=== PATIENT | male | born 1985 | race Caucasian/White ===

== ENCOUNTER 2017-08-05 23:38 | Emergency (ER) | payer OTHER ==
[2017-08-05 23:44] VITALS: RESP 20; TEMP 99.2
[2017-08-06] MEDS ORDERED: KETOROLAC 30 MG/ML 1 ML VIAL IVP STA (00:05)
--- NOTE | 2017-08-06 00:14 | ED ---
Abdominal Pain HPI - General Chief Complaint: Nausea/Vomiting/Diarrhea Stated Complaint: Vomiting,Back Pain Time Seen by Provider: 08/05/17 23:49 Source: patient Mode of arrival: ambulatory Limitations: no limitations - History of Present Illness Initial Comments: This patient is a 31-year-old man who presents to be evaluated for a number of symptoms. He states that he has been having intermittent right-sided abdominal pains, as well as noticing some bright red blood in the stool, and also having had gross hematuria. He states the symptoms have been intermittent since at least the summer, but he did not seek any attention as he did not have medical insurance until recently. The patient does have difficulty in characterizing the pain. He has not noted any factors that seem to improve the symptoms or exacerbate them. He denies weight loss. He has not had vomiting. MD Complaint: abdominal pain -: month(s) Location: RUQ Radiation: none Severity: severe Quality: aching Consistency: intermittent Improves With: nothing Worsens With: nothing - Related Data Home Medications Medication Instructions Recorded Confirmed Hydrocodone/Acetaminophen [Vicodin 1 each PO Q6HR PRN 12/28/14 12/28/14 Hp 10-300 mg Tablet] Previous Rx's Medication Instructions Recorded Acetaminophen-Codeine 300-30mg 1 each PO Q6H PRN #20 tablet 12/28/14 [Tylenol #3] Ibuprofen [Motrin] 600 mg PO Q6HR PRN #40 day 12/28/14 Dicyclomine [Bentyl] 20 mg PO QID #15 tablet 08/06/17 Famotidine [Pepcid] 20 mg PO BID #14 tablet 08/06/17 Allergies Allergy/AdvReac Type Severity Reaction Status Date / Time No Known Allergies Allergy Verified 08/05/17 23:44 Review of Systems ROS Statement: Those systems with pertinent positive or pertinent negative responses have been documented in the HPI. ROS Other: All systems not noted in ROS Statement are negative. Constitutional: Denies: fever, chills, weakness Respiratory: Denies: cough, dyspnea Cardiovascular: Denies: chest pain, palpitations, edema Gastrointestinal: Reports: as per HPI, abdominal pain, hematochezia. Denies: nausea, vomiting, diarrhea, constipation Genitourinary: Reports: as per HPI, hematuria Musculoskeletal: Denies: back pain Skin: Denies: rash Neurological: Denies: headache Hematological/Lymphatic: Denies: easy bleeding Past Medical History Past Medical History: GERD/Reflux Additional Past Medical History / Comment(s): back pain History of Any Multi-Drug Resistant Organisms: None Reported Past Surgical History: Orthopedic Surgery Additional Past Surgical History / Comment(s): left hand Past Psychological History: No Psychological Hx Reported Smoking Status: Current every day smoker Past Alcohol Use History: Occasional Past Drug Use History: Marijuana General Exam Limitations: no limitations General appearance: alert, in no apparent distress Head exam: Present: atraumatic, normocephalic Eye exam: Present: normal appearance. Absent: scleral icterus, conjunctival injection ENT exam: Present: normal oropharynx, mucous membranes moist, other (Partially edentulous) Neck exam: Present: normal inspection Respiratory exam: Present: normal lung sounds bilaterally. Absent: respiratory distress, wheezes, rales, rhonchi, stridor Cardiovascular Exam: Present: regular rate, normal rhythm, normal heart sounds. Absent: systolic murmur, diastolic murmur, rubs, gallop GI/Abdominal exam: Present: soft, normal bowel sounds. Absent: distended, tenderness, guarding, rebound, rigid, mass, pulsatile mass, hernia Extremities exam: Present: normal inspection, normal capillary refill, other ( Postsurgical changes left hand, digits 234 and amputated). Absent: pedal edema , calf tenderness Back exam: Present: normal inspection. Absent: CVA tenderness (R), CVA tenderness (L) Neurological exam: Present: alert, normal gait Skin exam: Present: warm, dry, intact, normal color. Absent: rash Course Vital Signs 08/05/17 08/06/17 23:41 01:29 Temperature 99.2 F Pulse Rate 105 H 76 Respiratory 20 20 Rate Blood Pressure 174/70 109/59 O2 Sat by Pulse 100 96 Oximetry Medical Decision Making - Lab Data Result diagrams: 08/06/17 00:07 08/06/17 00:07 Lab Results 08/06/17 08/06/17 08/06/17 Range/Units 00:07 00:07 00:57 WBC 10.9 H (3.8-10.6) k/uL RBC 4.38 (4.30-5.90) m/uL Hgb 13.7 (13.0-17.5) gm/dL Hct 39.1 (39.0-53.0) % MCV 89.3 (80.0-100.0) fL MCH 31.3 (25.0-35.0) pg MCHC 35.0 (31.0-37.0) g/dL RDW 12.2 (11.5-15.5) % Plt Count 260 (150-450) k/uL Neutrophils % 72 % Lymphocytes % 17 % Monocytes % 6 % Eosinophils % 2 % Basophils % 0 % Neutrophils # 7.9 H (1.3-7.7) k/uL Lymphocytes # 1.8 (1.0-4.8) k/uL Monocytes # 0.7 (0-1.0) k/uL Eosinophils # 0.2 (0-0.7) k/uL Basophils # 0.0 (0-0.2) k/uL Sodium 138 (137-145) mmol/L Potassium 3.9 (3.5-5.1) mmol/L Chloride 103 (98-107) mmol/L Carbon Dioxide 25 (22-30) mmol/L Anion Gap 10 mmol/L BUN 20 (9-20) mg/dL Creatinine 1.00 (0.66-1.25) mg/dL Est GFR (CKD-EPI)AfAm >90 (>60 ml/min/1.73 sqM) Est GFR (CKD-EPI)NonAf >90 (>60 ml/min/1.73 sqM) Glucose 75 (74-99) mg/dL Calcium 9.7 (8.4-10.2) mg/dL Total Bilirubin 0.3 (0.2-1.3) mg/dL AST 37 (17-59) U/L ALT 29 (21-72) U/L Alkaline Phosphatase 52 (38-126) U/L Total Protein 6.5 (6.3-8.2) g/dL Albumin 4.0 (3.5-5.0) g/dL Amylase 47 (30-110) U/L Lipase 156 (23-300) U/L Urine Color Light Yellow Urine Appearance Clear (Clear) Urine pH 6.5 (5.0-8.0) Ur Specific [place] 1.005 (1.001-1.035) Urine Protein Negative (Negative) Urine Glucose (UA) Negative (Negative) Urine Ketones Negative (Negative) Urine Blood Negative (Negative) Urine Nitrite Negative (Negative) Urine Bilirubin Negative (Negative) Urine Urobilinogen <2.0 (<2.0) mg/dL Ur Leukocyte Esterase Negative (Negative) Disposition Clinical Impression: Abdominal pain Disposition: HOME SELF-CARE Condition: Good Instructions: Abdominal Pain (ED) Prescriptions: Dicyclomine [Bentyl] 20 mg PO QID #15 tablet Famotidine [Pepcid] 20 mg PO BID #14 tablet Referrals: Karen Galvin MD [Primary Care Provider] - 1-2 days Neva Aguilar MD [STAFF PHYSICIAN] - 1-2 days
[2017-08-06 00:26] LABS: Basophils % (A) 0 %; Eosinophils # (A) 0.2 k/uL (0-0.7); Eosinophils % (A) 2 %; HCT 39.1 % (39.0-53.0); HGB 13.7 gm/dL (13.0-17.5); Lymphocytes # (A) 1.8 k/uL (1.0-4.8); Lymphocytes % (A) 17 %; MCH 31.3 pg (25.0-35.0); MCV 89.3 fL (80.0-100.0); Mean Platelet Volume 7.1; Monocytes # (A) 0.7 k/uL (0-1.0); Monocytes % (A) 6 %; Neutrophils # (A) 7.9 k/uL (1.3-7.7); Neutrophils % (A) 72 %; Platelet Count 260 k/uL (150-450); RBC 4.38 m/uL (4.30-5.90); RDW 12.2 % (11.5-15.5); WBC 10.9 k/uL (3.8-10.6)
[2017-08-06 00:30] LABS: ALT 29 U/L (21-72); AST 37 U/L (17-59); Alkaline Phosphatase 52 U/L (38-126); Amylase 47 U/L (30-110); Anion Gap 10 mmol/L; Blood Urea Nitrogen 20 mg/dL (9-20); Calcium 9.7 mg/dL (8.4-10.2); Carbon Dioxide 25 mmol/L (22-30); Chloride 103 mmol/L (98-107); Glucose 75 mg/dL (74-99); Lipase 156 U/L (23-300); Potassium 3.9 mmol/L (3.5-5.1); Sodium 138 mmol/L (137-145); Total Bilirubin 0.3 mg/dL (0.2-1.3); Total Protein 6.5 g/dL (6.3-8.2)
--- NOTE | 2017-08-06 00:51 | CT ---
EXAMINATION TYPE: CT abdomen pelvis wo con DATE OF EXAM: 08/06/2017 COMPARISON: NONE HISTORY: Rt. Flank Pain CT DLP: 297.40 mGycm Automated exposure control for dose reduction was used. TECHNIQUE: Helical acquisition of images was performed from the lung bases through the pelvis. FINDINGS: Lung bases are clear. There is no pleural effusion. There is no pericardial effusion. Heart size is n ormal. Liver spleen pancreas appear normal. Bile ducts are not dilated. Gallbladder appears normal. There is no hydronephrosis. There is no adrenal mass. There is no evidence of a renal type ileus. The re is no evidence of intestinal wall thickening or dilated loops. Bladder distends smoothly. There is no evidence of a pelvic mass. Exam is limited by lack of any oral contrast. Retroperitoneal adenopathy cannot be excluded. There is lack of intra-abdominal fat and retroperitone um is not well evaluated. I see no bony destructive process. Urinary bladder is large and measures 13 cm in length. Appendix is not well seen. There is no sign of appendicitis.: IMPRESSION: EXAM LIMITED DUE TO LACK OF ANY ORAL CONTRAST. RETROPERITONEAL ADENOPATHY CANNOT BE EXCLUDED. NO EVID ENCE OF RENAL STONE OR OBSTRUCTION. NO SIGN OF APPENDICITIS. LARGE URINARY BLADDER COULD RELATE TO BL ADDER OUTLET OBSTRUCTION.
[2017-08-06 01:09] LABS: Appearance,Urine Clear (Clear); Bilirubin,Urine Negative (Negative); Blood,Urine Negative (Negative); Color,Urine Light Yellow; Glucose,Urine (UA) Negative (Negative); Ketones,Urine Negative (Negative); Leukocyte Esterase,Urine Negative (Negative); PH, Urine 6.5 (5.0-8.0); Protein,Urine Negative (Negative); Specific Gravity,Urine 1.005 (1.001-1.035); Urobilinogen,Urine <2.0 mg/dL (<2.0)
[2017-08-06] MEDS ORDERED: DICYCLOMINE 20 MG TAB PO STA (01:21)
[2017-08-06 01:30] VITALS: BP 109/59; PULSE 76
== END 2017-08-06 02:24 | disposition home or self-care (01) ==
LOC: EC 23:38
DX: R10.11 Right upper quadrant pain (principal); M54.9 Dorsalgia, unspecified; K92.1 Melena; F17.200 Nicotine dependence, unspecified, uncomplicated
CPT/HCPCS: 51798; 36415; 80053; 82150; 83690; 85025; 81003; 74176; 99284; 96374; J1885

== ENCOUNTER 2017-11-30 17:17 | Emergency (ER) | payer OTHER ==
[2017-11-30 17:22] VITALS: RESP 18
--- NOTE | 2017-11-30 17:41 | ED ---
Upper Extremity HPI - General Chief Complaint: Extremity Injury, Upper Stated Complaint: Shot Wrist with framing gun Time Seen by Provider: 11/30/17 17:27 Source: patient, RN notes reviewed Mode of arrival: ambulatory Limitations: no limitations - History of Present Illness Initial Comments: This is a 32-year-old male who presents to the emergency department with chief complaint of left wrist injury. Patient states that yesterday while building a toy box his nail gun double shot and a nail became lodged in the base of his left palm. He states it was in a approximately 1 inch. He states that he pulled the nail out himself. Patient complains of increasing pain to his left wrist today. He does state that he has normal range of motion of the joint. States he is up-to-date with his tetanus vaccination. Denies any other injuries or trauma. Denies drug allergies. Denies fever, chills, chest pain, shortness of breath, abdominal pain, nausea or vomiting, numbness or tingling, headache or vision changes. - Related Data Previous Rx's Medication Instructions Recorded Cephalexin [Keflex] 500 mg PO Q12HR #20 cap 11/30/17 Ciprofloxacin HCl 500 mg PO BID 10 Days #20 tab 11/30/17 Allergies Allergy/AdvReac Type Severity Reaction Status Date / Time No Known Allergies Allergy Verified 08/05/17 23:44 Review of Systems ROS Statement: Those systems with pertinent positive or pertinent negative responses have been documented in the HPI. ROS Other: All systems not noted in ROS Statement are negative. Past Medical History Past Medical History: GERD/Reflux Additional Past Medical History / Comment(s): back pain History of Any Multi-Drug Resistant Organisms: None Reported Past Surgical History: Orthopedic Surgery Additional Past Surgical History / Comment(s): left hand Past Psychological History: No Psychological Hx Reported Smoking Status: Current every day smoker Past Alcohol Use History: Occasional Past Drug Use History: Marijuana General Exam - General Exam Comments Initial Comments: General: Awake and alert, well-developed; in no apparent distress. HEENT: Head atraumatic, normocephalic. Pupils are equal, round and reactive to light. Extraocular movements intact. Oropharynx moist without erythema or exudate. Neck: Supple. Normal ROM. Cardiovascular: Regular rate and rhythm. No murmurs, rubs or gallops. Chest symmetrical. Respiratory: Lungs clear to auscultation bilaterally. No wheezes, rales or rhonchi. Normal respiratory effort with no use of accessory muscles. Musculoskeletal: First and fifth digits are the only remaining fingers on the left hand. There is a small puncture wound noted to the palmar aspect base of the left hand. Patient's hands are covered in dirt. Normal range of motion of the left wrist and remaining digits, however tenderness is elicited. No swelling, erythema or warmth noted. Sensation is intact. Radial pulses are 2+ equal and palpable bilaterally. Skin: [place], warm and dry without rashes or lesions. Neurological: Alert and oriented x3. CN II-XII grossly intact. Speech is fluent and answers are appropriate. No focal neuro deficits. Psychiatric: Normal mood and affect. No overt signs of depression or anxiety noted. Limitations: no limitations Course Vital Signs 11/30/17 17:19 Temperature 98.2 F Pulse Rate 79 Respiratory 18 Rate Blood Pressure 122/73 O2 Sat by Pulse 98 Oximetry Medical Decision Making - Medical Decision Making This is a 32-year-old male who presents to the emergency department with chief complaint of left wrist injury. Patient accidentally shot a nail into the palm of his left hand yesterday. Patient complains of increase in pain today. He does have normal range of motion of the left wrist and remaining digits 1 and 5. No swelling, erythema or warmth noted. He is neurovascularly intact. X- ray of the left was obtained and revealed no evidence for acute fractures or dislocations. It did reveal generalized soft tissue swelling. Patient states he is up-to-date with his tetanus vaccination. Patient's hands were covered in dirt. The wound was soaked in iodine and was extensively cleansed. Recommended warm Epson salt soaks. Patient will be started on Keflex to cover staph and ciprofloxacin to cover pseudomonas. Vital signs are stable and he is in no acute distress. Recommend following up with his primary care provider. He'll be discharged home at this time. He is in agreement with plan and voices understanding. All questions answered. - Radiology Data Radiology results: report reviewed X-ray left wrist impression: There is no acute fracture or dislocation the left wrist. Generalized soft tissue swelling. No metallic foreign body. Disposition Clinical Impression: Puncture wound, hand Disposition: HOME SELF-CARE Condition: Good Instructions: Puncture Wound (ED) Additional Instructions: Please take medications as prescribed. Please perform daily Epson salt soaks. Please follow up with primary care provider within 1-2 days. Return to emergency department if symptoms should worsen or any concerns arise. Prescriptions: Cephalexin [Keflex] 500 mg PO Q12HR #20 cap Ciprofloxacin HCl 500 mg PO BID 10 Days #20 tab Is patient prescribed a controlled substance at d/c from ED?: No Referrals: Karen Galvin MD [Primary Care Provider] - 1-2 days Time of Disposition: 18:31
[2017-11-30] MEDS ORDERED: CIPROFLOXACIN HCL 250 MG TAB PO STA (17:45)
[2017-11-30] MEDS ORDERED: CEPHALEXIN 500 MG CAP PO STA (17:46)
--- NOTE | 2017-11-30 18:08 | XR ---
EXAMINATION TYPE: XR wrist complete LT DATE OF EXAM: 11/30/2017 CLINICAL HISTORY: Shot with nail gun yesterday TECHNIQUE: Frontal, lateral and oblique images of the left wrist are obtained. COMPARISON: None FINDINGS: There is no acute fracture/dislocation evident in the left wrist. The joint spaces in the wrist appe ar within normal limits. Generalized soft tissue is present. No metallic foreign body.. IMPRESSION: There is no acute fracture or dislocation in the left wrist. Generalized soft tissue swelling. No me tallic foreign body.
[2017-11-30] MEDS ORDERED: IBUPROFEN 600 MG TAB PO STA (18:27)
[2017-11-30 18:37] VITALS: BP 134/78; PULSE 70; TEMP 98.4
== END 2017-11-30 18:45 | disposition home or self-care (01) ==
LOC: EC 17:17
DX: S61.432A Puncture wound without foreign body of left hand, initial encounter (principal); F17.200 Nicotine dependence, unspecified, uncomplicated; Z98.890 Other specified postprocedural states; W29.4XXA Contact with nail gun, initial encounter; Y93.89 Activity, other specified
CPT/HCPCS: 99283

== ENCOUNTER 2018-01-11 00:57 | Emergency (ER) | payer OTHER ==
--- NOTE | 2018-01-11 01:31 | ED ---
Chest Pain HPI - General Chief Complaint: Chest Pain Stated Complaint: Chest Pain Time Seen by Provider: 01/11/18 01:31 Source: patient Mode of arrival: wheelchair Limitations: no limitations - History of Present Illness Initial Comments: Festus is a 32-year-old male who presents to the ED today for evaluation of right- sided shoulder and chest wall pain as well as concern that he has a metal foreign body in his left eye. 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 He states that for the past 2-3 weeks he started experiencing pain in his right shoulder and his right chest wall. Pain is sharp in nature worse with movement, radiating through the right chest and into the right shoulder and right neck. Pain improves with rest and worsens with any physical activity including heavy lifting or playing with his children. He reports he took some ibuprofen a couple of days ago doesn't feel that it affected the pain at all. He isn't every day smoker. He denies any cardiac history or history of early cardiac disease. He denies any history of pneumothorax or clotting disorders. She states that 5 days ago he was using a pigment grinder to grind metal. He states that he was wearing protective lenses however metal shavings were able to get into his eye. He reports that he had to metal shavings in his eye. He was able to remove one but one has remained in the eye. He states that he is having some photophobia and has noticed that you can see rest developing in his eye. Patient is nondiabetic. He does not wear contacts. - Related Data Previous Rx's Medication Instructions Recorded Cephalexin [Keflex] 500 mg PO Q12HR #20 cap 11/30/17 Ciprofloxacin HCl 500 mg PO BID 10 Days #20 tab 11/30/17 Allergies Allergy/AdvReac Type Severity Reaction Status Date / Time No Known Allergies Allergy Verified 01/11/18 01:01 Review of Systems ROS Statement: Those systems with pertinent positive or pertinent negative responses have been documented in the HPI. ROS Other: All systems not noted in ROS Statement are negative. Past Medical History Past Medical History: GERD/Reflux Additional Past Medical History / Comment(s): back pain History of Any Multi-Drug Resistant Organisms: None Reported Past Surgical History: Orthopedic Surgery Additional Past Surgical History / Comment(s): left hand Past Psychological History: No Psychological Hx Reported Smoking Status: Current every day smoker Past Alcohol Use History: Occasional Past Drug Use History: Marijuana General Exam Limitations: no limitations Course Vital Signs 01/11/18 01/11/18 01/11/18 00:59 02:09 03:07 Temperature 98 F 99.3 F Pulse Rate 97 95 81 Respiratory 18 16 18 Rate Blood Pressure 123/82 151/74 151/74 O2 Sat by Pulse 97 98 97 Oximetry Procedures - Procedures Initial comment: Foreign body removal from the left eye Patient's eye was anesthetized with proparacaine drops Metal foreign body was removed from the clock position on the iris of the left eye No rust ring remained after removal Erythromycin ointment was applied to the eye The patient tolerated procedure well with no immediate complications Chest Pain MDM - [facility] The patient was seen and evaluated, history was obtained from the patient. Patient with approximately 2-3 weeks of right-sided chest wall pain and right shoulder pain. Pain is worse with movement or palpation, pain resolves with rest. Patient has taken ibuprofen one time in the past week with no change in his pain. Pain is not associated with any exertional symptoms, there is no shortness of breath, diaphoresis, lightheadedness, near syncope. Patient is right-hand dominant and does have a very physically active job, and addition he does have 4 children under the age of 5 at home whom he plays with and has to carry frequently EKG is unremarkable normal sinus rhythm no evidence of acute ischemia or infarction Chest x-ray unremarkable no evidence of rib fractures, no pneumothorax, no pneumonia At this time I believe the patient's symptoms are secondary to musculoskeletal pain Physical exam also reveals a ocular foreign body, appears to be metal overlying the iris in the 5 o'clock position of the left eye. The eye was anesthetized with 4 body was removed and erythromycin ointment was applied. The importance of follow-up with ophthalmology was discussed with the patient. All questions pertaining to care were answered to the best of my ability patient was discharged home in stable condition. Patient was given erythromycin ointment in the ER, no further antibiotic prescription was necessary. Disposition Clinical Impression: Musculoskeletal pain, Corneal abrasion, Foreign body, eye Disposition: HOME SELF-CARE Condition: Good Instructions: Chest Pain (ED), Corneal Abrasion (ED) Is patient prescribed a controlled substance at d/c from ED?: No Referrals: None,Stated [Primary Care Provider] - 1-2 days Sandro Manzanares MD [STAFF PHYSICIAN] - 1-2 days Time of Disposition: 02:56
[2018-01-11] MEDS ORDERED: PROPARACAINE 0.5% OPHTH DROPS 15 ML BTL LEFT EYE STA (01:54)
[2018-01-11] MEDS ORDERED: ERYTHROMYCIN 5 MG/GM OPHTH OINT 3.5 GM TUBE LEFT EYE SCH (02:00)
[2018-01-11 02:13] VITALS: BP 151/74
--- NOTE | 2018-01-11 02:20 | XR ---
EXAMINATION TYPE: XR chest 2V DATE OF EXAM: 01/11/2018 COMPARISON: 12/28/2014 HISTORY: Chest pain TECHNIQUE: Frontal and lateral views of the chest are obtained. FINDINGS: Heart and mediastinum are normal. Lungs are clear. Diaphragm is normal. There are chest le ads. IMPRESSION: Normal chest. No change.
[2018-01-11 03:11] VITALS: PULSE 81; RESP 18; TEMP 99.3
--- NOTE | 2018-02-19 06:28 | CDI ---
Documentation Clarification OP Dear Dr. Akil Ceron Please complete eye(iris) foreign body removal procedure note. Thank you, Karina Alford Lead Installer If you have any questions, please contact [employer] at [phone] [facility]
== END 2018-01-11 03:10 | disposition home or self-care (01) ==
LOC: EC 00:57
DX: T15.02XA Foreign body in cornea, left eye, initial encounter (principal); M25.511 Pain in right shoulder; R07.89 Other chest pain; K21.9 Gastro-esophageal reflux disease without esophagitis; F17.200 Nicotine dependence, unspecified, uncomplicated; Y93.89 Activity, other specified
CPT/HCPCS: 65220; 71046; 93005; 99285

== ENCOUNTER 2018-10-07 16:11 | Emergency (ER) | payer OTHER ==
[2018-10-07 17:35] LABS: Appearance,Urine Clear (Clear); Bilirubin,Urine Negative (Negative); Blood,Urine Negative (Negative); Color,Urine Light Yellow; Glucose,Urine (UA) Negative (Negative); Ketones,Urine Negative (Negative); Leukocyte Esterase,Urine Large (Negative); Mucus,Urine Rare /hpf; Nitrite,Urine Negative (Negative); Protein,Urine Negative (Negative); RBC,Urine 1 /hpf (0-5); Specific Gravity,Urine 1.006 (1.001-1.035); Urobilinogen,Urine <2.0 mg/dL (<2.0)
[2018-10-07] MEDS ORDERED: cefTRIAXone 1,000 MG VIAL (IM USE) IM STA (17:45)
[2018-10-07] MEDS ORDERED: AZITHROMYCIN 250 MG TAB PO STA (17:45)
--- NOTE | 2018-10-07 17:52 | ED ---
Male Urogenital HPI - General Chief complaint: Urogenital Stated complaint: Urogenital Time Seen by Provider: 10/07/18 17:02 Source: patient, RN notes reviewed Mode of arrival: ambulatory Limitations: no limitations - History of Present Illness Initial comments: 33-year-old male presents emergency Department with chief complaint of dysuria. Patient states started last couple days. She has noticed some penile discharge. Patient states she had no concern up until now of possible STDs. Patient states she had no prior urinary tract infections denies any significant past medical history denies abdominal pain, fever, chills, flank pain. - Related Data Previous Rx's Medication Instructions Recorded Sulfamethox-Tmp 800-160Mg [Bactrim 1 each PO Q12HR #14 tab 10/07/18 Ds] Allergies Allergy/AdvReac Type Severity Reaction Status Date / Time No Known Allergies Allergy Verified 10/07/18 16:40 Review of Systems ROS Statement: Those systems with pertinent positive or pertinent negative responses have been documented in the HPI. ROS Other: All systems not noted in ROS Statement are negative. Past Medical History Past Medical History: GERD/Reflux Additional Past Medical History / Comment(s): back pain History of Any Multi-Drug Resistant Organisms: None Reported Past Surgical History: Orthopedic Surgery Additional Past Surgical History / Comment(s): left hand Past Psychological History: No Psychological Hx Reported Smoking Status: Current every day smoker Past Alcohol Use History: Occasional Past Drug Use History: Marijuana General Exam Limitations: no limitations General appearance: alert, in no apparent distress Head exam: Present: atraumatic, normocephalic, normal inspection Respiratory exam: Present: normal lung sounds bilaterally. Absent: respiratory distress, wheezes, rales, rhonchi, stridor Cardiovascular Exam: Present: regular rate, normal rhythm, normal heart sounds. Absent: systolic murmur, diastolic murmur, rubs, gallop, clicks GI/Abdominal exam: Present: soft, normal bowel sounds. Absent: distended, tenderness, guarding, rebound, rigid Back exam: Absent: CVA tenderness (R), CVA tenderness (L) Course Vital Signs 10/07/18 16:38 Temperature 99.3 F Pulse Rate 83 Respiratory 16 Rate Blood Pressure 122/78 O2 Sat by Pulse 98 Oximetry Medical Decision Making - Medical Decision Making 33-year-old female presented for dysuria. Patient does have 72 white cells on urinalysis. Patient we treated for gonorrhea chlamydia and discharged with Bactrim for possible urinary tract infection. Patient follow-up with PCP for recheck and return for any worsening symptoms. - Lab Data Lab Results 10/07/18 Range/Units 17:17 Urine Color Light Yellow Urine Appearance Clear (Clear) Urine pH 8.0 (5.0-8.0) Ur Specific [place] 1.006 (1.001-1.035) Urine Protein Negative (Negative) Urine Glucose (UA) Negative (Negative) Urine Ketones Negative (Negative) Urine Blood Negative (Negative) Urine Nitrite Negative (Negative) Urine Bilirubin Negative (Negative) Urine Urobilinogen <2.0 (<2.0) mg/dL Ur Leukocyte Esterase Large H (Negative) Urine RBC 1 (0-5) /hpf Urine WBC 72 H (0-5) /hpf Urine Mucus Rare H (None) /hpf Disposition Clinical Impression: UTI (urinary tract infection) Disposition: HOME SELF-CARE Condition: Stable Instructions (If sedation given, give patient instructions): Urinary Tract Infection in Men (ED) Additional Instructions: Please return to the Emergency Department if symptoms worsen or any other concerns. Prescriptions: Sulfamethox-Tmp 800-160Mg [Bactrim Ds] 1 each PO Q12HR #14 tab Is patient prescribed a controlled substance at d/c from ED?: No Referrals: None,Stated [Primary Care Provider] - 1-2 days Time of Disposition: 17:52
[2018-10-07 19:26] VITALS: BP 122/68; PULSE 78; RESP 18; TEMP 99
[2018-10-09 14:25] LABS: C. trachomatis,PCR Negative (Neg,Equiv); Chlamydia trachomatis Source Urine; N. gonorrhoeae,PCR Positive (Neg,Equiv); Neisseria Source Urine
== END 2018-10-07 19:20 | disposition home or self-care (01) ==
LOC: EC 16:11
DX: N39.0 Urinary tract infection, site not specified (principal); F17.200 Nicotine dependence, unspecified, uncomplicated
CPT/HCPCS: 81001; 87491; 87591; 87086; 99283; 96372; J0696

== ENCOUNTER 2020-04-03 10:34 | Emergency (ER) | payer OTHER ==
[2020-04-03] MEDS ORDERED: HYDROmorphone 0.5 MG/0.5 ML SYRINGE IVP STA (10:54)
[2020-04-03] MEDS ORDERED: KETOROLAC 15 MG/ML 1 ML VIAL IVP STA (10:54)
[2020-04-03] MEDS ORDERED: ONDANSETRON 4 MG/2 ML VIAL IVP STA (10:54)
[2020-04-03] MEDS ORDERED: SODIUM CHLORIDE 0.9% 2,000 ML IV STA (10:54)
--- NOTE | 2020-04-03 10:58 | ED ---
Abdominal Pain HPI - General Chief Complaint: Abdominal Pain Stated Complaint: Abd Pain Time Seen by Provider: 04/03/20 10:44 Source: patient, RN notes reviewed Mode of arrival: ambulatory Limitations: no limitations - History of Present Illness Initial Comments: 34-year-old male presents emergency Department with chief complaint of left lower quadrant abdominal pain. Patient states is a sudden onset of one hour ago. He has no history kidney stones. Patient states pain rates his left flank she's been nauseated no vomiting no diarrhea no constipation. Patient not take anything for his pain. Patient's behavior is erratic at this point and we'll not find much information. Some information provided by family member in the room no fevers or chills no chest pain. - Related Data Previous Rx's Medication Instructions Recorded Ciprofloxacin HCl [Cipro] 500 mg PO Q12HR #14 tablet 04/03/20 Ibuprofen [Motrin] 800 mg PO Q6HR #30 tab 04/03/20 Ondansetron Odt [Zofran Odt] 4 mg PO Q8HR PRN #10 tab 04/03/20 Tamsulosin [Flomax] 0.4 mg PO DAILY #7 cap 04/03/20 Allergies Allergy/AdvReac Type Severity Reaction Status Date / Time No Known Allergies Allergy Verified 04/03/20 11:54 Review of Systems ROS Statement: Those systems with pertinent positive or pertinent negative responses have been documented in the HPI. ROS Other: All systems not noted in ROS Statement are negative. Past Medical History Past Medical History: GERD/Reflux Additional Past Medical History / Comment(s): back pain History of Any Multi-Drug Resistant Organisms: None Reported Past Surgical History: Orthopedic Surgery Additional Past Surgical History / Comment(s): left hand Past Psychological History: No Psychological Hx Reported Smoking Status: Never smoker Past Alcohol Use History: Occasional Past Drug Use History: Marijuana General Exam Limitations: no limitations General appearance: alert, in distress (Patient appears in pain, erratic behavior.) Head exam: Present: atraumatic, normocephalic, normal inspection Neck exam: Present: normal inspection. Absent: tenderness, meningismus, lymphadenopathy Respiratory exam: Present: normal lung sounds bilaterally. Absent: respiratory distress, wheezes, rales, rhonchi, stridor Cardiovascular Exam: Present: regular rate, normal rhythm, normal heart sounds. Absent: systolic murmur, diastolic murmur, rubs, gallop, clicks GI/Abdominal exam: Present: soft, tenderness (Left lower quadrant), normal bowel sounds. Absent: distended, guarding, rebound, rigid Back exam: Absent: CVA tenderness (R), CVA tenderness (L) Neurological exam: Present: alert, oriented X3 Skin exam: Present: warm, dry, intact, normal color. Absent: rash Course Vital Signs 04/03/20 10:36 Temperature 97.8 F Pulse Rate 82 Respiratory 24 Rate Medical Decision Making - Medical Decision Making 34-year-old male presented for left flank pain patient has a 2-3 mm UVJ stone. Patient pain is improving states her still is some pain but feels comfortable with discharge with pain medication follow-up. Return parameters were discussed. - Lab Data Result diagrams: 04/03/20 11:12 04/03/20 11:12 Lab Results 04/03/20 04/03/20 04/03/20 Range/Units 11:12 11:12 11:12 WBC 6.1 (3.8-10.6) k/uL RBC 4.06 L (4.30-5.90) m/uL Hgb 12.9 L (13.0-17.5) gm/dL Hct 39.1 (39.0-53.0) % MCV 96.2 (80.0-100.0) fL MCH 31.8 (25.0-35.0) pg MCHC 33.1 (31.0-37.0) g/dL RDW 12.4 (11.5-15.5) % Plt Count 317 (150-450) k/uL Neutrophils % 52 % Lymphocytes % 30 % Monocytes % 7 % Eosinophils % 6 % Basophils % 0 % Neutrophils # 3.2 (1.3-7.7) k/uL Lymphocytes # 1.9 (1.0-4.8) k/uL Monocytes # 0.4 (0-1.0) k/uL Eosinophils # 0.4 (0-0.7) k/uL Basophils # 0.0 (0-0.2) k/uL Sodium 139 (137-145) mmol/L Potassium 3.8 (3.5-5.1) mmol/L Chloride 104 (98-107) mmol/L Carbon Dioxide 28 (22-30) mmol/L Anion Gap 7 mmol/L BUN 10 (9-20) mg/dL Creatinine 1.00 (0.66-1.25) mg/dL Est GFR (CKD-EPI)AfAm >90 (>60 ml/min/1.73 sqM) Est GFR (CKD-EPI)NonAf >90 (>60 ml/min/1.73 sqM) Glucose 171 H (74-99) mg/dL Calcium 9.6 (8.4-10.2) mg/dL Total Bilirubin 0.5 (0.2-1.3) mg/dL AST 30 (17-59) U/L ALT 15 (4-49) U/L Alkaline Phosphatase 44 (38-126) U/L Total Protein 6.9 (6.3-8.2) g/dL Albumin 4.3 (3.5-5.0) g/dL Lipase 209 (23-300) U/L Urine Color Jeanine Urine Appearance Clear (Clear) Urine pH 5.0 (5.0-8.0) Ur Specific [place] 1.035 (1.001-1.035) Urine Protein Negative (Negative) Urine Glucose (UA) 1+ H (Negative) Urine Ketones 1+ H (Negative) Urine Blood Negative (Negative) Urine Nitrite Negative (Negative) Urine Bilirubin 4+ H (Negative) Urine Urobilinogen 2.0 (<2.0) mg/dL Ur Leukocyte Esterase Small (Negative) Urine WBC 15 H (0-5) /hpf Ur Squamous Epith Cells 4 (0-4) /hpf Urine Mucus Many H (None) /hpf Disposition Clinical Impression: Renal calculus, left Disposition: HOME SELF-CARE Condition: Stable Instructions (If sedation given, give patient instructions): Kidney Stones (ED) Additional Instructions: Please return to the Emergency Department if symptoms worsen or any other concerns. Prescriptions: Ciprofloxacin HCl [Cipro] 500 mg PO Q12HR #14 tablet Tamsulosin [Flomax] 0.4 mg PO DAILY #7 cap Ibuprofen [Motrin] 800 mg PO Q6HR #30 tab Ondansetron Odt [Zofran Odt] 4 mg PO Q8HR PRN #10 tab PRN Reason: Nausea Is patient prescribed a controlled substance at d/c from ED?: No Referrals: None,Stated [Primary Care Provider] - 1-2 days Isak Dewey MD [STAFF PHYSICIAN] - 1-2 days Time of Disposition: 12:32
[2020-04-03 11:24] LABS: Basophils % (A) 0 %; Eosinophils # (A) 0.4 k/uL (0-0.7); Eosinophils % (A) 6 %; HCT 39.1 % (39.0-53.0); HGB 12.9 gm/dL (13.0-17.5); Lymphocytes # (A) 1.9 k/uL (1.0-4.8); Lymphocytes % (A) 30 %; MCH 31.8 pg (25.0-35.0); MCHC 33.1 g/dL (31.0-37.0); MCV 96.2 fL (80.0-100.0); Mean Platelet Volume 7.2; Monocytes # (A) 0.4 k/uL (0-1.0); Monocytes % (A) 7 %; Neutrophils # (A) 3.2 k/uL (1.3-7.7); Neutrophils % (A) 52 %; Platelet Count 317 k/uL (150-450); RBC 4.06 m/uL (4.30-5.90); RDW 12.4 % (11.5-15.5); WBC 6.1 k/uL (3.8-10.6)
[2020-04-03 11:26] LABS: Color,Urine Amber
[2020-04-03 11:27] LABS: Appearance,Urine Clear (Clear)
[2020-04-03 11:28] LABS: Protein,Urine Negative (Negative); Specific Gravity,Urine 1.035 (1.001-1.035)
[2020-04-03 11:29] LABS: Bilirubin,Urine 4+ (Negative); Blood,Urine Negative (Negative); Glucose,Urine (UA) 1+ (Negative); Ketones,Urine 1+ (Negative)
[2020-04-03 11:30] LABS: Leukocyte Esterase,Urine Small (Negative); Nitrite,Urine Negative (Negative)
[2020-04-03 11:32] LABS: Mucus,Urine Many /hpf; Squamous Epithelial Cell,Urine 4 /hpf (0-4); WBC,Urine 15 /hpf (0-5)
[2020-04-03 11:34] LABS: ALT 15 U/L (4-49); AST 30 U/L (17-59); African American GFR (CKD) >90 (>60 ml/min/1.73 sqM); Albumin 4.3 g/dL (3.5-5.0); Alkaline Phosphatase 44 U/L (38-126); Anion Gap 7 mmol/L; Blood Urea Nitrogen 10 mg/dL (9-20); Calcium 9.6 mg/dL (8.4-10.2); Carbon Dioxide 28 mmol/L (22-30); Chloride 104 mmol/L (98-107); Glucose 171 mg/dL (74-99); Lipase 209 U/L (23-300); Non-African American GFR(CKD) >90 (>60 ml/min/1.73 sqM); Potassium 3.8 mmol/L (3.5-5.1); Sodium 139 mmol/L (137-145); Total Bilirubin 0.5 mg/dL (0.2-1.3); Total Protein 6.9 g/dL (6.3-8.2)
--- NOTE | 2020-04-03 11:50 | CT ---
EXAMINATION TYPE: CT abdomen pelvis wo con DATE OF EXAM: 04/03/2020 HISTORY: Generalized pain, left flank pain per order. CT DLP: 505.6 mGycm. Automated Exposure Control for Dose Reduction was Utilized. TECHNIQUE: CT scan of the abdomen and pelvis is performed without oral or IV contrast. COMPARISON: CT abdomen and pelvis August 06, 2017 FINDINGS: Within the limitations of a non-contrast study, the following observations are made. LUNG BASES: No significant abnormality is appreciated. LIVER/GB: No significant abnormality is appreciated. PANCREAS: No significant abnormality is seen. SPLEEN: No significant abnormality is seen. ADRENALS: No significant abnormality is seen. KIDNEYS: There is obstructing 2 to 3 mm distal left ureter calculus axial image 70 and coronal image 58 causing mild left-sided hydronephrosis and proximal hydroureter. No right-sided renal calculi or h ydronephrosis. Some scattered bilateral pelvic phleboliths redemonstrated. BOWEL: No significant abnormality is seen. GENITAL ORGANS: No gross abnormality seen. LYMPH NODES: No greater than 1cm abdominal or pelvic lymph nodes are appreciated. OSSEOUS STRUCTURES: Mild facet arthropathy lower lumbar spine. OTHER: Tiny fat-containing umbilical hernia. IMPRESSION: There is 2 to 3 mm distal left ureter calculus causing mild left-sided hydronephrosis.
[2020-04-03] MEDS ORDERED: TAMSULOSIN 0.4 MG CAP.ER.24H PO STA (11:56)
[2020-04-03] MEDS ORDERED: HYDROmorphone 1 MG/ML 1 ML SYRINGE IVP STA (11:56)
[2020-04-03] MEDS ORDERED: ACET/COD 300 MG/30 MG STARTER PACK 6 TAB BTL PO STA (12:28)
[2020-04-03] MEDS ORDERED: cefTRIAXone IN SWFI 1,000 MG/10 ML SYRINGE IVP STA (12:30)
[2020-04-03 12:33] VITALS: BP 128/75; PULSE 97; RESP 18; TEMP 98.1
== END 2020-04-03 12:59 | disposition home or self-care (01) ==
LOC: EC 10:34
DX: N20.0 Calculus of kidney (principal)
CPT/HCPCS: 36415; 80053; 83690; 85025; 81001; 87086; 74176; 99284; 96374; 96375 ×3; 96376; 96361; J2405; J0696; J1170 ×2; J1885

== ENCOUNTER 2020-07-13 21:37 | Emergency (ER) | payer OTHER ==
[2020-07-13 21:45] VITALS: RESP 18
[2020-07-13] MEDS ORDERED: SODIUM CHLORIDE 0.9% 500 ML 500 ML IV STA (22:04)
[2020-07-13] MEDS ORDERED: ONDANSETRON 4 MG/2 ML VIAL IVP STA (22:05)
[2020-07-13] MEDS ORDERED: HYDROmorphone 1 MG/ML 1 ML SYRINGE IVP STA (22:05)
[2020-07-13 22:50] LABS: HCT 31.9 % (39.0-53.0); HGB 10.1 gm/dL (13.0-17.5); Hypochromasia Moderate; MCH 25.8 pg (25.0-35.0); MCHC 31.7 g/dL (31.0-37.0); MCV 81.4 fL (80.0-100.0); Platelet Count 404 k/uL (150-450); Poikilocytosis Slight; RBC 3.91 m/uL (4.30-5.90); RDW 14.9 % (11.5-15.5); WBC 8.6 k/uL (3.8-10.6)
[2020-07-13 23:02] LABS: INR 0.9 (<1.2); Partial Thromboplastin Time 22.8 sec (22.0-30.0); Prothrombin Time 10.2 sec (9.0-12.0)
--- NOTE | 2020-07-13 23:02 | ED ---
Abdominal Pain HPI - General Chief Complaint: Abdominal Pain Stated Complaint: abd pain Time Seen by Provider: 07/13/20 21:50 Source: patient Mode of arrival: wheelchair Limitations: no limitations - History of Present Illness Initial Comments: 34-year-old male patient presents to the emergency department today for evaluation of generalized abdominal pain and GI bleed. Patient states that he has had 6-7 bowel movements today contained bright red blood. Patient states that he has been having symptoms like this for months. He was seen and evaluated at [facility] recently states he underwent EGD and colonoscopy and was diagnosed with colitis and erosive esophagitis. States he did have to have 2 blood transfusions during that visit. He states that he was discharged, was unable to sweet pickle maker his prescriptions from the pharmacy so has not been on any medications. He believes one of the medications was a steroid Dosepak. He denies any fever or chills. Denies any previous surgeries on his abdomen. Denies use of NSAIDs. Denies alcohol or drug use. He is not taking pain medications at home. Patient denies any recent rash, cough, shortness of breath, chest pain, back pain, numbness, tingling, dizziness, weakness, hematuria, dysuria, urinary urgency, urinary frequency, headache, visual changes, or any other complaints. - Related Data Home Medications Medication Instructions Recorded Confirmed No Known Home Medications 07/13/20 07/13/20 Allergies Allergy/AdvReac Type Severity Reaction Status Date / Time No Known Allergies Allergy Verified 07/13/20 22:46 Review of Systems ROS Statement: Those systems with pertinent positive or pertinent negative responses have been documented in the HPI. ROS Other: All systems not noted in ROS Statement are negative. Past Medical History Past Medical History: GERD/Reflux Additional Past Medical History / Comment(s): back pain History of Any Multi-Drug Resistant Organisms: None Reported Past Surgical History: Orthopedic Surgery Additional Past Surgical History / Comment(s): left hand Past Psychological History: Anxiety Smoking Status: Current some day smoker Past Alcohol Use History: Occasional Past Drug Use History: None Reported, Marijuana General Exam Limitations: no limitations General appearance: alert, in no apparent distress, other (this is a well- developed, well-nourished adult male patient in no acute distress. ) ENT exam: Present: normal exam, normal oropharynx, mucous membranes moist Respiratory exam: Present: normal lung sounds bilaterally. Absent: respiratory distress, wheezes, rales, rhonchi, stridor Cardiovascular Exam: Present: regular rate, normal rhythm, normal heart sounds. Absent: systolic murmur, diastolic murmur, rubs, gallop, clicks GI/Abdominal exam: Present: soft, tenderness (generalized), normal bowel sounds. Absent: distended, guarding, rebound, rigid Rectal exam: Present: bloody stool, tenderness Neurological exam: Present: alert, oriented X3, CN II-XII intact Psychiatric exam: Present: normal affect, normal mood Skin exam: Present: warm, dry, intact, normal color. Absent: rash Course Vital Signs 07/13/20 07/13/20 07/14/20 21:41 23:00 00:06 Temperature 99.0 F 98.9 F Pulse Rate 116 H 91 87 Respiratory 18 18 18 Rate Blood Pressure 97/66 114/64 113/79 O2 Sat by Pulse 98 96 96 Oximetry Medical Decision Making - Medical Decision Making 34-year-old male patient presents to the emergency department today for evaluation of generalized abdominal pain and bloody stools. Physical examination did reveal generalized abdominal tenderness. He is afebrile, vital signs. Labs reviewed and did reveal normal white blood cell count 8.6, hemoglobin 10.1. Patient was recently admitted to [facility], did obtain records review the computed tomography scan which showed enteritis-type changes with thickening of the bowel. Patient did report that he had EGD and co lonoscopy which showed evidence for colitis. He was discharged with prescriptions however never filled the prescriptions. He is currently hemodynamically stable. Does feel comfortable being discharged home. He will sweet pickle maker his prescriptions tomorrow. Follow up with GI specialist. Return parameters are discussed in detail. He verbalizes understanding and agrees with this plan. Case discussed with my attending Dr. Ayon. - Lab Data Result diagrams: 07/13/20 22:15 07/13/20 22:26 Lab Results 07/13/20 07/13/20 07/13/20 Range/Units 22:15 22:15 22:26 WBC 8.6 (3.8-10.6) k/uL RBC 3.91 L (4.30-5.90) m/uL Hgb 10.1 L (13.0-17.5) gm/dL Hct 31.9 L (39.0-53.0) % MCV 81.4 (80.0-100.0) fL MCH 25.8 (25.0-35.0) pg MCHC 31.7 (31.0-37.0) g/dL RDW 14.9 (11.5-15.5) % Plt Count 404 (150-450) k/uL MPV 7.0 Neutrophils % (Manual) 43 % Band Neuts % (Manual) 4 % Lymphocytes % (Manual) 41 % Monocytes % (Manual) 11 % Basophils % (Manual) 1 % Neutrophils # (Manual) 4.00 (1.3-7.7) k/uL Lymphocytes # (Manual) 3.53 (1.0-4.8) k/uL Monocytes # (Manual) 0.95 (0-1.0) k/uL Basophils # (Manual) 0.09 (0-0.2) k/uL Nucleated RBCs 0 (0-0) /100 WBC Manual Slide Review Performed Hypochromasia Moderate Poikilocytosis Slight PT 10.2 (9.0-12.0) sec INR 0.9 (<1.2) APTT 22.8 (22.0-30.0) sec Sodium (137-145) mmol/L Potassium (3.5-5.1) mmol/L Chloride (98-107) mmol/L Carbon Dioxide (22-30) mmol/L Anion Gap mmol/L BUN (9-20) mg/dL Creatinine (0.66-1.25) mg/dL Est GFR (CKD-EPI)AfAm (>60 ml/min/1.73 sqM) Est GFR (CKD-EPI)NonAf (>60 ml/min/1.73 sqM) Glucose (74-99) mg/dL Plasma Lactic Acid Jeancarlos (0.7-2.0) mmol/L Calcium (8.4-10.2) mg/dL Magnesium (1.6-2.3) mg/dL Total Bilirubin (0.2-1.3) mg/dL AST (17-59) U/L ALT (4-49) U/L Alkaline Phosphatase (38-126) U/L Total Protein (6.3-8.2) g/dL Albumin (3.5-5.0) g/dL Lipase (23-300) U/L Blood Type B Positive Blood Type Confirm Blood Type Recheck No Previous Record Bld Type Recheck Status CABO Indicated Antibody Screen NEGATIVE Spec Expiration Date 07/16/2020 - 231407/13/20 07/13/20 07/13/20 Range/Units 22:26 22:26 23:24 WBC (3.8-10.6) k/uL RBC (4.30-5.90) m/uL Hgb (13.0-17.5) gm/dL Hct (39.0-53.0) % MCV (80.0-100.0) fL MCH (25.0-35.0) pg MCHC (31.0-37.0) g/dL RDW (11.5-15.5) % Plt Count (150-450) k/uL MPV Neutrophils % (Manual) % Band Neuts % (Manual) % Lymphocytes % (Manual) % Monocytes % (Manual) % Basophils % (Manual) % Neutrophils # (Manual) (1.3-7.7) k/uL Lymphocytes # (Manual) (1.0-4.8) k/uL Monocytes # (Manual) (0-1.0) k/uL Basophils # (Manual) (0-0.2) k/uL Nucleated RBCs (0-0) /100 WBC Manual Slide Review Hypochromasia Poikilocytosis PT (9.0-12.0) sec INR (<1.2) APTT (22.0-30.0) sec Sodium 135 L (137-145) mmol/L Potassium 4.1 (3.5-5.1) mmol/L Chloride 96 L (98-107) mmol/L Carbon Dioxide 31 H (22-30) mmol/L Anion Gap 8 mmol/L BUN 11 (9-20) mg/dL Creatinine 0.89 (0.66-1.25) mg/dL Est GFR (CKD-EPI)AfAm >90 (>60 ml/min/1.73 sqM) Est GFR (CKD-EPI)NonAf >90 (>60 ml/min/1.73 sqM) Glucose 130 H (74-99) mg/dL Plasma Lactic Acid Jeancarlos 1.9 (0.7-2.0) mmol/L Calcium 8.3 L (8.4-10.2) mg/dL Magnesium 1.8 (1.6-2.3) mg/dL Total Bilirubin 0.2 (0.2-1.3) mg/dL AST 17 (17-59) U/L ALT 12 (4-49) U/L Alkaline Phosphatase 49 (38-126) U/L Total Protein 6.3 (6.3-8.2) g/dL Albumin 3.1 L (3.5-5.0) g/dL Lipase 202 (23-300) U/L Blood Type Blood Type Confirm B Positive Blood Type Recheck Bld Type Recheck Status Antibody Screen Spec Expiration Date Disposition Clinical Impression: Abdominal pain, GI bleed Disposition: HOME SELF-CARE Condition: Good Instructions (If sedation given, give patient instructions): Gastrointestinal Bleeding (ED), Abdominal Pain (ED) Additional Instructions: Follow-up with GI specialist as soon as possible, call in the morning for an appointment. Return to the emergency department immediately if you have worsening bleeding or develop any dizziness or weakness. Obtain your prescript ion medications from [place] pharmacy and begin taking those as directed. Return to the emergency department for any new, worsening, or concerning symptoms. Is patient prescribed a controlled substance at d/c from ED?: No Referrals: Karen Galvin MD [Primary Care Provider] - 1-2 days Harris Kelly MD [STAFF PHYSICIAN] - 1-2 days Time of Disposition: 23:55
[2020-07-13 23:05] LABS: Potassium 4.1 mmol/L (3.5-5.1)
[2020-07-13 23:06] LABS: ALT 12 U/L (4-49); AST 17 U/L (17-59); African American GFR (CKD) >90 (>60 ml/min/1.73 sqM); Albumin 3.1 g/dL (3.5-5.0); Alkaline Phosphatase 49 U/L (38-126); Anion Gap 8 mmol/L; Blood Urea Nitrogen 11 mg/dL (9-20); Calcium 8.3 mg/dL (8.4-10.2); Carbon Dioxide 31 mmol/L (22-30); Chloride 96 mmol/L (98-107); Glucose 130 mg/dL (74-99); Lipase 202 U/L (23-300); Magnesium 1.8 mg/dL (1.6-2.3); Non-African American GFR(CKD) >90 (>60 ml/min/1.73 sqM); Sodium 135 mmol/L (137-145); Total Bilirubin 0.2 mg/dL (0.2-1.3); Total Protein 6.3 g/dL (6.3-8.2)
[2020-07-13 23:27] LABS: Band Neutrophils % 4 %; Basophils # (M) 0.09 k/uL (0-0.2); Lymphocytes # (M) 3.53 k/uL (1.0-4.8); Monocytes # (M) 0.95 k/uL (0-1.0); Neutrophils % (M) 43 %; Nucleated Red Blood Cells 0 /100 WBC (0-0); Total Cells Counted 100
[2020-07-13] MEDS ORDERED: methylPREDNISolone SOD SUCCI 125 MG/2 ML VIAL IV STA (23:55)
[2020-07-14 00:18] VITALS: BP 113/79; PULSE 87; TEMP 98.9
== END 2020-07-14 00:06 | disposition home or self-care (01) ==
LOC: EC 21:37
DX: K92.2 Gastrointestinal hemorrhage, unspecified (principal); F17.200 Nicotine dependence, unspecified, uncomplicated
CPT/HCPCS: 36415; 86900; 86901; 80053; 83605; 83690; 83735; 85025; 85610; 85730; 86850; 99284; 96374; 96375 ×2; 96361; J2930; J2405; J1170

== ENCOUNTER 2020-07-25 11:37 | Inpatient (IN) | payer OTHER ==
[2020-07-25] MEDS ORDERED: SODIUM CHLORIDE 0.9% 1,000 ML IV STA (12:29)
[2020-07-25] MEDS ORDERED: ONDANSETRON 4 MG/2 ML VIAL IVP STA (12:29)
[2020-07-25] MEDS ORDERED: MORPHINE SULFATE 4 MG/ML SYRINGE IV STA (12:29)
--- NOTE | 2020-07-25 12:34 | ED ---
General Adult HPI - General Chief complaint: Abdominal Pain Stated complaint: stomach pain Time Seen by Provider: 07/25/20 12:07 Source: patient, RN notes reviewed, old records reviewed Mode of arrival: ambulatory Limitations: no limitations - History of Present Illness Initial comments: 34-year-old male presenting for evaluation of generalized abdominal pain, and intermittent rectal bleeding. He was diagnosed with colitis at outside hospital and has had several ER visits as well as admission for abdominal pain and colitis over the past one month. He states he was prescribed medication but is unable to state exactly medications he is on. He denies fever. He's had some nausea but no vomiting. His pain is generalized. Additionally does have history of kidney stone. - Related Data Home Medications Medication Instructions Recorded Confirmed No Known Home Medications 07/13/20 07/13/20 Allergies Allergy/AdvReac Type Severity Reaction Status Date / Time No Known Allergies Allergy Verified 07/25/20 11:44 Review of Systems ROS Statement: Those systems with pertinent positive or pertinent negative responses have been documented in the HPI. ROS Other: All systems not noted in ROS Statement are negative. Past Medical History Past Medical History: GERD/Reflux Additional Past Medical History / Comment(s): back pain, colitis History of Any Multi-Drug Resistant Organisms: None Reported Past Surgical History: Orthopedic Surgery Additional Past Surgical History / Comment(s): left hand Past Psychological History: Anxiety Smoking Status: Current some day smoker Past Alcohol Use History: Occasional Past Drug Use History: None Reported, Marijuana General Exam Limitations: no limitations General appearance: alert, in no apparent distress Head exam: Present: atraumatic, normocephalic Eye exam: Present: normal appearance, PERRL ENT exam: Present: mucous membranes dry Neck exam: Present: normal inspection. Absent: tenderness, meningismus Respiratory exam: Present: normal lung sounds bilaterally. Absent: respiratory distress, wheezes Cardiovascular Exam: Present: regular rate, normal rhythm GI/Abdominal exam: Present: soft, tenderness. Absent: distended, guarding, rebound, rigid Extremities exam: Present: normal inspection, normal capillary refill. Absent: pedal edema Neurological exam: Present: alert, oriented X3, CN II-XII intact. Absent: motor sensory deficit Psychiatric exam: Present: normal affect, normal mood Skin exam: Present: warm, dry, intact. Absent: cyanosis, diaphoretic Course Vital Signs 07/25/20 07/25/20 11:44 14:08 Temperature 98.4 F 98.7 F Pulse Rate 96 80 Respiratory 18 18 Rate Blood Pressure 121/65 104/60 O2 Sat by Pulse 98 98 Oximetry Medical Decision Making - Medical Decision Making 34-year-old male with steroids abdominal pain, rectal bleeding, he states that he's been told he has colitis but has not been given a specific diagnosis of Crohn's or ulcerative colitis. He states he had a previous admission that did require transfusion secondary to anemia at an outside hospital. Today's hemoglobin is 7.7 which has dropped from 10. He has a normal white blood cell count. CT confirming colitis. He is given IV fluids, symptomatic control, IV steroids. He will be admitted for rehydration, pain control, and GI consultation. Case discussed with Dr. Parsons, who will admit. - Lab Data Result diagrams: 07/25/20 12:55 07/25/20 12:55 Lab Results 07/25/20 07/25/20 07/25/20 Range/Units 12:55 12:55 12:55 WBC 7.7 (3.8-10.6) k/uL RBC 3.10 L (4.30-5.90) m/uL Hgb 7.9 L D (13.0-17.5) gm/dL Hct 24.3 L (39.0-53.0) % MCV 78.2 L (80.0-100.0) fL MCH 25.5 (25.0-35.0) pg MCHC 32.5 (31.0-37.0) g/dL RDW 15.8 H (11.5-15.5) % Plt Count 556 H (150-450) k/uL MPV 7.6 Neutrophils % 71 % Lymphocytes % 18 % Monocytes % 8 % Eosinophils % 0 % Basophils % 0 % Neutrophils # 5.5 (1.3-7.7) k/uL Lymphocytes # 1.4 (1.0-4.8) k/uL Monocytes # 0.7 (0-1.0) k/uL Eosinophils # 0.0 (0-0.7) k/uL Basophils # 0.0 (0-0.2) k/uL Hypochromasia Marked Poikilocytosis Moderate Microcytosis Slight PT 10.3 (9.0-12.0) sec INR 1.0 (<1.2) APTT 21.5 L (22.0-30.0) sec Sodium (137-145) mmol/L Potassium (3.5-5.1) mmol/L Chloride (98-107) mmol/L Carbon Dioxide (22-30) mmol/L Anion Gap mmol/L BUN (9-20) mg/dL Creatinine (0.66-1.25) mg/dL Est GFR (CKD-EPI)AfAm (>60 ml/min/1.73 sqM) Est GFR (CKD-EPI)NonAf (>60 ml/min/1.73 sqM) Glucose (74-99) mg/dL Plasma Lactic Acid Jeancarlos (0.7-2.0) mmol/L Calcium (8.4-10.2) mg/dL Total Bilirubin (0.2-1.3) mg/dL AST (17-59) U/L ALT (4-49) U/L Alkaline Phosphatase (38-126) U/L Total Protein (6.3-8.2) g/dL Albumin (3.5-5.0) g/dL Amylase (30-110) U/L Lipase (23-300) U/L Urine Color Yellow Urine Appearance Clear (Clear) Urine pH 5.5 (5.0-8.0) Ur Specific [place] 1.027 (1.001-1.035) Urine Protein 1+ H (Negative) Urine Glucose (UA) Negative (Negative) Urine Ketones Trace H (Negative) Urine Blood Negative (Negative) Urine Nitrite Negative (Negative) Urine Bilirubin Negative (Negative) Urine Urobilinogen <2.0 (<2.0) mg/dL Ur Leukocyte Esterase Trace H (Negative) Urine RBC <1 (0-5) /hpf Urine WBC 2 (0-5) /hpf Ur Squamous Epith Cells <1 (0-4) /hpf Urine Mucus Many H (None) /hpf 07/25/20 07/25/20 Range/Units 12:55 12:55 WBC (3.8-10.6) k/uL RBC (4.30-5.90) m/uL Hgb (13.0-17.5) gm/dL Hct (39.0-53.0) % MCV (80.0-100.0) fL MCH (25.0-35.0) pg MCHC (31.0-37.0) g/dL RDW (11.5-15.5) % Plt Count (150-450) k/uL MPV Neutrophils % % Lymphocytes % % Monocytes % % Eosinophils % % Basophils % % Neutrophils # (1.3-7.7) k/uL Lymphocytes # (1.0-4.8) k/uL Monocytes # (0-1.0) k/uL Eosinophils # (0-0.7) k/uL Basophils # (0-0.2) k/uL Hypochromasia Poikilocytosis Microcytosis PT (9.0-12.0) sec INR (<1.2) APTT (22.0-30.0) sec Sodium 131 L (137-145) mmol/L Potassium 5.8 H (3.5-5.1) mmol/L Chloride 100 (98-107) mmol/L Carbon Dioxide 26 (22-30) mmol/L Anion Gap 5 mmol/L BUN 10 (9-20) mg/dL Creatinine 0.79 (0.66-1.25) mg/dL Est GFR (CKD-EPI)AfAm >90 (>60 ml/min/1.73 sqM) Est GFR (CKD-EPI)NonAf >90 (>60 ml/min/1.73 sqM) Glucose 124 H (74-99) mg/dL Plasma Lactic Acid Jeancarlos 1.5 (0.7-2.0) mmol/L Calcium 8.2 L (8.4-10.2) mg/dL Total Bilirubin 0.5 (0.2-1.3) mg/dL AST 39 (17-59) U/L ALT 10 (4-49) U/L Alkaline Phosphatase 30 L (38-126) U/L Total Protein 6.0 L (6.3-8.2) g/dL Albumin 2.8 L (3.5-5.0) g/dL Amylase 34 (30-110) U/L Lipase 207 (23-300) U/L Urine Color Urine Appearance (Clear) Urine pH (5.0-8.0) Ur Specific [place] (1.001-1.035) Urine Protein (Negative) Urine Glucose (UA) (Negative) Urine Ketones (Negative) Urine Blood (Negative) Urine Nitrite (Negative) Urine Bilirubin (Negative) Urine Urobilinogen (<2.0) mg/dL Ur Leukocyte Esterase (Negative) Urine RBC (0-5) /hpf Urine WBC (0-5) /hpf Ur Squamous Epith Cells (0-4) /hpf Urine Mucus (None) /hpf Disposition Clinical Impression: Abdominal pain, Colitis, Anemia Disposition: ADMITTED IP TO THIS HOSP Condition: Stable Is patient prescribed a controlled substance at d/c from ED?: No Referrals: None,Stated [Primary Care Provider] - 1-2 days Decision to Admit Reason: Admit from EC Decision Date: 07/25/20 Decision Time: 14:29
--- NOTE | 2020-07-25 13:15 | XR ---
EXAMINATION TYPE: XR KUB DATE OF EXAM: 07/25/2020 1:10 PM CLINICAL HISTORY: Abdominal pain. Blood in stool. TECHNIQUE: Two Upright KUB images of the abdomen are obtained. COMPARISON: CT abdomen and pelvis April 03, 2020. FINDINGS: Air-fluid level in mildly distended stomach. Some paucity of bowel gas. Gas seen in scatter ed nondistended small and large bowel loops. Slightly prominent gas-filled small bowel loop right mid abdomen centrally with air-fluid level. Some scattered air-fluid levels in the right pelvis. There i s no visceromegaly, pneumoperitoneum, or abnormal calcification appreciated. The lung bases are clear and the osseous structures are intact. IMPRESSION: Overall nonspecific but still favor nonobstructive bowel gas pattern.
[2020-07-25 13:30] LABS: Basophils % (A) 0 %; Eosinophils % (A) 0 %; HCT 24.3 % (39.0-53.0); Hypochromasia Marked; Lymphocytes # (A) 1.4 k/uL (1.0-4.8); Lymphocytes % (A) 18 %; MCH 25.5 pg (25.0-35.0); MCHC 32.5 g/dL (31.0-37.0); MCV 78.2 fL (80.0-100.0); Mean Platelet Volume 7.6; Microcytosis Slight; Monocytes # (A) 0.7 k/uL (0-1.0); Monocytes % (A) 8 %; Neutrophils # (A) 5.5 k/uL (1.3-7.7); Neutrophils % (A) 71 %; Platelet Count 556 k/uL (150-450); Poikilocytosis Moderate; RDW 15.8 % (11.5-15.5); WBC 7.7 k/uL (3.8-10.6)
[2020-07-25 13:43] LABS: ALT 10 U/L (4-49); AST 39 U/L (17-59); African American GFR (CKD) >90 (>60 ml/min/1.73 sqM); Albumin 2.8 g/dL (3.5-5.0); Alkaline Phosphatase 30 U/L (38-126); Amylase 34 U/L (30-110); Anion Gap 5 mmol/L; Blood Urea Nitrogen 10 mg/dL (9-20); Calcium 8.2 mg/dL (8.4-10.2); Carbon Dioxide 26 mmol/L (22-30); Chloride 100 mmol/L (98-107); Glucose 124 mg/dL (74-99); Lipase 207 U/L (23-300); Non-African American GFR(CKD) >90 (>60 ml/min/1.73 sqM); Sodium 131 mmol/L (137-145); Total Bilirubin 0.5 mg/dL (0.2-1.3)
[2020-07-25 13:48] LABS: Appearance,Urine Clear (Clear); Bilirubin,Urine Negative (Negative); Blood,Urine Negative (Negative); Color,Urine Yellow; Glucose,Urine (UA) Negative (Negative); Ketones,Urine Trace (Negative); Leukocyte Esterase,Urine Trace (Negative); Mucus,Urine Many /hpf; Nitrite,Urine Negative (Negative); PH, Urine 5.5 (5.0-8.0); Protein,Urine 1+ (Negative); RBC,Urine <1 /hpf (0-5); Specific Gravity,Urine 1.027 (1.001-1.035); Squamous Epithelial Cell,Urine <1 /hpf (0-4); Urobilinogen,Urine <2.0 mg/dL (<2.0); WBC,Urine 2 /hpf (0-5)
--- NOTE | 2020-07-25 13:48 | CT ---
EXAMINATION TYPE: CT abdomen pelvis w con DATE OF EXAM: 07/25/2020 COMPARISON: CT 04/03/2020 HISTORY: pain, hematuria CT DLP: 670.4 mGycm Automated exposure control for dose reduction was used. TECHNIQUE: Helical acquisition of images from the lung bases through the pelvis have been completed. CONTRAST: Performed without Oral Contrast and with IV Contrast, patient injected with 100 mL of Isovue 300. FINDINGS: LUNG BASES: No significant abnormality is appreciated. AORTA: No significant abnormality is appreciated. LIVER/GB: No significant abnormality is appreciated. PANCREAS: No significant abnormality is seen. SPLEEN: No significant abnormality is seen. ADRENALS: No significant abnormality is seen. KIDNEYS: Low dense focus within the right kidney midpole measures 1 cm and likely represents a cyst. No hydronephrosis or renal calculi, no evident ureteral calculus. REPRODUCTIVE ORGANS: Some calcification suspected along the region of the corpora cavernosa. BOWEL: Abnormal wall thickening noted within the colon diffusely. Multiple bowel loops in the pelvis show fluid-filled appearance with some foci of air in a poorly differentiated due to superimposition and redundancy. Proximal small bowel shows a somewhat prominent appearance with probable fluid-fille d appearance. FREE AIR: No Free Air visible. ASCITES: None visible. PELVIC ADENOPATHY: None visualized. RETROPERITONEAL ADENOPATHY: No Retroperitoneal Adenopathy visible. URINARY BLADDER: No significant abnormality is seen. OSSEOUS STRUCTURES: No significant abnormality is seen. IMPRESSION: CORRELATE FOR COLITIS. FINDINGS IN THE CORPORA CAVERNOSA ARE LIKELY INCIDENTAL. BOWEL LOOPS IN THE PE LVIS ARE POORLY DIFFERENTIATED, ORAL CONTRAST WITH SEDATION TIME FOR TRANSIT TO THE COLON COULD BE OF BENEFIT IF FISTULA FORMATION OR INFLAMMATORY CHANGE IS SUSPECTED WITHIN THE PELVIS.
[2020-07-25 13:50] LABS: Prothrombin Time 10.3 sec (9.0-12.0)
[2020-07-25 13:52] LABS: HGB 7.9 gm/dL (13.0-17.5)
[2020-07-25 13:54] LABS: Potassium 5.8 mmol/L (3.5-5.1)
[2020-07-25] MEDS ORDERED: methylPREDNISolone SOD SUCCI 125 MG/2 ML VIAL IV STA (14:18)
[2020-07-25 14:20] LABS: Partial Thromboplastin Time 21.5 sec (22.0-30.0)
[2020-07-25] MEDS ORDERED: MORPHINE SULFATE 4 MG/ML SYRINGE IV PRN (14:26)
[2020-07-25] MEDS ORDERED: ONDANSETRON 4 MG/2 ML VIAL IVP PRN ×2 (14:26→16:25)
[2020-07-25] MEDS ORDERED: NALOXONE 0.4 MG/ML 1 ML VIAL IV PRN (14:26)
[2020-07-25] MEDS: SODIUM CHLORIDE 0.9% 1,000 ML IV SCH ×2 (16:30→23:36)
--- NOTE | 2020-07-25 16:32 | P.HPIM ---
History of Present Illness H&P Date: 07/25/20 Chief Complaint: Abdominal pain and blood with stool This is a 34-year-old male with no significant past medical history who presented to the emergency room with abdominal pain, diarrhea, and blood in stool. Patient said that his symptoms started couple of month ago and is being getting progressively worse. He was hospitalized in [place] 4 weeks ago and at that time he underwent upper and lower endoscopy. He remembered being told that he has esophagitis and colitis. He did not have any follow-up afterward and did not get any biopsy result. He was never diagnosed with ulcerative colitis or Crohn's disease. For the last few days, patient reports severe abdominal pain that he rates 10 out of 10 all over his abdomen. He is also having frequent stools approximately 10 bowel movements per day are liquidy with some blood in his stool. He denies any fevers or chills. No nausea or vomiting. He was hungry at the time of my evaluation and was asking for food. Review of Systems Review of system: 14 points review of systems were obtained and were negative except to what were mentioned in the HPI. Past Medical History Past Medical History: GERD/Reflux Additional Past Medical History / Comment(s): back pain, colitis History of Any Multi-Drug Resistant Organisms: None Reported Past Surgical History: Orthopedic Surgery Additional Past Surgical History / Comment(s): left hand Past Psychological History: Anxiety Smoking Status: Current some day smoker Past Alcohol Use History: Occasional Past Drug Use History: None Reported, Marijuana Medications and Allergies Home Medications Medication Instructions Recorded Confirmed Type Famotidine [Pepcid] 20 mg PO BID PRN 07/25/20 07/25/20 History methylPREDNISolone Dose Pack See Taper PO DAILY 07/25/20 07/25/20 History [Medrol Dose Pack] Allergies Allergy/AdvReac Type Severity Reaction Status Date / Time No Known Allergies Allergy Verified 07/25/20 15:55 Physical Exam Vitals: Vital Signs Temp Pulse Resp BP Pulse Ox 07/25/20 14:08 98.7 F 80 18 104/60 98 07/25/20 11:44 98.4 F 96 18 121/65 98 Intake and Output 07/25/20 07/25/20 07/25/20 06:59 14:59 22:59 Other: Weight 70.307 kg General: The patient is awake and alert, in no distress Eye: there is normal conjunctiva bilaterally. Neck: The neck is supple, there is no JVD. Cardiovascular: Normal S1-S2, no S3-S4, no murmurs. Respiratory: Lungs clear to auscultation bilaterally Gastrointestinal: Abdomen is soft, there is moderate tenderness to palpation t hroughout the abdomen Musculoskeletal: There is no pedal edema. Neurological:. Speech is normal. Skin: Skin is warm and dry Results CBC & Chem 7: 07/25/20 12:55 07/25/20 12:55 Labs: Abnormal Lab Results - Last 24 Hours (Table) 07/25/20 07/25/20 07/25/20 Range/Units 12:55 12:55 12:55 RBC 3.10 L (4.30-5.90) m/uL Hgb 7.9 L D (13.0-17.5) gm/dL Hct 24.3 L (39.0-53.0) % MCV 78.2 L (80.0-100.0) fL RDW 15.8 H (11.5-15.5) % Plt Count 556 H (150-450) k/uL ESR (0-15) mm/hr APTT 21.5 L (22.0-30.0) sec Sodium (137-145) mmol/L Potassium (3.5-5.1) mmol/L Glucose (74-99) mg/dL Calcium (8.4-10.2) mg/dL Alkaline Phosphatase (38-126) U/L C-Reactive Protein (<10.0) mg/L Total Protein (6.3-8.2) g/dL Albumin (3.5-5.0) g/dL Urine Protein 1+ H (Negative) Urine Ketones Trace H (Negative) Ur Leukocyte Esterase Trace H (Negative) Urine Mucus Many H (None) /hpf 07/25/20 07/25/20 07/25/20 Range/Units 12:55 12:55 12:55 RBC (4.30-5.90) m/uL Hgb (13.0-17.5) gm/dL Hct (39.0-53.0) % MCV (80.0-100.0) fL RDW (11.5-15.5) % Plt Count (150-450) k/uL ESR 69 H (0-15) mm/hr APTT (22.0-30.0) sec Sodium 131 L (137-145) mmol/L Potassium 5.8 H (3.5-5.1) mmol/L Glucose 124 H (74-99) mg/dL Calcium 8.2 L (8.4-10.2) mg/dL Alkaline Phosphatase 30 L (38-126) U/L C-Reactive Protein 29.2 H (<10.0) mg/L Total Protein 6.0 L (6.3-8.2) g/dL Albumin 2.8 L (3.5-5.0) g/dL Urine Protein (Negative) Urine Ketones (Negative) Ur Leukocyte Esterase (Negative) Urine Mucus (None) /hpf Assessment and Plan Assessment: 1. Acute colitis, with concerns about IBD. Patient was given 125 mg IV Solu- Medrol in the ER. I would continue Solu-Medrol 40 mg every 8 hours. GI consulted for further evaluation. CRP mildly elevated. I requested medical records from [facility] including colonoscopy and EGD report and biopsy result. 2. Chronic blood loss anemia, most likely iron deficiency secondary to chronic GI bleed. We will continue to monitor closely and transfuse as needed for hemoglobin less than 7. 3. Hyperkalemia 4. Thrombocytosis, probably reactive 5. GI and DVT prophylaxis with IV Protonix and subcu heparin Today, I reviewed his medication list and lab work results. Continue IV fluid hydration with normal saline at 100 mL per hour. Repeat lab work in the morning. Awaiting GI evaluation.
[2020-07-25] MEDS: PANTOPRAZOLE 40 MG/10 ML VIAL IVP SCH (16:51)
[2020-07-25] MEDS: MORPHINE SULFATE 4 MG/ML SYRINGE IV PRN ×2 (19:46→23:31)
[2020-07-25] MEDS: HEPARIN SODIUM,PORCINE 5,000 UNIT/ML 1 ML VIAL SQ SCH (19:47)
[2020-07-25] MEDS: methylPREDNISolone SOD SUCCI 40 MG/ML 1 ML VIAL IV SCH (23:32)
[2020-07-26] MEDS: MORPHINE SULFATE 4 MG/ML SYRINGE IV PRN ×5 (03:24→21:12)
[2020-07-26 03:32] LABS: % Iron Saturation 0.33 (15.00-50.00); Iron <2 ug/dL (65-175); Total Iron Binding Capacity 299 ug/dL (228-460)
[2020-07-26] MEDS: methylPREDNISolone SOD SUCCI 40 MG/ML 1 ML VIAL IV SCH ×2 (07:53→15:44)
[2020-07-26] MEDS: HEPARIN SODIUM,PORCINE 5,000 UNIT/ML 1 ML VIAL SQ SCH ×2 (09:00→20:27)
[2020-07-26] MEDS: PANTOPRAZOLE 40 MG/10 ML VIAL IVP SCH ×2 (09:00→20:26)
[2020-07-26 09:43] LABS: African American GFR (CKD) 141.7 (60.0-200.0); Anion Gap 5.7 mmol/L (4.00-12.00); BUN/Creat Ratio 8.57 Ratio (12.00-20.00); Calcium 8.2 mg/dL (8.7-10.3); Carbon Dioxide 28.3 mmol/L (21.6-31.8); Magnesium 1.7 mg/dL (1.5-2.4); Non-African American GFR(CKD) 122.3 (60.0-200.0); Potassium 4.8 mmol/L (3.5-5.5)
[2020-07-26 09:59] LABS: Basophils # (A) 0.01 X 10*3/uL (0.00-0.10); Basophils % (A) 0.1 %; Eosinophils # (A) 0 X 10*3/uL (0.04-0.35); Eosinophils % (A) 0 %; HCT 21.4 % (39.6-50.0); HGB 6.2 g/dL (13.0-17.0); Hypochromasia (M) 2+; Lymphocytes # (A) 1.18 X 10*3/uL (0.90-5.00); Lymphocytes % (A) 12.1 %; MCH 23.9 pg (27.0-32.0); MCV 82.6 fL (80.0-97.0); Mean Platelet Volume 9.5 fL (9.5-12.2); Monocytes # (A) 0.57 X 10*3/uL (0.20-1.00); Monocytes % (A) 5.8 %; Neutrophils # (A) 7.97 X 10*3/uL (1.80-7.70); Neutrophils % (A) 81.4 %; Platelet Count 514 X 10*3/uL (140-440); RBC 2.59 X 10*6/uL (4.40-5.60); RDW 16.1 % (11.5-14.5); WBC 9.79 X 10*3/uL (4.50-10.00)
[2020-07-26] MEDS: SODIUM CHLORIDE 0.9% 1,000 ML IV SCH ×2 (10:32→20:27)
--- NOTE | 2020-07-26 12:35 | P.PN ---
Subjective Progress Note Date: 07/26/20 Patient reports no improvement in his abdominal pain today. He is having less bowel movement though. He is still noticing some blood with his stool. Hemoglobin this morning 6.3. Objective - Vital Signs Vital signs: Vital Signs Temp 98.1 F 07/26/20 07:55 Pulse 82 07/26/20 07:55 Resp 16 07/26/20 07:55 BP 141/74 07/26/20 08:19 Pulse Ox 98 07/26/20 07:55 Intake & Output 07/25/20 07/26/20 07/26/20 18:59 06:59 18:59 Intake Total 400 1700 320 Balance 400 1700 320 Weight 70.307 kg Intake: Intake, IV Titration 1200 Amount Sodium Chloride 0.9% 1, 1200 000 ml @ 100 mls/hr IV . Q10H [facility] Rx#:[id number] Oral 400 500 320 Other: Voiding Method Toilet # Voids 3 # Bowel Movements 2 - Exam General: The patient is awake and alert, in no distress Eye: there is normal conjunctiva bilaterally. Neck: The neck is supple, there is no JVD. Cardiovascular: Normal S1-S2, no S3-S4, no murmurs. Respiratory: Lungs clear to auscultation bilaterally Gastrointestinal: Abdomen is soft, there is moderate tenderness to palpation throughout the abdomen Musculoskeletal: There is no pedal edema. Neurological:. Speech is normal. Skin: Skin is warm and dry - Labs CBC & Chem 7: 07/26/20 05:10 07/26/20 05:10 Labs: Abnormal Lab Results - Last 24 Hours (Table) 07/25/20 07/25/20 07/25/20 Range/Units 12:55 12:55 12:55 RBC 3.10 L (4.30-5.90) m/uL Hgb 7.9 L D (13.0-17.5) gm/dL Hct 24.3 L (39.0-53.0) % MCV 78.2 L (80.0-100.0) fL MCH (27.0-32.0) pg MCHC (32.0-37.0) g/dL RDW 15.8 H (11.5-15.5) % Plt Count 556 H (150-450) k/uL Plt Count Comment Immature Gran # (0.00-0.04) X 10*3/uL Neutrophils # (1.80-7.70) X 10*3/uL Eosinophils # (0.04-0.35) X 10*3/uL ESR (0-15) mm/hr APTT 21.5 L (22.0-30.0) sec Sodium (137-145) mmol/L Potassium (3.5-5.1) mmol/L BUN (9.0-27.0) mg/dL BUN/Creatinine Ratio (12.00-20.00) Ratio Glucose (74-99) mg/dL Calcium (8.4-10.2) mg/dL Iron (65-175) ug/dL % Saturation (15.00-50.00) Alkaline Phosphatase (38-126) U/L C-Reactive Protein (<10.0) mg/L Total Protein (6.3-8.2) g/dL Albumin (3.5-5.0) g/dL Urine Protein 1+ H (Negative) Urine Ketones Trace H (Negative) Ur Leukocyte Esterase Trace H (Negative) Urine Mucus Many H (None) /hpf Crossmatch 07/25/20 07/25/20 07/25/20 Range/Units 12:55 12:55 12:55 RBC (4.30-5.90) m/uL Hgb (13.0-17.5) gm/dL Hct (39.0-53.0) % MCV (80.0-100.0) fL MCH (27.0-32.0) pg MCHC (32.0-37.0) g/dL RDW (11.5-15.5) % Plt Count (150-450) k/uL Plt Count Comment Immature Gran # (0.00-0.04) X 10*3/uL Neutrophils # (1.80-7.70) X 10*3/uL Eosinophils # (0.04-0.35) X 10*3/uL ESR 69 H (0-15) mm/hr APTT (22.0-30.0) sec Sodium 131 L (137-145) mmol/L Potassium 5.8 H (3.5-5.1) mmol/L BUN (9.0-27.0) mg/dL BUN/Creatinine Ratio (12.00-20.00) Ratio Glucose 124 H (74-99) mg/dL Calcium 8.2 L (8.4-10.2) mg/dL Iron (65-175) ug/dL % Saturation (15.00-50.00) Alkaline Phosphatase 30 L (38-126) U/L C-Reactive Protein 29.2 H (<10.0) mg/L Total Protein 6.0 L (6.3-8.2) g/dL Albumin 2.8 L (3.5-5.0) g/dL Urine Protein (Negative) Urine Ketones (Negative) Ur Leukocyte Esterase (Negative) Urine Mucus (None) /hpf Crossmatch 07/25/20 07/26/20 07/26/20 Range/Units 12:55 05:10 05:10 RBC 2.59 L (4.30-5.90) m/uL Hgb 6.2 L* (13.0-17.5) gm/dL Hct 21.4 L (39.0-53.0) % MCV (80.0-100.0) fL MCH 23.9 L (27.0-32.0) pg MCHC 29.0 L (32.0-37.0) g/dL RDW 16.1 H (11.5-15.5) % Plt Count 514 H (150-450) k/uL Plt Count Comment A Immature Gran # 0.06 H (0.00-0.04) X 10*3/uL Neutrophils # 7.97 H (1.80-7.70) X 10*3/uL Eosinophils # 0 L (0.04-0.35) X 10*3/uL ESR (0-15) mm/hr APTT (22.0-30.0) sec Sodium (137-145) mmol/L Potassium (3.5-5.1) mmol/L BUN 6.0 L (9.0-27.0) mg/dL BUN/Creatinine Ratio 8.57 L (12.00-20.00) Ratio Glucose 127 H (74-99) mg/dL Calcium 8.2 L (8.4-10.2) mg/dL Iron <2 L (65-175) ug/dL % Saturation 0.33 L (15.00-50.00) Alkaline Phosphatase (38-126) U/L C-Reactive Protein (<10.0) mg/L Total Protein (6.3-8.2) g/dL Albumin (3.5-5.0) g/dL Urine Protein (Negative) Urine Ketones (Negative) Ur Leukocyte Esterase (Negative) Urine Mucus (None) /hpf Crossmatch 07/26/20 07/26/20 07/26/20 Range/Units 08:42 08:42 10:28 RBC (4.30-5.90) m/uL Hgb (13.0-17.5) gm/dL Hct (39.0-53.0) % MCV (80.0-100.0) fL MCH (27.0-32.0) pg MCHC (32.0-37.0) g/dL RDW (11.5-15.5) % Plt Count (150-450) k/uL Plt Count Comment Immature Gran # (0.00-0.04) X 10*3/uL Neutrophils # (1.80-7.70) X 10*3/uL Eosinophils # (0.04-0.35) X 10*3/uL ESR 54 H (0-15) mm/hr APTT (22.0-30.0) sec Sodium (137-145) mmol/L Potassium (3.5-5.1) mmol/L BUN (9.0-27.0) mg/dL BUN/Creatinine Ratio (12.00-20.00) Ratio Glucose (74-99) mg/dL Calcium (8.4-10.2) mg/dL Iron (65-175) ug/dL % Saturation (15.00-50.00) Alkaline Phosphatase (38-126) U/L C-Reactive Protein 18.6 H (<10.0) mg/L Total Protein (6.3-8.2) g/dL Albumin (3.5-5.0) g/dL Urine Protein (Negative) Urine Ketones (Negative) Ur Leukocyte Esterase (Negative) Urine Mucus (None) /hpf Crossmatch See Detail Assessment and Plan Assessment: This is a 34-year-old male who presented to the emergency room with worsening abdominal pain, diarrhea, and blood with his stool. Patient was evaluated and admitted to the hospital for further management of his medical problems noted below. 1. Acute colitis, with concerns about IBD. Patient was given 125 mg IV Solu- Medrol in the ER. Continue Solu-Medrol 40 mg every 8 hours. GI consulted for further evaluation. CRP mildly elevated and trending down. I requested medical records from [facility] including colonoscopy and EGD report and biopsy result. 2. Acute on chronic Chronic blood loss anemia with iron deficiency, secondary to chronic GI bleed. 1 unit of PRBC transfusion schedule today. May consider IV iron infusion during this admission 3. Hyperkalemia, resolved 4. Thrombocytosis, probably reactive 5. GI and DVT prophylaxis with IV Protonix and subcu heparin Today, I reviewed his medication list and lab work results. Continue IV fluid hydration with normal saline at 100 mL per hour. Repeat lab work in the morning. Awaiting GI evaluation.
[2020-07-26] MEDS: BALSALAZIDE DISODIUM 750 MG CAPSULE PO SCH ×2 (15:44→20:27)
[2020-07-26 23:30] LABS: HCT 26.3 % (39.6-50.0); HGB 7.7 g/dL (13.0-17.0); MCH 24.3 pg (27.0-32.0); MCHC 29.3 g/dL (32.0-37.0); Mean Platelet Volume 9.8 fL (9.5-12.2); Platelet Count 633 X 10*3/uL (140-440); RBC 3.17 X 10*6/uL (4.40-5.60); RDW 16.3 % (11.5-14.5); WBC 9.82 X 10*3/uL (4.50-10.00)
[2020-07-27] MEDS: methylPREDNISolone SOD SUCCI 40 MG/ML 1 ML VIAL IV SCH ×4 (00:07→23:58)
[2020-07-27 00:55] LABS: Basophils # (M) 0 X 10*3/uL (0.00-0.10); Eosinophils # (M) 0 X 10*3/uL (0.04-0.35); Hypochromasia (M) 2+; Lymphocytes # (M) 1.67 X 10*3/uL (0.90-5.00); Monocytes # (M) 1.18 X 10*3/uL (0.20-1.00); Neutrophils # (M) 6.97 X 10*3/uL (2.00-8.90); Neutrophils % (M) 71 %
[2020-07-27] MEDS: MORPHINE SULFATE 4 MG/ML SYRINGE IV PRN ×6 (01:07→22:35)
[2020-07-27] MEDS: SODIUM CHLORIDE 0.9% 1,000 ML IV SCH ×2 (05:32→17:17)
[2020-07-27] MEDS: PANTOPRAZOLE 40 MG/10 ML VIAL IVP SCH ×2 (08:04→21:13)
[2020-07-27] MEDS: BALSALAZIDE DISODIUM 750 MG CAPSULE PO SCH ×3 (08:05→21:13)
[2020-07-27 09:16] LABS: HCT 26.6 % (39.6-50.0); HGB 7.8 g/dL (13.0-17.0); MCH 24.1 pg (27.0-32.0); MCHC 29.3 g/dL (32.0-37.0); MCV 82.4 fL (80.0-97.0); Mean Platelet Volume 9.6 fL (9.5-12.2); Platelet Count 638 X 10*3/uL (140-440); RBC 3.23 X 10*6/uL (4.40-5.60); RDW 16.3 % (11.5-14.5); WBC 8.33 X 10*3/uL (4.50-10.00)
[2020-07-27 09:49] LABS: African American GFR (CKD) 134.1 (60.0-200.0); Anion Gap 5.6 mmol/L (4.00-12.00); BUN/Creat Ratio 12.5 Ratio (12.00-20.00); Calcium 8.4 mg/dL (8.7-10.3); Carbon Dioxide 29.4 mmol/L (21.6-31.8); Non-African American GFR(CKD) 115.7 (60.0-200.0); Potassium 4.5 mmol/L (3.5-5.5)
[2020-07-27 10:01] LABS: Basophils # (A) 0.01 X 10*3/uL (0.00-0.10); Basophils % (A) 0.1 %; Eosinophils # (A) 0 X 10*3/uL (0.04-0.35); Eosinophils % (A) 0 %; Lymphocytes # (A) 1.35 X 10*3/uL (0.90-5.00); Lymphocytes % (A) 16.2 %; Monocytes # (A) 0.64 X 10*3/uL (0.20-1.00); Monocytes % (A) 7.7 %; Neutrophils # (A) 6.28 X 10*3/uL (1.80-7.70); Neutrophils % (A) 75.4 %
[2020-07-27 10:02] LABS: Hypochromasia (M) 2+
--- NOTE | 2020-07-27 11:18 | P.PN ---
Subjective Progress Note Date: 07/27/20 Principal diagnosis: Abdominal pain, rectal bleeding, colitis The patient is seen and examined sitting up in his bed. He states abdominal pain has improved. He states he is only having very small amounts of loose stool with small amount of bleeding. He denies any nausea or vomiting. States he is hungry. No fevers or chills through the night. Yesterday the patient had a drop in his hemoglobin to 6.2, he is status post 1 unit of PRBC. Hemoglobin today is 7.8. Objective - Vital Signs Vital signs: Vital Signs Temp 97.4 F L 07/27/20 07:50 Pulse 56 L 07/27/20 07:50 Resp 16 07/27/20 07:50 BP 103/56 07/27/20 07:50 Pulse Ox 99 07/27/20 07:50 Intake & Output 07/26/20 07/27/20 07/27/20 18:59 06:59 18:59 Intake Total 420 800 Balance 420 800 Intake: Intake, IV Titration 800 Amount Sodium Chloride 0.9% 1, 800 000 ml @ 100 mls/hr IV . Q10H [facility] Rx#:[id number] Oral 420 Blood Product 0 Rc As-1 Unit 0 [id number] Other: Voiding Method Toilet Toilet # Voids 1 # Bowel Movements 2 - Exam General appearance: The patient is alert, oriented, appears in no acute distress. HET: Head is normocephalic and atraumatic. Conjunctiva pink. Sclera anicteric. Neck: Supple without lymphadenopathy. Abdomen: Soft, mild abdominal tenderness, nondistended with bowel sounds. No guarding or rigidity. Extremities: Normal skin color and turgor. No pedal edema Skin: No rashes, no jaundice Neurological: No focal deficits. Alert and oriented 3. - Labs CBC & Chem 7: 07/27/20 05:18 07/27/20 05:18 Labs: Abnormal Lab Results - Last 24 Hours (Table) 07/26/20 07/26/20 07/26/20 Range/Units 08:42 10:28 16:56 RBC 3.17 L (4.40-5.60) X 10*6/uL Hgb 7.7 L (13.0-17.0) g/dL Hct 26.3 L (39.6-50.0) % MCH 24.3 L (27.0-32.0) pg MCHC 29.3 L (32.0-37.0) g/dL RDW 16.3 H (11.5-14.5) % Plt Count 633 H (140-440) X 10*3/uL Plt Count Comment INCREASED A Absolute Nucleated RBC 0.04 H (0.00-0.00) X 10*3/uL Immature Gran # (0.00-0.04) X 10*3/uL Monocytes # (Manual) 1.18 H (0.20-1.00) X 10*3/uL Eosinophils # (0.04-0.35) X 10*3/uL Eosinophils # (Manual) 0 L (0.04-0.35) X 10*3/uL NRBC/100 WBC Diff 0.4 H (0.0-0.0) /100 WBCS ESR 54 H (0-15) mm/hr Glucose (70-110) mg/dL Calcium (8.7-10.3) mg/dL Crossmatch See Detail 07/27/20 07/27/20 Range/Units 05:18 05:18 RBC 3.23 L (4.40-5.60) X 10*6/uL Hgb 7.8 L (13.0-17.0) g/dL Hct 26.6 L (39.6-50.0) % MCH 24.1 L (27.0-32.0) pg MCHC 29.3 L (32.0-37.0) g/dL RDW 16.3 H (11.5-14.5) % Plt Count 638 H (140-440) X 10*3/uL Plt Count Comment INCREASED A Absolute Nucleated RBC 0.02 H (0.00-0.00) X 10*3/uL Immature Gran # 0.05 H (0.00-0.04) X 10*3/uL Monocytes # (Manual) (0.20-1.00) X 10*3/uL Eosinophils # 0 L (0.04-0.35) X 10*3/uL Eosinophils # (Manual) (0.04-0.35) X 10*3/uL NRBC/100 WBC Diff 0.2 H (0.0-0.0) /100 WBCS ESR (0-15) mm/hr Glucose 116 H (70-110) mg/dL Calcium 8.4 L (8.7-10.3) mg/dL Crossmatch Assessment and Plan (1) Colitis Narrative/Plan: This is a 34-year-old male who presented to the emergency room with abdominal pain, diarrhea with blood in stool. Patient states his symptoms began over 4 weeks ago where he was seen at [facility] and underwent an upper and lower endoscopy. According to the patient EGD showed erosive esophagitis and colonoscopy colitis. The patient had no follow-up for biopsy results. He was discharged home on a Medrol Dosepak and antibiotics. His part of his admission CT of the abdomen showed normal wall thickening in the colon. Diffusely. Multiple bowel loops and pelvis show some foci of air. Proximal small bowel shows more prominent appearance with probable fluid-filled appearance. The patient was reporting he was having up to 10 loose and bloody bowel movements daily. Denies any nausea or vomiting. Records were requested from [facility] biopsy results showed evidence of esophagitis and colonoscopy showed olmedo colitis, biopsy consistent with irritable bowel disease. On admission patient had elevated CRP and sed rate 29.2 and 69 respectively. Current Visit: Yes Status: Acute Code(s): K52.9 - NONINFECTIVE GASTROENTERITIS AND COLITIS, UNSPECIFIED SNOMED Code(s): 94910109 (2) Abdominal pain Current Visit: Yes Status: Acute Code(s): R10.9 - UNSPECIFIED ABDOMINAL PAIN SNOMED Code(s): 47727280 (3) Anemia Current Visit: Yes Status: Acute Code(s): D64.9 - ANEMIA, UNSPECIFIED SNOMED Code(s): 425921565 (4) GI bleed Current Visit: Yes Status: Acute Code(s): K92.2 - GASTROINTESTINAL HEMORRHAGE, UNSPECIFIED SNOMED Code(s): 39602145 Plan: Supportive care Pain medication as needed, managed by primary medicine team May advance to clear liquid diet Protonix 40 mg twice a day Continue Solu-Medrol 40 mg every 8 hours Continue Balsalazide 2.25 mg 3 times a day Stool studies ordered Clostridium difficile negative Patient is status post 1 unit PRBC Daily CBC, transfuse for hemoglobin less than 7 Thank you for this consultation, we will continue to follow Dr. K Tumma I agree with the dictator's note, documented as a scribe by Crystal Condon.
[2020-07-27] MEDS: HEPARIN SODIUM,PORCINE 5,000 UNIT/ML 1 ML VIAL SQ SCH ×2 (12:36→21:12)
--- NOTE | 2020-07-27 13:43 | P.PN ---
Subjective Progress Note Date: 07/27/20 Patient is doing better today. Abdominal pain is improving. He had 3 bowel movements since last night. There is not much blood in his stool. Objective - Vital Signs Vital signs: Vital Signs Temp 97.4 F L 07/27/20 07:50 Pulse 56 L 07/27/20 07:50 Resp 16 07/27/20 07:50 BP 103/56 07/27/20 07:50 Pulse Ox 99 07/27/20 07:50 Intake & Output 07/26/20 07/27/20 07/27/20 18:59 06:59 18:59 Intake Total 730 800 Balance 730 800 Intake: Intake, IV Titration 800 Amount Sodium Chloride 0.9% 1, 800 000 ml @ 100 mls/hr IV . Q10H [facility] Rx#:[id number] Oral 420 Blood Product 310 Rc As-1 Unit 310 [id number] Other: Voiding Method Toilet Toilet # Voids 1 # Bowel Movements 2 - Exam General: The patient is awake and alert, in no distress Eye: there is normal conjunctiva bilaterally. Neck: The neck is supple, there is no JVD. Cardiovascular: Normal S1-S2, no S3-S4, no murmurs. Respiratory: Lungs clear to auscultation bilaterally Gastrointestinal: Abdomen is soft, nontender and nondistended Musculoskeletal: There is no pedal edema. Neurological:. Speech is normal. Skin: Skin is warm and dry - Labs CBC & Chem 7: 07/27/20 05:18 07/27/20 05:18 Labs: Abnormal Lab Results - Last 24 Hours (Table) 07/26/20 07/26/20 07/27/20 Range/Units 10:28 16:56 05:18 RBC 3.17 L 3.23 L (4.40-5.60) X 10*6/uL Hgb 7.7 L 7.8 L (13.0-17.0) g/dL Hct 26.3 L 26.6 L (39.6-50.0) % MCH 24.3 L 24.1 L (27.0-32.0) pg MCHC 29.3 L 29.3 L (32.0-37.0) g/dL RDW 16.3 H 16.3 H (11.5-14.5) % Plt Count 633 H 638 H (140-440) X 10*3/uL Plt Count Comment INCREASED A INCREASED A Absolute Nucleated RBC 0.04 H 0.02 H (0.00-0.00) X 10*3/uL Immature Gran # 0.05 H (0.00-0.04) X 10*3/uL Monocytes # (Manual) 1.18 H (0.20-1.00) X 10*3/uL Eosinophils # 0 L (0.04-0.35) X 10*3/uL Eosinophils # (Manual) 0 L (0.04-0.35) X 10*3/uL NRBC/100 WBC Diff 0.4 H 0.2 H (0.0-0.0) /100 WBCS Glucose (70-110) mg/dL Calcium (8.7-10.3) mg/dL Crossmatch See Detail 07/27/20 Range/Units 05:18 RBC (4.40-5.60) X 10*6/uL Hgb (13.0-17.0) g/dL Hct (39.6-50.0) % MCH (27.0-32.0) pg MCHC (32.0-37.0) g/dL RDW (11.5-14.5) % Plt Count (140-440) X 10*3/uL Plt Count Comment Absolute Nucleated RBC (0.00-0.00) X 10*3/uL Immature Gran # (0.00-0.04) X 10*3/uL Monocytes # (Manual) (0.20-1.00) X 10*3/uL Eosinophils # (0.04-0.35) X 10*3/uL Eosinophils # (Manual) (0.04-0.35) X 10*3/uL NRBC/100 WBC Diff (0.0-0.0) /100 WBCS Glucose 116 H (70-110) mg/dL Calcium 8.4 L (8.7-10.3) mg/dL Crossmatch Assessment and Plan Assessment: This is a 34-year-old male who presented to the emergency room with worsening abdominal pain, diarrhea, and blood with his stool. Patient was evaluated and admitted to the hospital for further management of his medical problems noted below. 1. Acute ulcerative colitis exacerbation, Patient was given 125 mg IV Solu- Medrol in the ER. Continue Solu-Medrol 40 mg every 8 hours. GI consulted for further evaluation. Patient was started on Colazal. CRP mildly elevated and trending down. Medical records from [facility] reviewed including EGD and colonoscopy. EGD showed evidence of esophagitis and colonoscopy showed olmedo colitis with biopsy consistent with IBD 2. Acute on chronic Chronic blood loss anemia with iron deficiency, secondary to chronic GI bleed. 1 unit of PRBC transfused. May consider IV iron infusion during this admission 3. Hyperkalemia, resolved 4. Thrombocytosis, probably reactive 5. GI and DVT prophylaxis with IV Protonix and subcu heparin Today, I reviewed his medication list and lab work results. Change normal saline to 50 mL per hour . Repeat lab work in the morning. Anticipate discharge home within the next day or 2
--- NOTE | 2020-07-27 14:50 | P.CONS ---
History of Present Illness - Reason for Consult Consult date: 07/26/20 Colitis Requesting physician: Marita Parsons - Chief Complaint Abdominal pain - History of Present Illness 34-year-old male with no significant past medical history who presented to the hospital due to complaints of abdominal pain. Patient reports symptoms of abdominal pain, diarrhea and blood per rectum. He reports up to 10 loose bowel movements daily with associated bright red blood per rectum. He also experiencing abdominal pain diffuse across his abdomen both on the right and left side of his colon. The patient went to [facility] for weeks ago for EGD and colonoscopy with findings at that time of erosive esophagitis, mild gastritis and pancolitis on 06/28/2020. Pathology from the procedure showed active colitis with features consistent with inflammatory bowel disease with crypt abscess on colonoscopy. The patient had been given a short steroid taper but continued to have symptoms of loose frequent bowel movements with associated blood and abdominal pain. He presented to the hospital where he was found to have abnormal wall thickening in the colon diffusely with multiple small bowel loops in the pelvis showing foci of air and with proximal small bowel loops which were fluid-filled. On presentation the patient had hemoglobin of 6.2 with amylase 34, lipase 207, alkaline phosphatase 30, total bilirubin 0.5, AST 39 and ALT 10 with CRP of 29.2 and a sedimentation rate of 54. Patient denies any family history of inflammatory bowel disease or chronicity of symptoms. Review of Systems REVIEW OF SYSTEMS: CONSTITUTIONAL: Denies any fevers, chills, weight change or fatigue. CARDIOVASCULAR: Denies any chest pain, palpitations high or low blood pressures RESPIRATORY: Denies any shortness of breath, hemoptysis or cough. GENITOURINARY: No dysuria or hematuria. MUSCULOSKELETAL: No weakness reported. SKIN: Denies any new rashes or lesions, jaundice or pallor. PSYCHIATRIC: Denies any depression or anxiety. NEUROLOGY: Denies headache, denies any new focal deficits. EARS/NOSE/THROAT: No recent hearing change, congestion, nasal discharge or sore throat. EYES: No pain in eyes, discharge or change in vision. GASTROINTESTINAL: As per HPI. Past Medical History Past Medical History: GERD/Reflux Additional Past Medical History / Comment(s): back pain, colitis History of Any Multi-Drug Resistant Organisms: None Reported Past Surgical History: Orthopedic Surgery Additional Past Surgical History / Comment(s): left hand Past Anesthesia/Blood Transfusion Reactions: No Reported Reaction Past Psychological History: Anxiety Smoking Status: Current some day smoker Past Alcohol Use History: Occasional Past Drug Use History: None Reported, Marijuana Additional Drug Use History / Comment(s): stated he stop smoking 2 months ago Additional History: Family history: Patient denies any family history of colon cancer or inflammatory bowel disease. Medications and Allergies Home Medications Medication Instructions Recorded Confirmed Type Famotidine [Pepcid] 20 mg PO BID PRN 07/25/20 07/25/20 History methylPREDNISolone Dose Pack See Taper PO DAILY 07/25/20 07/25/20 History [Medrol Dose Pack] Allergies Allergy/AdvReac Type Severity Reaction Status Date / Time No Known Allergies Allergy Verified 07/25/20 15:55 Physical Exam Vitals: Vital Signs Temp Pulse Pulse Resp BP BP Pulse Ox 07/26/20 08:19 141/74 07/26/20 07:55 98.1 F 82 16 95/47 98 07/26/20 02:00 99.2 F 84 18 110/65 97 07/25/20 19:53 97.6 F 69 17 121/70 99 07/25/20 16:40 98.3 F 88 17 119/71 99 07/25/20 14:08 98.7 F 80 18 104/60 98 07/25/20 11:44 98.4 F 96 18 121/65 98 Intake and Output 07/25/20 07/26/20 07/26/20 22:59 06:59 14:59 Intake Total 900 1200 320 Balance 900 1200 320 Intake: Intake, IV Titration 1200 Amount Sodium Chloride 0.9% 1, 1200 000 ml @ 100 mls/hr IV . Q10H [facility] Rx#:[id number] Oral 900 320 Other: Voiding Method Toilet # Voids 1 3 # Bowel Movements 2 2 Weight 70.307 kg On physical examination, patient appears comfortable in no apparent distress. HEAD: Normocephalic, atraumatic. EYES: No scleral icterus. No conjunctival injection. MOUTH: No lesions, tongue midline. NECK: Trachea midline, no gross abnormalities. CHEST: Clear to auscultation with no wheezing or rhonchi appreciated. HEART: Regular rate and rhythm. ABDOMEN: Soft, obese. Bowel sounds are positive. No organomegaly. No guarding or rigidity. EXTREMITIES: No pedal edema, patient is missing 3 digits from his left hand. SKIN: No rashes, no jaundice. NEUROLOGIC: Alert and oriented x3. No focal deficits. Results CBC & Chem 7: 07/27/20 05:18 07/27/20 05:18 Labs: Abnormal Lab Results - Last 24 Hours (Table) 07/25/20 07/25/20 07/25/20 Range/Units 12:55 12:55 12:55 RBC 3.10 L (4.30-5.90) m/uL Hgb 7.9 L D (13.0-17.5) gm/dL Hct 24.3 L (39.0-53.0) % MCV 78.2 L (80.0-100.0) fL MCH (27.0-32.0) pg MCHC (32.0-37.0) g/dL RDW 15.8 H (11.5-15.5) % Plt Count 556 H (150-450) k/uL Plt Count Comment Immature Gran # (0.00-0.04) X 10*3/uL Neutrophils # (1.80-7.70) X 10*3/uL Eosinophils # (0.04-0.35) X 10*3/uL ESR (0-15) mm/hr APTT 21.5 L (22.0-30.0) sec Sodium (137-145) mmol/L Potassium (3.5-5.1) mmol/L BUN (9.0-27.0) mg/dL BUN/Creatinine Ratio (12.00-20.00) Ratio Glucose (74-99) mg/dL Calcium (8.4-10.2) mg/dL Iron (65-175) ug/dL % Saturation (15.00-50.00) Alkaline Phosphatase (38-126) U/L C-Reactive Protein (<10.0) mg/L Total Protein (6.3-8.2) g/dL Albumin (3.5-5.0) g/dL Urine Protein 1+ H (Negative) Urine Ketones Trace H (Negative) Ur Leukocyte Esterase Trace H (Negative) Urine Mucus Many H (None) /hpf 07/25/20 07/25/20 07/25/20 Range/Units 12:55 12:55 12:55 RBC (4.30-5.90) m/uL Hgb (13.0-17.5) gm/dL Hct (39.0-53.0) % MCV (80.0-100.0) fL MCH (27.0-32.0) pg MCHC (32.0-37.0) g/dL RDW (11.5-15.5) % Plt Count (150-450) k/uL Plt Count Comment Immature Gran # (0.00-0.04) X 10*3/uL Neutrophils # (1.80-7.70) X 10*3/uL Eosinophils # (0.04-0.35) X 10*3/uL ESR 69 H (0-15) mm/hr APTT (22.0-30.0) sec Sodium 131 L (137-145) mmol/L Potassium 5.8 H (3.5-5.1) mmol/L BUN (9.0-27.0) mg/dL BUN/Creatinine Ratio (12.00-20.00) Ratio Glucose 124 H (74-99) mg/dL Calcium 8.2 L (8.4-10.2) mg/dL Iron (65-175) ug/dL % Saturation (15.00-50.00) Alkaline Phosphatase 30 L (38-126) U/L C-Reactive Protein 29.2 H (<10.0) mg/L Total Protein 6.0 L (6.3-8.2) g/dL Albumin 2.8 L (3.5-5.0) g/dL Urine Protein (Negative) Urine Ketones (Negative) Ur Leukocyte Esterase (Negative) Urine Mucus (None) /hpf 07/25/20 07/26/20 07/26/20 Range/Units 12:55 05:10 05:10 RBC 2.59 L (4.30-5.90) m/uL Hgb 6.2 L* (13.0-17.5) gm/dL Hct 21.4 L (39.0-53.0) % MCV (80.0-100.0) fL MCH 23.9 L (27.0-32.0) pg MCHC 29.0 L (32.0-37.0) g/dL RDW 16.1 H (11.5-15.5) % Plt Count 514 H (150-450) k/uL Plt Count Comment A Immature Gran # 0.06 H (0.00-0.04) X 10*3/uL Neutrophils # 7.97 H (1.80-7.70) X 10*3/uL Eosinophils # 0 L (0.04-0.35) X 10*3/uL ESR (0-15) mm/hr APTT (22.0-30.0) sec Sodium (137-145) mmol/L Potassium (3.5-5.1) mmol/L BUN 6.0 L (9.0-27.0) mg/dL BUN/Creatinine Ratio 8.57 L (12.00-20.00) Ratio Glucose 127 H (74-99) mg/dL Calcium 8.2 L (8.4-10.2) mg/dL Iron <2 L (65-175) ug/dL % Saturation 0.33 L (15.00-50.00) Alkaline Phosphatase (38-126) U/L C-Reactive Protein (<10.0) mg/L Total Protein (6.3-8.2) g/dL Albumin (3.5-5.0) g/dL Urine Protein (Negative) Urine Ketones (Negative) Ur Leukocyte Esterase (Negative) Urine Mucus (None) /hpf 07/26/20 Range/Units 08:42 RBC (4.30-5.90) m/uL Hgb (13.0-17.5) gm/dL Hct (39.0-53.0) % MCV (80.0-100.0) fL MCH (27.0-32.0) pg MCHC (32.0-37.0) g/dL RDW (11.5-15.5) % Plt Count (150-450) k/uL Plt Count Comment Immature Gran # (0.00-0.04) X 10*3/uL Neutrophils # (1.80-7.70) X 10*3/uL Eosinophils # (0.04-0.35) X 10*3/uL ESR (0-15) mm/hr APTT (22.0-30.0) sec Sodium (137-145) mmol/L Potassium (3.5-5.1) mmol/L BUN (9.0-27.0) mg/dL BUN/Creatinine Ratio (12.00-20.00) Ratio Glucose (74-99) mg/dL Calcium (8.4-10.2) mg/dL Iron (65-175) ug/dL % Saturation (15.00-50.00) Alkaline Phosphatase (38-126) U/L C-Reactive Protein 18.6 H (<10.0) mg/L Total Protein (6.3-8.2) g/dL Albumin (3.5-5.0) g/dL Urine Protein (Negative) Urine Ketones (Negative) Ur Leukocyte Esterase (Negative) Urine Mucus (None) /hpf CT scan - abdomen: report reviewed (Findings of colitis on computed tomography scan of the abdomen) Assessment and Plan (1) Colitis Narrative/Plan: 34-year-old male presenting for abdominal pain, diarrhea, blood per rectum after recent colonoscopy significant for pancolitis with evidence of inflammatory bowel disease on biopsies. No prior history of inflammatory bowel disease. No family history of Crohn's, ulcerative colitis or colon cancer. Patient had been given a Medrol Dosepak for treatment as well as antibiotic therapy. Currently not on any maintenance medications. Current Visit: Yes Status: Acute Code(s): K52.9 - NONINFECTIVE GASTROENTERITIS AND COLITIS, UNSPECIFIED SNOMED Code(s): 15192302 (2) Abdominal pain Current Visit: Yes Status: Acute Code(s): R10.9 - UNSPECIFIED ABDOMINAL PAIN SNOMED Code(s): 53244496 (3) Anemia Narrative/Plan: Anemia of acute blood loss secondary to GI bleeding. Current Visit: Yes Status: Acute Code(s): D64.9 - ANEMIA, UNSPECIFIED SNOMED Code(s): 408396774 (4) GI bleed Current Visit: Yes Status: Acute Code(s): K92.2 - GASTROINTESTINAL HEMORRHAGE, UNSPECIFIED SNOMED Code(s): 14042478 Plan: Supportive care Nothing by mouth Okay to advance clear liquid diet tomorrow stable Continue to monitor ESR and CRP Continue Solu-Medrol 20 mg every 8 hours We'll initiate balsalazide/5-ASA therapy, however patient only close follow-up require initiation of biologic therapy for treatment of colitis Continue to monitor CBC, BMP, LFTs Continue to monitor clinically Extensive discussion with the patient regarding findings on recent colonoscopy and pathology will need follow-up with gastroenterology after discharge Thank you for allowing us to participate in the care of the patient
[2020-07-28] MEDS: MORPHINE SULFATE 4 MG/ML SYRINGE IV PRN ×2 (02:43→07:00)
[2020-07-28] MEDS: methylPREDNISolone SOD SUCCI 40 MG/ML 1 ML VIAL IV SCH (08:41)
[2020-07-28] MEDS: BALSALAZIDE DISODIUM 750 MG CAPSULE PO SCH ×3 (08:42→20:36)
[2020-07-28] MEDS: PANTOPRAZOLE 40 MG/10 ML VIAL IVP SCH ×2 (08:43→20:36)
[2020-07-28] MEDS: HEPARIN SODIUM,PORCINE 5,000 UNIT/ML 1 ML VIAL SQ SCH ×2 (08:43→20:36)
[2020-07-28] MEDS: HYDROmorphone 0.5 MG/0.5 ML SYRINGE IVP PRN ×4 (09:19→22:40)
[2020-07-28] MEDS: SODIUM CHLORIDE 0.9% 1,000 ML IV SCH (09:20)
[2020-07-28 11:14] LABS: Basophils # (A) 0.01 X 10*3/uL (0.00-0.10); Basophils % (A) 0.1 %; Eosinophils # (A) 0 X 10*3/uL (0.04-0.35); Eosinophils % (A) 0 %; HCT 26.4 % (39.6-50.0); HGB 7.9 g/dL (13.0-17.0); Lymphocytes % (A) 21.8 %; MCH 24.3 pg (27.0-32.0); MCHC 29.9 g/dL (32.0-37.0); MCV 81.2 fL (80.0-97.0); Mean Platelet Volume 9.5 fL (9.5-12.2); Monocytes % (A) 13.1 %; Neutrophils # (A) 5.87 X 10*3/uL (1.80-7.70); Neutrophils % (A) 63.9 %; Platelet Count 581 X 10*3/uL (140-440); RBC 3.25 X 10*6/uL (4.40-5.60); RDW 16.5 % (11.5-14.5); WBC 9.18 X 10*3/uL (4.50-10.00)
[2020-07-28] MEDS: HYDROCORTISONE 2.5% RECTAL CREAM 30 GM TUBE RECTAL SCH ×2 (12:00→20:40)
[2020-07-28 12:12] LABS: Erythrocyte Sedimentation Rate 46 mm/Hr (0-15)
--- NOTE | 2020-07-28 13:05 | P.PN ---
Subjective Progress Note Date: 07/28/20 Principal diagnosis: Abdominal pain, rectal bleeding, colitis Was seen and examined sitting up in bed. He denies any nausea or vomiting. States his pain has improved significantly. He states he is hungry. He is tolerating his clear liquid diet. He is him in 3 bowel movements an hour, however states there is very scant amount of blood, mostly appears with wiping. States his rectum feels irritated. Objective - Vital Signs Vital signs: Vital Signs Temp 98.1 F 07/28/20 04:25 Pulse 69 07/28/20 04:25 Resp 14 07/28/20 04:25 BP 115/64 07/28/20 04:25 Pulse Ox 98 07/28/20 04:25 Intake & Output 07/27/20 07/28/20 07/28/20 18:59 06:59 18:59 Intake Total 1430 Balance 1430 Intake: Intake, IV Titration 600 Amount Sodium Chloride 0.9% 1, 600 000 ml @ 50 mls/hr IV . Q20H [facility] Rx#:[id number] Oral 830 Other: Voiding Method Toilet Toilet # Voids 2 3 # Bowel Movements 0 3 - Exam General appearance: The patient is alert, oriented, appears in no acute distres s. HET: Head is normocephalic and atraumatic. Conjunctiva pink. Sclera anicteric. Neck: Supple without lymphadenopathy. Abdomen: Soft, mild abdominal tenderness, nondistended with bowel sounds. No guarding or rigidity. Extremities: Normal skin color and turgor. No pedal edema Skin: No rashes, no jaundice Neurological: No focal deficits. Alert and oriented 3. - Labs CBC & Chem 7: 07/28/20 06:46 07/27/20 05:18 Assessment and Plan (1) Colitis Narrative/Plan: This is a 34-year-old male who presented to the emergency room with abdominal pain, diarrhea with blood in stool. Patient states his symptoms began over 4 weeks ago where he was seen at [facility] and underwent an upper and lower endoscopy. According to the patient EGD showed erosive esophagitis and colonoscopy colitis. The patient had no follow-up for biopsy results. He was discharged home on a Medrol Dosepak and antibiotics. His part of his admission CT of the abdomen showed normal wall thickening in the colon. Diffusely. Multiple bowel loops and pelvis show some foci of air. Proximal small bowel s hows more prominent appearance with probable fluid-filled appearance. The patient was reporting he was having up to 10 loose and bloody bowel movements daily. Denies any nausea or vomiting. Records were requested from [facility] biopsy results showed evidence of esophagitis and colonoscopy showed olmedo colitis, biopsy consistent with irritable bowel disease. On admission patient had elevated CRP and sed rate 29.2 and 69 respectively. Current Visit: Yes Status: Acute Code(s): K52.9 - NONINFECTIVE GASTROENTE RITIS AND COLITIS, UNSPECIFIED SNOMED Code(s): 00215121 (2) Abdominal pain Current Visit: Yes Status: Acute Code(s): R10.9 - UNSPECIFIED ABDOMINAL PAIN SNOMED Code(s): 15235254 (3) Anemia Current Visit: Yes Status: Acute Code(s): D64.9 - ANEMIA, UNSPECIFIED SNOMED Code(s): 124613982 (4) GI bleed Current Visit: Yes Status: Acute Code(s): K92.2 - GASTROINTESTINAL HEMORRHAGE, UNSPECIFIED SNOMED Code(s): 22494170 Plan: Supportive care Pain medication as needed, managed by primary medicine team May advance to liquid diet with advancement as tolerated Protonix 40 mg twice a day Will decrease Solu-Medrol to 20 mg every 8 hours Continue Balsalazide 2.25 mg 3 times a day Stool studies ordered Clostridium difficile negative Patient is status post 1 unit PRBC Daily CBC, transfuse for hemoglobin less than 7 Discussed with patient will need close follow-up with gastroenterology, recommend follow-up appointment in 1-2 weeks Patient to be discharged home on prednisone 40 mg taper by 5 mg per week, prescription given to patient Thank you for this consultation, we will and standby. There will be no gastroenterology coverage through the weekend, will return Friday. Dr. Mamta Aguilar I agree with the dictator's note, documented as a scribe by Crystal Condon.
[2020-07-28 13:34] VITALS: BMI 21.6
--- NOTE | 2020-07-28 15:10 | P.PN ---
Subjective Progress Note Date: 07/28/20 Patient is doing better today. Hemoglobin is stable. He is still on clear liquid diet. Objective - Vital Signs Vital signs: Vital Signs Temp 98.7 F 07/28/20 12:06 Pulse 66 07/28/20 12:06 Resp 16 07/28/20 12:06 BP 109/60 07/28/20 12:06 Pulse Ox 99 07/28/20 12:06 Intake & Output 07/27/20 07/28/20 07/28/20 18:59 06:59 18:59 Intake Total 1430 Balance 1430 Weight 70.307 kg Intake: Intake, IV Titration 600 Amount Sodium Chloride 0.9% 1, 600 000 ml @ 50 mls/hr IV . Q20H [facility] Rx#:[id number] Oral 830 Other: Voiding Method Toilet Toilet # Voids 2 3 # Bowel Movements 0 3 - Exam General: The patient is awake and alert, in no distress Eye: there is normal conjunctiva bilaterally. Neck: The neck is supple, there is no JVD. Cardiovascular: Normal S1-S2, no S3-S4, no murmurs. Respiratory: Lungs clear to auscultation bilaterally Gastrointestinal: Abdomen is soft, nontender and nondistended Musculoskeletal: There is no pedal edema. Neurological:. Speech is normal. Skin: Skin is warm and dry - Labs CBC & Chem 7: 07/28/20 06:46 07/27/20 05:18 Labs: Abnormal Lab Results - Last 24 Hours (Table) 07/28/20 Range/Units 06:46 RBC 3.25 L (4.40-5.60) X 10*6/uL Hgb 7.9 L (13.0-17.0) g/dL Hct 26.4 L (39.6-50.0) % MCH 24.3 L (27.0-32.0) pg MCHC 29.9 L (32.0-37.0) g/dL RDW 16.5 H (11.5-14.5) % Plt Count 581 H (140-440) X 10*3/uL Absolute Nucleated RBC 0.03 H (0.00-0.00) X 10*3/uL Immature Gran # 0.10 H (0.00-0.04) X 10*3/uL Monocytes # 1.20 H (0.20-1.00) X 10*3/uL Eosinophils # 0 L (0.04-0.35) X 10*3/uL NRBC/100 WBC Diff 0.3 H (0.0-0.0) /100 WBCS ESR 46 H (0-15) mm/Hr Assessment and Plan Assessment: This is a 34-year-old male who presented to the emergency room with worsening abdominal pain, diarrhea, and blood with his stool. Patient was evaluated and admitted to the hospital for further management of his medical problems noted below. 1. Acute ulcerative colitis exacerbation, Patient was given 125 mg IV Solu- Medrol in the ER and started on Solu-Medrol 40 mg every 8 hours. GI consulted for further evaluation. Patient was started on Colazal. CRP mildly elevated and trending down. Medical records from [facility] reviewed including EGD and colonoscopy. EGD showed evidence of esophagitis and colonoscopy showed olmedo colitis with biopsy consistent with IBD 2. Acute on chronic Chronic blood loss anemia with iron deficiency, secondary to chronic GI bleed. 1 unit of PRBC transfused. May consider IV iron infusion during this admission 3. Hyperkalemia, resolved 4. Thrombocytosis, probably reactive 5. GI and DVT prophylaxis with IV Protonix and subcu heparin Today, I reviewed his medication list and lab work results. Discontinue IV fluid Advance diet as tolerated Solu-Medrol dose decreased to 20 mg every 8 hours Plan for a slow prednisone taper. Despite discharge home tomorrow
[2020-07-28] MEDS ORDERED: methylPREDNISolone SOD SUCCI 40 MG/ML 1 ML VIAL IV SCH (16:00)
[2020-07-28 17:49] LABS: African American GFR (CKD) 134.1 (60.0-200.0); BUN/Creat Ratio 11.25 Ratio (12.00-20.00); C Reactive Protein 0.6 mg/dL (0.0-0.8); Calcium 8.7 mg/dL (8.7-10.3); Non-African American GFR(CKD) 115.7 (60.0-200.0); Potassium 4.1 mmol/L (3.5-5.5)
[2020-07-29] MEDS: HYDROmorphone 0.5 MG/0.5 ML SYRINGE IVP PRN ×4 (01:40→14:15)
[2020-07-29] MEDS: BALSALAZIDE DISODIUM 750 MG CAPSULE PO SCH (08:27)
[2020-07-29] MEDS: PANTOPRAZOLE 40 MG/10 ML VIAL IVP SCH (08:27)
[2020-07-29] MEDS: HEPARIN SODIUM,PORCINE 5,000 UNIT/ML 1 ML VIAL SQ SCH (08:27)
[2020-07-29] MEDS: HYDROCORTISONE 2.5% RECTAL CREAM 30 GM TUBE RECTAL SCH (08:28)
[2020-07-29 08:51] LABS: Basophils # (A) 0.02 X 10*3/uL (0.00-0.10); Basophils % (A) 0.2 %; Eosinophils # (A) 0 X 10*3/uL (0.04-0.35); Eosinophils % (A) 0 %; HGB 7.5 g/dL (13.0-17.0); Lymphocytes # (A) 3.01 X 10*3/uL (0.90-5.00); Lymphocytes % (A) 26.8 %; MCH 24.4 pg (27.0-32.0); MCV 81.2 fL (80.0-97.0); Mean Platelet Volume 9.6 fL (9.5-12.2); Monocytes # (A) 1.23 X 10*3/uL (0.20-1.00); Neutrophils # (A) 6.88 X 10*3/uL (1.80-7.70); Neutrophils % (A) 61.2 %; Platelet Count 497 X 10*3/uL (140-440); RBC 3.08 X 10*6/uL (4.40-5.60); RDW 16.5 % (11.5-14.5); WBC 11.23 X 10*3/uL (4.50-10.00)
[2020-07-29] MEDS ORDERED: predniSONE 20 MG TAB PO SCH (09:00)
[2020-07-29 09:20] LABS: African American GFR (CKD) 141.7 (60.0-200.0); Anion Gap 4.2 mmol/L (4.00-12.00); BUN/Creat Ratio 12.86 Ratio (12.00-20.00); Calcium 8.4 mg/dL (8.7-10.3); Carbon Dioxide 31.8 mmol/L (21.6-31.8); Non-African American GFR(CKD) 122.3 (60.0-200.0); Potassium 4.1 mmol/L (3.5-5.5)
[2020-07-29 13:19] VITALS: BP 104/57; PULSE 69; RESP 12; TEMP 98.1
--- NOTE | 2020-07-29 13:52 | P.DS ---
Providers Date of admission: 07/26/20 10:53 Expected date of discharge: 07/29/20 Attending physician: Marita Parsons Consults: 07/25/20 14:27 Consult Physician Routine Consulting Provider: Harris Kelly Consult Reason/Comments: Colitis Do you want consulting provider notified?: Yes Primary care physician: Stated None Hospital Course: This is a 34-year-old male who presented to the emergency room with worsening abdominal pain, diarrhea, and blood with his stool. Patient was evaluated and admitted to the hospital for further management of his medical problems noted below. 1. Acute ulcerative colitis exacerbation, Patient was given 125 mg IV Solu- Medrol in the ER and started on Solu-Medrol 40 mg every 8 hours. GI consulted for further evaluation. Patient was started on Colazal. CRP mildly elevated and trending down. Medical records from [facility] reviewed including EGD and colonoscopy. EGD showed evidence of esophagitis and colonoscopy showed olmedo colitis with biopsy consistent with IBD 2. Acute on chronic Chronic blood loss anemia with iron deficiency, secondary to chronic GI bleed. 1 unit of PRBC transfused. 3. Hyperkalemia, resolved 4. Thrombocytosis, probably reactive Patient overall condition improved significantly throughout his hospital stay. He would be discharged home in a stable condition. He will follow up with GI in the office as directed. He was given a prescription for a slow taper course prednisone Patient Condition at Discharge: Fair Plan - Discharge Summary Discharge Rx Participant: No New Discharge Prescriptions: New predniSONE 10 mg PO DAILY #126 tab Balsalazide Disodium [Colazal] 2,250 mg PO TID #180 cap Continue Famotidine [Pepcid] 20 mg PO BID PRN PRN Reason: Gi Upset Discontinued methylPREDNISolone Dose Pack [Medrol Dose Pack] See Taper PO DAILY Discharge Medication List Famotidine [Pepcid] 20 mg PO BID PRN 07/25/20 [History] predniSONE 10 mg PO DAILY #126 tab 07/28/20 [Rx] Balsalazide Disodium [Colazal] 2,250 mg PO TID #180 cap 07/29/20 [Rx] Follow up Appointment(s)/Referral(s): Yves Garay PAC [REFERRING] - 1-2 Days (new patient appointment and hospital follow up.) Harris Kelly MD [STAFF PHYSICIAN] - 1 Week Discharge Disposition: HOME SELF-CARE
== END 2020-07-29 17:04 | disposition home or self-care (01) | DRG 386 ==
LOC: EC 11:37 → 6NMEDSUR 14:44 → OBSVTOIN 07-26 10:53 → 5NMEDONC 07-27 13:56
PROVIDERS: ADMIT Internal Medicine; ATTEND Internal Medicine
PROC: 30233N1 Transfusion of Nonautologous Red Blood Cells into Peripheral Vein, Percutaneous Approach (ICD-10-PCS; principal; 2020-07-26)
DX: K51.90 Ulcerative colitis, unspecified, without complications (principal); D62 Acute posthemorrhagic anemia; K92.2 Gastrointestinal hemorrhage, unspecified; E87.5 Hyperkalemia; F17.200 Nicotine dependence, unspecified, uncomplicated; F41.9 Anxiety disorder, unspecified; Z87.19 Personal history of other diseases of the digestive system; Z87.442 Personal history of urinary calculi; D47.3 Essential (hemorrhagic) thrombocythemia; R79.82 Elevated C-reactive protein (CRP); E86.0 Dehydration; K21.9 Gastro-esophageal reflux disease without esophagitis
CPT/HCPCS: 36415; 74018; 74177; 80048; 80053; 81001; 82150; 83540; 83550; 83605; 83690; 83735; 85025; 85610; 85652; 85730; 86140; 86850; 86900; 86901; 86920; 87324; 87635; 96361; 96374; 96375; 96376; 99285

== ENCOUNTER 2020-08-04 10:59 | Inpatient (IN) | payer OTHER ==
[2020-08-04] MEDS ORDERED: MORPHINE SULFATE 4 MG/ML SYRINGE IV STA (11:19)
[2020-08-04] MEDS ORDERED: ONDANSETRON 4 MG/2 ML VIAL IVP STA (11:19)
[2020-08-04] MEDS ORDERED: SODIUM CHLORIDE 0.9% 1,000 ML IV STA ×2 (11:19)
--- NOTE | 2020-08-04 11:29 | ED ---
Abdominal Pain HPI - General Chief Complaint: Abdominal Pain Stated Complaint: revisit - abd pain Time Seen by Provider: 08/04/20 11:15 Source: patient, RN notes reviewed Mode of arrival: wheelchair Limitations: no limitations - History of Present Illness Initial Comments: This is a 34-year-old male with a recent admission and discharge for treatment of abdominal pain and ulcerative colitis who presents with complaints of 3 days of progressively increasing lower abdominal pain nausea with diarrhea that is bloody tinged. States the pain is very severe crampy in nature feels very similar to his previous episode. He does admit to decreased oral intake. MD Complaint: abdominal pain - Related Data Home Medications Medication Instructions Recorded Confirmed Famotidine [Pepcid] 20 mg PO BID PRN 07/25/20 08/04/20 predniSONE See Taper PO DAILY 08/04/20 08/04/20 Previous Rx's Medication Instructions Recorded HYDROcodone/APAP 5-325MG [[place] 1 tab PO Q6HR PRN 3 Days #12 tab 07/29/20 5-325] Allergies Allergy/AdvReac Type Severity Reaction Status Date / Time No Known Allergies Allergy Verified 08/04/20 12:47 Review of Systems ROS Statement: Those systems with pertinent positive or pertinent negative responses have been documented in the HPI. ROS Other: All systems not noted in ROS Statement are negative. Past Medical History Past Medical History: GERD/Reflux Additional Past Medical History / Comment(s): back pain, colitis History of Any Multi-Drug Resistant Organisms: None Reported Past Surgical History: Orthopedic Surgery Additional Past Surgical History / Comment(s): left hand Past Anesthesia/Blood Transfusion Reactions: No Reported Reaction Past Psychological History: Anxiety Smoking Status: Current some day smoker Past Alcohol Use History: Occasional Past Drug Use History: None Reported, Marijuana General Exam - General Exam Comments Initial Comments: Is a well-developed sec appearing male who is awake alert oriented 3 Limitations: no limitations General appearance: alert, anxious, in distress Head exam: Present: atraumatic, normocephalic, normal inspection Eye exam: Present: normal appearance, PERRL, EOMI. Absent: scleral icterus, conjunctival injection, periorbital swelling ENT exam: Present: mucous membranes dry Neck exam: Present: normal inspection. Absent: tenderness, meningismus, lymphadenopathy Respiratory exam: Present: normal lung sounds bilaterally. Absent: respiratory distress, wheezes, rales, rhonchi, stridor Cardiovascular Exam: Present: normal rhythm, tachycardia, normal heart sounds. Absent: systolic murmur, diastolic murmur, rubs, gallop, clicks GI/Abdominal exam: Present: soft, tenderness, normal bowel sounds. Absent: distended, guarding, rebound, rigid, bruit, pulsatile mass Rectal exam: Present: deferred Extremities exam: Present: normal inspection, full ROM, normal capillary refill. Absent: tenderness, pedal edema, joint swelling, calf tenderness Back exam: Present: normal inspection Neurological exam: Present: alert, oriented X3, CN II-XII intact Psychiatric exam: Present: normal affect, normal mood Skin exam: Present: warm, dry, intact, normal color. Absent: rash Course Vital Signs 08/04/20 08/04/20 11:00 12:44 Temperature 98.7 F Pulse Rate 125 H 114 H Respiratory 20 20 Rate Blood Pressure 130/71 138/78 O2 Sat by Pulse 100 96 Oximetry Medical Decision Making - Medical Decision Making Patient will be admitted for inpatient evaluation and treatment dehydration abdominal pain ulcerative colitis - Lab Data Result diagrams: 08/04/20 11:34 08/04/20 11:34 Lab Results 08/04/20 08/04/20 08/04/20 Range/Units 11:34 11:34 11:34 WBC 16.4 H (3.8-10.6) k/uL RBC 3.66 L (4.30-5.90) m/uL Hgb 8.7 L (13.0-17.5) gm/dL Hct 28.0 L (39.0-53.0) % MCV 76.4 L (80.0-100.0) fL MCH 23.9 L (25.0-35.0) pg MCHC 31.3 (31.0-37.0) g/dL RDW 17.2 H (11.5-15.5) % Plt Count 702 H (150-450) k/uL MPV 6.6 Neutrophils % 92 % Lymphocytes % 5 % Monocytes % 2 % Eosinophils % 0 % Basophils % 0 % Neutrophils # 15.1 H (1.3-7.7) k/uL Lymphocytes # 0.9 L (1.0-4.8) k/uL Monocytes # 0.3 (0-1.0) k/uL Eosinophils # 0.1 (0-0.7) k/uL Basophils # 0.0 (0-0.2) k/uL Hypochromasia Marked Poikilocytosis Slight Anisocytosis Slight Microcytosis Slight PT 10.6 (9.0-12.0) sec INR 1.0 (<1.2) APTT 22.1 (22.0-30.0) sec Sodium 130 L (137-145) mmol/L Potassium 5.4 H (3.5-5.1) mmol/L Chloride 96 L (98-107) mmol/L Carbon Dioxide 27 (22-30) mmol/L Anion Gap 7 mmol/L BUN 9 (9-20) mg/dL Creatinine 0.87 (0.66-1.25) mg/dL Est GFR (CKD-EPI)AfAm >90 (>60 ml/min/1.73 sqM) Est GFR (CKD-EPI)NonAf >90 (>60 ml/min/1.73 sqM) Glucose 106 H (74-99) mg/dL Plasma Lactic Acid Jeancarlos (0.7-2.0) mmol/L Calcium 8.8 (8.4-10.2) mg/dL Total Bilirubin 0.6 (0.2-1.3) mg/dL AST 45 (17-59) U/L ALT 14 (4-49) U/L Alkaline Phosphatase 40 (38-126) U/L Creatine Kinase 46 L (55-170) U/L Troponin I (0.000-0.034) ng/mL Total Protein 6.3 (6.3-8.2) g/dL Albumin 3.1 L (3.5-5.0) g/dL Amylase 48 (30-110) U/L Lipase 101 (23-300) U/L Blood Type Blood Type Recheck Bld Type Recheck Status Antibody Screen Spec Expiration Date 08/04/20 08/04/20 08/04/20 Range/Units 11:34 11:34 11:44 WBC (3.8-10.6) k/uL RBC (4.30-5.90) m/uL Hgb (13.0-17.5) gm/dL Hct (39.0-53.0) % MCV (80.0-100.0) fL MCH (25.0-35.0) pg MCHC (31.0-37.0) g/dL RDW (11.5-15.5) % Plt Count (150-450) k/uL MPV Neutrophils % % Lymphocytes % % Monocytes % % Eosinophils % % Basophils % % Neutrophils # (1.3-7.7) k/uL Lymphocytes # (1.0-4.8) k/uL Monocytes # (0-1.0) k/uL Eosinophils # (0-0.7) k/uL Basophils # (0-0.2) k/uL Hypochromasia Poikilocytosis Anisocytosis Microcytosis PT (9.0-12.0) sec INR (<1.2) APTT (22.0-30.0) sec Sodium (137-145) mmol/L Potassium (3.5-5.1) mmol/L Chloride (98-107) mmol/L Carbon Dioxide (22-30) mmol/L Anion Gap mmol/L BUN (9-20) mg/dL Creatinine (0.66-1.25) mg/dL Est GFR (CKD-EPI)AfAm (>60 ml/min/1.73 sqM) Est GFR (CKD-EPI)NonAf (>60 ml/min/1.73 sqM) Glucose (74-99) mg/dL Plasma Lactic Acid Jeancarlos 2.2 H* (0.7-2.0) mmol/L Calcium (8.4-10.2) mg/dL Total Bilirubin (0.2-1.3) mg/dL AST (17-59) U/L ALT (4-49) U/L Alkaline Phosphatase (38-126) U/L Creatine Kinase (55-170) U/L Troponin I <0.012 (0.000-0.034) ng/mL Total Protein (6.3-8.2) g/dL Albumin (3.5-5.0) g/dL Amylase (30-110) U/L Lipase (23-300) U/L Blood Type B Positive Blood Type Recheck B Pos Bld Type Recheck Status No Antibody Screen NEGATIVE Spec Expiration Date 08/07/2020 - 0469 - Radiology Data Radiology results: report reviewed (Imaging reviewed no definitive evidence of obstruction), image reviewed Disposition Clinical Impression: Acute abdomen, Dehydration, Ulcerative colitis Disposition: ADMITTED IP TO THIS HOSP Condition: Fair Referrals: None,Stated [Primary Care Provider] - 1-2 days
[2020-08-04] MEDS ORDERED: KETOROLAC 15 MG/ML 1 ML VIAL IVP STA (11:48)
[2020-08-04 11:51] LABS: Anisocytosis Slight; Basophils % (A) 0 %; Eosinophils # (A) 0.1 k/uL (0-0.7); Eosinophils % (A) 0 %; HGB 8.7 gm/dL (13.0-17.5); Hypochromasia Marked; Lymphocytes # (A) 0.9 k/uL (1.0-4.8); Lymphocytes % (A) 5 %; MCH 23.9 pg (25.0-35.0); MCHC 31.3 g/dL (31.0-37.0); MCV 76.4 fL (80.0-100.0); Mean Platelet Volume 6.6; Microcytosis Slight; Monocytes # (A) 0.3 k/uL (0-1.0); Monocytes % (A) 2 %; Neutrophils # (A) 15.1 k/uL (1.3-7.7); Neutrophils % (A) 92 %; Platelet Count 702 k/uL (150-450); Poikilocytosis Slight; RBC 3.66 m/uL (4.30-5.90); RDW 17.2 % (11.5-15.5); WBC 16.4 k/uL (3.8-10.6)
[2020-08-04 12:06] LABS: ALT 14 U/L (4-49); African American GFR (CKD) >90 (>60 ml/min/1.73 sqM); Amylase 48 U/L (30-110); Anion Gap 7 mmol/L; Blood Urea Nitrogen 9 mg/dL (9-20); Calcium 8.8 mg/dL (8.4-10.2); Carbon Dioxide 27 mmol/L (22-30); Chloride 96 mmol/L (98-107); Creatine Kinase 46 U/L (55-170); Glucose 106 mg/dL (74-99); Lipase 101 U/L (23-300); Non-African American GFR(CKD) >90 (>60 ml/min/1.73 sqM); Sodium 130 mmol/L (137-145); Total Bilirubin 0.6 mg/dL (0.2-1.3)
[2020-08-04 12:12] LABS: Albumin 3.1 g/dL (3.5-5.0); Potassium 5.4 mmol/L (3.5-5.1); Total Protein 6.3 g/dL (6.3-8.2)
[2020-08-04 12:13] LABS: AST 45 U/L (17-59); Alkaline Phosphatase 40 U/L (38-126)
[2020-08-04 12:19] LABS: Partial Thromboplastin Time 22.1 sec (22.0-30.0); Prothrombin Time 10.6 sec (9.0-12.0)
--- NOTE | 2020-08-04 12:37 | XR ---
EXAMINATION TYPE: XR KUB DATE OF EXAM: 08/04/2020 12:02 PM CLINICAL HISTORY: History of colitis with pain. TECHNIQUE: Two Upright KUB images of the abdomen are obtained. COMPARISON: Abdominal x-ray and CT July 25, 2020. FINDINGS: Some gas prominence small bowel loops throughout the abdomen and upper pelvis with air flui d levels identified on current study. No greater than 3.0 cm dilatation. Stomach not suspiciously dil ated. Gas and fecal material is seen in non-distended colon along the periphery. There is no viscerom egaly, pneumoperitoneum, or abnormal calcification appreciated. The lung bases are clear and the osse ous structures are intact. IMPRESSION: Overall nonspecific but still favor nonobstructive bowel gas pattern. Consider new or acute enteritis.
[2020-08-04] MEDS ORDERED: KETOROLAC 15 MG/ML 1 ML VIAL IVP PRN (13:37)
[2020-08-04] MEDS ORDERED: NALOXONE 0.4 MG/ML 1 ML VIAL IV PRN (13:37)
[2020-08-04] MEDS ORDERED: ONDANSETRON 4 MG/2 ML VIAL IVP PRN (13:37)
--- NOTE | 2020-08-04 13:42 | ED ---
Medical Decision Making - Lab Data Result diagrams: 08/04/20 11:34 08/04/20 11:34 Lab Results 08/04/20 08/04/20 08/04/20 Range/Units 11:34 11:34 11:34 WBC 16.4 H (3.8-10.6) k/uL RBC 3.66 L (4.30-5.90) m/uL Hgb 8.7 L (13.0-17.5) gm/dL Hct 28.0 L (39.0-53.0) % MCV 76.4 L (80.0-100.0) fL MCH 23.9 L (25.0-35.0) pg MCHC 31.3 (31.0-37.0) g/dL RDW 17.2 H (11.5-15.5) % Plt Count 702 H (150-450) k/uL MPV 6.6 Neutrophils % 92 % Lymphocytes % 5 % Monocytes % 2 % Eosinophils % 0 % Basophils % 0 % Neutrophils # 15.1 H (1.3-7.7) k/uL Lymphocytes # 0.9 L (1.0-4.8) k/uL Monocytes # 0.3 (0-1.0) k/uL Eosinophils # 0.1 (0-0.7) k/uL Basophils # 0.0 (0-0.2) k/uL Hypochromasia Marked Poikilocytosis Slight Anisocytosis Slight Microcytosis Slight PT 10.6 (9.0-12.0) sec INR 1.0 (<1.2) APTT 22.1 (22.0-30.0) sec Sodium 130 L (137-145) mmol/L Potassium 5.4 H (3.5-5.1) mmol/L Chloride 96 L (98-107) mmol/L Carbon Dioxide 27 (22-30) mmol/L Anion Gap 7 mmol/L BUN 9 (9-20) mg/dL Creatinine 0.87 (0.66-1.25) mg/dL Est GFR (CKD-EPI)AfAm >90 (>60 ml/min/1.73 sqM) Est GFR (CKD-EPI)NonAf >90 (>60 ml/min/1.73 sqM) Glucose 106 H (74-99) mg/dL Plasma Lactic Acid Jeancarlos (0.7-2.0) mmol/L Calcium 8.8 (8.4-10.2) mg/dL Total Bilirubin 0.6 (0.2-1.3) mg/dL AST 45 (17-59) U/L ALT 14 (4-49) U/L Alkaline Phosphatase 40 (38-126) U/L Creatine Kinase 46 L (55-170) U/L Troponin I (0.000-0.034) ng/mL Total Protein 6.3 (6.3-8.2) g/dL Albumin 3.1 L (3.5-5.0) g/dL Amylase 48 (30-110) U/L Lipase 101 (23-300) U/L Blood Type Blood Type Recheck Bld Type Recheck Status Antibody Screen Spec Expiration Date 08/04/20 08/04/20 08/04/20 Range/Units 11:34 11:34 11:44 WBC (3.8-10.6) k/uL RBC (4.30-5.90) m/uL Hgb (13.0-17.5) gm/dL Hct (39.0-53.0) % MCV (80.0-100.0) fL MCH (25.0-35.0) pg MCHC (31.0-37.0) g/dL RDW (11.5-15.5) % Plt Count (150-450) k/uL MPV Neutrophils % % Lymphocytes % % Monocytes % % Eosinophils % % Basophils % % Neutrophils # (1.3-7.7) k/uL Lymphocytes # (1.0-4.8) k/uL Monocytes # (0-1.0) k/uL Eosinophils # (0-0.7) k/uL Basophils # (0-0.2) k/uL Hypochromasia Poikilocytosis Anisocytosis Microcytosis PT (9.0-12.0) sec INR (<1.2) APTT (22.0-30.0) sec Sodium (137-145) mmol/L Potassium (3.5-5.1) mmol/L Chloride (98-107) mmol/L Carbon Dioxide (22-30) mmol/L Anion Gap mmol/L BUN (9-20) mg/dL Creatinine (0.66-1.25) mg/dL Est GFR (CKD-EPI)AfAm (>60 ml/min/1.73 sqM) Est GFR (CKD-EPI)NonAf (>60 ml/min/1.73 sqM) Glucose (74-99) mg/dL Plasma Lactic Acid Jeancarlos 2.2 H* (0.7-2.0) mmol/L Calcium (8.4-10.2) mg/dL Total Bilirubin (0.2-1.3) mg/dL AST (17-59) U/L ALT (4-49) U/L Alkaline Phosphatase (38-126) U/L Creatine Kinase (55-170) U/L Troponin I <0.012 (0.000-0.034) ng/mL Total Protein (6.3-8.2) g/dL Albumin (3.5-5.0) g/dL Amylase (30-110) U/L Lipase (23-300) U/L Blood Type B Positive Blood Type Recheck B Pos Bld Type Recheck Status No Antibody Screen NEGATIVE Spec Expiration Date 08/07/20202333 Disposition Clinical Impression: Acute abdomen, Dehydration, Ulcerative colitis, Anemia Disposition: ADMITTED IP TO THIS HOSP Condition: Fair Referrals: None,Stated [Primary Care Provider] - 1-2 days Procedures - [place] Protocol (Time Out) Nurse: Mary Rick
[2020-08-04 13:57] LABS: Appearance,Urine Cloudy (Clear); Bilirubin,Urine Negative (Negative); Blood,Urine Negative (Negative); Color,Urine Yellow; Glucose,Urine (UA) Negative (Negative); Ketones,Urine Negative (Negative); Leukocyte Esterase,Urine Negative (Negative); Mucus,Urine Many /hpf; Nitrite,Urine Negative (Negative); Protein,Urine Trace (Negative); RBC,Urine 1 /hpf (0-5); Urobilinogen,Urine <2.0 mg/dL (<2.0); WBC,Urine 4 /hpf (0-5)
[2020-08-04] MEDS: SODIUM CHLORIDE 0.9% 1,000 ML IV SCH ×2 (14:02→21:08)
[2020-08-04 14:12] LABS: Amphetamine Screen,Urine Detected (NotDetected); Barbiturate Screen,Urine Not Detected (NotDetected); Benzodiazepines Screen,Urine Not Detected (NotDetected); Cocaine Screen,Urine Not Detected (NotDetected); Methadone Screen, Urine Not Detected (NotDetected); Opiate Screen,Urine Detected (NotDetected); Oxycodone Screen, Urine Not Detected (NotDetected); Phencyclidine Screen,Urine Not Detected (NotDetected); Tricyclic Antidepressant,Urine Not Detected (NotDetected); Urn Cannabinoid Scrn Not Detected (NotDetected)
[2020-08-04] MEDS ORDERED: SODIUM CHLORIDE 0.9% 1,000 ML IV ONE (14:44)
[2020-08-04] MEDS ORDERED: ALPRAZolam 0.25 MG TAB PO PRN (17:12)
[2020-08-04] MEDS: HYDROmorphone 1 MG/ML 1 ML SYRINGE IVP PRN ×2 (17:19→21:52)
[2020-08-04] MEDS: NICOTINE 14MG/24HR PATCH TRANSDERM SCH (17:52)
[2020-08-04] MEDS: PANTOPRAZOLE 40 MG/10 ML VIAL IVP SCH (17:52)
[2020-08-04] MEDS: methylPREDNISolone SOD SUCCI 125 MG/2 ML VIAL IV SCH (17:52)
[2020-08-04] MEDS: PIPERACILLIN-TAZOBACTAM 3.375 GM in SODIUM CHLORIDE 0.9% 100 ML IVPB SCH (17:52)
--- NOTE | 2020-08-04 18:04 | HP ---
HISTORY AND PHYSICAL DATE OF SERVICE: 08/04/2020 CHIEF COMPLAINT: Abdominal pain and bleeding. HISTORY OF PRESENT ILLNESS: This 34-year-old gentleman with a past medical history of multiple medical problems, recently diagnosed ulcerative colitis,GERD, history of anxiety, being followed by no primary physician in the outpatient setting, was recently admitted to [facility] with acute ulcerative colitis exacerbation. Patient treated with steroids. Patient improved significantly. Patient went home. Currently the patient is complaining of diffuse severe abdominal pain and rectal bleeding also. The patient was recently evaluated in Hospital where EGD and colonoscopy was done. Colonoscopy showed inflammatory bowel disease and the CT scan at that time apparently showed diffuse pancolitis. There is no history of fever, rigors. No history of headache, loss of consciousness or seizures. PAST MEDICAL HISTORY: GERD, history of recently diagnosed ulcerative colitis, anxiety. MEDICATIONS: Prednisone, hydrocodone, Pepcid. ALLERGIES: None. FAMILY HISTORY: No history of heart disease or strokes in the family. SOCIAL HISTORY: History of occasional alcohol and smoking. REVIEW OF SYSTEMS: ENT: No diminished hearing. No diminished vision. CARDIOVASCULAR system: No angina, palpitations. RESPIRATION: No cough or hemoptysis. GI as mentioned earlier. : No dysuria or hematuria. NERVOUS SYSTEM: No numbness or weakness. ALLERGY/IMMUNOLOGY: No asthma or hayfever. MUSCULOSKELETAL: As mentioned earlier. HEMATOLOGY/ONCOLOGY: No history of anemia. ENDOCRINE: No history of diabetes or hypothyroidism. CONSTITUTIONAL: As mentioned earlier. DERMATOLOGY negative. RHEUMATOLOGY: Negative. PSYCHIATRY: As mentioned earlier. PHYSICAL EXAMINATION: Alert and oriented x3. Pulse 64. Blood pressure 98/56, respiration 18, temperature normal, pulse ox 97% on room air. HEENT is conjunctivae normal. Oral mucosa moist. NECK: No jugular venous distention. No carotid bruit. No lymph node enlargement. CARDIOVASCULAR system: S1, S2 muffled. No S3, no S4. RESPIRATORY: Breath sounds diminished in the bases. No rhonchi. No crackles. ABDOMEN: Soft, mild diffuse tenderness present. No guarding. No rigidity. No mass palpable. LEGS: No edema. No swelling. NERVOUS SYSTEM: Higher functions as mentioned earlier. Moves all 4 limbs. No focal motor or sensory deficits. LYMPHATICS: No lymph nodes palpable in the neck, axillae or groin. SKIN: No ulcer, no rash and no bleeding. JOINTS: No active deforming arthropathy. LAB STUDIES: WBC 16.2, hemoglobin is 8.7, sodium 130, potassium 5.4. Lactic acid 2.2. ASSESSMENT: 1. Acute ulcerative colitis acute exacerbation, severe intractable pain and failure of outpatient treatment. 2. Acute sepsis secondary to above. 3. Increased WBC. 4. Anemia, normocytic. 5. Increased platelets. 6. Hyponatremia. 7. Hyperkalemia. 8. Elevated lactic acid secondary to sepsis possibly. 9. Positive methamphetamines in the urine screen. 10.History of gastroesophageal reflux disease. 11.History of anxiety. 12.History of continued ongoing nicotine dependence. 13.History of THC. 14.FULL CODE. RECOMMENDATIONS AND DISCUSSION: In this 34-year-old gentleman who presented with multiple complex medical issues, we will monitor the patient closely, continue the current medications, management and symptomatic treatment. We will initiate broad-spectrum IV antibiotics. Obtain cultures. I would also recommend high-dose IV steroids. Monitor blood sugars closely, otherwise I would also recommend cautious IV fluids and consult Dr. Aguilar. Prognosis guarded because of multiple complex medical issues. Further recommendations to follow. Basic labs ordered. Also recommend the patient follow up with primary physician closely after discharge. Discussed with the patient. See orders for details. MMODL / IJN: [id number] / [id number]
[2020-08-04] MEDS: HEPARIN SODIUM,PORCINE 5,000 UNIT/ML 1 ML VIAL SQ SCH (21:06)
[2020-08-05] MEDS: PIPERACILLIN-TAZOBACTAM 3.375 GM in SODIUM CHLORIDE 0.9% 100 ML IVPB SCH ×3 (01:21→17:16)
[2020-08-05] MEDS: methylPREDNISolone SOD SUCCI 125 MG/2 ML VIAL IV SCH ×5 (01:21→23:13)
[2020-08-05] MEDS: HYDROmorphone 1 MG/ML 1 ML SYRINGE IVP PRN ×7 (04:40→23:09)
[2020-08-05] MEDS: SODIUM CHLORIDE 0.9% 1,000 ML IV SCH ×3 (04:57→20:10)
[2020-08-05] MEDS: PANTOPRAZOLE 40 MG/10 ML VIAL IVP SCH (07:53)
[2020-08-05] MEDS: HEPARIN SODIUM,PORCINE 5,000 UNIT/ML 1 ML VIAL SQ SCH ×2 (07:54→20:10)
[2020-08-05 09:40] VITALS: BMI 20.9
[2020-08-05] MEDS: NICOTINE 14MG/24HR PATCH TRANSDERM SCH (10:49)
[2020-08-05 11:26] LABS: African American GFR (CKD) >90 (>60 ml/min/1.73 sqM); Anion Gap 4 mmol/L; Blood Urea Nitrogen 13 mg/dL (9-20); Calcium 8.1 mg/dL (8.4-10.2); Carbon Dioxide 29 mmol/L (22-30); Chloride 100 mmol/L (98-107); Glucose 134 mg/dL (74-99); Non-African American GFR(CKD) >90 (>60 ml/min/1.73 sqM); Potassium 4.9 mmol/L (3.5-5.1); Sodium 133 mmol/L (137-145)
[2020-08-05] MEDS: IOPAMIDOL CONTRAST (ORAL USE) VIAL PO PRN ×2 (12:12→12:54)
[2020-08-05] MEDS: HYDROcodone/APAP 5-325MG 1 EACH TAB PO PRN (12:20)
--- NOTE | 2020-08-05 14:31 | CT ---
EXAMINATION TYPE: CT abdomen pelvis wo con DATE OF EXAM: 08/05/2020 COMPARISON: Chest x-ray 07/25/2020 HISTORY: Generalized pain CT DLP: 440.6 mGycm Automated exposure control for dose reduction was used. TECHNIQUE: Helical acquisition of images from the lung bases through the pelvis. Patient received or al contrast only. FINDINGS: Lack of intravenous contrast could compromise sensitivity of the exam. LUNG BASES: No significant abnormality is appreciated. AORTA: No significant abnormality is appreciataed. LIVER/GB: No significant abnormality is appreciated. PANCREAS: No significant abnormality is seen. SPLEEN: No significant abnormality is seen. ADRENALS: No significant abnormality is seen. KIDNEYS: No significant abnormality is seen. REPRODUCTIVE ORGANS: No significant abnormality is seen. URINARY BLADDER: No significant abnormality is seen. BOWEL: Contrast material has not coursed overweight through the colon, some pericolonic inflammatory changes are suspected within the mesenteric fat, for reference axial image 70 the left lower quadran t. There is some areas of bowel wall thickening, right lower quadrant, axial image 73 for reference. FREE AIR: No Free Air is visible. ASCITES: None visible. PELVIC ADENOPATHY: None visualized. RETROPERITONEAL ADENOPATHY: No Retroperitoneal Adenopathy visible. OSSEOUS STRUCTURES: No significant abnormality is seen. IMPRESSION: NONSPECIFIC FINDINGS, INFLAMMATORY CHANGES SUSPECTED WITHIN THE ABDOMEN. LACK OF CONTRAST MAY COMPROM ISE SENSITIVITY.
--- NOTE | 2020-08-05 15:54 | PN ---
PROGRESS NOTE DATE OF SERVICE: 08/05/2020 INTERVAL HISTORY: This 33-year-old gentleman was admitted with possible ulcerative colitis exacerbation. Also complaining of a whitish painful swelling in the anal area. The patient had a CT scan of the abdomen and pelvis ordered and reviewed personally by me and showed inflammatory changes suspected within the abdomen. Pericolic inflammatory changes suspected. PAST MEDICAL HISTORY: Reviewed. REVIEW OF SYSTEMS: CARDIOVASCULAR: No angina. RESPIRATORY: As mentioned earlier. GI: As mentioned earlier. : No dysuria. NERVOUS SYSTEM: No numbness or weakness. CURRENT MEDICATIONS: [place], Xanax, heparin, Dilaudid, Toradol, Solu-Medrol, Habitrol, Zosyn. Doses reviewed. PHYSICAL EXAM: GENERAL: Patient is alert and oriented times three. VITAL SIGNS: Pulse 63, blood pressure 100/61, respirations 16, temperature 97.4, pulse ox 99% on room air. HEENT: Conjunctivae normal. Oral mucosa moist. NECK: No jugular venous distention. No carotid bruits. No lymph node enlargement. RESPIRATORY: Breath sounds diminished at the bases. No rhonchi, no crackles. HEART: S1 and S2, muffled. ABDOMEN: Soft. Mild diffuse tenderness on palpation. EXTREMITIES: No edema, no swelling. NERVOUS: No focal deficits. LABS: C reactive protein 27.8 and ESR 60. WBC 16.4, sodium 133. Drug screen noted. COVID-19 and C-difficile negative. ASSESSMENT: 1. Acute ulcerative colitis acute exacerbation with severe intractable abdominal pain and failure of outpatient treatment. 2. Possible perianal abscess secondary to ulcerative colitis. 3. Acute sepsis secondary to above. 4. Increased WBC. 5. Anemia, normocytic. 6. Increased platelets. 7. Hyponatremia. 8. Hypokalemia. 9. Elevated lactic acid secondary to sepsis possibly. 10.Positive methamphetamines in the urine screen. 11.History of gastroesophageal reflux disease. 12.History of anxiety. 13.History of continued ongoing nicotine dependence. 14.History of THC. 15.FULL CODE. RECOMMENDATIONS AND DISCUSSION: Recommend to continue current management and continue symptomatic treatment. Otherwise, continue the broad-spectrum IV antibiotics. I would recommend surgical evaluation. CT scan is ordered and reviewed which is limited by lack of IV contrast but however we will continue to monitor with Surgery and Gastroenterology. Prognosis guarded because of multiple complex medical issues. Further recommendations to follow. MMODL / IJN: [id number] /
[2020-08-05 17:23] LABS: Basophils # (A) 0.01 X 10*3/uL (0.00-0.10); Basophils % (A) 0.1 %; Eosinophils # (A) 0 X 10*3/uL (0.04-0.35); Eosinophils % (A) 0 %; HCT 24.1 % (39.6-50.0); Lymphocytes # (A) 0.83 X 10*3/uL (0.90-5.00); Lymphocytes % (A) 6.8 %; MCH 23.5 pg (27.0-32.0); MCV 80.9 fL (80.0-97.0); Mean Platelet Volume 9.4 fL (9.5-12.2); Monocytes # (A) 0.19 X 10*3/uL (0.20-1.00); Monocytes % (A) 1.6 %; Neutrophils # (A) 11.12 X 10*3/uL (1.80-7.70); Neutrophils % (A) 90.8 %; Platelet Count 550 X 10*3/uL (140-440); RBC 2.98 X 10*6/uL (4.40-5.60); RDW 17.7 % (11.5-14.5); WBC 12.23 X 10*3/uL (4.50-10.00)
[2020-08-06] MEDS: PIPERACILLIN-TAZOBACTAM 3.375 GM in SODIUM CHLORIDE 0.9% 100 ML IVPB SCH ×3 (02:20→17:23)
[2020-08-06] MEDS: HYDROmorphone 1 MG/ML 1 ML SYRINGE IVP PRN ×7 (02:31→21:14)
[2020-08-06] MEDS: methylPREDNISolone SOD SUCCI 125 MG/2 ML VIAL IV SCH (05:15)
[2020-08-06] MEDS: SODIUM CHLORIDE 0.9% 1,000 ML IV SCH ×2 (05:44→16:10)
[2020-08-06] MEDS: NICOTINE 14MG/24HR PATCH TRANSDERM SCH (08:28)
[2020-08-06] MEDS: PANTOPRAZOLE 40 MG/10 ML VIAL IVP SCH (08:28)
[2020-08-06] MEDS: HEPARIN SODIUM,PORCINE 5,000 UNIT/ML 1 ML VIAL SQ SCH ×2 (08:28→21:13)
[2020-08-06 09:39] LABS: African American GFR (CKD) 141.7 (60.0-200.0); Anion Gap 5.6 mmol/L (4.00-12.00); BUN/Creat Ratio 12.86 Ratio (12.00-20.00); Calcium 8.1 mg/dL (8.7-10.3); Carbon Dioxide 28.4 mmol/L (21.6-31.8); Non-African American GFR(CKD) 122.3 (60.0-200.0); Potassium 4.8 mmol/L (3.5-5.5)
[2020-08-06 09:42] LABS: Basophils # (A) 0.01 X 10*3/uL (0.00-0.10); Basophils % (A) 0.1 %; Eosinophils # (A) 0 X 10*3/uL (0.04-0.35); Eosinophils % (A) 0 %; HCT 24.6 % (39.6-50.0); Lymphocytes # (A) 1.14 X 10*3/uL (0.90-5.00); Lymphocytes % (A) 7.8 %; MCH 23.1 pg (27.0-32.0); MCHC 28.5 g/dL (32.0-37.0); MCV 81.2 fL (80.0-97.0); Mean Platelet Volume 9.2 fL (9.5-12.2); Monocytes # (A) 0.74 X 10*3/uL (0.20-1.00); Monocytes % (A) 5.1 %; Neutrophils # (A) 12.64 X 10*3/uL (1.80-7.70); Neutrophils % (A) 86.4 %; Platelet Count 631 X 10*3/uL (140-440); RBC 3.03 X 10*6/uL (4.40-5.60); RDW 17.7 % (11.5-14.5); WBC 14.62 X 10*3/uL (4.50-10.00)
--- NOTE | 2020-08-06 10:34 | P.CONS ---
History of Present Illness - Reason for Consult Consult date: 08/05/20 Ulcerative colitis Requesting physician: Cristofer Saldaña - Chief Complaint Abdominal pain - History of Present Illness 34-year-old male with a medical history significant for recently diagnosed ulcerative colitis and recent hospitalization for abdominal pain who presented back to the hospital for similar complaints. The patient had originally been seen at [facility] a few weeks ago for EGD and colonoscopy due to symptoms of diarrhea, abdominal pain and blood per rectum. At that time the patient underwent EGD and colonoscopy on 06/28/2020 with findings of erosive esophagitis, mild gastritis and pancolitis with pathology from the procedure showing active colitis with features consistent with inflammatory bowel disease with crypt abscess. The patient had been given a short steroid taper and presented back to the hospital with continued symptoms. On his last hospitalization the patient was treated with high-dose steroids with some improvement in his symptoms and was sent with a long tapering dose of steroids, and initiated on treatment with balsalazide and given an appointment for follow- up with GI after discharge. He presents back to the hospital after a few days reported continued abdominal pain. On presentation computed tomography scan of the abdomen was nonspecific given lack of contrast with inflammatory changes noted within the abdomen. Hemoglobin found to be 8.7 on presentation up from his discharge involvement of 7.5 with WBC 16.4, platelet count 702,000 with an ESR 60 and a CRP of 27.8. Review of Systems REVIEW OF SYSTEMS: CONSTITUTIONAL: Denies any fevers, chills, weight change or fatigue. CARDIOVASCULAR: Denies any chest pain, palpitations high or low blood pressures RESPIRATORY: Denies any shortness of breath, hemoptysis or cough. GENITOURINARY: No dysuria or hematuria. MUSCULOSKELETAL: No weakness reported, missing digits 2-4 on his left hand from prior accident. SKIN: Denies any new rashes or lesions, jaundice or pallor. PSYCHIATRIC: Denies any depression or anxiety. NEUROLOGY: Denies headache, denies any new focal deficits. EARS/NOSE/THROAT: No recent hearing change, congestion, nasal discharge or sore throat. EYES: No pain in eyes, discharge or change in vision. GASTROINTESTINAL: As per HPI. Past Medical History Past Medical History: GERD/Reflux Additional Past Medical History / Comment(s): Pt recently admitted to [facility] on 07/26/20 with acute ulcerative colitis exacerbation, acute blood loss anemia 2ndary to lower GI bleed/transfusion, hyperkalemia. Other hx: chronic low back pain. History of Any Multi-Drug Resistant Organisms: None Reported Past Surgical History: Orthopedic Surgery Additional Past Surgical History / Comment(s): left hand industrial accident/finger amputations, EGD, colonoscopy. Past Anesthesia/Blood Transfusion Reactions: No Reported Reaction Additional Past Anesthesia/Blood Transfusion Reaction / Comm: Pt recently receiv ed blood without reaction. Smoking Status: Former smoker - Past Family History Father History Unknown: Yes Mother Family Medical History: No Reported History Additional Family Medical History / Comment(s): Healthy. Medications and Allergies Home Medications Medication Instructions Recorded Confirmed Type Famotidine [Pepcid] 20 mg PO BID PRN 07/25/20 08/04/20 History HYDROcodone/APAP 5-325MG [[place] 1 tab PO Q6HR PRN 3 Days #12 tab 07/29/20 08/04/20 Rx 5-325] predniSONE See Taper PO DAILY 08/04/20 08/04/20 History Allergies Allergy/AdvReac Type Severity Reaction Status Date / Time No Known Allergies Allergy Verified 08/04/20 12:47 Physical Exam Vitals: Vital Signs Temp Pulse Pulse Resp BP BP Pulse Ox 08/05/20 04:30 97.9 F 75 16 102/59 99 08/04/20 20:25 97.7 F 57 L 16 91/53 98 08/04/20 17:16 97.8 F 79 26 H 127/72 96 08/04/20 16:52 65 18 98/60 97 08/04/20 15:30 64 18 98/56 97 08/04/20 15:00 96/57 98 08/04/20 14:44 62 18 86/54 96 08/04/20 14:30 103/54 96 08/04/20 14:18 103/54 08/04/20 14:03 77 18 89/54 98 08/04/20 14:02 95/54 97 08/04/20 12:44 114 H 20 138/78 96 Intake and Output 08/04/20 08/05/20 08/05/20 22:59 06:59 14:59 Intake Total 130 Balance 130 Intake: Intake, IV Titration 130 Amount Sodium Chloride 0.9% 1, 130 000 ml @ 130 mls/hr IV . Q7H42M ON LICENSE OF [facility] Rx#:[id number] Other: Voiding Method Toilet # Voids 3 # Bowel Movements 1 Weight 68.039 kg 68.039 kg On physical examination, patient appears comfortable in no apparent distress. HEAD: Normocephalic, atraumatic. EYES: No scleral icterus. No conjunctival injection. MOUTH: No lesions, tongue midline. NECK: Trachea midline, no gross abnormalities. CHEST: Clear to auscultation with no wheezing or rhonchi appreciated. HEART: Regular rate and rhythm. ABDOMEN: Soft, thin and mildly tender to palpation diffusely across his abdomen. Bowel sounds are positive. No organomegaly. No guarding or rigidity. EXTREMITIES: No pedal edema, patient has been seen in the second to fourth digit on the left hand from prior accident. SKIN: No rashes, no jaundice. NEUROLOGIC: Alert and oriented x3. No focal deficits. Results CBC & Chem 7: 08/06/20 05:30 08/06/20 05:30 Labs: Abnormal Lab Results - Last 24 Hours (Table) 08/04/20 08/04/20 08/04/20 Range/Units 11:34 11:34 13:24 ESR (0-15) mm/hr Sodium 130 L (137-145) mmol/L Potassium 5.4 H (3.5-5.1) mmol/L Chloride 96 L (98-107) mmol/L Glucose 106 H (74-99) mg/dL Plasma Lactic Acid Jeancalros 2.2 H* (0.7-2.0) mmol/L Calcium (8.4-10.2) mg/dL Creatine Kinase 46 L (55-170) U/L C-Reactive Protein (<10.0) mg/L Albumin 3.1 L (3.5-5.0) g/dL Urine Protein Trace H (Negative) Urine Mucus Many H (None) /hpf Urine Opiates Screen (NotDetected) Ur Amphetamines Screen (NotDetected) U Methamphetamines Scrn (NotDetected) 08/04/20 08/04/20 08/04/20 Range/Units 13:24 18:03 18:03 ESR 60 H (0-15) mm/hr Sodium (137-145) mmol/L Potassium (3.5-5.1) mmol/L Chloride (98-107) mmol/L Glucose (74-99) mg/dL Plasma Lactic Acid Jeancarlos (0.7-2.0) mmol/L Calcium (8.4-10.2) mg/dL Creatine Kinase (55-170) U/L C-Reactive Protein 27.8 H (<10.0) mg/L Albumin (3.5-5.0) g/dL Urine Protein (Negative) Urine Mucus (None) /hpf Urine Opiates Screen Detected H (NotDetected) Ur Amphetamines Screen Detected H (NotDetected) U Methamphetamines Scrn Detected H (NotDetected) 08/05/20 Range/Units 09:51 ESR (0-15) mm/hr Sodium 133 L (137-145) mmol/L Potassium (3.5-5.1) mmol/L Chloride (98-107) mmol/L Glucose 134 H (74-99) mg/dL Plasma Lactic Acid Jeancarlos (0.7-2.0) mmol/L Calcium 8.1 L (8.4-10.2) mg/dL Creatine Kinase (55-170) U/L C-Reactive Protein (<10.0) mg/L Albumin (3.5-5.0) g/dL Urine Protein (Negative) Urine Mucus (None) /hpf Urine Opiates Screen (NotDetected) Ur Amphetamines Screen (NotDetected) U Methamphetamines Scrn (NotDetected) CT scan - abdomen: report reviewed (computed tomography scan of the abdomen was nonspecific given lack of contrast with inflammatory changes noted within the abdomen) Assessment and Plan (1) Ulcerative colitis Narrative/Plan: 34-year-old male with a recent diagnosis of ulcerative colitis on 06/28/2020 at which time he had been seen in [place] for abdominal pain, diarrhea and blood per rectum. The patient was given a short course of steroid therapy at that time with biopsies confirming findings consistent with ulcerative colitis. He presented back to the hospital recently with complaints of persistent symptoms and was started on a treatment plan with balsalazide and high-dose steroid therapy. He had improvement of his symptoms and was discharged home and presented back with similar symptoms. Computed tomography scan on presentation nonspecific due to lack of contrast that showed inflammatory changes in the abdomen. Testing for Clostridium difficile negative on prior admission. Inflammatory markers were elevated on presentation with ESR 16 CRP of 27.8. Current Visit: Yes Status: Acute Code(s): K51.90 - ULCERATIVE COLITIS, UNSPECIFIED, WITHOUT COMPLICATIONS SNOMED Code(s): 07079681 (2) Chronic anemia Current Visit: Yes Status: Acute Code(s): D64.9 - ANEMIA, UNSPECIFIED SNOMED Code(s): 129727693 (3) Abdominal pain Current Visit: No Status: Acute Code(s): R10.9 - UNSPECIFIED ABDOMINAL PAIN SNOMED Code(s): 39999948 Plan: Supportive care Clear liquid diet Continue to monitor hemoglobin and hematocrit and transfuse as needed Continue to monitor stool output and clinically Continue high-dose steroids with Solu-Medrol 20 mg every 8 hours ordered Balsalazide reinitiated, unclear if patient was given the medication after discharge Surgical service consulted to see the patient Continue monitor ESR and CRP Patient will need follow-up with GI after discharge, and may need initiation of biologic therapy given clinical course Thank you for allowing us to participate in the care of the patient
[2020-08-06] MEDS: BALSALAZIDE DISODIUM 750 MG CAPSULE PO SCH ×3 (11:41→21:13)
--- NOTE | 2020-08-06 14:04 | P.PN ---
Subjective Progress Note Date: 08/06/20 Principal diagnosis: Ulcerative colitis, abdominal pain Patient is seen lying in bed reporting improvement in abdominal pain. No nausea or vomiting reported. Tolerating liquids. Objective - Vital Signs Vital signs: Vital Signs Temp 97.9 F 08/06/20 04:55 Pulse 74 08/06/20 04:55 Resp 16 08/06/20 04:55 BP 106/55 08/06/20 04:55 Pulse Ox 98 08/06/20 04:55 Intake & Output 08/05/20 08/06/20 08/06/20 18:59 06:59 18:59 Intake Total 1560 Balance 1560 Weight 68.039 kg Intake: Intake, IV Titration 1560 Amount Sodium Chloride 0.9% 1, 1560 000 ml @ 130 mls/hr IV . Q7H42M [facility] Rx#:[id number] Other: Voiding Method Toilet Toilet Toilet # Voids 1 3 # Bowel Movements 0 - Exam On physical examination, patient appears comfortable in no apparent distress. HEAD: Normocephalic, atraumatic. EYES: No scleral icterus. No conjunctival injection. MOUTH: No lesions, tongue midline. NECK: Trachea midline, no gross abnormalities. ABDOMEN: Soft, thin and mildly tender to palpation diffusely. Bowel sounds are positive. No organomegaly. No guarding or rigidity. EXTREMITIES: No pedal edema. SKIN: No rashes, no jaundice. NEUROLOGIC: Alert and oriented x3. No focal deficits. - Labs CBC & Chem 7: 08/06/20 05:30 08/06/20 05:30 Labs: Abnormal Lab Results - Last 24 Hours (Table) 08/05/20 08/05/20 08/06/20 Range/Units 09:51 09:51 05:30 WBC 12.23 H 14.62 H (4.50-10.00) X 10*3/uL RBC 2.98 L 3.03 L (4.40-5.60) X 10*6/uL Hgb 7.0 L 7.0 L (13.0-17.0) g/dL Hct 24.1 L 24.6 L (39.6-50.0) % MCH 23.5 L 23.1 L (27.0-32.0) pg MCHC 29.0 L 28.5 L (32.0-37.0) g/dL RDW 17.7 H 17.7 H (11.5-14.5) % Plt Count 550 H 631 H (140-440) X 10*3/uL MPV 9.4 L 9.2 L (9.5-12.2) fL Immature Gran # 0.08 H 0.09 H (0.00-0.04) X 10*3/uL Neutrophils # 11.12 H 12.64 H (1.80-7.70) X 10*3/uL Lymphocytes # 0.83 L (0.90-5.00) X 10*3/uL Monocytes # 0.19 L (0.20-1.00) X 10*3/uL Eosinophils # 0 L 0 L (0.04-0.35) X 10*3/uL Sodium 133 L (137-145) mmol/L Glucose 134 H (74-99) mg/dL Calcium 8.1 L (8.4-10.2) mg/dL 08/06/20 Range/Units 05:30 WBC (4.50-10.00) X 10*3/uL RBC (4.40-5.60) X 10*6/uL Hgb (13.0-17.0) g/dL Hct (39.6-50.0) % MCH (27.0-32.0) pg MCHC (32.0-37.0) g/dL RDW (11.5-14.5) % Plt Count (140-440) X 10*3/uL MPV (9.5-12.2) fL Immature Gran # (0.00-0.04) X 10*3/uL Neutrophils # (1.80-7.70) X 10*3/uL Lymphocytes # (0.90-5.00) X 10*3/uL Monocytes # (0.20-1.00) X 10*3/uL Eosinophils # (0.04-0.35) X 10*3/uL Sodium (137-145) mmol/L Glucose 134 H (74-99) mg/dL Calcium 8.1 L (8.4-10.2) mg/dL Microbiology - Last 24 Hours (Table) 08/04/20 22:50 Urine Culture - Final Urine,Clean Catch 08/04/20 18:03 Blood Culture - Preliminary Blood No Growth after 24 hours 08/04/20 22:50 Stool Culture - Preliminary Stool Assessment and Plan (1) Ulcerative colitis Narrative/Plan: 34-year-old male with a recent diagnosis of ulcerative colitis on 06/28/2020 at which time he had been seen in [place] for abdominal pain, diarrhea and blood per rectum. The patient was given a short course of steroid therapy at that time with biopsies confirming findings consistent with ulcerative colitis. He presented back to the hospital recently with complaints of persistent symptoms and was started on a treatment plan with balsalazide and high-dose steroid therapy. He had improvement of his symptoms and was discharged home and pr esented back with similar symptoms. Computed tomography scan on presentation nonspecific due to lack of contrast that showed inflammatory changes in the abdomen. Testing for Clostridium difficile negative on prior admission. Inflammatory markers were elevated on presentation with ESR 16 CRP of 27.8. Current Visit: Yes Status: Acute Code(s): K51.90 - ULCERATIVE COLITIS, UNSPECIFIED, WITHOUT COMPLICATIONS SNOMED Code(s): 99304412 (2) Chronic anemia Current Visit: Yes Status: Acute Code(s): D64.9 - ANEMIA, UNSPECIFIED SNOMED Code(s): 222927884 (3) Abdominal pain Current Visit: No Status: Acute Code(s): R10.9 - UNSPECIFIED ABDOMINAL PAIN SNOMED Code(s): 29340937 Plan: Supportive care Clear liquid diet Continue to monitor hemoglobin and hematocrit and transfuse as needed Continue to monitor stool output and clinically Continue high-dose steroids with Solu-Medrol 20 mg every 8 hours ordered Balsalazide reinitiated, patient was unable to get the medication after discharge due to the need for prior authorization Surgical service consulted to see the patient Continue monitor ESR and CRP Abdominal x-ray ordered for tomorrow morning Patient will need follow-up with GI after discharge, and may need initiation of biologic therapy given clinical course Thank you for allowing us to participate in the care of the patient
--- NOTE | 2020-08-06 17:15 | P.GSCN ---
History of Present Illness Consult date: 08/06/20 Reason for Consult: Ulcerative colitis History of present illness: This is a 34-year-old male who was in his hospital with complaints of abdominal pain and diarrhea. Patient being worked up CAT scan suggestive of ulcerative colitis. Patient states he is continue to have significant frequent bowel movements. Past Medical History Past Medical History: GERD/Reflux Additional Past Medical History / Comment(s): Pt recently admitted to [facility] on 07/26/20 with acute ulcerative colitis exacerbation, acute blood loss anemia 2ndary to lower GI bleed/transfusion, hyperkalemia. Other hx: chronic low back pain. History of Any Multi-Drug Resistant Organisms: None Reported Past Surgical History: Orthopedic Surgery Additional Past Surgical History / Comment(s): left hand industrial accident/finger amputations, EGD, colonoscopy. Past Anesthesia/Blood Transfusion Reactions: No Reported Reaction Additional Past Anesthesia/Blood Transfusion Reaction / Comm: Pt recently received blood without reaction. Smoking Status: Former smoker - Past Family History Father History Unknown: Yes Mother Family Medical History: No Reported History Additional Family Medical History / Comment(s): Healthy. Medications and Allergies Home Medications Medication Instructions Recorded Confirmed Type Famotidine [Pepcid] 20 mg PO BID PRN 07/25/20 08/04/20 History HYDROcodone/APAP 5-325MG [[place] 1 tab PO Q6HR PRN 3 Days #12 tab 07/29/20 08/04/20 Rx 5-325] predniSONE See Taper PO DAILY 08/04/20 08/04/20 History Allergies Allergy/AdvReac Type Severity Reaction Status Date / Time No Known Allergies Allergy Verified 08/04/20 12:47 Surgical - Exam Vital Signs Temp Pulse Resp BP Pulse Ox 98.7 F 125 H 20 130/71 100 08/04/20 11:00 08/04/20 11:00 08/04/20 11:00 08/04/20 11:00 08/04/20 11:00 - General well developed, well nourished, no distress - Eyes PERRL - ENT normal pinna - Neck no masses - Respiratory normal expansion - Cardiovascular Rhythm: regular - Abdomen Abdomen: soft, non tender Results - Labs 08/06/20 05:30 08/06/20 05:30 Abnormal Lab Results - Last 24 Hours (Table) 08/04/20 08/05/20 08/06/20 Range/Units 11:44 09:51 05:30 WBC 12.23 H 14.62 H (4.50-10.00) X 10*3/uL RBC 2.98 L 3.03 L (4.40-5.60) X 10*6/uL Hgb 7.0 L 7.0 L (13.0-17.0) g/dL Hct 24.1 L 24.6 L (39.6-50.0) % MCH 23.5 L 23.1 L (27.0-32.0) pg MCHC 29.0 L 28.5 L (32.0-37.0) g/dL RDW 17.7 H 17.7 H (11.5-14.5) % Plt Count 550 H 631 H (140-440) X 10*3/uL MPV 9.4 L 9.2 L (9.5-12.2) fL Immature Gran # 0.08 H 0.09 H (0.00-0.04) X 10*3/uL Neutrophils # 11.12 H 12.64 H (1.80-7.70) X 10*3/uL Lymphocytes # 0.83 L (0.90-5.00) X 10*3/uL Monocytes # 0.19 L (0.20-1.00) X 10*3/uL Eosinophils # 0 L 0 L (0.04-0.35) X 10*3/uL Glucose (70-110) mg/dL Calcium (8.7-10.3) mg/dL Crossmatch See Detail 08/06/20 Range/Units 05:30 WBC (4.50-10.00) X 10*3/uL RBC (4.40-5.60) X 10*6/uL Hgb (13.0-17.0) g/dL Hct (39.6-50.0) % MCH (27.0-32.0) pg MCHC (32.0-37.0) g/dL RDW (11.5-14.5) % Plt Count (140-440) X 10*3/uL MPV (9.5-12.2) fL Immature Gran # (0.00-0.04) X 10*3/uL Neutrophils # (1.80-7.70) X 10*3/uL Lymphocytes # (0.90-5.00) X 10*3/uL Monocytes # (0.20-1.00) X 10*3/uL Eosinophils # (0.04-0.35) X 10*3/uL Glucose 134 H (70-110) mg/dL Calcium 8.1 L (8.7-10.3) mg/dL Crossmatch Microbiology - Last 24 Hours (Table) 08/04/20 22:50 Urine Culture - Final Urine,Clean Catch 08/04/20 18:03 Blood Culture - Preliminary Blood No Growth after 24 hours 08/04/20 22:50 Stool Culture - Preliminary Stool Diabetes panel 08/06/20 Range/Units 05:30 Sodium 139 (135-145) mmol/L Potassium 4.8 (3.5-5.5) mmol/L Chloride 105 (96-109) mmol/L Carbon Dioxide 28.4 (21.6-31.8) mmol/L BUN 9.0 (9.0-27.0) mg/dL Creatinine 0.7 (0.6-1.5) mg/dL Glucose 134 H (70-110) mg/dL Calcium 8.1 L (8.7-10.3) mg/dL Calcium panel 08/06/20 Range/Units 05:30 Calcium 8.1 L (8.7-10.3) mg/dL Pituitary panel 08/06/20 Range/Units 05:30 Sodium 139 (135-145) mmol/L Potassium 4.8 (3.5-5.5) mmol/L Chloride 105 (96-109) mmol/L Carbon Dioxide 28.4 (21.6-31.8) mmol/L BUN 9.0 (9.0-27.0) mg/dL Creatinine 0.7 (0.6-1.5) mg/dL Glucose 134 H (70-110) mg/dL Calcium 8.1 L (8.7-10.3) mg/dL Adrenal panel 08/06/20 Range/Units 05:30 Sodium 139 (135-145) mmol/L Potassium 4.8 (3.5-5.5) mmol/L Chloride 105 (96-109) mmol/L Carbon Dioxide 28.4 (21.6-31.8) mmol/L BUN 9.0 (9.0-27.0) mg/dL Creatinine 0.7 (0.6-1.5) mg/dL Glucose 134 H (70-110) mg/dL Calcium 8.1 L (8.7-10.3) mg/dL Assessment and Plan Assessment: Colitis. Patient will undergo endoscopy by Dr. Ford. We will remain on surgical standby
[2020-08-06] MEDS: methylPREDNISolone SOD SUCCI 40 MG/ML 1 ML VIAL IV SCH (17:22)
--- NOTE | 2020-08-06 17:29 | PN ---
PROGRESS NOTE DATE OF SERVICE: 08/06/2020 INTERVAL HISTORY: This is a 34-year-old gentleman who was admitted with abdominal pain possible ulcerative colitis acute exacerbation. On conservative line of management. The patient is being closely monitored. Patient also had an abscess in the anal area. The surgical evaluation is also being sought. No chest pain. No palpitations. No fever. PHYSICAL EXAMINATION: GENERAL: Patient is alert and oriented times three. VITAL SIGNS: Pulse 70, blood pressure 103/64, respirations 16, temperature 98.2, pulse ox 98% on room air. HEENT: Conjunctivae normal. Oral mucosa moist. NECK: No jugular venous distention. No carotid bruits. No lymph node enlargement. RESPIRATORY: Breath sounds diminished at the bases. No rhonchi, no crackles. HEART: S1 and S2, muffled. ABDOMEN: Soft, mild diffuse tenderness. EXTREMITIES: No edema, no swelling. NERVOUS: No focal deficits. LABS: Hemoglobin is 7 and WBC 14.2. ASSESSMENT: 1. Acute ulcerative colitis acute exacerbation, severe intractable abdominal pain and failure of outpatient treatment. 2. Possible perianal abscess secondary to ulcerative colitis. 3. Anemia possibly from chronic gastrointestinal bleed and blood-loss anemia. 4. Acute sepsis secondary to above. 5. Increased WBC. 6. Increased platelets. 7. Hyponatremia. 8. Hypokalemia. 9. Elevated lactic acid secondary to sepsis possibly. 10.Positive methamphetamine in the urine. 11.History of gastroesophageal reflux disease. 12.History of anxiety. 13.History of continued ongoing nicotine dependence. 14.History of THC. 15.FULL CODE. RECOMMENDATIONS AND DISCUSSION: Recommend to continue current management and continue symptomatic treatment. Continue broad-spectrum IV antibiotics. Repeat labs. Will monitor the hemoglobin closely. Otherwise, surgical evaluation. Patient is started on Solu-Medrol IV. Continue with IV antibiotics. Cut down the IV fluids. Diet per Gastroenterology and Surgery. Further recommendations to follow. MMODL / IJN: [id number] /
[2020-08-06 23:11] LABS: Hepatitis B Surface AB- Quant 3.5 mIU/mL; Hepatitis B Surface Antibody Non-Reactive (Non-Reactive); Hepatitis B Surface Antigen Non-Reactive (Non-Reactive); Hepatitis C IgG Antibody Non-Reactive (Non-Reactive)
[2020-08-07] MEDS: methylPREDNISolone SOD SUCCI 40 MG/ML 1 ML VIAL IV SCH ×3 (00:09→15:50)
[2020-08-07] MEDS: HYDROmorphone 1 MG/ML 1 ML SYRINGE IVP PRN ×6 (00:28→22:01)
[2020-08-07] MEDS: SODIUM CHLORIDE 0.9% 1,000 ML IV SCH ×2 (01:39→01:52)
[2020-08-07] MEDS: PIPERACILLIN-TAZOBACTAM 3.375 GM in SODIUM CHLORIDE 0.9% 100 ML IVPB SCH ×3 (01:51→17:21)
[2020-08-07] MEDS: BALSALAZIDE DISODIUM 750 MG CAPSULE PO SCH ×3 (08:25→21:27)
[2020-08-07] MEDS: NICOTINE 14MG/24HR PATCH TRANSDERM SCH (08:25)
[2020-08-07] MEDS: HEPARIN SODIUM,PORCINE 5,000 UNIT/ML 1 ML VIAL SQ SCH ×2 (08:25→21:27)
[2020-08-07] MEDS: PANTOPRAZOLE 40 MG/10 ML VIAL IVP SCH (08:25)
[2020-08-07] MEDS: HYDROcodone/APAP 5-325MG 1 EACH TAB PO PRN (08:26)
[2020-08-07] MEDS: HYDROmorphone 0.5 MG/0.5 ML SYRINGE IVP PRN ×2 (09:31→12:42)
[2020-08-07 09:50] LABS: Anion Gap 1.4 mmol/L (4.00-12.00); C Reactive Protein 0.6 mg/dL (0.0-0.8); Calcium 7.8 mg/dL (8.7-10.3); Carbon Dioxide 31.6 mmol/L (21.6-31.8); Non-African American GFR(CKD) 130.3 (60.0-200.0); Potassium 4.9 mmol/L (3.5-5.5)
[2020-08-07 09:57] LABS: Basophils # (A) 0 X 10*3/uL (0.00-0.10); Basophils % (A) 0 %; Eosinophils # (A) 0 X 10*3/uL (0.04-0.35); Eosinophils % (A) 0 %; HCT 23.3 % (39.6-50.0); HGB 6.8 g/dL (13.0-17.0); Lymphocytes % (A) 11.4 %; MCH 23.5 pg (27.0-32.0); MCHC 29.2 g/dL (32.0-37.0); MCV 80.6 fL (80.0-97.0); Mean Platelet Volume 9.2 fL (9.5-12.2); Monocytes # (A) 0.58 X 10*3/uL (0.20-1.00); Monocytes % (A) 7.3 %; Neutrophils # (A) 6.38 X 10*3/uL (1.80-7.70); Neutrophils % (A) 80.5 %; Platelet Count 484 X 10*3/uL (140-440); RBC 2.89 X 10*6/uL (4.40-5.60); WBC 7.92 X 10*3/uL (4.50-10.00)
--- NOTE | 2020-08-07 10:10 | XR ---
EXAMINATION TYPE: XR abdomen 1V DATE OF EXAM: 08/07/2020 COMPARISON: 08/04/2020 HISTORY: Pain TECHNIQUE: One view abdominal series FINDINGS: The osseous structures are intact. The bowel gas pattern is nonspecific. Tiny calcification in the r ight lower right pelvis noted. Lung bases are clear. IMPRESSION: 1. Tiny right hemipelvic calcification is not. 2. There is interval reduction in size of the prominent small bowel loops in the abdomen which may re present improving ileus, enteritis or partial obstruction.
--- NOTE | 2020-08-07 10:24 | P.PN ---
Subjective Progress Note Date: 08/07/20 Principal diagnosis: Ulcerative colitis, abdominal pain And seen sitting up in bed eating his breakfast. He is on clear liquid diet. He reports abdominal pain has improved some. Still having 5-6 episodes of loose bowel movements daily, however reports just small amounts of blood in stool. Denies any nausea or vomiting. And asking for advancement in his diet. He is status post 1 unit of PRBC transfusion. This morning's hemoglobin is 6.8. Another unit of PRBC transfusion has been ordered. Objective - Vital Signs Vital signs: Vital Signs Temp 98.0 F 08/07/20 04:17 Pulse 65 08/07/20 04:17 Resp 18 08/07/20 04:17 BP 111/67 08/07/20 08:17 Pulse Ox 97 08/07/20 08:17 Intake & Output 08/06/20 08/07/20 08/07/20 18:59 06:59 18:59 Intake Total 900 1782 Balance 900 1782 Intake: Intake, IV Titration 900 1000 Amount Piperacillin-Tazobactam 3 100 .375 gm In Sodium Chloride 0.9% 100 ml @ 25 mls/hr IVPB Q8H JANE Rx#: [id number] Sodium Chloride 0.9% 1, 900 900 000 ml @ 75 mls/hr IV . [id number] JANE Rx#:[id number] Oral 500 Blood Product 282 Rc Pheresis 2 As3 Unit 282 [id number] Other: Voiding Method Toilet Toilet # Voids 4 # Bowel Movements 4 - Exam General appearance: The patient is alert, oriented, appears in no acute distress. HET: Head is normocephalic and atraumatic. Conjunctiva pink. Sclera anicteric. Neck: Supple without lymphadenopathy. Abdomen: Soft, lower abdominal tenderness, nondistended with bowel sounds. No guarding or rigidity. Extremities: Normal skin color and turgor. No pedal edema Skin: No rashes, no jaundice Neurological: No focal deficits. Alert and oriented 3. - Labs CBC & Chem 7: 08/07/20 05:41 08/07/20 05:41 Labs: Abnormal Lab Results - Last 24 Hours (Table) 08/04/20 08/07/20 08/07/20 Range/Units 11:44 05:41 05:41 RBC 2.89 L (4.40-5.60) X 10*6/uL Hgb 6.8 L* (13.0-17.0) g/dL Hct 23.3 L (39.6-50.0) % MCH 23.5 L (27.0-32.0) pg MCHC 29.2 L (32.0-37.0) g/dL RDW 17.0 H (11.5-14.5) % Plt Count 484 H (140-440) X 10*3/uL MPV 9.2 L (9.5-12.2) fL Immature Gran # 0.06 H (0.00-0.04) X 10*3/uL Eosinophils # 0 L (0.04-0.35) X 10*3/uL Anion Gap 1.40 L (4.00-12.00) mmol/L BUN 6.0 L (9.0-27.0) mg/dL BUN/Creatinine Ratio 10.00 L (12.00-20.00) Ratio Glucose 115 H (70-110) mg/dL Calcium 7.8 L (8.7-10.3) mg/dL Crossmatch See Detail Microbiology - Last 24 Hours (Table) 08/04/20 18:03 Blood Culture - Preliminary Blood No Growth after 48 hours 08/04/20 22:50 Urine Culture - Final Urine,Clean Catch Assessment and Plan (1) Ulcerative colitis Narrative/Plan: 34-year-old male with a recent diagnosis of ulcerative colitis on 06/28/2020 at which time he had been seen in [place] for abdominal pain, diarrhea and blood per rectum. The patient was given a short course of steroid therapy at that time with biopsies confirming findings consistent with ulcerative colitis. He presented back to the hospital recently with complaints of persistent symptoms and was started on a treatment plan with balsalazide and high-dose steroid therapy. He had improvement of his symptoms and was discharged home and presented back with similar symptoms. Computed tomography scan on presentation nonspecific due to lack of contrast that showed inflammatory changes in the abdomen. Testing for Clostridium difficile negative on prior admission. Inflammatory markers were elevated on presentation with ESR 16 CRP of 27.8. Current Visit: Yes Status: Acute Code(s): K51.90 - ULCERATIVE COLITIS, UNSPECIFIED, WITHOUT COMPLICATIONS SNOMED Code(s): 61737468 (2) Chronic anemia Current Visit: Yes Status: Acute Code(s): D64.9 - ANEMIA, UNSPECIFIED SNOMED Code(s): 271093847 (3) Abdominal pain Current Visit: No Status: Acute Code(s): R10.9 - UNSPECIFIED ABDOMINAL PAIN SNOMED Code(s): 10740121 Plan: Supportive care Advance to full liquid diet Continue to monitor hemoglobin and hematocrit and transfuse as needed Continue to monitor stool output Continue high-dose steroids with Solu-Medrol 20 mg every 8 hours ordered Balsalazide reinitiated, patient was unable to get the medication after discharge due to the need for prior authorization Surgical service consulted to see the patient Continue monitor ESR and CRP Abdominal x-ray ordered and reviewed Agree with 1 unit PRBC transfusion, repeat CBC and transfuse for hemoglobin less than 7 Case management to look into authorization and coverage for mesalamine and possibly Humira for discharge Patient will need follow-up with GI after discharge, and may need initiation of biologic therapy given clinical course Thank you for allowing us to participate in the care of the patient Dr. Kelly I agree with the dictator's note, documented as a scribe by Crystal Condon.
[2020-08-07] MEDS: HYDROCORTISONE SUPPOSITORY 25 MG SUPP RECTAL SCH (11:22)
--- NOTE | 2020-08-07 13:38 | P.PN ---
Subjective Progress Note Date: 08/07/20 CHIEF COMPLAINT: Abdominal pain and diarrhea HISTORY OF PRESENT ILLNESS: Patient reports that he is still having abdominal pain. He is still having about 6 episodes of diarrhea during the day. There has been a decrease in the amount of blood that he has been having in the stools. He is on steroids and GI service is following. He does have a hemorrhoid that is tender and bothering him. He has been using [id number] hemorrhoid cream and Tucks pads. He is currently on a clear liquid diet. He is afebrile. Hemoglobin 6.8 and he is receiving a unit of blood Abdominal x-ray there is interval reduction in size of the prominent small bowel loops in the abdomen which may represent improving ileus, enteritis or partial obstruction. PHYSICAL EXAM: VITAL SIGNS: Reviewed. GENERAL: Well-developed in no acute distress. HEENT: No sclera icterus. Extraocular movements grossly intact. Moist buccal mucosa. Head is atraumatic, normocephalic. ABDOMEN: Soft. Nondistended. Nontender. Rectal area does show a small external hemorrhoid. No evidence of irritation or bleeding externally NEUROLOGIC: Alert and oriented. Cranial nerves II through XII grossly intact. ASSESSMENT: 1. Ulcerative colitis 2. External hemorrhoid PLAN: -Continue supportive care -Agree with blood transfusion -Add Anusol suppository for hemorrhoid -Surgical service on standby Physician Classifications Officer Cc/Cm note has been reviewed by physician. Signing provider agrees with the documented findings, assessment, and plan of care. Objective - Vital Signs Vital signs: Vital Signs Temp 98.2 F 08/07/20 13:06 Pulse 63 08/07/20 13:06 Resp 18 08/07/20 13:06 BP 115/65 08/07/20 13:06 Pulse Ox 97 08/07/20 13:06 Intake & Output 08/06/20 08/07/20 08/07/20 18:59 06:59 18:59 Intake Total 900 1782 0 Balance 900 1782 0 Intake: Intake, IV Titration 900 1000 Amount Piperacillin-Tazobactam 3 100 .375 gm In Sodium Chloride 0.9% 100 ml @ 25 mls/hr IVPB Q8H JANE Rx#: [id number] Sodium Chloride 0.9% 1, 900 900 000 ml @ 75 mls/hr IV . [id number] JANE Rx#:[id number] Oral 500 Blood Product 282 0 Rc As-1 Unit 0 [id number] Rc Pheresis 2 As3 Unit 282 [id number] Other: Voiding Method Toilet Toilet Toilet # Voids 4 # Bowel Movements 4 - Labs CBC & Chem 7: 08/07/20 05:41 08/07/20 05:41 Labs: Abnormal Lab Results - Last 24 Hours (Table) 08/04/20 08/07/20 08/07/20 Range/Units 11:44 05:41 05:41 RBC 2.89 L (4.40-5.60) X 10*6/uL Hgb 6.8 L* (13.0-17.0) g/dL Hct 23.3 L (39.6-50.0) % MCH 23.5 L (27.0-32.0) pg MCHC 29.2 L (32.0-37.0) g/dL RDW 17.0 H (11.5-14.5) % Plt Count 484 H (140-440) X 10*3/uL MPV 9.2 L (9.5-12.2) fL Immature Gran # 0.06 H (0.00-0.04) X 10*3/uL Eosinophils # 0 L (0.04-0.35) X 10*3/uL Anion Gap 1.40 L (4.00-12.00) mmol/L BUN 6.0 L (9.0-27.0) mg/dL BUN/Creatinine Ratio 10.00 L (12.00-20.00) Ratio Glucose 115 H (70-110) mg/dL Calcium 7.8 L (8.7-10.3) mg/dL Crossmatch See Detail Microbiology - Last 24 Hours (Table) 08/04/20 18:03 Blood Culture - Preliminary Blood No Growth after 48 hours 08/04/20 22:50 Urine Culture - Final Urine,Clean Catch
[2020-08-07 16:18] LABS: Anisocytosis Slight; Basophils % (A) 0 %; Eosinophils % (A) 0 %; HCT 26.5 % (39.0-53.0); Hypochromasia Marked; Lymphocytes # (A) 1.2 k/uL (1.0-4.8); Lymphocytes % (A) 15 %; MCH 24.1 pg (25.0-35.0); MCHC 30.1 g/dL (31.0-37.0); Mean Platelet Volume 6.5; Monocytes # (A) 0.5 k/uL (0-1.0); Monocytes % (A) 6 %; Neutrophils % (A) 77 %; Platelet Count 468 k/uL (150-450); Poikilocytosis Moderate; RBC 3.31 m/uL (4.30-5.90); RDW 16.3 % (11.5-15.5); WBC 7.8 k/uL (3.8-10.6)
--- NOTE | 2020-08-07 16:35 | PN ---
PROGRESS NOTE DATE OF SERVICE: 08/07/2020 This is a 34-year-old gentleman who was admitted with acute ulcerative colitis exacerbation, closely monitored. The patient also had anemia. The current hemoglobin is 6.8. No active bleeding was noted. No chest pain. No palpitations. No fever. PHYSICAL EXAMINATION: On exam, alert and oriented x3. Pulse is 65, blood pressure 125/79, respiration 18, temperature 98.6, pulse ox 97% on room air. HEENT: Conjunctivae normal. NECK: No jugular venous distention. CARDIOVASCULAR: S1, S2 muffled. RESPIRATORY: Breath sounds diminished at the bases. No rhonchi, no crackles. ABDOMEN: Soft, mild diffuse discomfort. No guarding. No rigidity. No mass palpable. LEGS: No edema, no swelling. NERVOUS SYSTEM: No focal deficits. LABS: WBC 7.92, hemoglobin 6.8. ASSESSMENT: 1. Acute ulcerative colitis acute exacerbation with severe intractable abdominal pain and failure of outpatient treatment. 2. Possible perianal abscess secondary to ulcerative colitis. 3. Anemia possibly from chronic gastrointestinal bleed and blood-loss anemia. 4. Acute sepsis secondary to above. 5. Increased WBC. 6. Increased platelets. 7. Hyponatremia. 8. Hyperkalemia. 9. Elevated lactic acid secondary to sepsis possibly. 10.Positive methamphetamine in the urine. 11.History of gastroesophageal reflux disease. 12.History of anxiety. 13.History of continued ongoing nicotine dependence. 14.History of THC. 15.FULL CODE. RECOMMENDATIONS AND DISCUSSION: Recommend to continue current medications, continue symptomatic treatment. Closely follow with transfusion. Closely follow with Gastroenterology and Surgery regarding the above mentioned multiple complex medical issues. Guarded prognosis. Further recommendations to follow. MMODL / IJN: [id number] /
[2020-08-07 16:38] LABS: Hypochromasia (M) Present
[2020-08-07 18:31] LABS: Erythrocyte Sedimentation Rate 43 mm/Hr (0-15)
[2020-08-08] MEDS: methylPREDNISolone SOD SUCCI 40 MG/ML 1 ML VIAL IV SCH ×2 (00:49→07:56)
[2020-08-08] MEDS: HYDROmorphone 1 MG/ML 1 ML SYRINGE IVP PRN ×5 (01:10→13:58)
[2020-08-08] MEDS: PIPERACILLIN-TAZOBACTAM 3.375 GM in SODIUM CHLORIDE 0.9% 100 ML IVPB SCH ×2 (01:37→09:41)
[2020-08-08] MEDS: SODIUM CHLORIDE 0.9% 1,000 ML IV SCH ×2 (03:39→14:02)
[2020-08-08] MEDS: NICOTINE 14MG/24HR PATCH TRANSDERM SCH (07:56)
[2020-08-08] MEDS: HEPARIN SODIUM,PORCINE 5,000 UNIT/ML 1 ML VIAL SQ SCH (07:57)
[2020-08-08] MEDS: HYDROCORTISONE SUPPOSITORY 25 MG SUPP RECTAL SCH (07:57)
[2020-08-08] MEDS: BALSALAZIDE DISODIUM 750 MG CAPSULE PO SCH (07:57)
[2020-08-08] MEDS: PANTOPRAZOLE 40 MG/10 ML VIAL IVP SCH (07:58)
--- NOTE | 2020-08-08 09:44 | P.PN ---
Subjective Progress Note Date: 08/08/20 Principal diagnosis: Ulcerative colitis, abdominal pain Patient is seen and examined sitting up in bed. He is tolerating a full liquid diet. He states actually yesterday for dinner they gave him a chicken biscuit and tolerated that as well. He denies any nausea or vomiting. He states he is still having some abdominal pain/cramping before and after bowel movements. He is having 5-6 loose bowel movements a day, smaller amounts. States there is very scant to minimal amount of bleeding. No acute changes through the night. Case management is working on mesalamine prior prior authorization for discharge. Objective - Vital Signs Vital signs: Vital Signs Temp 97.8 F 08/08/20 05:15 Pulse 51 L 08/08/20 05:15 Resp 16 08/08/20 05:15 BP 123/80 08/08/20 05:15 Pulse Ox 100 08/08/20 05:15 Intake & Output 08/07/20 08/08/20 08/08/20 18:59 06:59 18:59 Intake Total 810 720 Balance 810 720 Intake: Intake, IV Titration 500 Amount Piperacillin-Tazobactam 3 200 .375 gm In Sodium Chloride 0.9% 100 ml @ 25 mls/hr IVPB Q8H JANE Rx#: [id number] Sodium Chloride 0.9% 1, 300 000 ml @ 75 mls/hr IV . [id number] JANE Rx#:[id number] Oral 720 Blood Product 310 Rc As-1 Unit 310 [id number] Other: Voiding Method Toilet Toilet - Exam General appearance: The patient is alert, oriented, appears in no acute distress. HET: Head is normocephalic and atraumatic. Conjunctiva pink. Sclera anicteric. Neck: Supple without lymphadenopathy. Abdomen: Soft, lower abdominal tenderness, nondistended with bowel sounds. No guarding or rigidity. Extremities: Normal skin color and turgor. No pedal edema Skin: No rashes, no jaundice Neurological: No focal deficits. Alert and oriented 3. - Labs CBC & Chem 7: 08/08/20 06:37 08/07/20 05:41 Labs: Abnormal Lab Results - Last 24 Hours (Table) 08/04/20 08/07/20 08/07/20 Range/Units 11:44 05:41 05:41 RBC 2.89 L (4.40-5.60) X 10*6/uL Hgb 6.8 L* (13.0-17.0) g/dL Hct 23.3 L (39.6-50.0) % MCH 23.5 L (27.0-32.0) pg MCHC 29.2 L (32.0-37.0) g/dL RDW 17.0 H (11.5-14.5) % Plt Count 484 H (140-440) X 10*3/uL MPV 9.2 L (9.5-12.2) fL Immature Gran # 0.06 H (0.00-0.04) X 10*3/uL Eosinophils # 0 L (0.04-0.35) X 10*3/uL ESR 43 H (0-15) mm/Hr Anion Gap 1.40 L (4.00-12.00) mmol/L BUN 6.0 L (9.0-27.0) mg/dL BUN/Creatinine Ratio 10.00 L (12.00-20.00) Ratio Glucose 115 H (70-110) mg/dL Calcium 7.8 L (8.7-10.3) mg/dL Crossmatch See Detail 08/07/20 Range/Units 15:55 RBC 3.31 L (4.40-5.60) X 10*6/uL Hgb 8.0 L (13.0-17.0) g/dL Hct 26.5 L (39.6-50.0) % MCH 24.1 L (27.0-32.0) pg MCHC 30.1 L (32.0-37.0) g/dL RDW 16.3 H (11.5-14.5) % Plt Count 468 H (140-440) X 10*3/uL MPV (9.5-12.2) fL Immature Gran # (0.00-0.04) X 10*3/uL Eosinophils # (0.04-0.35) X 10*3/uL ESR (0-15) mm/Hr Anion Gap (4.00-12.00) mmol/L BUN (9.0-27.0) mg/dL BUN/Creatinine Ratio (12.00-20.00) Ratio Glucose (70-110) mg/dL Calcium (8.7-10.3) mg/dL Crossmatch Microbiology - Last 24 Hours (Table) 08/04/20 22:50 Stool Culture - Final Stool 08/04/20 18:03 Blood Culture - Preliminary Blood No Growth after 72 hours Assessment and Plan (1) Ulcerative colitis Narrative/Plan: 34-year-old male with a recent diagnosis of ulcerative colitis on 06/28/2020 at which time he had been seen in [place] for abdominal pain, diarrhea and blood per rectum. The patient was given a short course of steroid therapy at that time with biopsies confirming findings consistent with ulcerative colitis. He presented back to the hospital recently with complaints of persistent symptoms and was started on a treatment plan with balsalazide and high-dose steroid therapy. He had improvement of his symptoms and was discharged home and presented back with similar symptoms. Computed tomography scan on presentation nonspecific due to lack of contrast that showed inflammatory changes in the abdomen. Testing for Clostridium difficile negative on prior admission. Inflammatory markers were elevated on presentation with ESR 16 CRP of 27.8. CRP and sed rate improving. Patient's symptoms improving patient is status post 1 unit of PRBC with a repeat hemoglobin of 8.0. Current Visit: Yes Status: Acute Code(s): K51.90 - ULCERATIVE COLITIS, UNSPECIFIED, WITHOUT COMPLICATIONS SNOMED Code(s): 77664690 (2) Chronic anemia Narrative/Plan: Patient had a hemoglobin of 6.8 yesterday, he is status post 1 unit of PRBC transfusion. Repeat hemoglobin was 8.0 Current Visit: Yes Status: Acute Code(s): D64.9 - ANEMIA, UNSPECIFIED SNOMED Code(s): 761471147 (3) Abdominal pain Current Visit: No Status: Acute Code(s): R10.9 - UNSPECIFIED ABDOMINAL PAIN SNOMED Code(s): 52371347 Plan: Supportive care Advance to low fiber diet Continue to monitor hemoglobin and hematocrit and transfuse as needed Continue to monitor stool output Continue high-dose steroids with Solu-Medrol 20 mg every 8 hours ordered Balsalazide reinitiated, patient was unable to get the medication after discharge due to the need for prior authorization Surgical service consulted to see the patient Continue monitor ESR and CRP Case management to look into authorization and coverage for mesalamine and possibly Humira for discharge Patient to continue prednisone taper dose, discussed will prolong taper to decrease by 5mg every two weeks Patient will need follow-up with GI after discharge, and may need initiation of biologic therapy given clinical course Thank you for allowing us to participate in the care of the patient Dr. Kelly I agree with the dictator's note, documented as a scribe by Crystal Condon.
[2020-08-08 10:29] LABS: HCT 29.6 % (39.6-50.0); HGB 8.9 g/dL (13.0-17.0); MCH 24.4 pg (27.0-32.0); MCHC 30.1 g/dL (32.0-37.0); MCV 81.1 fL (80.0-97.0); Mean Platelet Volume 9.3 fL (9.5-12.2); Platelet Count 550 X 10*3/uL (140-440); RBC 3.65 X 10*6/uL (4.40-5.60); RDW 17.2 % (11.5-14.5); WBC 9.12 X 10*3/uL (4.50-10.00)
[2020-08-08 11:54] VITALS: BP 119/71; PULSE 68; RESP 17; TEMP 98.5
--- NOTE | 2020-08-08 12:48 | P.PN ---
Subjective Progress Note Date: 08/08/20 CHIEF COMPLAINT: Abdominal pain and diarrhea HISTORY OF PRESENT ILLNESS: Patient reports that he has had decrease in abdominal pain and blood in his stools. He is still having diarrhea. He is tolerating full liquid diet. Afebrile. WBC 9.12 Hgb 8.9 hemoglobin did improve from 6.8 up to 8.9 after blood transfusion PHYSICAL EXAM: VITAL SIGNS: Reviewed. GENERAL: Well-developed in no acute distress. HEENT: No sclera icterus. Extraocular movements grossly intact. Moist buccal mucosa. Head is atraumatic, normocephalic. ABDOMEN: Soft. Nondistended. Nontender. Rectal area does show a small exte rnal hemorrhoid. No evidence of irritation or bleeding externally NEUROLOGIC: Alert and oriented. Cranial nerves II through XII grossly intact. ASSESSMENT: 1. Ulcerative colitis 2. External hemorrhoid PLAN: -Continue supportive care -Patient stable from surgical standpoint for discharge. -Continue Anusol suppository for hemorrhoid [employer] note has been reviewed by physician. Signing provider agrees with the documented findings, assessment, and plan of care. Objective - Vital Signs Vital signs: Vital Signs Temp 98.5 F 08/08/20 11:54 Pulse 68 08/08/20 11:54 Resp 17 08/08/20 11:54 BP 119/71 08/08/20 11:54 Pulse Ox 98 08/08/20 11:54 Intake & Output 08/07/20 08/08/20 08/08/20 18:59 06:59 18:59 Intake Total 810 720 Balance 810 720 Intake: Intake, IV Titration 500 Amount Piperacillin-Tazobactam 3 200 .375 gm In Sodium Chloride 0.9% 100 ml @ 25 mls/hr IVPB Q8H JANE Rx#: [id number] Sodium Chloride 0.9% 1, 300 000 ml @ 75 mls/hr IV . [id number] JANE Rx#:[id number] Oral 720 Blood Product 310 Rc As-1 Unit 310 [id number] Other: Voiding Method Toilet Toilet - Labs CBC & Chem 7: 08/08/20 06:37 08/07/20 05:41 Labs: Abnormal Lab Results - Last 24 Hours (Table) 08/04/20 08/07/20 08/07/20 Range/Units 11:44 05:41 15:55 RBC 3.31 L (4.30-5.90) m/uL Hgb 8.0 L (13.0-17.5) gm/dL Hct 26.5 L (39.0-53.0) % MCH 24.1 L (25.0-35.0) pg MCHC 30.1 L (31.0-37.0) g/dL RDW 16.3 H (11.5-15.5) % Plt Count 468 H (150-450) k/uL MPV (9.5-12.2) fL ESR 43 H (0-15) mm/Hr Crossmatch See Detail 08/08/20 Range/Units 06:37 RBC 3.65 L (4.30-5.90) m/uL Hgb 8.9 L (13.0-17.5) gm/dL Hct 29.6 L (39.0-53.0) % MCH 24.4 L (25.0-35.0) pg MCHC 30.1 L (31.0-37.0) g/dL RDW 17.2 H (11.5-15.5) % Plt Count 550 H (150-450) k/uL MPV 9.3 L (9.5-12.2) fL ESR (0-15) mm/Hr Crossmatch Microbiology - Last 24 Hours (Table) 08/04/20 22:50 Stool Culture - Final Stool 08/04/20 18:03 Blood Culture - Preliminary Blood No Growth after 72 hours
--- NOTE | 2020-08-08 16:41 | P.DS ---
Providers Date of admission: 08/04/20 13:41 Expected date of discharge: 08/08/20 Attending physician: Cristofer Saldaña Consults: 08/04/20 17:10 Consult Physician Routine Consulting Provider: Neva Aguilar Consult Reason/Comments: ulc colitis Do you want consulting provider notified?: Yes 08/05/20 11:56 Consult Physician Routine Consulting Provider: Jaswinder Grant Consult Reason/Comments: Possibile Abscess Do you want consulting provider notified?: Yes Primary care physician: Stated None Hospital Course: Final diagnosis Acute ulcerative colitis acute exacerbation with severe intractable abdominal pain and failure of outpatient treatment Possible perianal abscess secondary to ulcerative colitis Anemia possibly from chronic gastrointestinal bleed and blood loss anemia Acute sepsis, secondary to above Increased white blood count Increased platelets next line hyponatremia hyperkalemia Elevated lactic acid secondary to sepsis possibly Positive methamphetamine in the urine History of gastroesophageal reflux disease history of anxiety History of continued ongoing nicotine dependence History of THC Full code Discharge disposition Patient is being discharged in a stable condition with guarded prognosis to home. Patient will follow-up with Dr. Galvin upon discharge. Patient also instructed to follow-up with surgery and GI in the outpatient setting. Patient will continue with a short course of oral antibiotics in the form of Augmentin twice daily for the next 5 days to complete the course. Patient will also continue with prednisone taper in the outpatient setting per GI. Total time taken is greater than 35 minutes. History of present illness This is a 34-year-old male who was recently admitted with acute ulcerative colitis exacerbation and was being closely monitored. GI and surgery following patient also found to be anemic requiring transfusions. Patient's hemoglobin today has improved status post transfusion and is 8.9 today. Patient's abdomin al discomfort has improved and patient is tolerating diet with no reports of nausea or vomiting noted. Will continue on a prednisone taper and follow-up with GI in the outpatient setting. Patient will also continue with oral Augmentin twice daily for the next 5 days to complete a course. Currently no reports of chest pain, shortness of breath, or palpitations. Patient is afebrile. No reports of nausea or vomiting and patient is tolerating diet. Guarded prognosis. On exam vital signs are stable. Cardio S1, S2 are muffled. Respiratory shows diminished breath sounds at the bases with no wheezing or rhonchi noted. Abdomen is soft and nontender. Nervous system shows no focal deficits. Please refer to medication reconciliation sheet for a list of medications. Patient Condition at Discharge: Fair Plan - Discharge Summary Discharge Rx Participant: No New Discharge Prescriptions: New Amoxic-Pot Clav 875-125Mg [Augmentin 875-125] 1 tab PO Q12HR 5 Days #10 tab Hydrocortisone Suppository [Anusol-Hc] 25 mg RECTAL DAILY PRN #1 supp PRN Reason: Hemorrhoids predniSONE 10 mg PO DIRECTED #126 tab Continue Famotidine [Pepcid] 20 mg PO BID PRN PRN Reason: Gi Upset predniSONE See Taper PO DAILY HYDROcodone/APAP 5-325MG [[place] 5-325] 1 tab PO Q6HR PRN 3 Days #12 tab PRN Reason: Pain Discharge Medication List Famotidine [Pepcid] 20 mg PO BID PRN 07/25/20 [History] predniSONE See Taper PO DAILY 08/04/20 [History] Amoxic-Pot Clav 875-125Mg [Augmentin 875-125] 1 tab PO Q12HR 5 Days #10 tab 08/08/20 [Rx] HYDROcodone/APAP 5-325MG [[place] 5-325] 1 tab PO Q6HR PRN 3 Days #12 tab 08/08/20 [Rx] Hydrocortisone Suppository [Anusol-Hc] 25 mg RECTAL DAILY PRN #1 supp 08/08/20 [Rx] predniSONE 10 mg PO DIRECTED #126 tab 08/08/20 [Rx] Follow up Appointment(s)/Referral(s): None,Stated [Primary Care Provider] - 1-2 days (patient instructed to find primary physician and follow-up in 1-2 days) Harris Kelly MD [STAFF PHYSICIAN] - 08/22/20 11:00 am Jaswinder Grant MD [STAFF PHYSICIAN] - As Needed Ambulatory/Diagnostic Orders: Complete Blood Count w/diff [LAB.AMB] Time Frame: 2 Days, Location: None Selected Patient Instructions/Handouts: Hydrocodone/Acetaminophen (By mouth), Prednisone (By mouth), Amoxicillin/Clavulanate Potassium (By mouth), Hydrocortisone (Into the rectum), Ulcerative Colitis (DC), Anemia (DC) Activity/Diet/Wound Care/Special Instructions: Activity Limited until follow-up Follow-up with GI outpatient Follow-up with primary care provider outpatient Continue Current diet Continue steroids as directed by GI Discharge Disposition: HOME SELF-CARE
[2020-08-09] MEDS ORDERED: PANTOPRAZOLE 40 MG TABLET PO SCH (07:30)
== END 2020-08-08 15:20 | disposition home or self-care (01) | DRG 872 ==
LOC: EC 10:59 → 5NMEDONC 13:41
PROVIDERS: ADMIT Hospitalist; ATTEND Hospitalist
PROC: 30233N1 Transfusion of Nonautologous Red Blood Cells into Peripheral Vein, Percutaneous Approach (ICD-10-PCS; principal; 2020-08-06)
DX: A41.9 Sepsis, unspecified organism (principal); E87.1 Hypo-osmolality and hyponatremia; K51.90 Ulcerative colitis, unspecified, without complications; E87.2 Acidosis; D50.0 Iron deficiency anemia secondary to blood loss (chronic); E86.0 Dehydration; E87.5 Hyperkalemia; F17.210 Nicotine dependence, cigarettes, uncomplicated; Z20.822 Contact with and (suspected) exposure to COVID-19; K21.9 Gastro-esophageal reflux disease without esophagitis; K64.4 Residual hemorrhoidal skin tags; Z87.19 Personal history of other diseases of the digestive system; D47.3 Essential (hemorrhagic) thrombocythemia; Z89.022 Acquired absence of left finger(s); G89.29 Other chronic pain; M54.5 Low back pain
CPT/HCPCS: 36415; 74018; 74176; 80048; 80053; 80306; 81001; 82150; 82550; 83605; 83690; 84484; 85025; 85027; 85610; 85652; 85730; 86140; 86480; 86704; 86706; 86803; 86850; 86900; 86901; 86920; 87040; 87045; 87046; 87086; 87324; 87340; 87635; 96361; 96374; 96375; 99285

== ENCOUNTER 2020-08-20 23:18 | Observation (INO) | payer OTHER ==
[2020-08-21] MEDS ORDERED: SODIUM CHLORIDE 0.9% 1,000 ML IV ONE (00:04)
--- NOTE | 2020-08-21 00:16 | CT ---
EXAMINATION TYPE: CT abdomen pelvis w con DATE OF EXAM: 08/21/2020 COMPARISON: 08/05/2020 HISTORY: Abdominal pain CT DLP: 759.8 mGycm Automated exposure control for dose reduction was used. CONTRAST: Performed with IV Contrast, patient injected with 100 mL of Isovue 300. Lung bases are clear. There is no pleural effusion. Heart size is normal. There is no pericardial eff usion. Liver spleen stomach pancreas appear intact. Gallbladder is contracted. The bile ducts are not dilate d. There is no adrenal mass. Kidneys show satisfactory contrast opacification. There is no hydronephrosi s. Ureters are not dilated. There is no retroperitoneal adenopathy. Bladder distends smoothly. There is no inguinal hernia. There are small linear densities in the posterior penis below the pubic bone. These could BE foreign bodies or unusual vascular calcification.. There is no free fluid in the pelvis. There is no mesenteric edema. There is no ascites or free air. There is no sign of a bowel obstruction. Appendix not clearly seen. There is no sign of thickened patsy endix. There is suggestion of some mild wall thickening of the descending colon. The lumbar vertebra have normal alignment. Disc spaces are normal. Posterior elements are intact. The hip joints are intact. There is no sign of hip dysplasia. IMPRESSION: There is possible mild wall thickening of the descending colon that could be some nonspecific mild co litis. This appears similar to old exam. Appendix not seen. No sign of thickened appendix. Abdomen pe lvis not significantly different than last exam.
[2020-08-21 00:19] LABS: Anisocytosis Slight; Basophils % (A) 0 %; Eosinophils # (A) 0.3 k/uL (0-0.7); Eosinophils % (A) 4 %; HCT 28.4 % (39.0-53.0); HGB 8.4 gm/dL (13.0-17.5); Hypochromasia Marked; Lymphocytes # (A) 1.7 k/uL (1.0-4.8); Lymphocytes % (A) 22 %; MCHC 29.6 g/dL (31.0-37.0); MCV 77.6 fL (80.0-100.0); Mean Platelet Volume 6.4; Microcytosis Slight; Monocytes # (A) 0.5 k/uL (0-1.0); Monocytes % (A) 7 %; Neutrophils # (A) 5.1 k/uL (1.3-7.7); Neutrophils % (A) 65 %; Platelet Count 446 k/uL (150-450); Poikilocytosis Slight; RBC 3.66 m/uL (4.30-5.90); RDW 16.9 % (11.5-15.5); WBC 7.8 k/uL (3.8-10.6)
[2020-08-21 00:27] LABS: Amorphous Sediment,Urine Rare /hpf; Appearance,Urine Cloudy (Clear); Bilirubin,Urine Negative (Negative); Blood,Urine Negative (Negative); Color,Urine Light Yellow; Glucose,Urine (UA) Negative (Negative); Ketones,Urine Negative (Negative); Leukocyte Esterase,Urine Negative (Negative); Mucus,Urine Rare /hpf; Nitrite,Urine Negative (Negative); Protein,Urine Negative (Negative); RBC,Urine 1 /hpf (0-5); Specific Gravity,Urine 1.016 (1.001-1.035); Urobilinogen,Urine <2.0 mg/dL (<2.0); WBC,Urine 1 /hpf (0-5)
[2020-08-21 00:32] LABS: INR 0.9 (<1.2); Prothrombin Time 10.2 sec (9.0-12.0)
[2020-08-21 00:33] LABS: ALT 11 U/L (4-49); AST 19 U/L (17-59); African American GFR (CKD) >90 (>60 ml/min/1.73 sqM); Alkaline Phosphatase 43 U/L (38-126); Amylase 52 U/L (30-110); Anion Gap 3 mmol/L; Blood Urea Nitrogen 8 mg/dL (9-20); Calcium 8.2 mg/dL (8.4-10.2); Carbon Dioxide 27 mmol/L (22-30); Chloride 103 mmol/L (98-107); Glucose 99 mg/dL (74-99); Lipase 400 U/L (23-300); Non-African American GFR(CKD) >90 (>60 ml/min/1.73 sqM); Potassium 4.1 mmol/L (3.5-5.1); Sodium 133 mmol/L (137-145); Total Bilirubin 0.2 mg/dL (0.2-1.3); Total Protein 5.6 g/dL (6.3-8.2)
[2020-08-21] MEDS: SODIUM CHLORIDE 0.9% 1,000 ML IV SCH ×2 (00:56→14:01)
[2020-08-21] MEDS: HYDROmorphone 0.5 MG/0.5 ML SYRINGE IVP PRN ×8 (01:16→23:25)
[2020-08-21] MEDS ORDERED: NALOXONE 0.4 MG/ML 1 ML VIAL IV PRN (01:18)
[2020-08-21] MEDS ORDERED: ONDANSETRON 4 MG/2 ML VIAL IVP PRN (01:22)
--- NOTE | 2020-08-21 01:23 | ED ---
Abdominal Pain HPI - General Chief Complaint: Abdominal Pain Stated Complaint: Abdominal Pain Time Seen by Provider: 08/20/20 23:26 Source: patient Mode of arrival: wheelchair Limitations: no limitations - History of Present Illness Initial Comments: 34-year-old male with recently diagnosed ulcerative colitis with frequent rectal bleeding and now new anemia presenting to the ER today for chief complaint of increasing rectal bleeding and abdominal pain. Patient states he has had constant abdominal pain since his diagnosis of ulcerative colitis he states has been worsening for the past 3-4 days he states he's also had increased frequency of rectal bleeding although he states this is almost daily. Patient states he has lost 20 pounds of the past 2 months. Patient states he feels slightly nauseated with diffuse abdominal pain he denies localized abdominal pain fevers he denies any chest pain shortness of breath. Patient denies back pain, dysuria, urgency or frequency. He denies bloody vomit/vomiting or melena. Patient upon arrival his HR is elevated. He does not appear in distress nor pale. - Related Data Home Medications Medication Instructions Recorded Confirmed Famotidine [Pepcid] 20 mg PO BID PRN 07/25/20 08/04/20 predniSONE See Taper PO DAILY 08/04/20 08/04/20 Previous Rx's Medication Instructions Recorded Amoxic-Pot Clav 875-125Mg 1 tab PO Q12HR 5 Days #10 tab 08/08/20 [Augmentin 875-125] HYDROcodone/APAP 5-325MG [[place] 1 tab PO Q6HR PRN 3 Days #12 tab 08/08/20 5-325] Hydrocortisone Suppository 25 mg RECTAL DAILY PRN #1 supp 08/08/20 [Anusol-Hc] predniSONE 10 mg PO DIRECTED #126 tab 08/08/20 Allergies Allergy/AdvReac Type Severity Reaction Status Date / Time No Known Allergies Allergy Verified 08/20/20 23:23 Review of Systems ROS Statement: Those systems with pertinent positive or pertinent negative responses have been documented in the HPI. ROS Other: All systems not noted in ROS Statement are negative. Past Medical History Past Medical History: GERD/Reflux Additional Past Medical History / Comment(s): Pt recently admitted to [facility] on 07/26/20 with acute ulcerative colitis exacerbation, acute blood loss anemia 2ndary to lower GI bleed/transfusion, hyperkalemia. Other hx: chronic low back pain. History of Any Multi-Drug Resistant Organisms: None Reported Past Surgical History: Orthopedic Surgery Additional Past Surgical History / Comment(s): left hand industrial accide nt/finger amputations, EGD, colonoscopy. Past Anesthesia/Blood Transfusion Reactions: No Reported Reaction Additional Past Anesthesia/Blood Transfusion Reaction / Comment(s): Pt recently received blood without reaction. Past Psychological History: Anxiety Smoking Status: Former smoker Past Alcohol Use History: None Reported Past Drug Use History: Marijuana - Past Family History Father History Unknown: Yes Mother Family Medical History: No Reported History Additional Family Medical History / Comment(s): Healthy. General Exam - General Exam Comments Initial Comments: General: The patient is awake and alert, in no distress Eye: Pupils are equal, round and reactive to light, extra-ocular movements are intact. No nystagmus. There is normal conjunctiva bilaterally. No signs of icterus. Ears, nose, mouth and throat: There are moist mucous membranes and no oral lesions. Neck: The neck is supple, there is no tenderness or JVD. Cardiovascular: There is a regular rate and rhythm. No murmur, rub or gallop is appreciated. Respiratory: Lungs are clear to auscultation, respirations are non-labored, breath sounds are equal. No wheezes, stridor, rales, or rhonchi. Gastrointestinal: Soft, non-distended, diffusely tender abdomen without masses or organomegaly noted. There is no rebound or guarding present. refused rectal examination-endorsed bright red blood in stool Musculoskeletal: Normal ROM, no tenderness. Strength 5/5. Sensation intact. radial pulses equal bilaterally 2+. Neurological: A&O x 3. CN II-XII intact, There are no obvious motor or sensory deficits. Coordination appears grossly intact. Speech is normal. Skin: Skin is warm and dry and no rashes or lesions are noted. Psychiatric: Cooperative, appropriate mood & affect, normal judgment. Limitations: no limitations Course Vital Signs 08/20/20 23:20 Temperature 98.7 F Pulse Rate 110 H Respiratory 20 Rate Blood Pressure 124/65 O2 Sat by Pulse 95 Oximetry Medical Decision Making - Medical Decision Making CT colitis. no acute new changes from previous. pt cc bright red blood in stools, refused rectal. patient hgb 8.4, stable in comparison with most recent previous values, after discussing the case with Dr. Ayon, patient will be admitted for serial CBC, monitoring on telemetry and GI consultation. - Lab Data Result diagrams: 08/20/20 23:50 08/20/20 23:50 Lab Results 08/20/20 08/20/20 08/20/20 Range/Units 23:47 23:50 23:50 WBC 7.8 (3.8-10.6) k/uL RBC 3.66 L (4.30-5.90) m/uL Hgb 8.4 L (13.0-17.5) gm/dL Hct 28.4 L (39.0-53.0) % MCV 77.6 L (80.0-100.0) fL MCH 23.0 L (25.0-35.0) pg MCHC 29.6 L (31.0-37.0) g/dL RDW 16.9 H (11.5-15.5) % Plt Count 446 (150-450) k/uL MPV 6.4 Neutrophils % 65 % Lymphocytes % 22 % Monocytes % 7 % Eosinophils % 4 % Basophils % 0 % Neutrophils # 5.1 (1.3-7.7) k/uL Lymphocytes # 1.7 (1.0-4.8) k/uL Monocytes # 0.5 (0-1.0) k/uL Eosinophils # 0.3 (0-0.7) k/uL Basophils # 0.0 (0-0.2) k/uL Hypochromasia Marked Poikilocytosis Slight Anisocytosis Slight Microcytosis Slight PT 10.2 (9.0-12.0) sec INR 0.9 (<1.2) APTT 23.0 (22.0-30.0) sec Sodium (137-145) mmol/L Potassium (3.5-5.1) mmol/L Chloride (98-107) mmol/L Carbon Dioxide (22-30) mmol/L Anion Gap mmol/L BUN (9-20) mg/dL Creatinine (0.66-1.25) mg/dL Est GFR (CKD-EPI)AfAm (>60 ml/min/1.73 sqM) Est GFR (CKD-EPI)NonAf (>60 ml/min/1.73 sqM) Glucose (74-99) mg/dL Plasma Lactic Acid Jeancarlos (0.7-2.0) mmol/L Calcium (8.4-10.2) mg/dL Magnesium (1.6-2.3) mg/dL Total Bilirubin (0.2-1.3) mg/dL AST (17-59) U/L ALT (4-49) U/L Alkaline Phosphatase (38-126) U/L Total Protein (6.3-8.2) g/dL Albumin (3.5-5.0) g/dL Amylase (30-110) U/L Lipase (23-300) U/L Urine Color Urine Appearance (Clear) Urine pH (5.0-8.0) Ur Specific [place] (1.001-1.035) Urine Protein (Negative) Urine Glucose (UA) (Negative) Urine Ketones (Negative) Urine Blood (Negative) Urine Nitrite (Negative) Urine Bilirubin (Negative) Urine Urobilinogen (<2.0) mg/dL Ur Leukocyte Esterase (Negative) Urine RBC (0-5) /hpf Urine WBC (0-5) /hpf Amorphous Sediment (None) /hpf Urine Mucus (None) /hpf Blood Type B Positive Blood Type Recheck B Pos Bld Type Recheck Status No Antibody Screen NEGATIVE Spec Expiration Date 08/23/2020 - 234908/20/20 08/20/20 08/20/20 Range/Units 23:50 23:50 23:50 WBC (3.8-10.6) k/uL RBC (4.30-5.90) m/uL Hgb (13.0-17.5) gm/dL Hct (39.0-53.0) % MCV (80.0-100.0) fL MCH (25.0-35.0) pg MCHC (31.0-37.0) g/dL RDW (11.5-15.5) % Plt Count (150-450) k/uL MPV Neutrophils % % Lymphocytes % % Monocytes % % Eosinophils % % Basophils % % Neutrophils # (1.3-7.7) k/uL Lymphocytes # (1.0-4.8) k/uL Monocytes # (0-1.0) k/uL Eosinophils # (0-0.7) k/uL Basophils # (0-0.2) k/uL Hypochromasia Poikilocytosis Anisocytosis Microcytosis PT (9.0-12.0) sec INR (<1.2) APTT (22.0-30.0) sec Sodium 133 L (137-145) mmol/L Potassium 4.1 (3.5-5.1) mmol/L Chloride 103 (98-107) mmol/L Carbon Dioxide 27 (22-30) mmol/L Anion Gap 3 mmol/L BUN 8 L (9-20) mg/dL Creatinine 0.90 (0.66-1.25) mg/dL Est GFR (CKD-EPI)AfAm >90 (>60 ml/min/1.73 sqM) Est GFR (CKD-EPI)NonAf >90 (>60 ml/min/1.73 sqM) Glucose 99 (74-99) mg/dL Plasma Lactic Acid Jeancarlos 1.3 (0.7-2.0) mmol/L Calcium 8.2 L (8.4-10.2) mg/dL Magnesium 2.0 (1.6-2.3) mg/dL Total Bilirubin 0.2 (0.2-1.3) mg/dL AST 19 (17-59) U/L ALT 11 (4-49) U/L Alkaline Phosphatase 43 (38-126) U/L Total Protein 5.6 L (6.3-8.2) g/dL Albumin 3.0 L (3.5-5.0) g/dL Amylase 52 (30-110) U/L Lipase 400 H (23-300) U/L Urine Color Light Yellow Urine Appearance Cloudy (Clear) Urine pH 8.0 (5.0-8.0) Ur Specific [place] 1.016 (1.001-1.035) Urine Protein Negative (Negative) Urine Glucose (UA) Negative (Negative) Urine Ketones Negative (Negative) Urine Blood Negative (Negative) Urine Nitrite Negative (Negative) Urine Bilirubin Negative (Negative) Urine Urobilinogen <2.0 (<2.0) mg/dL Ur Leukocyte Esterase Negative (Negative) Urine RBC 1 (0-5) /hpf Urine WBC 1 (0-5) /hpf Amorphous Sediment Rare H (None) /hpf Urine Mucus Rare H (None) /hpf Blood Type Blood Type Recheck Bld Type Recheck Status Antibody Screen Spec Expiration Date Disposition Clinical Impression: GI bleed, Colitis Disposition: ADMITTED IP TO THIS [facility] Condition: Stable Is patient prescribed a controlled substance at d/c from ED?: No Time of Disposition: 01:22 Decision to Admit Reason: Admit from EC Decision Date: 08/21/20 Decision Time: 01:23
[2020-08-21 09:48] LABS: Anisocytosis Slight; Basophils % (A) 0 %; Eosinophils # (A) 0.2 k/uL (0-0.7); Eosinophils % (A) 3 %; HCT 27.5 % (39.0-53.0); Hypochromasia Marked; Lymphocytes # (A) 1.8 k/uL (1.0-4.8); Lymphocytes % (A) 25 %; MCH 22.9 pg (25.0-35.0); MCHC 29.2 g/dL (31.0-37.0); MCV 78.6 fL (80.0-100.0); Microcytosis Slight; Monocytes # (A) 0.4 k/uL (0-1.0); Monocytes % (A) 6 %; Neutrophils # (A) 4.6 k/uL (1.3-7.7); Neutrophils % (A) 64 %; Platelet Count 431 k/uL (150-450); Poikilocytosis Slight; RDW 16.9 % (11.5-15.5); WBC 7.3 k/uL (3.8-10.6)
[2020-08-21 15:50] VITALS: RESP 16
--- NOTE | 2020-08-21 16:47 | P.HPIM ---
History of Present Illness H&P Date: 08/21/20 Chief Complaint: Abdominal pain Mr. Steven is a 33-year-old male who was recently diagnosed with ulcerative colitis coming into the ER with a chief complaint of rectal bleeding and abdominal pain. Patient states that he has lower abdominal pain that is constant since having the diagnosis of ulcerative colitis. Abdominal pain, mostly in the lower abdomen with no radiation, 5-6 /10 in intensity, associated with rectal bleeding and weight loss. Patient states that he noticed bleeding in his stool for the past 3-4 days. He also states that he has lost weight in the past couple of months. Patient denies having any fevers chills or rigors. He denies having use of recent antibiotics. He denies having any low back pain, urinary urgency or frequency or dysuria. Patient denies having any nausea vomiting. She denies having any chest pain or difficulty in breathing. No cough or sputum production. In the ER patient had blood work done showing a hemoglobin of 8.4, on reviewing his previous records his hemoglobin has been holding around 8. Patient had a CAT scan done showing possible mild wall thickening of the descending colon would be nonspecific mild colitis, appears to be similar to old exam. So the patient was admitted for further management. He was started on IV Protonix, IV fluids and GI consult. Currently the patient is lying comfortably in bed appears to be in no acute distress, he complains of mild lower abdominal discomfort which is 3/10 in intensity, he reports having a bloody movement bowel movement this morning. Hemoglobin from this morning is 8.0. Review of Systems REVIEW OF SYSTEMS: CONSTITUTIONAL: No fever, no malaise, no fatigue. HEENT: No recent visual problems or hearing problems. Denied any sore throat. CARDIOVASCULAR: No chest pain, no palpitations PULMONARY: No shortness of breath, no cough, no hemoptysis. GASTROINTESTINAL: As per HPI NEUROLOGICAL: No headaches, no weakness, no numbness. HEMATOLOGICAL: Denies any bleeding or petechiae. GENITOURINARY: Denies any burning micturition, frequency, or urgency. MUSCULOSKELETAL/RHEUMATOLOGICAL: No joint pain or swelling ENDOCRINE: Denies any polyuria or polydipsia. The rest of the 14-point review of systems is negative. Past Medical History Past Medical History: GERD/Reflux Additional Past Medical History / Comment(s): Pt recently admitted to [facility] on 07/26/20 with acute ulcerative colitis exacerbation, acute blood loss anemia 2ndary to lower GI bleed/transfusion, hyperkalemia. Other hx: chronic low back pain. History of Any Multi-Drug Resistant Organisms: None Reported Past Surgical History: Orthopedic Surgery Additional Past Surgical History / Comment(s): left hand industrial acc ident/finger amputations, EGD, colonoscopy. Past Anesthesia/Blood Transfusion Reactions: No Reported Reaction Additional Past Anesthesia/Blood Transfusion Reaction / Comment(s): Pt recently received blood without reaction. Past Psychological History: Anxiety Additional Psychological History / Comment(s): Pt resides with his mother. He is independent. Smoking Status: Former smoker Past Alcohol Use History: None Reported Additional Past Alcohol Use History / Comment(s): Pt started smoking in 1999 and quit smoking in May 2020 Past Drug Use History: Marijuana Additional Drug Use History / Comment(s): Occasional marijuana use. - Past Family History Father History Unknown: Yes Mother Family Medical History: No Reported History Additional Family Medical History / Comment(s): Healthy. Medications and Allergies Home Medications Medication Instructions Recorded Confirmed Type Hydrocortisone Suppository 25 mg RECTAL DAILY PRN #1 supp 08/08/20 08/21/20 Rx [Anusol-Hc] Allergies Allergy/AdvReac Type Severity Reaction Status Date / Time prednisone AdvReac acid reflux Verified 08/21/20 06:53 Physical Exam Vitals: Vital Signs Temp Pulse Pulse Resp BP BP Pulse Ox 08/21/20 08:00 80 18 08/21/20 07:21 98.2 F 80 18 105/69 99 08/21/20 02:32 82 16 97 08/20/20 23:20 98.7 F 110 H 20 124/65 95 Intake and Output 08/20/20 08/21/20 08/21/20 22:59 06:59 14:59 Intake Total 500 Balance 500 Intake: Oral 500 Other: Voiding Method Toilet Weight 63.503 kg 63.503 kg PHYSICAL EXAMINATION: GENERAL: The patient is alert and oriented x3, not in any acute distress. Chronically ill appearing HEENT: Pupils are round and equally reacting to light. EOMI. No scleral icterus. No conjunctival pallor. Normocephalic, atraumatic. No pharyngeal erythema. No thyromegaly. CARDIOVASCULAR: S1 and S2 present. No murmurs, rubs, or gallops. PULMONARY: Bilateral breath sounds are positive. No wheeze or crackles. ABDOMEN: Soft, mild tenderness in the lower abdomen, nondistended, normoactive bowel sounds. No palpable organomegaly. MUSCULOSKELETAL: No joint swelling or deformity. EXTREMITIES: No cyanosis, clubbing, or pedal edema. NEUROLOGICAL: Gross neurological examination did not reveal any focal deficits. SKIN: No rashes. Results CBC & Chem 7: 08/21/20 09:20 08/20/20 23:50 Labs: Abnormal Lab Results - Last 24 Hours (Table) 08/20/20 08/20/20 08/20/20 Range/Units 23:50 23:50 23:50 RBC 3.66 L (4.30-5.90) m/uL Hgb 8.4 L (13.0-17.5) gm/dL Hct 28.4 L (39.0-53.0) % MCV 77.6 L (80.0-100.0) fL MCH 23.0 L (25.0-35.0) pg MCHC 29.6 L (31.0-37.0) g/dL RDW 16.9 H (11.5-15.5) % Sodium 133 L (137-145) mmol/L BUN 8 L (9-20) mg/dL Calcium 8.2 L (8.4-10.2) mg/dL Total Protein 5.6 L (6.3-8.2) g/dL Albumin 3.0 L (3.5-5.0) g/dL Lipase 400 H (23-300) U/L Amorphous Sediment Rare H (None) /hpf Urine Mucus Rare H (None) /hpf 08/21/20 Range/Units 09:20 RBC 3.50 L (4.30-5.90) m/uL Hgb 8.0 L (13.0-17.5) gm/dL Hct 27.5 L (39.0-53.0) % MCV 78.6 L (80.0-100.0) fL MCH 22.9 L (25.0-35.0) pg MCHC 29.2 L (31.0-37.0) g/dL RDW 16.9 H (11.5-15.5) % Sodium (137-145) mmol/L BUN (9-20) mg/dL Calcium (8.4-10.2) mg/dL Total Protein (6.3-8.2) g/dL Albumin (3.5-5.0) g/dL Lipase (23-300) U/L Amorphous Sediment (None) /hpf Urine Mucus (None) /hpf Thrombosis Risk Factor Assmnt - Choose All That Apply Any of the Below Risk Factors Present?: Yes Each Factor Represents 1 point: Obesity (BMI >25) Other Risk Factors: Yes Other congenital or acquired thrombophilia - If yes, enter type in comment: No Thrombosis Risk Factor Assessment Total Risk Factor Score: 1 Thrombosis Risk Factor Assessment Level: Low Risk Assessment and Plan Assessment: ASSESSMENT GI bleed- Possible exacerbation of ulcerative colitis Chronic Microcytic anemia Noncompliance with medication Plan: Patient has been started on IV fluids and IV Protonix. It could be exacerbation of his ulcerative colitis so started on Solu-Medrol by GI this morning. Continue with pain medications. Continue the current medication regimen and further recommendations to follow depending on the progress of the patient.
[2020-08-21] MEDS: methylPREDNISolone SOD SUCCI 40 MG/ML 1 ML VIAL IV SCH ×2 (17:18→23:24)
[2020-08-21] MEDS: PANTOPRAZOLE 40 MG/10 ML VIAL IVP SCH (20:32)
[2020-08-22] MEDS: SODIUM CHLORIDE 0.9% 1,000 ML IV SCH (01:02)
[2020-08-22] MEDS: HYDROmorphone 0.5 MG/0.5 ML SYRINGE IVP PRN ×3 (02:13→08:27)
[2020-08-22 02:33] VITALS: BP 110/69; PULSE 75; TEMP 97.8
[2020-08-22] MEDS: methylPREDNISolone SOD SUCCI 40 MG/ML 1 ML VIAL IV SCH (08:26)
[2020-08-22] MEDS: PANTOPRAZOLE 40 MG/10 ML VIAL IVP SCH (08:26)
[2020-08-22 08:36] LABS: Basophils # (A) 0.01 X 10*3/uL (0.00-0.10); Basophils % (A) 0.1 %; Eosinophils # (A) 0 X 10*3/uL (0.04-0.35); Eosinophils % (A) 0 %; HCT 27.7 % (39.6-50.0); HGB 7.9 g/dL (13.0-17.0); Lymphocytes # (A) 0.65 X 10*3/uL (0.90-5.00); Lymphocytes % (A) 8.9 %; MCH 23.4 pg (27.0-32.0); MCHC 28.5 g/dL (32.0-37.0); Mean Platelet Volume 9.1 fL (9.5-12.2); Monocytes # (A) 0.15 X 10*3/uL (0.20-1.00); Monocytes % (A) 2.1 %; Neutrophils # (A) 6.47 X 10*3/uL (1.80-7.70); Neutrophils % (A) 88.6 %; Platelet Count 454 X 10*3/uL (140-440); RBC 3.38 X 10*6/uL (4.40-5.60); RDW 17.7 % (11.5-14.5)
[2020-08-22 09:29] LABS: African American GFR (CKD) 141.7 (60.0-200.0); Blood Urea Nitrogen <5.0 mg/dL (9.0-27.0); Calcium 8.4 mg/dL (8.7-10.3); Carbon Dioxide 24.4 mmol/L (21.6-31.8); Chloride 106 mmol/L (96-109); Glucose 154 mg/dL (70-110); Non-African American GFR(CKD) 122.3 (60.0-200.0); Potassium 4.8 mmol/L (3.5-5.5); Sodium 138 mmol/L (135-145)
[2020-08-22] MEDS ORDERED: BALSALAZIDE DISODIUM 750 MG CAPSULE PO SCH (10:00)
--- NOTE | 2020-08-22 12:38 | P.CONS ---
History of Present Illness - Reason for Consult Consult date: 08/21/20 Ulcerative colitis, blood per rectum Requesting physician: Cristofer Saldaña - Chief Complaint Abdominal pain, blood per rectum - History of Present Illness 34-year-old male with a medical history significant for recent diagnosis of ulcerative colitis who presented back to the hospital with continued complaints of abdominal pain and blood per rectum after noncompliance with medications. Originally the patient had been treated at [facility] where he underwent EGD and colonoscopy due to symptoms of diarrhea, abdominal pain and blood per rectum on 06/28/2020 with findings of erosive esophagitis, mild gastritis and pancolitis with pathology from the procedure showing active colitis with features consistent with inflammatory bowel disease with crypt abscess. The p atient had been given a short steroid taper and presented locally with complaints as documented above. He is been hospitalized now 3 times at which time he is been treated with high-dose steroids and been sent on a long tapering dose of steroids with treatment with balsalazide in the outpatient setting. However the patient continues to be noncompliant with medications and then presented back to the hospital with similar complaints of abdominal pain and blood per rectum. Currently he reports not taking the medication as it was worsening his reflux. Computed tomography scan of the abdomen on presentation showed mild wall thickening of descending colon suggestive of mild colitis. Review of Systems REVIEW OF SYSTEMS: CONSTITUTIONAL: Denies any fevers, chills, weight change or fatigue. CARDIOVASCULAR: Denies any chest pain, palpitations high or low blood pressures RESPIRATORY: Denies any shortness of breath, hemoptysis or cough. GENITOURINARY: No dysuria or hematuria. MUSCULOSKELETAL: No weakness reported, second third and fourth digit, left hand. SKIN: Denies any new rashes or lesions, jaundice or pallor. PSYCHIATRIC: Denies any depression or anxiety. NEUROLOGY: Denies headache, denies any new focal deficits. EARS/NOSE/THROAT: No recent hearing change, congestion, nasal discharge or sore throat. EYES: No pain in eyes, discharge or change in vision. GASTROINTESTINAL: As per HPI. Past Medical History Past Medical History: GERD/Reflux Additional Past Medical History / Comment(s): Pt recently admitted to [facility] on 07/26/20 with acute ulcerative colitis exacerbation, acute blood loss anemia 2ndary to lower GI bleed/transfusion, hyperkalemia. Other hx: chronic low back pain. History of Any Multi-Drug Resistant Organisms: None Reported Past Surgical History: Orthopedic Surgery Additional Past Surgical History / Comment(s): left hand industrial accident/finger amputations, EGD, colonoscopy. Past Anesthesia/Blood Transfusion Reactions: No Reported Reaction Additional Past Anesthesia/Blood Transfusion Reaction / Comm: Pt recently received blood without reaction. Past Psychological History: Anxiety Additional Psychological History / Comment(s): Pt resides with his mother. He is independent. Smoking Status: Former smoker Past Alcohol Use History: None Reported Additional Past Alcohol Use History / Comment(s): Pt started smoking in 1999 and quit smoking in May 2020 Past Drug Use History: Marijuana Additional Drug Use History / Comment(s): Occasional marijuana use. - Past Family History Father History Unknown: Yes Mother Family Medical History: No Reported History Additional Family Medical History / Comment(s): Healthy. Medications and Allergies Home Medications Medication Instructions Recorded Confirmed Type Hydrocortisone Suppository 25 mg RECTAL DAILY PRN #1 supp 08/08/20 08/21/20 Rx [Anusol-Hc] Allergies Allergy/AdvReac Type Severity Reaction Status Date / Time prednisone AdvReac acid reflux Verified 08/21/20 06:53 Physical Exam Vitals: Vital Signs Temp Pulse Pulse Resp BP BP Pulse Ox 08/21/20 08:00 80 18 08/21/20 07:21 98.2 F 80 18 105/69 99 08/21/20 02:32 82 16 97 08/20/20 23:20 98.7 F 110 H 20 124/65 95 Intake and Output 08/20/20 08/21/20 08/21/20 22:59 06:59 14:59 Intake Total 800 Balance 800 Intake: Oral 800 Other: Voiding Method Toilet Weight 63.503 kg 63.503 kg On physical examination, patient appears comfortable in no apparent distress. HEAD: Normocephalic, atraumatic. EYES: No scleral icterus. No conjunctival injection. MOUTH: No lesions, tongue midline. NECK: Trachea midline, no gross abnormalities. CHEST: Clear to auscultation with no wheezing or rhonchi appreciated. HEART: Regular rate and rhythm. ABDOMEN: Soft, thin and mildly tender to palpation. Bowel sounds are positive. No organomegaly. No guarding or rigidity. EXTREMITIES: No pedal edema, missing second third and fourth digit on the left hand. SKIN: No rashes, no jaundice. NEUROLOGIC: Alert and oriented x3. No focal deficits. Results CBC & Chem 7: 08/22/20 04:43 08/20/20 23:50 Labs: Abnormal Lab Results - Last 24 Hours (Table) 08/20/20 08/20/20 08/20/20 Range/Units 23:50 23:50 23:50 RBC 3.66 L (4.30-5.90) m/uL Hgb 8.4 L (13.0-17.5) gm/dL Hct 28.4 L (39.0-53.0) % MCV 77.6 L (80.0-100.0) fL MCH 23.0 L (25.0-35.0) pg MCHC 29.6 L (31.0-37.0) g/dL RDW 16.9 H (11.5-15.5) % Sodium 133 L (137-145) mmol/L BUN 8 L (9-20) mg/dL Calcium 8.2 L (8.4-10.2) mg/dL C-Reactive Protein (<10.0) mg/L Total Protein 5.6 L (6.3-8.2) g/dL Albumin 3.0 L (3.5-5.0) g/dL Lipase 400 H (23-300) U/L Amorphous Sediment Rare H (None) /hpf Urine Mucus Rare H (None) /hpf 08/21/20 08/21/20 Range/Units 09:20 12:57 RBC 3.50 L (4.30-5.90) m/uL Hgb 8.0 L (13.0-17.5) gm/dL Hct 27.5 L (39.0-53.0) % MCV 78.6 L (80.0-100.0) fL MCH 22.9 L (25.0-35.0) pg MCHC 29.2 L (31.0-37.0) g/dL RDW 16.9 H (11.5-15.5) % Sodium (137-145) mmol/L BUN (9-20) mg/dL Calcium (8.4-10.2) mg/dL C-Reactive Protein 25.8 H (<10.0) mg/L Total Protein (6.3-8.2) g/dL Albumin (3.5-5.0) g/dL Lipase (23-300) U/L Amorphous Sediment (None) /hpf Urine Mucus (None) /hpf CT scan - abdomen: report reviewed (Computed tomography scan of the abdomen significant for thickening at of the descending colon consistent with mild colitis.) Assessment and Plan (1) Ulcerative colitis Narrative/Plan: 34-year-old male with a recent diagnosis of ulcerative colitis presented back to the hospital for complaints of abdominal pain and blood per rectum. Initially the patient had been treated with a short steroid taper after diagnosis at outside facility in 06/2020 with pancolitis. He is currently being seen for a third time and has previously been treated with high-dose steroid therapy in combination with balsalazide. Unfortunately, the patient has been noncompliant with medications and continues to present back to the hospital with complaints of abdominal pain and blood per rectum. Current Visit: No Status: Acute Code(s): K51.90 - ULCERATIVE COLITIS, UNSP ECIFIED, WITHOUT COMPLICATIONS SNOMED Code(s): 06804146 (2) Colitis Current Visit: Yes Status: Acute Code(s): K52.9 - NONINFECTIVE GASTROENTERITIS AND COLITIS, UNSPECIFIED SNOMED Code(s): 59172453 (3) GI bleed Current Visit: Yes Status: Acute Code(s): K92.2 - GASTROINTESTINAL HEMORRHAGE, UNSPECIFIED SNOMED Code(s): 78247500 (4) Noncompliance with medication regimen Current Visit: Yes Status: Acute Code(s): Z91.14 - PATIENT'S OTHER NONCOMPLIANCE WITH MEDICATION REGIMEN SNOMED Code(s): 281059038 Plan: Supportive care Clear liquid diet Continue monitor CBC, BMP, LFTs, ESR and CRP Solu-Medrol 20 mg every 8 hours Reinitiate balsalazide which the patient was noncompliant with in the outpatient setting Extensive discussion with the patient regarding the need for medication compliance, continued refusal to take medications as prescribed can result and is not limited to worsening symptoms, and future need for surgical intervention including colectomy Follow up with GI after discharge Thank you for allowing us to participate in the care of the patient
--- NOTE | 2020-08-22 12:41 | P.DS ---
Providers Date of admission: 08/21/20 01:13 Expected date of discharge: 08/22/20 Attending physician: Cristofer Saldaña Consults: 08/21/20 01:20 Consult Physician Routine Consulting Provider: Neva Aguilar Consult Reason/Comments: gi bleed/colitis Do you want consulting provider notified?: Yes Primary care physician: Stated None Hospital Course: final diagnosis GI bleed- Possible exacerbation of ulcerative colitis Chronic Microcytic anemia Noncompliance with medication Discharge disposition Patient is being discharged in a stable condition with guarded prognosis to home. Patient will follow-up with Dr. Galvin in the outpatient setting upon discharge. Patient is to continue with appointment GI this morning at 11 as scheduled. Total time taken is greater than 35 minutes. Hospital course Mr. Steven is a 33-year-old male who was recently diagnosed with ulcerative colitis coming into the ER with a chief complaint of rectal bleeding and abdominal pain. Patient states that he has lower abdominal pain that is constant since having the diagnosis of ulcerative colitis. Abdominal pain, mostly in the lower abdomen with no radiation, 5-6 /10 in intensity, associated with rectal bleeding and weight loss. Patient states that he noticed bleeding in his stool for the past 3-4 days. He also states that he has lost weight in the past couple of months. Patient denies having any fevers chills or rigors. He denies having use of recent antibiotics. He denies having any low back pain, urinary urgency or frequency or dysuria. Patient denies having any nausea vomiting. She denies having any chest pain or difficulty in breathing. No cough or sputum production. In the ER patient had blood work done showing a hemoglobin of 8.4, on reviewing his previous records his hemoglobin has been holding around 8. Patient had a CAT scan done showing possible mild wall thickening of the descending colon would be nonspecific mild colitis, appears to be similar to old exam. So the patient was admitted for further management. He was started on IV Protonix, IV fluids and GI consult. 08/22/2020 Patient is seen and evaluated this morning with no acute overnight issues. Hemoglobin today is 7.9 with no active bleeding noted. A was started on IV Solu-Medrol and resumed on medications and was evaluated by GI. Patient does have an appointment today at 11 AM at the clinic with GI and is being discharged to attend his appointment. Patient will need Humira at the appointment. patient instructed to continue with clear liquids and full liquid diet until instructed by GI. Patient tolerating diet with no reports of nausea or vomiting noted. She denies any abdominal discomfort this morning. Currently no reports of chest pain, shortness of breath, or palpitations. Patient is afebrile. No reports of nausea or vomiting and patient is tolerating diet. Patient will be discharged today. Guarded prognosis On exam vital signs are stable. Temp is 97.8F, pulse is 75, respirations are 16, blood pressure is 110/69, oxygen saturation is 100% on room air. Cardio S1, S2 are muffled. Respiratory system shows diminished breath sounds at the bases with no wheezing or rhonchi noted. Abdomen is soft and nontender. Nervous system shows no focal deficits. Please refer to medication reconciliation sheet for a list of medications. Patient Condition at Discharge: Stable Plan - Discharge Summary Discharge Rx Participant: Yes New Discharge Prescriptions: Continue Hydrocortisone Suppository [Anusol-Hc] 25 mg RECTAL DAILY PRN #1 supp PRN Reason: Hemorrhoids Discharge Medication List Hydrocortisone Suppository [Anusol-Hc] 25 mg RECTAL DAILY PRN #1 supp 08/08/20 [Rx] Follow up Appointment(s)/Referral(s): Karen Galvin MD [REFERRING] - 1 Week Harris Kelly MD [STAFF PHYSICIAN] - 1-2 Days (has appt today at 11am) Patient Instructions/Handouts: Rectal Bleeding (GEN), Ulcerative Colitis (GEN) Activity/Diet/Wound Care/Special Instructions: Activity Limited until follow-up Follow-up with GI today at 11 AM Follow-up with primary care provider upon discharge Continue full liquid diet until instructed otherwise by GI Take medications as prescribed Discharge Disposition: HOME SELF-CARE
== END 2020-08-22 10:25 | disposition home or self-care (01) ==
LOC: EC 23:18 → 6NMEDSUR 08-21 01:13
PROVIDERS: ADMIT Hospitalist; ATTEND Hospitalist
DX: K62.5 Hemorrhage of anus and rectum (principal); K51.90 Ulcerative colitis, unspecified, without complications; D62 Acute posthemorrhagic anemia; K21.9 Gastro-esophageal reflux disease without esophagitis; E87.5 Hyperkalemia; G89.29 Other chronic pain; M54.5 Low back pain; F41.9 Anxiety disorder, unspecified; Z91.14 Patient's other noncompliance with medication regimen; Z89.029 Acquired absence of unspecified finger(s); Z88.8 Allergy status to other drugs, medicaments and biological substances; Z87.891 Personal history of nicotine dependence
CPT/HCPCS: 96376 ×3; 96375; 96374; 99285; 36415; 86900; 86901; 80053; 80048; 85652; 82150; 83605; 83690; 83735; 85025 ×3; 85610; 85730; 86850; 86140; 81001; 87635; 74177; G0378 ×2; J2920 ×2; C9113 ×2; J1170 ×2; Q9967

== ENCOUNTER → 2020-08-22 | Outpatient (CLI) | payer OTHER ==
[2020-08-22 21:05] LABS: Basophils # (A) 0.01 X 10*3/uL (0.00-0.10); Basophils % (A) 0.2 %; Eosinophils # (A) 0 X 10*3/uL (0.04-0.35); Eosinophils % (A) 0 %; HGB 7.7 g/dL (13.0-17.0); Lymphocytes # (A) 0.54 X 10*3/uL (0.90-5.00); Lymphocytes % (A) 8.1 %; MCH 22.9 pg (27.0-32.0); MCHC 27.5 g/dL (32.0-37.0); MCV 83.3 fL (80.0-97.0); Mean Platelet Volume 9.5 fL (9.5-12.2); Monocytes # (A) 0.21 X 10*3/uL (0.20-1.00); Monocytes % (A) 3.2 %; Neutrophils # (A) 5.86 X 10*3/uL (1.80-7.70); Neutrophils % (A) 88.2 %; Platelet Count 472 X 10*3/uL (140-440); RBC 3.36 X 10*6/uL (4.40-5.60); RDW 17.7 % (11.5-14.5); WBC 6.64 X 10*3/uL (4.50-10.00)
[2020-08-22 21:20] LABS: ALT 11 U/L (10-49); AST 10 U/L (14-35); African American GFR (CKD) 141.7 (60.0-200.0); Albumin/Globulin Ratio 1.94 (1.60-3.17); Alkaline Phosphatase 40 U/L (41-126); Blood Urea Nitrogen <5.0 mg/dL (9.0-27.0); C Reactive Protein 2.2 mg/dL (0.0-0.8); Calcium 8.2 mg/dL (8.7-10.3); Carbon Dioxide 22.3 mmol/L (21.6-31.8); Chloride 107 mmol/L (96-109); Globulin 1.8 g/dL (1.6-3.3); Glucose 139 mg/dL (70-110); Non-African American GFR(CKD) 122.3 (60.0-200.0); Potassium 4.6 mmol/L (3.5-5.5); Sodium 138 mmol/L (135-145); Total Bilirubin 0.2 mg/dL (0.3-1.2); Total Protein 5.3 g/dL (6.2-8.2)
[2020-08-22 22:01] LABS: Erythrocyte Sedimentation Rate 60 mm/Hr (0-15)
== END | disposition home or self-care (01) ==
LOC: LABWHC1 11:53
PROVIDERS: ATTEND Nurse Practitioner
DX: K51.00 Ulcerative (chronic) pancolitis without complications (principal)
CPT/HCPCS: 36415; 80053; 85025; 85652; 86140; 86480

== ENCOUNTER 2020-11-16 12:46 | Observation (INO) | payer OTHER ==
[2020-11-16 12:51] VITALS: RESP 18; TEMP 98.7
[2020-11-16] MEDS ORDERED: NITROGLYCERIN SL TABS 0.4 MG TAB SUBLINGUAL STA ×3 (14:04)
[2020-11-16] MEDS ORDERED: ASPIRIN 81 MG PO STA (14:04)
--- NOTE | 2020-11-16 14:07 | ED ---
General Adult HPI - General Chief complaint: Chest Pain Stated complaint: chest pain Time Seen by Provider: 11/16/20 13:23 Source: patient, RN notes reviewed Mode of arrival: wheelchair Limitations: no limitations - History of Present Illness Initial comments: Patient is a pleasant 35-year-old male presenting to the emergency Department with complaints of chest discomfort. Onset of symptoms was around 5 days ago. Symptoms have been somewhat waxing and waning. Currently discomfort is rated 6/10. Discomfort feels somewhat sharp and somewhat old. Patient does have some associated exertional dyspnea. Symptoms also do worsen with exertion. Patient has had some mild nausea. No diaphoresis. No leg pain or leg swelling. - Related Data Home Medications Medication Instructions Recorded Confirmed No Known Home Medications 11/16/20 11/16/20 Allergies Allergy/AdvReac Type Severity Reaction Status Date / Time No Known Allergies Allergy Verified 11/16/20 14:49 Review of Systems ROS Statement: Those systems with pertinent positive or pertinent negative responses have been documented in the HPI. ROS Other: All systems not noted in ROS Statement are negative. Constitutional: Denies: fever Eyes: Denies: eye pain ENT: Denies: ear pain Respiratory: Reports: as per HPI. Denies: cough Cardiovascular: Reports: as per HPI Endocrine: Denies: fatigue Gastrointestinal: Denies: abdominal pain Genitourinary: Denies: dysuria Musculoskeletal: Denies: back pain Skin: Denies: rash Neurological: Denies: weakness Past Medical History Past Medical History: GERD/Reflux Additional Past Medical History / Comment(s): Pt recently admitted to [facility] on 07/26/20 with acute ulcerative colitis exacerbation, acute blood loss anemia 2ndary to lower GI bleed/transfusion, hyperkalemia. Other hx: chronic low back pain. History of Any Multi-Drug Resistant Organisms: None Reported Past Surgical History: Orthopedic Surgery Additional Past Surgical History / Comment(s): left hand industrial accident/finger amputations, EGD, colonoscopy. Past Anesthesia/Blood Transfusion Reactions: No Reported Reaction Additional Past Anesthesia/Blood Transfusion Reaction / Comment(s): Pt recently received blood without reaction. Past Psychological History: Anxiety Smoking Status: Current every day smoker Past Alcohol Use History: None Reported Past Drug Use History: Marijuana - Past Family History Father History Unknown: Yes Mother Family Medical History: No Reported History Additional Family Medical History / Comment(s): Healthy. General Exam Limitations: no limitations General appearance: alert, in no apparent distress Head exam: Present: normocephalic Eye exam: Present: normal appearance Neck exam: Present: normal inspection Respiratory exam: Present: normal lung sounds bilaterally. Absent: stridor, chest wall tenderness Cardiovascular Exam: Present: regular rate, normal rhythm Expanded Peripheral pulses: 2+: Radial (R), Radial (L), Dorsalis Pedis (R), Dorsalis Pedis (L) GI/Abdominal exam: Present: soft. Absent: tenderness Extremities exam: Present: other (Some fingers are absent on the left hand). Absent: pedal edema, calf tenderness Neurological exam: Present: alert Psychiatric exam: Present: normal affect, normal mood Skin exam: Present: normal color Course Vital Signs 11/16/20 11/16/20 11/16/20 12:49 14:39 14:45 Temperature 98.7 F Pulse Rate 68 80 84 Respiratory 18 18 18 Rate Blood Pressure 109/66 125/70 107/68 O2 Sat by Pulse 99 100 Oximetry EKG Findings - EKG Comments: EKG Findings:: Normal sinus rhythm with a rate of 79. W[place] 142. QRS 108. QT 360. QTC 421. Normal axis. Incomplete right bundle-branch block. No acute ST change. Medical Decision Making - Medical Decision Making Patient reevaluated and resting comfortably in bed. Patient updated on results and plan. Case was discussed with Dr. Bolanos, will admit covering hospital call. - Lab Data Result diagrams: 11/16/20 12:54 11/16/20 12:54 Lab Results 11/16/20 11/16/20 11/16/20 Range/Units 12:54 12:54 12:54 WBC 6.4 (3.8-10.6) k/uL RBC 3.68 L (4.30-5.90) m/uL Hgb 7.2 L (13.0-17.5) gm/dL Hct 24.2 L (39.0-53.0) % MCV 65.7 L (80.0-100.0) fL MCH 19.5 L (25.0-35.0) pg MCHC 29.7 L (31.0-37.0) g/dL RDW 15.0 (11.5-15.5) % Plt Count 473 H (150-450) k/uL MPV 6.6 Neutrophils % 60 % Lymphocytes % 24 % Monocytes % 6 % Eosinophils % 7 % Basophils % 1 % Neutrophils # 3.9 (1.3-7.7) k/uL Lymphocytes # 1.6 (1.0-4.8) k/uL Monocytes # 0.4 (0-1.0) k/uL Eosinophils # 0.5 (0-0.7) k/uL Basophils # 0.0 (0-0.2) k/uL Hypochromasia Marked Microcytosis Marked PT 10.6 (9.0-12.0) sec INR 1.0 (<1.2) APTT 22.7 (22.0-30.0) sec D-Dimer 0.70 H (<0.60) mg/L FEU Sodium 137 (137-145) mmol/L Potassium 4.2 (3.5-5.1) mmol/L Chloride 104 (98-107) mmol/L Carbon Dioxide 27 (22-30) mmol/L Anion Gap 6 mmol/L BUN 11 (9-20) mg/dL Creatinine 0.97 (0.66-1.25) mg/dL Est GFR (CKD-EPI)AfAm >90 (>60 ml/min/1.73 sqM) Est GFR (CKD-EPI)NonAf >90 (>60 ml/min/1.73 sqM) Glucose 77 (74-99) mg/dL Calcium 9.3 (8.4-10.2) mg/dL Magnesium 1.9 (1.6-2.3) mg/dL Total Bilirubin <0.1 L (0.2-1.3) mg/dL AST 39 (17-59) U/L ALT 22 (4-49) U/L Alkaline Phosphatase 48 (38-126) U/L Troponin I (0.000-0.034) ng/mL NT-Pro-B Natriuret Pep pg/mL Total Protein 6.5 (6.3-8.2) g/dL Albumin 3.7 (3.5-5.0) g/dL 11/16/20 11/16/20 Range/Units 12:54 12:54 WBC (3.8-10.6) k/uL RBC (4.30-5.90) m/uL Hgb (13.0-17.5) gm/dL Hct (39.0-53.0) % MCV (80.0-100.0) fL MCH (25.0-35.0) pg MCHC (31.0-37.0) g/dL RDW (11.5-15.5) % Plt Count (150-450) k/uL MPV Neutrophils % % Lymphocytes % % Monocytes % % Eosinophils % % Basophils % % Neutrophils # (1.3-7.7) k/uL Lymphocytes # (1.0-4.8) k/uL Monocytes # (0-1.0) k/uL Eosinophils # (0-0.7) k/uL Basophils # (0-0.2) k/uL Hypochromasia Microcytosis PT (9.0-12.0) sec INR (<1.2) APTT (22.0-30.0) sec D-Dimer (<0.60) mg/L FEU Sodium (137-145) mmol/L Potassium (3.5-5.1) mmol/L Chloride (98-107) mmol/L Carbon Dioxide (22-30) mmol/L Anion Gap mmol/L BUN (9-20) mg/dL Creatinine (0.66-1.25) mg/dL Est GFR (CKD-EPI)AfAm (>60 ml/min/1.73 sqM) Est GFR (CKD-EPI)NonAf (>60 ml/min/1.73 sqM) Glucose (74-99) mg/dL Calcium (8.4-10.2) mg/dL Magnesium (1.6-2.3) mg/dL Total Bilirubin (0.2-1.3) mg/dL AST (17-59) U/L ALT (4-49) U/L Alkaline Phosphatase (38-126) U/L Troponin I <0.012 (0.000-0.034) ng/mL NT-Pro-B Natriuret Pep 134 pg/mL Total Protein (6.3-8.2) g/dL Albumin (3.5-5.0) g/dL - Radiology Data Radiology results: report reviewed (Computed tomography scan of the chest shows no evidence of pulmonary embolism.) Disposition Clinical Impression: Chest pain Disposition: ADMITTED IP TO THIS HOSP Is patient prescribed a controlled substance at d/c from ED?: No Referrals: None,Stated [Primary Care Provider] - 1-2 days Decision Time: 16:19
[2020-11-16 14:45] VITALS: BP 107/68
[2020-11-16 14:54] LABS: ALT 22 U/L (4-49); AST 39 U/L (17-59); African American GFR (CKD) >90 (>60 ml/min/1.73 sqM); Albumin 3.7 g/dL (3.5-5.0); Alkaline Phosphatase 48 U/L (38-126); Anion Gap 6 mmol/L; Blood Urea Nitrogen 11 mg/dL (9-20); Calcium 9.3 mg/dL (8.4-10.2); Carbon Dioxide 27 mmol/L (22-30); Chloride 104 mmol/L (98-107); Glucose 77 mg/dL (74-99); Magnesium 1.9 mg/dL (1.6-2.3); Non-African American GFR(CKD) >90 (>60 ml/min/1.73 sqM); Potassium 4.2 mmol/L (3.5-5.1); Sodium 137 mmol/L (137-145); Total Bilirubin <0.1 mg/dL (0.2-1.3); Total Protein 6.5 g/dL (6.3-8.2)
[2020-11-16 15:00] LABS: Partial Thromboplastin Time 22.7 sec (22.0-30.0); Prothrombin Time 10.6 sec (9.0-12.0)
[2020-11-16 15:02] LABS: Basophils % (A) 1 %; Eosinophils # (A) 0.5 k/uL (0-0.7); Eosinophils % (A) 7 %; HCT 24.2 % (39.0-53.0); HGB 7.2 gm/dL (13.0-17.5); Hypochromasia Marked; Lymphocytes # (A) 1.6 k/uL (1.0-4.8); Lymphocytes % (A) 24 %; MCH 19.5 pg (25.0-35.0); MCHC 29.7 g/dL (31.0-37.0); MCV 65.7 fL (80.0-100.0); Mean Platelet Volume 6.6; Microcytosis Marked; Monocytes # (A) 0.4 k/uL (0-1.0); Monocytes % (A) 6 %; Neutrophils # (A) 3.9 k/uL (1.3-7.7); Neutrophils % (A) 60 %; Platelet Count 473 k/uL (150-450); RBC 3.68 m/uL (4.30-5.90); WBC 6.4 k/uL (3.8-10.6)
[2020-11-16 15:03] LABS: D-Dimer 0.7 mg/L FEU (<0.60)
--- NOTE | 2020-11-16 15:55 | CT ---
EXAMINATION TYPE: CT angio chest DATE OF EXAM: 11/16/2020 COMPARISON: HISTORY: chest pain, difficulty breathing CT DLP: 306.4 mGycm Automated exposure control for dose reduction was used. CONTRAST: CTA scan of the thorax is performed with IV Contrast, patient injected with 100 mL of Isovue 370, pul monary embolism protocol. MIP images are created and reviewed. 3D reconstructed images are created on an independent workstation and reviewed. FINDINGS: LUNGS: The lungs are grossly clear, there is no concerning parenchymal mass or nodule identified. T here is no pleural effusion or pneumothorax seen. The tracheobronchial tree is patent. AORTA: No additional significant abnormality is seen. MEDIASTINUM: There is satisfactory enhancement of the pulmonary artery and its branches, there is no CT evidence for pulmonary embolism. There are no greater than 1 cm hilar or mediastinal lymph nodes. No pericardial effusion is seen. OTHER: There is thoracic spondylosis.. IMPRESSION: NO EVIDENT PULMONARY EMBOLISM.
[2020-11-16] MEDS ORDERED: NITROGLYCERIN SL TABS 0.4 MG TAB SUBLINGUAL PRN (16:19)
[2020-11-16 16:27] VITALS: PULSE 68
[2020-11-16] MEDS ORDERED: SODIUM CHLORIDE 0.9% 1,000 ML IV SCH (17:00)
[2020-11-16] MEDS ORDERED: NITROGLYCERIN OINT 1 INCH/GM PACKET TOPICAL SCH (18:00)
[2020-11-17] MEDS ORDERED: ASPIRIN 325 MG TAB PO SCH (09:00)
== END 2020-11-16 16:50 | disposition left against medical advice (07) ==
LOC: EC 12:46 → 6NMEDSUR 16:19
PROVIDERS: ADMIT Internal Medicine; ATTEND Internal Medicine
DX: R07.89 Other chest pain (principal); R11.0 Nausea; R06.09 Other forms of dyspnea; K21.9 Gastro-esophageal reflux disease without esophagitis; G89.29 Other chronic pain; M54.5 Low back pain; F17.200 Nicotine dependence, unspecified, uncomplicated; F41.9 Anxiety disorder, unspecified; Z53.29 Procedure and treatment not carried out because of patient's decision for other reasons; Z87.19 Personal history of other diseases of the digestive system; Z89.022 Acquired absence of left finger(s)
CPT/HCPCS: 99285; 36415; 93005; 85379; 83880; 80053; 83735; 84484; 85025; 85610; 85730; 71275; G0378; Q9967

== ENCOUNTER 2020-11-22 16:31 | Emergency (ER) | payer OTHER ==
[2020-11-22 17:48] VITALS: TEMP 97.8
[2020-11-22] MEDS ORDERED: MORPHINE SULFATE IR 15 MG TABLET PO STA (18:25)
[2020-11-22] MEDS ORDERED: methocarbamoL 750 MG TAB PO STA (18:25)
[2020-11-22] MEDS ORDERED: KETOROLAC 15 MG/ML 1 ML VIAL IM STA (18:25)
--- NOTE | 2020-11-22 18:33 | ED ---
Fall HPI - General Chief Complaint: Fall Stated Complaint: fall 10' from attic Time Seen by Provider: 11/22/20 18:11 Source: patient Mode of arrival: wheelchair - History of Present Illness Initial Comments: Patient is a 35-year-old male with past medical history remarkable for GERD, ulcerative colitis presents to the ED complaining of back pain. Patient states that he was on top of a machine part that was in the air approximately 10 feet when the wench broke and he fell with the machine part to the ground. He states that he landed on top of machine part on his back. This occurred 2 days ago. He states that since that time he has been having mid back pain as well as bilateral rib pain. He denies any difficulty in breathing, nausea, vomiting, headache, weakness, numbness. Denies any bowel or bladder incontinence or retention. Denies any lower extremity weakness. He denies any other injuries. He said today the pain was worse which swiped since the emergency department at this time. He is still able to ambulate without difficulty. He denies LOC or being on blood thinners. Patient otherwise has no acute complaints at this time. - Related Data Previous Rx's Medication Instructions Recorded Ibuprofen [Motrin] 400 mg PO Q6HR PRN #28 tab 11/22/20 Lidocaine 5% Patch [Lidoderm 5% 1 patch TOPICAL DAILY #7 patch 11/22/20 Patch] Methocarbamol [Robaxin-750] 750 mg PO Q8HR PRN #42 tablet 11/22/20 Allergies Allergy/AdvReac Type Severity Reaction Status Date / Time No Known Allergies Allergy Verified 11/22/20 17:48 Review of Systems ROS Statement: Those systems with pertinent positive or pertinent negative responses have been documented in the HPI. Review of Systems: CONST: Denies fever EYES: Denies blurry vision ENT: Denies nasal congestion C/V: Denies Chest pain RESP: Denies shortness of breath GI: Denies abdominal pain : Denies dysuria SKIN: Denies rash. MSK: Endorses joint pain, rib pain, back pain NEURO: Denies headache ROS Other: All systems not noted in ROS Statement are negative. Past Medical History Past Medical History: GERD/Reflux Additional Past Medical History / Comment(s): Pt recently admitted to [facility] on 07/26/20 with acute ulcerative colitis exacerbation, acute blood loss anemia 2ndary to lower GI bleed/transfusion, hyperkalemia. Other hx: chronic low back pain. History of Any Multi-Drug Resistant Organisms: None Reported Past Surgical History: Orthopedic Surgery Additional Past Surgical History / Comment(s): left hand industrial accident/finger amputations, EGD, colonoscopy. Past Anesthesia/Blood Transfusion Reactions: No Reported Reaction Additional Past Anesthesia/Blood Transfusion Reaction / Comment(s): Pt recently received blood without reaction. Past Psychological History: Anxiety Smoking Status: Current every day smoker Past Alcohol Use History: None Reported Past Drug Use History: Marijuana - Past Family History Father History Unknown: Yes Mother Family Medical History: No Reported History Additional Family Medical History / Comment(s): Healthy. General Exam - General Exam Comments Initial Comments: Constitutional: Blood pressure was 98/60, pulse was 92, respirations were 20, pulse oximetry was 100% on room air, temperature was 97.8. General: Presents in mild to moderate distress secondary to back and rib pain. HEAD: Normal with no signs of head trauma. EYES: PERRLA, EOMI, conjunctiva normal, no discharge. ENT: Hearing grossly intact, normal oropharynx. RESPIRATORY: Clear breath sounds bilaterally. No wheezes, rales, or rhonchi. C/V: Regular rate and rhythm. S1 and S2 auscultated, no edema, peripheral pulses 2+ and intact throughout. Patient does have bilateral ribs tenderness that is generalized. ABD: Abd is soft, nontender, nondistended EXT: Normal range of motion, no obvious deformity. Patient's pelvis is stable. Patient has no lumbar spine or cervical spine midline tenderness to palpation. Patient does have mid thoracic spine tenderness to palpation in the midline radiation into the paraspinal muscles bilaterally. SKIN: No rashes or lesions observed on exposed skin. NEURO: Alert and oriented 4. Patient is able to ambulate. No focal sensory or strength deficits. Cranial nerves II through XII are intact. Limitations: no limitations Course Vital Signs 11/22/20 17:45 Temperature 97.8 F Pulse Rate 92 Respiratory 20 Rate Blood Pressure 98/60 O2 Sat by Pulse 100 Oximetry Medical Decision Making - Medical Decision Making Based on the patient's presentation and physical exam, I'm concerned for possible bony traumatic injury the patient's ribs and thoracic spine. The fall occurred 2 days ago and this could just be sequelae of the fall including muscle strains or sprains. Patient will therefore be symptomatically treated with IM Toradol, by mouth Robaxin, by mouth morphine. We will obtain a CT of the thoracic spine as well as a chest x-ray with bilateral rib x-rays. Patient was in agreement this plan. Patient's imaging is negative for acute fracture or subluxation. Reevaluation from patient is feeling improved. He is ambulating without difficulty. I did explain to him the results of his imaging that I believe he is likely experienced a muscle strains or sprains post bruising. I did inform him that he can be discharged home. He did request for a work note for tomorrow which shows agreement. He'll be given prescriptions for lidocaine patches, ibuprofen, Robaxin. He'll be given follow-up information for orthopedic surgery clinic. The patient was in agreement with this plan. Disposition Clinical Impression: Back pain, Fall, Sprain and strain Disposition: HOME SELF-CARE Condition: Stable Instructions (If sedation given, give patient instructions): Fall Prevention (ED), Back Pain (ED) Prescriptions: Lidocaine 5% Patch [Lidoderm 5% Patch] 1 patch TOPICAL DAILY #7 patch Ibuprofen [Motrin] 400 mg PO Q6HR PRN #28 tab PRN Reason: Pain Methocarbamol [Robaxin-750] 750 mg PO Q8HR PRN #42 tablet PRN Reason: Pain Is patient prescribed a controlled substance at d/c from ED?: No Referrals: None,Stated [Primary Care Provider] - 1-2 days Zechariah Navarrete, [Doctor of Osteopathic Medicine] - 1-2 days
--- NOTE | 2020-11-22 19:31 | CT ---
EXAMINATION TYPE: CT thoracic spine wo con DATE OF EXAM: 11/22/2020 COMPARISON: Chest CT scan 11/16/2020 HISTORY: Pain between shoulder blades after 10' fall. CT DLP: 797.5 mGycm Automated exposure control for dose reduction was used. Images obtained from T1 to T12 without contrast. Thoracic vertebra have fairly normal spacing and alignment. Posterior elements are intact. There is n o compression fracture. There is no paraspinal mass. The facet joints are intact. The posterior ribs appear intact. IMPRESSION: Negative CT scan of the thoracic spine. No fracture. No change.
--- NOTE | 2020-11-22 20:17 | XR ---
EXAMINATION TYPE: XR ribs bilat w pa chest xray DATE OF EXAM: 11/22/2020 COMPARISON: 01/11/2018 HISTORY: Pain TECHNIQUE: 9 views FINDINGS: Heart and mediastinum are normal. Lungs are clear. There is no pleural effusion or pneumoth orax. There is no evidence of a rib fracture. Costophrenic angles are clear. IMPRESSION: Normal chest. Normal left and right rib exam.
[2020-11-22 21:04] VITALS: BP 100/63; PULSE 84; RESP 18
== END 2020-11-22 21:04 | disposition home or self-care (01) ==
LOC: EC 16:31
DX: S23.3XXA Sprain of ligaments of thoracic spine, initial encounter (principal); F17.200 Nicotine dependence, unspecified, uncomplicated; W17.89XA Other fall from one level to another, initial encounter; Y92.89 Other specified places as the place of occurrence of the external cause
CPT/HCPCS: 71111; 72128; 99284; 96372; J1885

== ENCOUNTER 2020-11-27 10:50 | Inpatient (IN) | payer OTHER ==
[2020-11-27] MEDS ORDERED: MORPHINE SULFATE 4 MG/ML SYRINGE IV STA (11:49)
[2020-11-27] MEDS ORDERED: SODIUM CHLORIDE 0.9% 1,000 ML IV STA (11:49)
--- NOTE | 2020-11-27 11:52 | ED ---
Abdominal Pain HPI - General Chief Complaint: Abdominal Pain Stated Complaint: revisit - abd pain Source: patient, RN notes reviewed, old records reviewed Mode of arrival: ambulatory Limitations: no limitations - History of Present Illness Initial Comments: 35-year-old white male, alert and oriented 4, presents to the emergency room with complaints of increasing abdominal pain with his ulcerative colitis flare for the past week. Patient states that he has been having diarrhea for the past 2-3 days every 2-3 hours with increasing pain. Patient states 1 month ago he received an infusion but he is not sure what it was for for his ulcerative colitis and he feels like that made it worse. He was scheduled to have a second dose on which was changed to today and he did not feel well enough to go straight To the emergency room. Patient denies fevers or any nausea or vomiting. The patient does have a history of ulcerative colitis and GERD and anemia. Patient states that he had a fall from the upstairs of a burn on the and had CTs and x-rays done all negative. Patient sees Macey Hsieh [employer]ACHINE for GI. Complaint: abdominal pain -: month(s) (1) Location: diffuse Radiation: none Severity: severe Quality: sharp Consistency: constant Improves With: nothing Worsens With: bowel movement Context: recent injury (Fell in a barn on November 22 seen here no fractures) Associated Symptoms: hematochezia - Related Data Previous Rx's Medication Instructions Recorded Ibuprofen [Motrin] 400 mg PO Q6HR PRN #28 tab 11/22/20 Lidocaine 5% Patch [Lidoderm 5% 1 patch TOPICAL DAILY #7 patch 11/22/20 Patch] Methocarbamol [Robaxin-750] 750 mg PO Q8HR PRN #42 tablet 11/22/20 Allergies Allergy/AdvReac Type Severity Reaction Status Date / Time No Known Allergies Allergy Verified 11/27/20 10:58 Review of Systems ROS Statement: Those systems with pertinent positive or pertinent negative responses have been documented in the HPI. ROS Other: All systems not noted in ROS Statement are negative. Past Medical History Past Medical History: GERD/Reflux Additional Past Medical History / Comment(s): Pt recently admitted to [facility] on 07/26/20 with acute ulcerative colitis exacerbation, acute blood loss anemia 2ndary to lower GI bleed/transfusion, hyperkalemia. Other hx: chronic low back pain. History of Any Multi-Drug Resistant Organisms: None Reported Past Surgical History: Orthopedic Surgery Additional Past Surgical History / Comment(s): left hand industrial accident/finger amputations, EGD, colonoscopy. Past Anesthesia/Blood Transfusion Reactions: No Reported Reaction Additional Past Anesthesia/Blood Transfusion Reaction / Comment(s): Pt recently received blood without reaction. Past Psychological History: Anxiety Smoking Status: Current every day smoker Past Alcohol Use History: None Reported Past Drug Use History: Marijuana - Past Family History Father History Unknown: Yes Mother Family Medical History: No Reported History Additional Family Medical History / Comment(s): Healthy. General Exam Limitations: no limitations General appearance: alert, in no apparent distress Head exam: Present: atraumatic, normocephalic, normal inspection Eye exam: Present: normal appearance, PERRL, EOMI. Absent: scleral icterus, conjunctival injection, periorbital swelling Pupils: Present: normal accommodation ENT exam: Present: normal exam, normal oropharynx, mucous membranes moist Neck exam: Present: normal inspection, full ROM. Absent: tenderness, meningismus, lymphadenopathy, thyromegaly Respiratory exam: Present: normal lung sounds bilaterally, other (Poor inspiratory effort related pain). Absent: respiratory distress, wheezes, rales, rhonchi, stridor, chest wall tenderness, accessory muscle use Cardiovascular Exam: Present: regular rate, normal rhythm, normal heart sounds. Absent: systolic murmur, diastolic murmur, rubs, gallop, clicks GI/Abdominal exam: Present: soft, tenderness, normal bowel sounds. Absent: distended, guarding, rebound, rigid, mass Extremities exam: Present: normal inspection, full ROM, normal capillary refill. Absent: tenderness, pedal edema, joint swelling, calf tenderness Back exam: Present: normal inspection, full ROM. Absent: tenderness, CVA tenderness (R), CVA tenderness (L), muscle spasm, paraspinal tenderness, vertebral tenderness, rash noted Neurological exam: Present: alert, oriented X3, CN II-XII intact Psychiatric exam: Present: normal affect, normal mood Skin exam: Present: warm, dry, intact, normal color. Absent: rash, cyanosis, diaphoretic, erythema, petechiae, pallor, mottled Course Vital Signs 11/27/20 11/27/20 11/27/20 10:58 13:29 14:42 Temperature 98.3 F Pulse Rate 96 83 90 Respiratory 18 18 20 Rate Blood Pressure 124/83 118/74 119/75 O2 Sat by Pulse 100 96 96 Oximetry Medical Decision Making - Medical Decision Making Patient continues to have abdominal pain, CT shows wall thickening in the left hemicolon with infectious or inflammatory colitis versus polyp possible irritable bowel disease. Hemoglobin and hematocrit is 7 and 24 respectively which is consistent for patient was hemoglobin was 7.2 on November 16 and 7.7 on August 22. GI will be consulted. Case discussed with Dr. Dr. Petersen was agreeable to this plan of care. - Lab Data Result diagrams: 11/27/20 12:03 11/27/20 12:03 Lab Results 11/27/20 11/27/20 11/27/20 Range/Units 12:03 12:03 12:03 WBC 8.3 (3.8-10.6) k/uL RBC 3.75 L (4.30-5.90) m/uL Hgb 7.0 L (13.0-17.5) gm/dL Hct 24.1 L (39.0-53.0) % MCV 64.4 L (80.0-100.0) fL MCH 18.7 L (25.0-35.0) pg MCHC 29.1 L (31.0-37.0) g/dL RDW 14.8 (11.5-15.5) % Plt Count 475 H (150-450) k/uL MPV 6.1 Neutrophils % 68 % Lymphocytes % 17 % Monocytes % 6 % Eosinophils % 8 % Basophils % 0 % Neutrophils # 5.7 (1.3-7.7) k/uL Lymphocytes # 1.4 (1.0-4.8) k/uL Monocytes # 0.5 (0-1.0) k/uL Eosinophils # 0.6 (0-0.7) k/uL Basophils # 0.0 (0-0.2) k/uL Hypochromasia Marked Microcytosis Marked PT 10.8 (9.0-12.0) sec INR 1.0 (<1.2) APTT 25.9 (22.0-30.0) sec Sodium 139 (137-145) mmol/L Potassium 4.3 (3.5-5.1) mmol/L Chloride 104 (98-107) mmol/L Carbon Dioxide 29 (22-30) mmol/L Anion Gap 6 mmol/L BUN 15 (9-20) mg/dL Creatinine 0.77 (0.66-1.25) mg/dL Est GFR (CKD-EPI)AfAm >90 (>60 ml/min/1.73 sqM) Est GFR (CKD-EPI)NonAf >90 (>60 ml/min/1.73 sqM) Glucose 97 (74-99) mg/dL Plasma Lactic Acid Jeancarlos (0.7-2.0) mmol/L Calcium 9.2 (8.4-10.2) mg/dL Total Bilirubin <0.1 L (0.2-1.3) mg/dL AST 29 (17-59) U/L ALT 15 (4-49) U/L Alkaline Phosphatase 52 (38-126) U/L Total Protein 6.2 L (6.3-8.2) g/dL Albumin 3.4 L (3.5-5.0) g/dL Amylase 47 (30-110) U/L Lipase 148 (23-300) U/L Urine Color Urine Appearance (Clear) Urine pH (5.0-8.0) Ur Specific [place] (1.001-1.035) Urine Protein (Negative) Urine Glucose (UA) (Negative) Urine Ketones (Negative) Urine Blood (Negative) Urine Nitrite (Negative) Urine Bilirubin (Negative) Urine Urobilinogen (<2.0) mg/dL Ur Leukocyte Esterase (Negative) 11/27/20 11/27/20 Range/Units 12:03 13:06 WBC (3.8-10.6) k/uL RBC (4.30-5.90) m/uL Hgb (13.0-17.5) gm/dL Hct (39.0-53.0) % MCV (80.0-100.0) fL MCH (25.0-35.0) pg MCHC (31.0-37.0) g/dL RDW (11.5-15.5) % Plt Count (150-450) k/uL MPV Neutrophils % % Lymphocytes % % Monocytes % % Eosinophils % % Basophils % % Neutrophils # (1.3-7.7) k/uL Lymphocytes # (1.0-4.8) k/uL Monocytes # (0-1.0) k/uL Eosinophils # (0-0.7) k/uL Basophils # (0-0.2) k/uL Hypochromasia Microcytosis PT (9.0-12.0) sec INR (<1.2) APTT (22.0-30.0) sec Sodium (137-145) mmol/L Potassium (3.5-5.1) mmol/L Chloride (98-107) mmol/L Carbon Dioxide (22-30) mmol/L Anion Gap mmol/L BUN (9-20) mg/dL Creatinine (0.66-1.25) mg/dL Est GFR (CKD-EPI)AfAm (>60 ml/min/1.73 sqM) Est GFR (CKD-EPI)NonAf (>60 ml/min/1.73 sqM) Glucose (74-99) mg/dL Plasma Lactic Acid Jeancarlos 0.9 (0.7-2.0) mmol/L Calcium (8.4-10.2) mg/dL Total Bilirubin (0.2-1.3) mg/dL AST (17-59) U/L ALT (4-49) U/L Alkaline Phosphatase (38-126) U/L Total Protein (6.3-8.2) g/dL Albumin (3.5-5.0) g/dL Amylase (30-110) U/L Lipase (23-300) U/L Urine Color Light Yellow Urine Appearance Clear (Clear) Urine pH 7.0 (5.0-8.0) Ur Specific [place] 1.013 (1.001-1.035) Urine Protein Negative (Negative) Urine Glucose (UA) Negative (Negative) Urine Ketones Negative (Negative) Urine Blood Negative (Negative) Urine Nitrite Negative (Negative) Urine Bilirubin Negative (Negative) Urine Urobilinogen <2.0 (<2.0) mg/dL Ur Leukocyte Esterase Negative (Negative) Disposition Clinical Impression: Colitis, Anemia, Inflammatory bowel disease Disposition: ADMITTED IP TO THIS [facility] Condition: Fair Referrals: None,Stated [Primary Care Provider] - 1-2 days Decision Date: 11/27/20 Decision Time: 16:54
[2020-11-27 12:39] LABS: ALT 15 U/L (4-49); AST 29 U/L (17-59); African American GFR (CKD) >90 (>60 ml/min/1.73 sqM); Albumin 3.4 g/dL (3.5-5.0); Alkaline Phosphatase 52 U/L (38-126); Amylase 47 U/L (30-110); Anion Gap 6 mmol/L; Blood Urea Nitrogen 15 mg/dL (9-20); Calcium 9.2 mg/dL (8.4-10.2); Carbon Dioxide 29 mmol/L (22-30); Chloride 104 mmol/L (98-107); Glucose 97 mg/dL (74-99); Lipase 148 U/L (23-300); Non-African American GFR(CKD) >90 (>60 ml/min/1.73 sqM); Potassium 4.3 mmol/L (3.5-5.1); Sodium 139 mmol/L (137-145); Total Bilirubin <0.1 mg/dL (0.2-1.3); Total Protein 6.2 g/dL (6.3-8.2)
[2020-11-27 12:41] LABS: Partial Thromboplastin Time 25.9 sec (22.0-30.0); Prothrombin Time 10.8 sec (9.0-12.0)
--- NOTE | 2020-11-27 13:02 | XR ---
EXAMINATION TYPE: XR KUB DATE OF EXAM: 11/27/2020 COMPARISON: NONE HISTORY: Pain TECHNIQUE: One view abdominal series FINDINGS: The osseous structures are intact. The bowel gas pattern is nonspecific. Lung bases are clear. Curv ature of the spine noted. IMPRESSION: 1. Nonspecific abdomen.
[2020-11-27 13:06] LABS: Basophils % (A) 0 %; Eosinophils # (A) 0.6 k/uL (0-0.7); Eosinophils % (A) 8 %; HCT 24.1 % (39.0-53.0); Hypochromasia Marked; Lymphocytes # (A) 1.4 k/uL (1.0-4.8); Lymphocytes % (A) 17 %; MCH 18.7 pg (25.0-35.0); MCHC 29.1 g/dL (31.0-37.0); MCV 64.4 fL (80.0-100.0); Mean Platelet Volume 6.1; Microcytosis Marked; Monocytes # (A) 0.5 k/uL (0-1.0); Monocytes % (A) 6 %; Neutrophils # (A) 5.7 k/uL (1.3-7.7); Neutrophils % (A) 68 %; Platelet Count 475 k/uL (150-450); RBC 3.75 m/uL (4.30-5.90); RDW 14.8 % (11.5-15.5); WBC 8.3 k/uL (3.8-10.6)
[2020-11-27 13:21] LABS: Appearance,Urine Clear (Clear); Bilirubin,Urine Negative (Negative); Blood,Urine Negative (Negative); Color,Urine Light Yellow; Glucose,Urine (UA) Negative (Negative); Ketones,Urine Negative (Negative); Leukocyte Esterase,Urine Negative (Negative); Nitrite,Urine Negative (Negative); Protein,Urine Negative (Negative); Specific Gravity,Urine 1.013 (1.001-1.035); Urobilinogen,Urine <2.0 mg/dL (<2.0)
[2020-11-27] MEDS ORDERED: HYDROmorphone 1 MG/ML 1 ML SYRINGE IVP STA ×2 (14:12→18:36)
--- NOTE | 2020-11-27 15:56 | CT ---
EXAMINATION TYPE: CT abdomen pelvis wo con DATE OF EXAM: 11/27/2020 COMPARISON: 08/20/2020 HISTORY: 35-year-old male Mid abdominal pain CT DLP: 423.7 mGycm. Automated exposure control for dose reduction was used. TECHNIQUE: Contiguous axial scanning of the abdomen and pelvis without IV contrast. Coronal and sagit courtney reconstructions performed. FINDINGS: Exam is very limited due to paucity intra-abdominal fat, crowding the intra-abdominal structures, lac k of oral and IV contrast. Heart normal size without pericardial effusion. Lung bases clear without pleural effusion. Noncontrast appearance of the liver, gallbladder, adrenal glands, kidneys, spleen, and pancreas show no gross abnormality. There is extensive soft tissue crowding and amalgamation along the retroperitoneum. Unable to determi ne if this relates to retroperitoneal lymphadenopathy or extensive clustering of normal anatomic stru ctures, for example, refer to axial image 69. No dilated small bowel, free fluid, or free air is seen. Unable to discretely identify an abnormal appendix. This seems to be circumferential wall thickening along the left hemicolon, for example, refer to axial image 111 for the sigmoid colon, axial image 98 for the junction of the sigmoid and descending colon, axial and 44 for the hepatic flexure of the co althea, and axial is 55 for the transverse colon. Scattered mild stool. Unable to adequately assess for abdominal or pelvic lymphadenopathy. Exam limitations. Multiple pelvi c phleboliths. Bladder is urine distended. No abnormal fluid collection identified. Bones: No osseous destructive process. IMPRESSION: 1. The exam is very limited due to paucity of intra-abdominal fat, extensive crowding of soft tissue structures, and lack of oral/IV contrast. Unable to exclude retroperitoneal lymphadenopathy versus e xtensive clustering of normal anatomic structures, for example, axial image 69. 2. There seems to be circumferential wall thickening throughout the left hemicolon. Correlate for an infectious or inflammatory colitis including the possibility of IBD.
[2020-11-27] MEDS ORDERED: metroNIDAZOLE-NS PMX 500 MG in SALINE 1 100ML.BAG IVPB STA (16:49)
[2020-11-27] MEDS ORDERED: LEVOFLOXACIN 500MG-D5W PMX 500 MG in DEXTROSE/WATER 1 100ML.BAG IVPB STA (16:51)
[2020-11-27] MEDS ORDERED: NALOXONE 0.4 MG/ML 1 ML VIAL IV PRN (16:55)
[2020-11-27] MEDS: SODIUM CHLORIDE 0.9% 1,000 ML IV SCH (17:48)
[2020-11-27] MEDS ORDERED: methocarbamoL 750 MG TAB PO PRN (20:30)
[2020-11-27] MEDS ORDERED: TEMAZEPAM 15 MG CAP PO PRN (20:32)
[2020-11-27] MEDS ORDERED: HYDROcodone/APAP 5-325MG 1 EACH TAB PO PRN (20:32)
[2020-11-27] MEDS ORDERED: LORazepam 0.5 MG TAB PO PRN (20:32)
--- NOTE | 2020-11-27 21:33 | HP ---
HISTORY AND PHYSICAL DATE OF SERVICE: 11/27/2020 CHIEF COMPLAINTS: Abdominal pain. HISTORY OF PRESENT ILLNESS: This is a 35-year-old gentleman with a past medical history of GERD, history of ulcerative colitis, history of blood-loss anemia, hyperkalemia, history of DJD, anxiety being followed by no primary. The patient has been treated for colitis and as well as acute blood loss anemia. The patient was evaluated by Gastroenterology at that time and was treated symptomatically. The patient was noted to have noncompliant with medications. The patient was also given balsalazide. Currently the patient is as mentioned earlier, not being followed by a primary. The patient is exacerbating the pain for the last few days and also some significant blood per rectum. The patient had a CT scan of the abdomen and pelvis which showed circumferential thickening of the throughout the left hemicolon and the patient admitted for evaluation and treatment. There is no history of fever, rigors. No headache, loss of consciousness, seizures. PAST MEDICAL HISTORY: History of GERD, history of ulcerative colitis, noncompliance anxiety. MEDICATIONS: Medications prior to admission include Robaxin, Lidoderm patch and Motrin. Doses reviewed. ALLERGIES: None. FAMILY HISTORY: No history of heart disease or strokes in the family. SOCIAL HISTORY: History of smoking, history of THC. REVIEW OF SYSTEMS: ENT: No diminished vision cardiovascular no angina respiration no cough. : Normal. NEURO: No numbness, weakness. ALLERGY: No asthma or hayfever. MUSCULOSKELETAL: As mentioned. HEMATOLOGY: Anemia. ENDOCRINE: No history of diabetes or hypothyroidism. CONSTITUTIONAL: As mentioned. DERMATOLOGY: Normal. PSYCHIATRY: As mentioned. PHYSICAL EXAMINATION: Alert and oriented. Pulse 67, blood pressure 101/61, respiration 18, temperature 98 degrees, pulse ox 98% on room air. HEENT: Conjunctivae normal. NECK: Normal. LUNGS: No rhonchi no crackles. ABDOMEN: Soft, scaphoid. Mild diffuse tenderness present. No guarding, no mass palpable. LEGS: No edema, no swelling. CENTAL NERVOUS SYSTEM: As mentioned earlier. Moves all 4 limbs. No focal motor- sensory lymphatics. SKIN: No rash joints, no active arthropathy. LABS: WBC 8.2, hemoglobin 7.8, and platelets are 475. ASSESSMENT: 1. Acute ulcerative colitis acute exacerbation with severe pain and failure of outpatient treatment. 2. Number anemia microcytic from acute on chronic GI bleed with blood-loss anemia. 3. History of noncompliance. 4. History of ulcerative colitis history of gastroesophageal reflux disease. 5. History of hyperkalemia. 6. History of anxiety. 7. History of nicotine dependence, history of THC. 8. FULL CODE. RECOMMENDATIONS: This 35-year-old gentleman who presented with multiple complex medical issues, we will monitor the patient closely. Continue the current management. I recommend transfuse 1 unit because of the continued GI bleed and Gastroenterology evaluation. We will initiate IV steroids and continue to monitor otherwise stool C difficile will be checked. Gastroenterology consultation. Prognosis guarded because of multiple complex medical issues as mentioned earlier. The importance of compliance also stressed with the patient. Patient recommended follow up with primary physician closely after discharge. MMMITCHELLL / IJN: [id number] /
[2020-11-27] MEDS: INSULIN ASPART (NovoLOG) 100 UNIT/ML VIAL SQ SCH (23:40)
[2020-11-28] MEDS: PANTOPRAZOLE 40 MG/10 ML VIAL IVP SCH ×2 (00:41→09:02)
[2020-11-28] MEDS: methylPREDNISolone SOD SUCCI 125 MG/2 ML VIAL IV SCH ×3 (00:41→09:04)
[2020-11-28 08:14] LABS: Glucose,Whole Blood 113 mg/dL (75-99)
[2020-11-28] MEDS: INSULIN ASPART (NovoLOG) 100 UNIT/ML VIAL SQ SCH ×4 (08:14→22:13)
[2020-11-28] MEDS: SODIUM CHLORIDE 0.9% 1,000 ML IV SCH ×2 (09:01→22:12)
[2020-11-28] MEDS: LIDOCAINE 5% PATCH TOPICAL SCH (09:02)
[2020-11-28 09:28] LABS: HCT 27.4 % (39.6-50.0); HGB 7.6 g/dL (13.0-17.0); MCH 19.2 pg (27.0-32.0); MCHC 27.7 g/dL (32.0-37.0); MCV 69.2 fL (80.0-97.0); Mean Platelet Volume 9.3 fL (9.5-12.2); Platelet Count 504 X 10*3/uL (140-440); RBC 3.96 X 10*6/uL (4.40-5.60); RDW 17.3 % (11.5-14.5); WBC 9.02 X 10*3/uL (4.50-10.00)
--- NOTE | 2020-11-28 11:32 | P.CONS ---
History of Present Illness - Reason for Consult Consult date: 11/28/20 Ulcerative colitis Requesting physician: Cristofer Saldaña - Chief Complaint Abdominal pain and bloody diarrhea - History of Present Illness This is a 35-year-old white male who presented to the emergency department yesterday with complaints of frequent diarrhea mixed with blood and abdominal pain. The patient has no significant past medical history other than recently being diagnosed with ulcerative colitis in June of this year. The patient was initially seen at [facility] in June where he underwent an EGD and colonoscopy on 06/28/2020 with findings of erosive esophagitis, mild gastritis and pancolitis. Pathology from procedure showed active colitis with features consistent with inflammatory bowel disease with crypt abscess on colonoscopy. He was initially started on tapered steroids, he was noncompliant and stopped his steroids due to symptoms of GERD, he ended up back in the hospital in July where he again was discharged with a tapered dose of steroids. He had followed up with gastroenterology and sees Macey Hsieh [employer], and was recently started on Entyvio infusion, stating his first dose was approximately one month ago and he was due to receive his second dose yesterday. He states his symptoms return following his first dose of Entyvio. He states over the last 2 weeks he had abdominal pain which he says is subsided, multiple episodes of bloody diarrhea up to every 30 minutes. His admission labs WBC 8.3, hemoglobin 7.0, hematocrit 24, platelet 375,000, INR 1.0, total bilirubin 0.1, alkaline phosphatase 52, AST 29, ALT 12. CT of the abdomen and pelvis showed a limited exam, with circumferential wall thickening throughout the left hemicolon. Correlate for an infectious or inflammatory colitis including the possibility of IBD. KUB shows nonspecific abdomen. He was given 1 unit of PRBC transfusion. Today His hemoglobin is 7.6. He states 2-3 episodes of diarrhea yesterday, none today. He denies any nausea, vomiting, fever, or chills. Review of Systems REVIEW OF SYSTEMS: CARDIOPULMONARY: No chest pain or shortness of breath. Gastrointestinal: Abdominal pain last week, none currently. No nausea or vomiting. No hematemesis, coffee-ground emesis. Diarrhea with bright red blood and room colored stool GENITOURINARY: No dysuria or hematuria. MUSCULOSKELETAL: Reports normal range of motion., Joint pain. SKIN: No rashes. No jaundice. ENDOCRINE: No chills, fevers. No excessive weight gain or loss. No polydipsia or polyuria. PSYCHIATRIC: Unremarkable. NEUROLOGY: No change in mental status. Denies dizziness, headache. ENT: Vision unremarkable. CONSTITUTIONAL: No recent weight loss. No fever, chills, night sweats. Past Medical History Past Medical History: GERD/Reflux Additional Past Medical History / Comment(s): Pt recently admitted to [facility] on 07/26/20 with acute ulcerative colitis exacerbation, acute blood loss anemia 2ndary to lower GI bleed/transfusion, hyperkalemia. Other hx: chronic low back pain. History of Any Multi-Drug Resistant Organisms: None Reported Past Surgical History: Orthopedic Surgery Additional Past Surgical History / Comment(s): left hand industrial accident/finger amputations, EGD, colonoscopy. Past Anesthesia/Blood Transfusion Reactions: No Reported Reaction Additional Past Anesthesia/Blood Transfusion Reaction / Comm: Pt recently received blood without reaction. Past Psychological History: Anxiety Additional Psychological History / Comment(s): Pt resides with his mother. He is independent. Smoking Status: Current every day smoker Past Alcohol Use History: None Reported Additional Past Alcohol Use History / Comment(s): Pt started smoking in 1999 and quit smoking in May 2020 Past Drug Use History: Marijuana Additional Drug Use History / Comment(s): Occasional marijuana use. - Past Family History Father History Unknown: Yes Mother Family Medical History: No Reported History Additional Family Medical History / Comment(s): Healthy. Medications and Allergies Home Medications Medication Instructions Recorded Confirmed Type Ibuprofen [Motrin] 400 mg PO Q6HR PRN #28 tab 11/22/20 11/27/20 Rx Lidocaine 5% Patch [Lidoderm 5% 1 patch TOPICAL DAILY #7 patch 11/22/20 11/27/20 Rx Patch] Methocarbamol [Robaxin-750] 750 mg PO Q8HR PRN #42 tablet 11/22/20 11/27/20 Rx Allergies Allergy/AdvReac Type Severity Reaction Status Date / Time No Known Allergies Allergy Verified 11/27/20 10:58 Physical Exam Vitals: Vital Signs Temp Pulse Pulse Resp BP BP Pulse Ox 11/28/20 07:00 98.2 F 72 17 99/63 98 11/28/20 02:35 98.8 F 88 16 118/64 98 11/28/20 01:37 97.7 F 70 18 103/58 98 11/28/20 00:18 97.9 F 59 L 20 102/62 11/27/20 23:48 97.8 F 60 20 98/62 11/27/20 23:35 97.8 F 61 20 90/55 11/27/20 20:18 98.0 F 67 18 101/61 98 11/27/20 18:00 97.9 F 72 18 115/76 98 11/27/20 14:42 90 20 119/75 96 11/27/20 13:29 83 18 118/74 96 11/27/20 10:58 98.3 F 96 18 124/83 100 Intake and Output 11/27/20 11/28/20 11/28/20 22:59 06:59 14:59 Intake Total 570 Balance 570 Intake: Blood Product 570 Rc Pheresis 2 As3 Unit 285 [id number] Other: # Voids 1 Weight 72.575 kg General appearance: The patient is alert, oriented, appears in no acute distress. Thin. HET: Head is normocephalic and atraumatic. Conjunctiva pink. Sclera anicteric. Neck: Supple without lymphadenopathy. Trachea midline. Heart: S1 S2. Regular rate and rhythm. Lungs: Clear to auscultation. Abdomen: Soft, thin, nontender, nondistended with bowel sounds. No guarding or rigidity. Skin: Tattoos. No rash. No jaundice. Extremities: Normal skin color and turgor. No pedal edema. Neurological: No focal deficits. Alert and oriented 3. Results CBC & Chem 7: 11/28/20 05:21 11/28/20 05:21 Labs: Abnormal Lab Results - Last 24 Hours (Table) 11/27/20 11/27/20 11/27/20 Range/Units 12:03 12:03 21:15 RBC 3.75 L (4.30-5.90) m/uL Hgb 7.0 L (13.0-17.5) gm/dL Hct 24.1 L (39.0-53.0) % MCV 64.4 L (80.0-100.0) fL MCH 18.7 L (25.0-35.0) pg MCHC 29.1 L (31.0-37.0) g/dL Plt Count 475 H (150-450) k/uL POC Glucose (mg/dL) (75-99) mg/dL Total Bilirubin <0.1 L (0.2-1.3) mg/dL Total Protein 6.2 L (6.3-8.2) g/dL Albumin 3.4 L (3.5-5.0) g/dL Crossmatch See Detail 11/28/20 Range/Units 08:11 RBC (4.30-5.90) m/uL Hgb (13.0-17.5) gm/dL Hct (39.0-53.0) % MCV (80.0-100.0) fL MCH (25.0-35.0) pg MCHC (31.0-37.0) g/dL Plt Count (150-450) k/uL POC Glucose (mg/dL) 113 H (75-99) mg/dL Total Bilirubin (0.2-1.3) mg/dL Total Protein (6.3-8.2) g/dL Albumin (3.5-5.0) g/dL Crossmatch Abdominal x-ray: report reviewed (Nonspecific abdomen.) CT scan - abdomen: report reviewed (Limited exam due to paucity of intra- abdominal fat, extensive crowding of soft tissue structures, lack of oral and IV contrast. There seems to be circumferential wall thickening throughout the left hemicolon. Correlate for an infectious or inflammatory colitis including the possibility of IBD.) Assessment and Plan (1) Ulcerative colitis Narrative/Plan: 35-year-old male with recent diagnosis of ulcerative colitis in June of this year presented back to the hospital with complaints of abdominal pain, diarrhea, and blood per rectum. Patient states he had seen Macey Hsieh [employer] from gastroenterology and was started on Entyvio infusion last month, he was due for his second dose yesterday. He states though the diarrhea was too much and he came to the emergency department. He also states that he feels like his symptoms returned after getting his first dose of Entyvio. Abdominal pain has subsided, he still continues to have bloody diarrhea every 30 minutes. He denies any nausea or vomiting. He denied any fevers or chills. CT of the abdomen and pelvis on admission showed circumferential wall thickening throughout the left hemicolon consistent with infectious or inflammatory colitis, correlate for IBD. His last colonoscopy was 06/28/2020 done at [facility] showing evidence of pancolitis. 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 On admission he had a hemoglobin of 7.0 and was given 1 unit of PRBC transfusion with today's hemoglobin 7.6. Current Visit: No Status: Acute Code(s): K51.90 - ULCERATIVE COLITIS, UNSPECIFIED, WITHOUT COMPLICATIONS SNOMED Code(s): 92667675 (2) Anemia Current Visit: Yes Status: Acute Code(s): D64.9 - ANEMIA, UNSPECIFIED SNOMED Code(s): 026046654 (3) GI bleed Current Visit: No Status: Acute Code(s): K92.2 - GASTROINTESTINAL HEMORRHAGE, UNSPECIFIED SNOMED Code(s): 87121993 Plan: 1. Continue symptomatic and supportive care 2. Solu-Medrol 20 mg IV every [address] abdomen and pelvis reviewed 4. Clear liquid diet, may advance to full liquids 5. Repeat daily CBC, transfuse for hemoglobin less than 7 6. CRP, sed rate ordered 7. C. diff pending collection 8. No plans on endoscopy at this time. Patient to continue Entyvio as scheduled. Thank you for this consultation, we will continue to follow. Dr. Mamta Aguilar I agree with the dictator's note, documented as a scribe by Crystal Condon.
[2020-11-28 11:40] LABS: Basophils # (A) 0.05 X 10*3/uL (0.00-0.10); Basophils % (A) 0.6 %; Eosinophils # (A) 0.39 X 10*3/uL (0.04-0.35); Eosinophils % (A) 4.3 %; Lymphocytes # (A) 0.67 X 10*3/uL (0.90-5.00); Lymphocytes % (A) 7.4 %; Monocytes # (A) 0.14 X 10*3/uL (0.20-1.00); Monocytes % (A) 1.6 %; Neutrophils # (A) 7.72 X 10*3/uL (1.80-7.70); Neutrophils % (A) 85.5 %
[2020-11-28 11:40] LABS: Glucose,Whole Blood 141 mg/dL (75-99)
[2020-11-28 11:41] LABS: Hypochromasia (M) 2+; Microcytosis (M) 3+
[2020-11-28 14:11] LABS: African American GFR (CKD) 133.2 (60.0-200.0); Anion Gap 4.8 mmol/L (4.00-12.00); Calcium 8.3 mg/dL (8.7-10.3); Carbon Dioxide 25.2 mmol/L (21.6-31.8); Non-African American GFR(CKD) 114.9 (60.0-200.0); Potassium 4.6 mmol/L (3.5-5.5)
[2020-11-28] MEDS: methylPREDNISolone SOD SUCCI 40 MG/ML 1 ML VIAL IV SCH (15:18)
[2020-11-28 17:00] LABS: Glucose,Whole Blood 180 mg/dL (75-99)
[2020-11-28 20:44] LABS: Glucose,Whole Blood 220 mg/dL (75-99)
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
[2020-11-29] MEDS: methylPREDNISolone SOD SUCCI 40 MG/ML 1 ML VIAL IV SCH ×2 (00:02→10:09)
[2020-11-29 06:57] LABS: Glucose,Whole Blood 131 mg/dL (75-99)
[2020-11-29] MEDS: INSULIN ASPART (NovoLOG) 100 UNIT/ML VIAL SQ SCH ×2 (08:21→12:29)
[2020-11-29 08:49] LABS: Anisocytosis Slight; HCT 27.9 % (39.0-53.0); HGB 8.3 gm/dL (13.0-17.5); Hypochromasia Marked; MCH 19.9 pg (25.0-35.0); MCHC 29.7 g/dL (31.0-37.0); Mean Platelet Volume 7.1; Microcytosis Marked; Platelet Count 483 k/uL (150-450); Poikilocytosis Slight; RBC 4.16 m/uL (4.30-5.90); RDW 16.4 % (11.5-15.5); WBC 11.3 k/uL (3.8-10.6)
[2020-11-29] MEDS: PANTOPRAZOLE 40 MG/10 ML VIAL IVP SCH (10:08)
[2020-11-29] MEDS: LIDOCAINE 5% PATCH TOPICAL SCH (10:09)
[2020-11-29] MEDS: SODIUM CHLORIDE 0.9% 1,000 ML IV SCH (10:12)
[2020-11-29 11:38] LABS: Glucose,Whole Blood 141 mg/dL (75-99)
--- NOTE | 2020-11-29 12:05 | P.PN ---
Subjective Progress Note Date: 11/29/20 Principal diagnosis: Ulcerative colitis The patient was seen and examined lying in bed. He states he is tolerating his full liquid diet without any nausea or vomiting. He states he had 2 loose bowel movements yesterday, however there was no blood. He has not had a bowel movem ent yet today. His CRP is trending down, sedimentation rate today is still pending. Hemoglobin is stable at 8.3. He is denying any abdominal pain Objective - Vital Signs Vital signs: Vital Signs Temp 98.6 F 11/29/20 07:00 Pulse 71 11/29/20 07:00 Resp 18 11/29/20 07:00 BP 114/87 11/29/20 07:00 Pulse Ox 98 11/29/20 07:00 Intake & Output 11/28/20 11/29/20 11/29/20 18:59 06:59 18:59 Intake Total 900 Balance 900 Intake: Intake, IV Titration 900 Amount Sodium Chloride 0.9% 1, 900 000 ml @ 75 mls/hr IV . [id number] [facility] Rx#:[id number] Other: # Voids 2 2 - Exam General appearance: The patient is alert, oriented, appears in no acute distress. HET: Head is normocephalic and atraumatic. Conjunctiva pink. Sclera anicteric. Neck: Supple without lymphadenopathy. Abdomen: Soft, nontender, nondistended with bowel sounds. No guarding or rigidity. Extremities: Normal skin color and turgor. No pedal edema Skin: No rashes, no jaundice Neurological: No focal deficits. Alert and oriented 3. - Labs CBC & Chem 7: 11/29/20 08:36 11/28/20 05:21 Labs: Abnormal Lab Results - Last 24 Hours (Table) 11/28/20 11/28/20 11/28/20 Range/Units 05:21 05:21 05:21 WBC (3.8-10.6) k/uL RBC (4.30-5.90) m/uL Hgb (13.0-17.5) gm/dL Hct (39.0-53.0) % MCV (80.0-100.0) fL MCH (25.0-35.0) pg MCHC (31.0-37.0) g/dL RDW (11.5-15.5) % Plt Count (150-450) k/uL Plt Count Comment INCREASED A Immature Gran # 0.05 H (0.00-0.04) X 10*3/uL Neutrophils # 7.72 H (1.80-7.70) X 10*3/uL Lymphocytes # 0.67 L (0.90-5.00) X 10*3/uL Monocytes # 0.14 L (0.20-1.00) X 10*3/uL Eosinophils # 0.39 H (0.04-0.35) X 10*3/uL ESR 37 H (0-15) mm/Hr POC Glucose (mg/dL) (75-99) mg/dL Calcium 8.3 L (8.7-10.3) mg/dL Ferritin (22.0-322.0) ng/mL C-Reactive Protein (0.0-0.8) mg/dL 11/28/20 11/28/20 11/28/20 Range/Units 05:21 11:39 16:58 WBC (3.8-10.6) k/uL RBC (4.30-5.90) m/uL Hgb (13.0-17.5) gm/dL Hct (39.0-53.0) % MCV (80.0-100.0) fL MCH (25.0-35.0) pg MCHC (31.0-37.0) g/dL RDW (11.5-15.5) % Plt Count (150-450) k/uL Plt Count Comment Immature Gran # (0.00-0.04) X 10*3/uL Neutrophils # (1.80-7.70) X 10*3/uL Lymphocytes # (0.90-5.00) X 10*3/uL Monocytes # (0.20-1.00) X 10*3/uL Eosinophils # (0.04-0.35) X 10*3/uL ESR (0-15) mm/Hr POC Glucose (mg/dL) 141 H 180 H (75-99) mg/dL Calcium (8.7-10.3) mg/dL Ferritin (22.0-322.0) ng/mL C-Reactive Protein 3.8 H (0.0-0.8) mg/dL 11/28/20 11/28/20 11/29/20 Range/Units 20:41 21:13 06:52 WBC (3.8-10.6) k/uL RBC (4.30-5.90) m/uL Hgb (13.0-17.5) gm/dL Hct (39.0-53.0) % MCV (80.0-100.0) fL MCH (25.0-35.0) pg MCHC (31.0-37.0) g/dL RDW (11.5-15.5) % Plt Count (150-450) k/uL Plt Count Comment Immature Gran # (0.00-0.04) X 10*3/uL Neutrophils # (1.80-7.70) X 10*3/uL Lymphocytes # (0.90-5.00) X 10*3/uL Monocytes # (0.20-1.00) X 10*3/uL Eosinophils # (0.04-0.35) X 10*3/uL ESR (0-15) mm/Hr POC Glucose (mg/dL) 220 H 131 H (75-99) mg/dL Calcium (8.7-10.3) mg/dL Ferritin 4.1 L (22.0-322.0) ng/mL C-Reactive Protein (0.0-0.8) mg/dL 11/29/20 11/29/20 Range/Units 08:36 08:36 WBC 11.3 H (3.8-10.6) k/uL RBC 4.16 L (4.30-5.90) m/uL Hgb 8.3 L (13.0-17.5) gm/dL Hct 27.9 L (39.0-53.0) % MCV 67.0 L (80.0-100.0) fL MCH 19.9 L (25.0-35.0) pg MCHC 29.7 L (31.0-37.0) g/dL RDW 16.4 H (11.5-15.5) % Plt Count 483 H (150-450) k/uL Plt Count Comment Immature Gran # (0.00-0.04) X 10*3/uL Neutrophils # (1.80-7.70) X 10*3/uL Lymphocytes # (0.90-5.00) X 10*3/uL Monocytes # (0.20-1.00) X 10*3/uL Eosinophils # (0.04-0.35) X 10*3/uL ESR (0-15) mm/Hr POC Glucose (mg/dL) (75-99) mg/dL Calcium (8.7-10.3) mg/dL Ferritin (22.0-322.0) ng/mL C-Reactive Protein 2.8 H (0.0-0.8) mg/dL Assessment and Plan (1) Ulcerative colitis Narrative/Plan: 35-year-old male with recent diagnosis of ulcerative colitis in June of this year presented back to the hospital with complaints of abdominal pain, diarrhea, and blood per rectum. Patient states he had seen Macey Hsieh STRATEGY INTERN from gastroenterology and was started on Entyvio infusion last month, he was due for his second dose yesterday. He states though the diarrhea was too much and he came to the emergency department. He also states that he feels like his symptoms returned after getting his first dose of Entyvio. Abdominal pain has subsided, he still continues to have bloody diarrhea every 30 minutes. He denies any nausea or vomiting. He denied any fevers or chills. CT of the abdomen and pelvis on admission showed circumferential wall thickening throughout the left hemicolon consistent with infectious or inflammatory colitis, correlate for IBD. His last colonoscopy was 06/28/2020 done at [facility] showing evidence of pancolitis. 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 On admission he had a hemoglobin of 7.0 and was given 1 unit of PRBC transfusion with today's hemoglobin 7.6. Current Visit: No Status: Acute Code(s): K51.90 - ULCERATIVE COLITIS, UNSPECIFIED, WITHOUT COMPLICATIONS SNOMED Code(s): 54940233 (2) Anemia Current Visit: Yes Status: Acute Code(s): D64.9 - ANEMIA, UNSPECIFIED SNOMED Code(s): 514092620 (3) GI bleed Current Visit: No Status: Acute Code(s): K92.2 - GASTROINTESTINAL HEMORRHAGE, UNSPECIFIED SNOMED Code(s): 28087934 Plan: 1. Continue symptomatic and supportive care 2. Solu-Medrol 20 mg IV every 8 hours, transition to prednisone 40 mg by mouth tomorrow 3. CT abdomen and pelvis reviewed 4. Advanced to Low fiber diet 5. Repeat daily CBC, transfuse for hemoglobin less than 7 6. CRP, sed rate ordered 7. C. diff pending collection 8. No plans on endoscopy at this time. Patient to continue Entyvio as scheduled. 9. Patient is cleared for discharge from gastroenterology either today or tomorrow as fine. Patient will be sent home for prednisone 40 mg tapered 5 mg a week. This was discussed with the patient, as well as the need to follow-up with gastroenterology and continue Entyvio. Thank you for this consultation, we will continue to follow. Dr. Mamta Aguilar I agree with the dictator's note, documented as a scribe by Crystal Condon.
[2020-11-29 13:39] LABS: Erythrocyte Sedimentation Rate 17 mm/hr (0-15)
[2020-11-29 13:55] VITALS: BP 117/64; PULSE 78; RESP 17; TEMP 98.8
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
== END 2020-11-29 15:28 | disposition home or self-care (01) | DRG 386 ==
LOC: EC 10:50 → 6NMEDSUR 16:55 → 4SSUR 23:11 → OBSVTOIN 11-28 23:51
PROVIDERS: ADMIT Hospitalist; ATTEND Hospitalist
PROC: 30233N1 Transfusion of Nonautologous Red Blood Cells into Peripheral Vein, Percutaneous Approach (ICD-10-PCS; principal; 2020-11-28)
DX: K51.90 Ulcerative colitis, unspecified, without complications (principal); D62 Acute posthemorrhagic anemia; E87.5 Hyperkalemia; F41.9 Anxiety disorder, unspecified; K21.9 Gastro-esophageal reflux disease without esophagitis; G89.29 Other chronic pain; M54.5 Low back pain; M19.90 Unspecified osteoarthritis, unspecified site; F17.210 Nicotine dependence, cigarettes, uncomplicated; Z91.19 Patient's noncompliance with other medical treatment and regimen; Z20.822 Contact with and (suspected) exposure to COVID-19; Z91.14 Patient's other noncompliance with medication regimen; Z87.19 Personal history of other diseases of the digestive system; Z86.59 Personal history of other mental and behavioral disorders; Z91.81 History of falling
CPT/HCPCS: 36415; 74018; 74176; 80048; 80053; 81003; 82150; 82728; 83605; 83690; 85025; 85027; 85610; 85652; 85730; 86140; 86850; 86900; 86901; 86920; 87635; 96361; 96374; 96375; 99285

== ENCOUNTER 2020-12-05 01:21 | Inpatient (IN) | payer OTHER ==
[2020-12-05] MEDS ORDERED: ONDANSETRON 4 MG/2 ML VIAL IVP STA (01:32)
[2020-12-05] MEDS ORDERED: SODIUM CHLORIDE 0.9% 1,000 ML IV STA ×2 (01:32)
[2020-12-05] MEDS ORDERED: SODIUM CHLORIDE 0.9% 500 ML 500 ML IV STA (01:32)
[2020-12-05] MEDS ORDERED: MORPHINE SULFATE 4 MG/ML SYRINGE IV STA (01:32)
--- NOTE | 2020-12-05 01:46 | ED ---
Abdominal Pain HPI - General Chief Complaint: Abdominal Pain Stated Complaint: Abdominal Pain Time Seen by Provider: 12/05/20 01:32 Source: patient, EMS, RN notes reviewed, old records reviewed Mode of arrival: EMS Limitations: no limitations - History of Present Illness Initial Comments: This is a 35 show male DF for evaluation. Patient has history of ulcerative clearance coming in for GI bleed weakness lightheadedness dizziness and near syncope. Patient has diffuse persistent abdominal pain. Persistent nausea and vomiting. Again with blood in the stool. MD Complaint: abdominal pain -: hour(s) Location: diffuse, epigastric Radiation: epigastric, bilateral flank Migration to: no migration Severity: moderate Severity scale (1-10): 5 Quality: cramping, aching Consistency: intermittent Improves With: nothing Worsens With: nothing Context: recent antibiotic use Associated Symptoms: nausea, vomiting, diarrhea Treatments Prior to Arrival: other (none) - Related Data Home Medications Medication Instructions Recorded Confirmed predniSONE See Taper PO DAILY 12/05/20 12/05/20 Previous Rx's Medication Instructions Recorded Lidocaine 5% Patch [Lidoderm 5% 1 patch TOPICAL DAILY #7 patch 11/22/20 Patch] Methocarbamol [Robaxin-750] 750 mg PO Q8HR PRN #42 tablet 11/22/20 Allergies Allergy/AdvReac Type Severity Reaction Status Date / Time No Known Allergies Allergy Verified 12/05/20 08:20 Review of Systems ROS Statement: Those systems with pertinent positive or pertinent negative responses have been documented in the HPI. ROS Other: All systems not noted in ROS Statement are negative. Past Medical History Past Medical History: GERD/Reflux Additional Past Medical History / Comment(s): Pt recently admitted to [facility] on 07/26/20 with acute ulcerative colitis exacerbation, acute blood loss anemia 2ndary to lower GI bleed/transfusion, hyperkalemia. Other hx: chronic low back pain. History of Any Multi-Drug Resistant Organisms: None Reported Past Surgical History: Orthopedic Surgery Additional Past Surgical History / Comment(s): left hand industrial accident/finger amputations, EGD, colonoscopy. Past Anesthesia/Blood Transfusion Reactions: No Reported Reaction Additional Past Anesthesia/Blood Transfusion Reaction / Comment(s): Pt recently received blood without reaction. Past Psychological History: Anxiety Smoking Status: Current every day smoker Past Alcohol Use History: None Reported Past Drug Use History: Marijuana - Past Family History Father History Unknown: Yes Mother Family Medical History: No Reported History Additional Family Medical History / Comment(s): Healthy. General Exam Limitations: no limitations General appearance: alert, in no apparent distress Head exam: Present: atraumatic, normocephalic, normal inspection Eye exam: Present: normal appearance, PERRL, EOMI. Absent: scleral icterus, conjunctival injection, periorbital swelling ENT exam: Present: normal exam, mucous membranes dry Neck exam: Present: normal inspection. Absent: tenderness, meningismus, lymphadenopathy Respiratory exam: Present: normal lung sounds bilaterally. Absent: respiratory distress, wheezes, rales, rhonchi, stridor Cardiovascular Exam: Present: normal rhythm, tachycardia, normal heart sounds. Absent: systolic murmur, diastolic murmur, rubs, gallop, clicks GI/Abdominal exam: Present: soft, normal bowel sounds. Absent: distended, tenderness, guarding, rebound, rigid Extremities exam: Present: normal inspection, full ROM, normal capillary refill. Absent: tenderness, pedal edema, joint swelling, calf tenderness Back exam: Present: normal inspection Neurological exam: Present: alert, oriented X3, CN II-XII intact Psychiatric exam: Present: normal affect, normal mood Skin exam: Present: warm, dry, intact, normal color. Absent: rash Course Vital Signs 12/05/20 12/05/20 12/05/20 01:24 02:50 03:22 Temperature 98.3 F 100.9 F H Pulse Rate 120 H 86 82 Respiratory 16 18 18 Rate Blood Pressure 119/74 112/82 127/75 O2 Sat by Pulse 99 98 97 Oximetry - Reevaluation(s) Reevaluation #1: Medical records reviewed Patient symptoms are improved significantly here in the ER Patient in no acute distress Patient informed of results and questions answered Medical Decision Making - Medical Decision Making 35 male with colitis ulcerative colitis. Rodolfo for symptomatic treatment, trending of hemoglobin - Lab Data Result diagrams: 12/07/20 07:12 12/06/20 07:09 Lab Results 12/05/20 12/05/20 12/05/20 Range/Units 01:50 01:50 01:50 WBC 22.2 H (3.8-10.6) k/uL RBC 5.23 (4.30-5.90) m/uL Hgb 10.3 L (13.0-17.5) gm/dL Hct 34.1 L (39.0-53.0) % MCV 65.3 L (80.0-100.0) fL MCH 19.7 L (25.0-35.0) pg MCHC 30.2 L (31.0-37.0) g/dL RDW 16.6 H (11.5-15.5) % Plt Count 611 H (150-450) k/uL MPV 6.5 Neutrophils % (Manual) 69 % Band Neuts % (Manual) 6 % Lymphocytes % (Manual) 16 % Monocytes % (Manual) 3 % Eosinophils % (Manual) 5 % Basophils % (Manual) 1 % Neutrophils # (Manual) 16.60 H (1.3-7.7) k/uL Lymphocytes # (Manual) 3.55 (1.0-4.8) k/uL Monocytes # (Manual) 0.67 (0-1.0) k/uL Eosinophils # (Manual) 1.11 H (0-0.7) k/uL Basophils # (Manual) 0.22 H (0-0.2) k/uL Nucleated RBCs 0 (0-0) /100 WBC Manual Slide Review Performed Hypochromasia Marked Poikilocytosis Slight Anisocytosis Slight Microcytosis Marked ESR (0-15) mm/hr Sodium 132 L (137-145) mmol/L Potassium 4.7 (3.5-5.1) mmol/L Chloride 94 L (98-107) mmol/L Carbon Dioxide 28 (22-30) mmol/L Anion Gap 10 mmol/L BUN 15 (9-20) mg/dL Creatinine 0.92 (0.66-1.25) mg/dL Est GFR (CKD-EPI)AfAm >90 (>60 ml/min/1.73 sqM) Est GFR (CKD-EPI)NonAf >90 (>60 ml/min/1.73 sqM) Glucose 125 H (74-99) mg/dL Lactic Ac Sepsis Rflx Plasma Lactic Acid Jeancarlos 2.3 H* (0.7-2.0) mmol/L Calcium 9.7 (8.4-10.2) mg/dL Total Bilirubin 0.2 (0.2-1.3) mg/dL AST 21 (17-59) U/L ALT 12 (4-49) U/L Alkaline Phosphatase 79 (38-126) U/L C-Reactive Protein (<1.0) mg/dL Total Protein 7.2 (6.3-8.2) g/dL Albumin 4.0 (3.5-5.0) g/dL Amylase 54 (30-110) U/L Lipase 120 (23-300) U/L 12/05/20 12/05/20 12/05/20 Range/Units 01:50 01:50 02:29 WBC (3.8-10.6) k/uL RBC (4.30-5.90) m/uL Hgb (13.0-17.5) gm/dL Hct (39.0-53.0) % MCV (80.0-100.0) fL MCH (25.0-35.0) pg MCHC (31.0-37.0) g/dL RDW (11.5-15.5) % Plt Count (150-450) k/uL MPV Neutrophils % (Manual) % Band Neuts % (Manual) % Lymphocytes % (Manual) % Monocytes % (Manual) % Eosinophils % (Manual) % Basophils % (Manual) % Neutrophils # (Manual) (1.3-7.7) k/uL Lymphocytes # (Manual) (1.0-4.8) k/uL Monocytes # (Manual) (0-1.0) k/uL Eosinophils # (Manual) (0-0.7) k/uL Basophils # (Manual) (0-0.2) k/uL Nucleated RBCs (0-0) /100 WBC Manual Slide Review Hypochromasia Poikilocytosis Anisocytosis Microcytosis ESR 33 H (0-15) mm/hr Sodium (137-145) mmol/L Potassium (3.5-5.1) mmol/L Chloride (98-107) mmol/L Carbon Dioxide (22-30) mmol/L Anion Gap mmol/L BUN (9-20) mg/dL Creatinine (0.66-1.25) mg/dL Est GFR (CKD-EPI)AfAm (>60 ml/min/1.73 sqM) Est GFR (CKD-EPI)NonAf (>60 ml/min/1.73 sqM) Glucose (74-99) mg/dL Lactic Ac Sepsis Rflx Y Plasma Lactic Acid Jeancarlos (0.7-2.0) mmol/L Calcium (8.4-10.2) mg/dL Total Bilirubin (0.2-1.3) mg/dL AST (17-59) U/L ALT (4-49) U/L Alkaline Phosphatase (38-126) U/L C-Reactive Protein 7.8 H (<1.0) mg/dL Total Protein (6.3-8.2) g/dL Albumin (3.5-5.0) g/dL Amylase (30-110) U/L Lipase (23-300) U/L - Radiology Data Radiology results: report reviewed (X-ray KUB symptoms of colitis), image reviewed Disposition Clinical Impression: Colitis, GI bleed, Ulcerative colitis Disposition: ADMITTED IP TO THIS HOSP Condition: Fair Is patient prescribed a controlled substance at d/c from ED?: No
--- NOTE | 2020-12-05 02:05 | XR ---
EXAMINATION TYPE: XR KUB DATE OF EXAM: 12/05/2020 COMPARISON: 11/27/2020 HISTORY: Abdominal pain TECHNIQUE: 2 views FINDINGS: 2 views upright show no sign of intestinal obstruction or pneumoperitoneum. Fecal pattern i s normal. There is no evidence of a mass. There are no pathologic calcifications over the kidneys. Nini ng bases are clear. IMPRESSION: Nonacute abdomen. No adverse change.
[2020-12-05 02:06] LABS: Anisocytosis Slight; HCT 34.1 % (39.0-53.0); HGB 10.3 gm/dL (13.0-17.5); Hypochromasia Marked; MCH 19.7 pg (25.0-35.0); MCHC 30.2 g/dL (31.0-37.0); MCV 65.3 fL (80.0-100.0); Mean Platelet Volume 6.5; Microcytosis Marked; Platelet Count 611 k/uL (150-450); Poikilocytosis Slight; RBC 5.23 m/uL (4.30-5.90); RDW 16.6 % (11.5-15.5); WBC 22.2 k/uL (3.8-10.6)
[2020-12-05 02:23] LABS: ALT 12 U/L (4-49); AST 21 U/L (17-59); African American GFR (CKD) >90 (>60 ml/min/1.73 sqM); Alkaline Phosphatase 79 U/L (38-126); Amylase 54 U/L (30-110); Anion Gap 10 mmol/L; Blood Urea Nitrogen 15 mg/dL (9-20); Calcium 9.7 mg/dL (8.4-10.2); Carbon Dioxide 28 mmol/L (22-30); Chloride 94 mmol/L (98-107); Glucose 125 mg/dL (74-99); Lipase 120 U/L (23-300); Non-African American GFR(CKD) >90 (>60 ml/min/1.73 sqM); Potassium 4.7 mmol/L (3.5-5.1); Sodium 132 mmol/L (137-145); Total Bilirubin 0.2 mg/dL (0.2-1.3); Total Protein 7.2 g/dL (6.3-8.2)
[2020-12-05 02:39] LABS: Band Neutrophils % 6 %; Basophils # (M) 0.22 k/uL (0-0.2); Eosinophils # (M) 1.11 k/uL (0-0.7); Lymphocytes # (M) 3.55 k/uL (1.0-4.8); Monocytes # (M) 0.67 k/uL (0-1.0); Neutrophils % (M) 69 %; Nucleated Red Blood Cells 0 /100 WBC (0-0); Total Cells Counted 100
[2020-12-05] MEDS ORDERED: NALOXONE 0.4 MG/ML 1 ML VIAL IV PRN (03:30)
[2020-12-05] MEDS ORDERED: KETOROLAC 15 MG/ML 1 ML VIAL IVP STA (03:32)
[2020-12-05] MEDS ORDERED: ACETAMINOPHEN IV (For NPO) 1,000 MG in EMPTY BAG 1 BAG IVPB ONE (03:45)
[2020-12-05] MEDS: DEXTROSE 5%-0.45% NACL 1,000 ML IV SCH ×3 (03:58→23:26)
[2020-12-05] MEDS: MORPHINE SULFATE 4 MG/ML SYRINGE IV PRN ×5 (04:54→23:40)
[2020-12-05] MEDS: PANTOPRAZOLE 40 MG/10 ML VIAL IV SCH (07:37)
[2020-12-05] MEDS: HYDROCORTISONE 2.5% RECTAL CREAM 30 GM TUBE RECTAL SCH ×2 (11:54→20:59)
[2020-12-05] MEDS ORDERED: methocarbamoL 750 MG TAB PO PRN (13:29)
[2020-12-05 13:46] VITALS: BMI 22.3
[2020-12-05] MEDS: methylPREDNISolone SOD SUCCI 40 MG/ML 1 ML VIAL IV SCH ×2 (15:11→23:39)
--- NOTE | 2020-12-05 17:17 | P.CONS ---
History of Present Illness - Reason for Consult Consult date: 12/05/20 Colitis Requesting physician: Jorge Ayon - Chief Complaint Abdominal pain - History of Present Illness This is a 35-year-old white male who presented to the emergency department early this morning with complaints of frequent diarrhea mixed with blood and abdominal pain. The patient was recently admitted for exacerbation of ulcerative colitis last week treated with IV steroids, and sent home with a steroid taper dose. Patient admits he did not take his steroids as directed. The patient has no significant past medical history other than recently being diagnosed with ulcerative colitis in June of this year. The patient was initially seen at [facility] in June where he underwent an EGD and colonoscopy on 06/28/2020 with findings of erosive esophagitis, mild gastritis and pancolitis. Pathology from procedure showed active colitis with features consistent with inflammatory bowel disease with crypt abscess on colonoscopy. He was initially started on tapered steroids, he was noncompliant and stopped his steroids due to symptoms of GERD, he ended up back in the hospital in July where he again was discharged with a tapered dose of steroids. He had followed up with gastroenterology and sees Macey Hsieh [facility], and was recently started on Entyvio infusion, stating his first dose was approximately one month ago and he was due to receive his second dose yesterday. He states his symptoms return following his first dose of Entyvio. He was transfused with 1 unit of PRBC on last admission. States he filled his prescription but did not start his prednisone, abdominal pain returned with episodes of diarrhea His admission labs WBC 22.2, hemoglobin 10.3, hematocrit 34, platelet 611,00, total bilirubin 0.2, alkaline phosphatase 79, AST 21, ALT 12. Sed rate 33, CRP 7.8. Review of Systems REVIEW OF SYSTEMS: CARDIOPULMONARY: No chest pain or shortness of breath. Gastrointestinal: Abdominal pain. No nausea or vomiting. No hematemesis, coffee-ground emesis. Bloody diarrhea. GENITOURINARY: No dysuria or hematuria. MUSCULOSKELETAL: Reports normal range of motion., Joint pain. SKIN: No rashes. No jaundice. ENDOCRINE: No chills, fevers. No excessive weight gain or loss. No polydipsia or polyuria. PSYCHIATRIC: Unremarkable. NEUROLOGY: No change in mental status. Denies dizziness, headache. ENT: Vision unremarkable. CONSTITUTIONAL: No recent weight loss. No fever, chills, night sweats. Past Medical History Past Medical History: GERD/Reflux Additional Past Medical History / Comment(s): Pt recently admitted to [facility] on 07/26/20 with acute ulcerative colitis exacerbation, acute blood loss anemia 2ndary to lower GI bleed/transfusion, hyperkalemia. Other hx: chronic low back pain. History of Any Multi-Drug Resistant Organisms: None Reported Past Surgical History: Orthopedic Surgery Additional Past Surgical History / Comment(s): left hand industrial accident/finger amputations, EGD, colonoscopy. Past Anesthesia/Blood Transfusion Reactions: No Reported Reaction Additional Past Anesthesia/Blood Transfusion Reaction / Comm: Pt recently received blood without reaction. Past Psychological History: Anxiety Additional Psychological History / Comment(s): Pt resides with his mother. He is independent. Smoking Status: Current every day smoker Past Alcohol Use History: None Reported Additional Past Alcohol Use History / Comment(s): Pt started smoking in 1999 Past Drug Use History: Marijuana Additional Drug Use History / Comment(s): Occasional marijuana use. - Past Family History Father History Unknown: Yes Mother Family Medical History: No Reported History Additional Family Medical History / Comment(s): Healthy. Medications and Allergies Home Medications Medication Instructions Recorded Confirmed Type Lidocaine 5% Patch [Lidoderm 5% 1 patch TOPICAL DAILY #7 patch 11/22/20 12/05/20 Rx Patch] Methocarbamol [Robaxin-750] 750 mg PO Q8HR PRN #42 tablet 11/22/20 12/05/20 Rx predniSONE See Taper PO DAILY 12/05/20 12/05/20 History Allergies Allergy/AdvReac Type Severity Reaction Status Date / Time No Known Allergies Allergy Verified 12/05/20 08:20 Physical Exam Vitals: Vital Signs Temp Pulse Pulse Resp BP BP Pulse Ox 12/05/20 08:00 97.7 F 68 16 92/57 96 12/05/20 04:31 99.1 F 77 112/67 96 12/05/20 03:22 82 18 127/75 97 12/05/20 02:50 100.9 F H 86 18 112/82 98 12/05/20 01:24 98.3 F 120 H 16 119/74 99 Intake and Output 12/04/20 12/05/20 12/05/20 22:59 06:59 14:59 Other: Weight 72.575 kg General appearance: The patient is alert, oriented, appears in no acute distress. HET: Head is normocephalic and atraumatic. Conjunctiva pink. Sclera anicteric. Neck: Supple without lymphadenopathy. Trachea midline. Heart: S1 S2. Regular rate and rhythm. Lungs: Clear to auscultation. Abdomen: Soft, lower abdominal tenderness, nondistended with bowel sounds. No guarding or rigidity. Skin: No rashes. No jaundice. Extremities: Normal skin color and turgor. No pedal edema. Neurological: No focal deficits. Alert and oriented 3.. Results CBC & Chem 7: 12/05/20 01:50 12/05/20 01:50 Labs: Abnormal Lab Results - Last 24 Hours (Table) 12/05/20 12/05/20 12/05/20 Range/Units 01:50 01:50 01:50 WBC 22.2 H (3.8-10.6) k/uL Hgb 10.3 L (13.0-17.5) gm/dL Hct 34.1 L (39.0-53.0) % MCV 65.3 L (80.0-100.0) fL MCH 19.7 L (25.0-35.0) pg MCHC 30.2 L (31.0-37.0) g/dL RDW 16.6 H (11.5-15.5) % Plt Count 611 H (150-450) k/uL Neutrophils # (Manual) 16.60 H (1.3-7.7) k/uL Eosinophils # (Manual) 1.11 H (0-0.7) k/uL Basophils # (Manual) 0.22 H (0-0.2) k/uL ESR (0-15) mm/hr Sodium 132 L (137-145) mmol/L Chloride 94 L (98-107) mmol/L Glucose 125 H (74-99) mg/dL Plasma Lactic Acid Jeancarlos 2.3 H* (0.7-2.0) mmol/L C-Reactive Protein (<1.0) mg/dL 12/05/20 12/05/20 Range/Units 01:50 01:50 WBC (3.8-10.6) k/uL Hgb (13.0-17.5) gm/dL Hct (39.0-53.0) % MCV (80.0-100.0) fL MCH (25.0-35.0) pg MCHC (31.0-37.0) g/dL RDW (11.5-15.5) % Plt Count (150-450) k/uL Neutrophils # (Manual) (1.3-7.7) k/uL Eosinophils # (Manual) (0-0.7) k/uL Basophils # (Manual) (0-0.2) k/uL ESR 33 H (0-15) mm/hr Sodium (137-145) mmol/L Chloride (98-107) mmol/L Glucose (74-99) mg/dL Plasma Lactic Acid Jeancarlos (0.7-2.0) mmol/L C-Reactive Protein 7.8 H (<1.0) mg/dL Assessment and Plan (1) Ulcerative colitis Narrative/Plan: 35-year-old male who presented to the hospital with Phi pain and multiple episodes of bloody diarrhea with a known history of ulcerative colitis that was diagnosed in June of this year. The patient follows with gastroenterology and was started on Entyvio infusions last month, he was due for his second dose last week but presented to the hospital with abdominal pain and multiple episodes of diarrhea and blood per rectum. He was admitted and started on IV Solu-Medrol and subsequently discharged home with a tapered dose of steroids for which he did not take. His last colonoscopy was 06/28/2020 done at [facility] showing evidence of olmedo colitis. 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 Patient is readmitted to the hospital with abdominal pain, diarrhea and blood per rectum likely related to medication noncompliance. Current Visit: Yes Status: Acute Code(s): K51.90 - ULCERATIVE COLITIS, UNSPECIFIED, WITHOUT COMPLICATIONS SNOMED Code(s): 81440581 (2) Abdominal pain Current Visit: Yes Status: Acute Code(s): R10.9 - UNSPECIFIED ABDOMINAL PAIN SNOMED Code(s): 57156485 (3) Noncompliance with medication regimen Current Visit: No Status: Acute Code(s): Z91.14 - PATIENT'S OTHER NONCOMPLIANCE WITH MEDICATION REGIMEN SNOMED Code(s): 252090063 Plan: 1. Nothing by mouth except ice chips and popsicles 2. Solu-Medrol 20 mg IV every 8 hours 3. Sed rate and CRP ordered and reviewed 4. Pain medication as needed 5. Discussed with patient importance of medication compliance with patient 6. Patient will need outpatient follow-up with gastroenterology, patient is due for his Entyvio 7. Patient will need to be discharged home with prednisone taper, patient has prescription from previous hospitalization Thank you for this consultation, we will continue to follow Dr. Kelly I agree with the dictator's note, documented as a scribe by Crystal Condon.
[2020-12-05] MEDS: KETOROLAC 15 MG/ML 1 ML VIAL IVP SCH (20:57)
[2020-12-05] MEDS: ACETAMINOPHEN IV (For NPO) 1,000 MG in EMPTY BAG 1 BAG IVPB PRN (20:58)
--- NOTE | 2020-12-06 00:28 | P.HPIM ---
History of Present Illness H&P Date: 12/05/20 Chief Complaint: Abdominal pain, bloody diarrhea Mr. Steven is a 35-year-old male with a past medical history of ulcerative colitis, chronic low back pain, GERD coming in with a chief complaint of abdominal pain nausea and bloody diarrhea. Patient was recently admitted for exacerbation of ulcerative colitis and discharged home on a tapering dose of steroids. Patient states that he picked up his prescription from the pharmacy but did not take it. He states that after being discharged from the hospital he went home was doing better for couple of days and eventually started to have abdominal pain and bloody diarrhea. He also reports feeling hot but did not check his temperature. Patient denies having any chills or rigors. He denied having any chest pain or palpitations. No cough or difficulty in breathing. He denied having any headaches, neck stiffness, blurring of vision or weakness of his extremities. In the ER at the time of admission patient's vital signs temperature of 100.9, heart rate between 100s to 120s, respiratory rate 18, blood pressure 112/82, saturating at 98% on room air. He had an x-ray of his abdomen showing no acute abdomen. He had labs done showing white count of 22.2, hemoglobin 10.3, platelets 611 with MCV of 65. ESR 33. Sodium 132, potassium 4.7, chloride 94, bicarb 28, BUN 15, creatinine 0.92, lactic acid 2.3 CRP 7.8 amylase 54 lipase 120. Review of Systems REVIEW OF SYSTEMS: CONSTITUTIONAL: No fever, no malaise, no fatigue. HEENT: No headache, no neck stiffness, no blurring of vision CARDIOVASCULAR: No chest pain, palpitations or lower extremity swelling PULMONARY: No cough or difficulty in breathing GASTROINTESTINAL: As per HPI NEUROLOGICAL: No weakness of extremities HEMATOLOGICAL: Denies any bleeding or petechiae. GENITOURINARY: Denies any burning micturition, frequency, or urgency. MUSCULOSKELETAL/RHEUMATOLOGICAL: Denies any joint pain, swelling, or any muscle pain. ENDOCRINE: Denies polyuria polydipsia or heat or cold intolerance The rest of the 14-point review of systems is negative. Past Medical History Past Medical History: GERD/Reflux Additional Past Medical History / Comment(s): Pt recently admitted to [facility] on 07/26/20 with acute ulcerative colitis exacerbation, acute blood loss anemia 2ndary to lower GI bleed/transfusion, hyperkalemia. Other hx: chronic low back pain. History of Any Multi-Drug Resistant Organisms: None Reported Past Surgical History: Orthopedic Surgery Additional Past Surgical History / Comment(s): left hand industrial accident/finger amputations, EGD, colonoscopy. Past Anesthesia/Blood Transfusion Reactions: No Reported Reaction Additional Past Anesthesia/Blood Transfusion Reaction / Comment(s): Pt recently received blood without reaction. Past Psychological History: Anxiety Additional Psychological History / Comment(s): Pt resides with his mother. He is independent. Smoking Status: Current every day smoker Past Alcohol Use History: None Reported Additional Past Alcohol Use History / Comment(s): Pt started smoking in 1999 Past Drug Use History: Marijuana Additional Drug Use History / Comment(s): Occasional marijuana use. - Past Family History Father History Unknown: Yes Mother Family Medical History: No Reported History Additional Family Medical History / Comment(s): Healthy. Medications and Allergies Home Medications Medication Instructions Recorded Confirmed Type Lidocaine 5% Patch [Lidoderm 5% 1 patch TOPICAL DAILY #7 patch 11/22/20 12/05/20 Rx Patch] Methocarbamol [Robaxin-750] 750 mg PO Q8HR PRN #42 tablet 11/22/20 12/05/20 Rx predniSONE See Taper PO DAILY 12/05/20 12/05/20 History Allergies Allergy/AdvReac Type Severity Reaction Status Date / Time No Known Allergies Allergy Verified 12/05/20 08:20 Physical Exam Vitals: Vital Signs Temp Pulse Pulse Resp BP BP Pulse Ox 12/05/20 08:00 97.7 F 68 16 92/57 96 12/05/20 04:31 99.1 F 77 112/67 96 12/05/20 03:22 82 18 127/75 97 12/05/20 02:50 100.9 F H 86 18 112/82 98 12/05/20 01:24 98.3 F 120 H 16 119/74 99 Intake and Output 12/04/20 12/05/20 12/05/20 22:59 06:59 14:59 Other: Weight 72.575 kg PHYSICAL EXAMINATION: GENERAL:lying in bed and c/o abdominal pain HEENT: Pupils are round and equally reacting to light. EOMI. No scleral icterus.+ conjunctival pallor. CARDIOVASCULAR: S1 and S2 present.Tachycardia PULMONARY: Bilateral breath sounds positive. No wheeze or crackles. ABDOMEN: Soft,+ tenderness in all quadrants, No guarding or rigidity . Hyperactive bowel sounds MUSCULOSKELETAL: No joint swelling or deformity. EXTREMITIES: No edema NEUROLOGICAL: Gross neurological examination did not reveal any focal deficits. SKIN:No rash Results CBC & Chem 7: 12/05/20 01:50 12/05/20 01:50 Labs: Abnormal Lab Results - Last 24 Hours (Table) 12/05/20 12/05/20 12/05/20 Range/Units 01:50 01:50 01:50 WBC 22.2 H (3.8-10.6) k/uL Hgb 10.3 L (13.0-17.5) gm/dL Hct 34.1 L (39.0-53.0) % MCV 65.3 L (80.0-100.0) fL MCH 19.7 L (25.0-35.0) pg MCHC 30.2 L (31.0-37.0) g/dL RDW 16.6 H (11.5-15.5) % Plt Count 611 H (150-450) k/uL Neutrophils # (Manual) 16.60 H (1.3-7.7) k/uL Eosinophils # (Manual) 1.11 H (0-0.7) k/uL Basophils # (Manual) 0.22 H (0-0.2) k/uL ESR (0-15) mm/hr Sodium 132 L (137-145) mmol/L Chloride 94 L (98-107) mmol/L Glucose 125 H (74-99) mg/dL Plasma Lactic Acid Jeancarlos 2.3 H* (0.7-2.0) mmol/L C-Reactive Protein (<1.0) mg/dL 12/05/20 12/05/20 Range/Units 01:50 01:50 WBC (3.8-10.6) k/uL Hgb (13.0-17.5) gm/dL Hct (39.0-53.0) % MCV (80.0-100.0) fL MCH (25.0-35.0) pg MCHC (31.0-37.0) g/dL RDW (11.5-15.5) % Plt Count (150-450) k/uL Neutrophils # (Manual) (1.3-7.7) k/uL Eosinophils # (Manual) (0-0.7) k/uL Basophils # (Manual) (0-0.2) k/uL ESR 33 H (0-15) mm/hr Sodium (137-145) mmol/L Chloride (98-107) mmol/L Glucose (74-99) mg/dL Plasma Lactic Acid Jeancarlos (0.7-2.0) mmol/L C-Reactive Protein 7.8 H (<1.0) mg/dL Thrombosis Risk Factor Assmnt - Choose All That Apply Any of the Below Risk Factors Present?: No Other Risk Factors: No Other congenital or acquired thrombophilia - If yes, enter type in comment: No Thrombosis Risk Factor Assessment Level: Very Low Risk Assessment and Plan Assessment: ASSESSMENT Abdominal pain, bloody diarrhea-most likely exacerbation of his ulcerative colitis Noncompliance with medication Fever Leukocytosis Elevated ESR and CRP Lactic acidosis Microcytic anemia Thrombocytosis Hyponatremia GERD PLAN: We will keep the patient n.p.o. He has been started on IV Solu-Medrol 20 mg every 8 hours C. difficile ordered and pending Lactic acidosis trending down with IV fluids Will check iron panel We will repeat a.m. labs Urine analysis and blood culture obtained We will continue to monitor the patient closely Pain management Further recommendations depending on the progress of the patient
[2020-12-06] MEDS: KETOROLAC 15 MG/ML 1 ML VIAL IVP SCH ×4 (02:15→19:26)
[2020-12-06] MEDS: PANTOPRAZOLE 40 MG/10 ML VIAL IV SCH (08:23)
[2020-12-06] MEDS: methylPREDNISolone SOD SUCCI 40 MG/ML 1 ML VIAL IV SCH ×2 (08:24→16:52)
[2020-12-06 08:38] LABS: African American GFR (CKD) >90 (>60 ml/min/1.73 sqM); Anion Gap 5 mmol/L; Blood Urea Nitrogen 14 mg/dL (9-20); Calcium 8.7 mg/dL (8.4-10.2); Carbon Dioxide 29 mmol/L (22-30); Chloride 100 mmol/L (98-107); Glucose 139 mg/dL (74-99); Non-African American GFR(CKD) >90 (>60 ml/min/1.73 sqM); Sodium 134 mmol/L (137-145)
[2020-12-06] MEDS: LIDOCAINE 5% PATCH TOPICAL SCH (10:19)
[2020-12-06] MEDS: HYDROCORTISONE 2.5% RECTAL CREAM 30 GM TUBE RECTAL SCH ×2 (10:23→19:27)
[2020-12-06] MEDS: DEXTROSE 5%-0.45% NACL 1,000 ML IV SCH ×2 (11:25→19:27)
--- NOTE | 2020-12-06 11:30 | P.PN ---
Subjective Progress Note Date: 12/06/20 Principal diagnosis: Abdominal pain, colitis Patient is seen and examined sitting up in bed. States he is hungry. He states his abdominal pain has improved, still having loose bloody bowel movements, however decreasing in amount. Patient states he had 2-3 between yesterday and last night. He has been afebrile. Denies any nausea or vomiting. C. difficile toxin pending Objective - Vital Signs Vital signs: Vital Signs Temp 97.1 F L 12/06/20 07:08 Pulse 64 12/06/20 07:08 Resp 16 12/06/20 07:08 BP 103/59 12/06/20 07:08 Pulse Ox 98 12/06/20 07:08 Intake & Output 12/05/20 12/06/20 12/06/20 18:59 06:59 18:59 Intake Total 480 Balance 480 Weight 72.575 kg Intake: Oral 480 Other: Voiding Method Toilet Toilet # Bowel Movements 2 - Exam General appearance: The patient is alert, oriented, appears in no acute distress. HET: Head is normocephalic and atraumatic. Conjunctiva pink. Sclera anicteric. Neck: Supple without lymphadenopathy. Abdomen: Soft, nontender, nondistended with bowel sounds. No guarding or rigidity. Extremities: Normal skin color and turgor. No pedal edema Skin: No rashes, no jaundice Neurological: No focal deficits. Alert and oriented 3. - Labs CBC & Chem 7: 12/05/20 01:50 12/06/20 07:09 Labs: Abnormal Lab Results - Last 24 Hours (Table) 12/05/20 12/06/20 Range/Units 01:50 07:09 ESR 33 H (0-15) mm/hr Sodium 134 L (137-145) mmol/L Glucose 139 H (74-99) mg/dL Assessment and Plan (1) Ulcerative colitis Narrative/Plan: 35-year-old male who presented to the hospital with Phi pain and multiple episodes of bloody diarrhea with a known history of ulcerative colitis that was diagnosed in June of this year. The patient follows with gastroenterology and was started on Entyvio infusions last month, he was due for his second dose last week but presented to the hospital with abdominal pain and multiple episodes of diarrhea and blood per rectum. He was admitted and started on IV S cecile-Medrol and subsequently discharged home with a tapered dose of steroids for which he did not take. His last colonoscopy was 06/28/2020 done at [facility] showing evidence of olmedo colitis. 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 Patient is readmitted to the hospital with abdominal pain, diarrhea and blood per rectum likely related to medication noncompliance. Current Visit: Yes Status: Acute Code(s): K51.90 - ULCERATIVE COLITIS, UNSPECIFIED, WITHOUT COMPLICATIONS SNOMED Code(s): 15530965 (2) Abdominal pain Current Visit: Yes Status: Acute Code(s): R10.9 - UNSPECIFIED ABDOMINAL PAIN SNOMED Code(s): 96968745 (3) Noncompliance with medication regimen Current Visit: No Status: Acute Code(s): Z91.14 - PATIENT'S OTHER NONCOMPLIANCE WITH MEDICATION REGIMEN SNOMED Code(s): 110805511 Plan: 1. May advance to full liquid diet 2. Solu-Medrol 20 mg IV every 8 hours 3. Sed rate and CRP ordered and reviewed 4. Pain medication as needed 5. Discussed with patient importance of medication compliance with patient 6. Patient will need outpatient follow-up with gastroenterology, patient is due for his Entyvio 7. Patient will need to be discharged home with prednisone taper, patient has prescription from previous hospitalization Thank you for this consultation, we will continue to follow Dr. Kelly I agree with the dictator's note, documented as a scribe by Crystal Condon.
[2020-12-06 12:07] LABS: Basophils # (A) 0.02 X 10*3/uL (0.00-0.10); Basophils % (A) 0.2 %; Eosinophils # (A) 0 X 10*3/uL (0.04-0.35); Eosinophils % (A) 0 %; HCT 26.9 % (39.6-50.0); HGB 7.5 g/dL (13.0-17.0); Lymphocytes # (A) 0.76 X 10*3/uL (0.90-5.00); Lymphocytes % (A) 5.9 %; MCH 19.2 pg (27.0-32.0); MCHC 27.9 g/dL (32.0-37.0); Mean Platelet Volume 10.2 fL (9.5-12.2); Monocytes # (A) 0.58 X 10*3/uL (0.20-1.00); Monocytes % (A) 4.5 %; Neutrophils # (A) 11.37 X 10*3/uL (1.80-7.70); Neutrophils % (A) 88.9 %; Platelet Count 473 X 10*3/uL (140-440); RDW 17.9 % (11.5-14.5); WBC 12.79 X 10*3/uL (4.50-10.00)
[2020-12-06 12:40] LABS: Appearance,Urine Cloudy (Clear); Bacteria,Urine Rare /hpf; Bilirubin,Urine Negative (Negative); Blood,Urine Negative (Negative); Color,Urine Yellow; Glucose,Urine (UA) Negative (Negative); Hyaline Casts,Urine 17 /lpf (0-2); Ketones,Urine Negative (Negative); Leukocyte Esterase,Urine Negative (Negative); Mucus,Urine Many /hpf; Nitrite,Urine Negative (Negative); PH, Urine 5.5 (5.0-8.0); Protein,Urine 1+ (Negative); RBC,Urine 1 /hpf (0-5); Specific Gravity,Urine 1.027 (1.001-1.035); Urobilinogen,Urine <2.0 mg/dL (<2.0); WBC,Urine 6 /hpf (0-5)
[2020-12-06] MEDS: ONDANSETRON 4 MG/2 ML VIAL IVP PRN (14:32)
[2020-12-06] MEDS: MORPHINE SULFATE 4 MG/ML SYRINGE IV PRN (19:27)
[2020-12-06 19:42] LABS: % Iron Saturation 1.74 (15.00-50.00); Iron 5 ug/dL (65-175); Total Iron Binding Capacity 288 ug/dL (228-460)
--- NOTE | 2020-12-06 23:17 | P.PN ---
Subjective Progress Note Date: 12/06/20 Principal diagnosis: Acute exacerbation of ulcerative colitis Mr. Steven is a 35-year-old male with a past medical history of ulcerative colitis, chronic low back pain, GERD coming in with a chief complaint of abdominal pain nausea and bloody diarrhea. Patient was recently admitted for exacerbation of ulcerative colitis and discharged home on a tapering dose of steroids. Patient states that he picked up his prescription from the pharmacy but did not take it. He states that after being discharged from the hospital he went home was doing better for couple of days and eventually started to have abdominal pain and bloody diarrhea. He also reports feeling hot but did not check his temperature. Patient denies having any chills or rigors. He denied having any chest pain or palpitations. No cough or difficulty in breathing. He denied having any headaches, neck stiffness, blurring of vision or weakness of his extremities. In the ER at the time of admission patient's vital signs temperature of 100.9, heart rate between 100s to 120s, respiratory rate 18, blood pressure 112/82, saturating at 98% on room air. He had an x-ray of his abdomen showing no acute abdomen. He had labs done showing white count of 22.2, hemoglobin 10.3, platelets 611 with MCV of 65. ESR 33. Sodium 132, potassium 4.7, chloride 94, bicarb 28, BUN 15, creatinine 0.92, lactic acid 2.3 CRP 7.8 amylase 54 lipase 120. On 12/06/2020 -patient is comfortably sitting in bed appears to be no acute distress. He states he just threw up. Patient mentions his abdominal pain is better but still having bloody bowel movements, decreased in frequency. Patient denies having any fevers chills or rigors. He denies having any chest pain or palpitations. No cough or difficulty breathing. On reviewing his vitals T-max of 98.1,Heart rate 50s to 60s, respiratory rate 16, blood pressure 100 x 58, saturating at 98% on room air. Labs from this morning showing white count of 12, hemoglobin 7.5, platelets 473. Sodium 134, potassium 5, chloride 100, bic arb 29, BUN 14, creatinine 0.68. Iron is 5 C. difficile negative. Active Medications Hydrocortisone (Hydrocortisone 2.5% Rectal Cream 30 Gm Tube) 1 applic RECTAL BID [facility] Last Admin: 12/06/20 19:27 Dose: 1 applic Documented by: Dextrose/Sodium Chloride (Dextrose 5%-1/2ns Iv Soln) 1,000 mls @ 100 mls/hr IV .Q10H [facility] Last Admin: 12/06/20 19:27 Dose: 100 mls/hr Documented by: Acetaminophen 1,000 mg/ IV (Solution) 100 mls @ 400 mls/hr IVPB Q8H PRN PRN Reason: Fever Last Admin: 12/05/20 20:58 Dose: 400 mls/hr Documented by: Ketorolac Tromethamine (Ketorolac 15 Mg/Ml 1 Ml Vial) 15 mg IVP Q6H [facility] Stop: 12/08/20 19:50 Last Admin: 12/06/20 19:26 Dose: 15 mg Documented by: Lidocaine (Lidocaine 5% Patch) 1 patch TOPICAL DAILY [facility] Last Admin: 12/06/20 10:19 Dose: 1 patch Documented by: Methocarbamol (Methocarbamol 750 Mg Tab) 750 mg PO Q8HR PRN PRN Reason: Pain Methylprednisolone Sodium Succinate (Methylprednisolone Sod Succi 40 Mg/Ml 1 Ml Vial) 20 mg IV Q8HR [facility] Last Admin: 12/06/20 16:52 Dose: 20 mg Documented by: Morphine Sulfate (Morphine Sulfate 4 Mg/Ml Syringe) 4 mg IV Q4HR PRN PRN Reason: Severe Pain Last Admin: 12/06/20 19:27 Dose: 4 mg Documented by: Naloxone HCl (Naloxone 0.4 Mg/Ml 1 Ml Vial) 0.2 mg IV Q2M PRN PRN Reason: Opioid Reversal Ondansetron HCl (Ondansetron 4 Mg/2 Ml Vial) 4 mg IVP Q8HR PRN PRN Reason: Nausea And Vomiting Last Admin: 12/06/20 14:32 Dose: 4 mg Documented by: Pantoprazole Sodium (Pantoprazole 40 Mg/10 Ml Vial) 40 mg IV DAILY [facility] Last Admin: 12/06/20 08:23 Dose: 40 mg Documented by: Objective - Vital Signs Vital signs: Vital Signs Temp 98.2 F 12/06/20 13:27 Pulse 71 12/06/20 13:27 Resp 16 12/06/20 13:27 BP 127/71 12/06/20 13:27 Pulse Ox 98 12/06/20 13:27 Intake & Output 12/05/20 12/06/20 12/06/20 18:59 06:59 18:59 Intake Total 480 Balance 480 Weight 72.575 kg Intake: Oral 480 Other: Voiding Method Toilet Toilet # Bowel Movements 2 - Exam PHYSICAL EXAMINATION: GENERAL:lying in bed no acute distress HEENT: Pupils are round and equally reacting to light. EOMI. No scleral icterus .+ conjunctival pallor. CARDIOVASCULAR: S1 and S2 present.Tachycardia PULMONARY: Bilateral breath sounds positive. No wheeze or crackles. ABDOMEN: Soft,+ tenderness in all quadrants, No guarding or rigidity . Hyperactive bowel sounds MUSCULOSKELETAL: No joint swelling or deformity. EXTREMITIES: No edema NEUROLOGICAL: Gross neurological examination did not reveal any focal deficits. SKIN:No rash - Labs CBC & Chem 7: 12/06/20 07:09 12/06/20 07:09 Labs: Abnormal Lab Results - Last 24 Hours (Table) 12/06/20 12/06/20 12/06/20 Range/Units 07:09 07:09 12:08 WBC 12.79 H (4.50-10.00) X 10*3/uL RBC 3.90 L (4.40-5.60) X 10*6/uL Hgb 7.5 L (13.0-17.0) g/dL Hct 26.9 L (39.6-50.0) % MCV 69.0 L (80.0-97.0) fL MCH 19.2 L (27.0-32.0) pg MCHC 27.9 L (32.0-37.0) g/dL RDW 17.9 H (11.5-14.5) % Plt Count 473 H (140-440) X 10*3/uL Absolute Nucleated RBC 0.02 H (0.00-0.00) X 10*3/uL Immature Gran # 0.06 H (0.00-0.04) X 10*3/uL Neutrophils # 11.37 H (1.80-7.70) X 10*3/uL Lymphocytes # 0.76 L (0.90-5.00) X 10*3/uL Eosinophils # 0 L (0.04-0.35) X 10*3/uL NRBC/100 WBC Diff 0.2 H (0.0-0.0) /100 WBCS Sodium 134 L (137-145) mmol/L Glucose 139 H (74-99) mg/dL Urine Protein 1+ H (Negative) Urine WBC 6 H (0-5) /hpf Urine Bacteria Rare H (None) /hpf Hyaline Casts 17 H (0-2) /lpf Urine Mucus Many H (None) /hpf Assessment and Plan Assessment: ASSESSMENT Abdominal pain, bloody diarrhea-most likely exacerbation of his ulcerative colitis Noncompliance with medication Fever Leukocytosis Elevated ESR and CRP Lactic acidosis Iron def anemia Thrombocytosis Hyponatremia GERD PLAN: Improving in terms of abdominap pain and diarrhea Continue IV Solu-Medrol 20 mg every 8 hours C. difficile negative Lactic acidosis trending down with IV fluids Blood culture negative so far We will continue to monitor the patient closely Pain management Further recommendations depending on the progress of the patient
[2020-12-07] MEDS: ONDANSETRON 4 MG/2 ML VIAL IVP PRN (01:09)
[2020-12-07] MEDS: MORPHINE SULFATE 4 MG/ML SYRINGE IV PRN ×3 (01:10→22:26)
[2020-12-07] MEDS: methylPREDNISolone SOD SUCCI 40 MG/ML 1 ML VIAL IV SCH ×3 (01:10→17:01)
[2020-12-07] MEDS: KETOROLAC 15 MG/ML 1 ML VIAL IVP SCH ×4 (01:10→19:26)
[2020-12-07] MEDS: DEXTROSE 5%-0.45% NACL 1,000 ML IV SCH ×3 (05:51→19:26)
[2020-12-07] MEDS: SODIUM FERRIC GLUCONAT-SUCROSE 125 MG in SODIUM CHLORIDE 0.9% 100 ML IVPB SCH (08:30)
[2020-12-07] MEDS: LIDOCAINE 5% PATCH TOPICAL SCH (08:30)
[2020-12-07] MEDS: PANTOPRAZOLE 40 MG/10 ML VIAL IV SCH (08:31)
[2020-12-07] MEDS: HYDROCORTISONE 2.5% RECTAL CREAM 30 GM TUBE RECTAL SCH ×2 (08:31→19:33)
--- NOTE | 2020-12-07 09:26 | P.PN ---
Subjective Progress Note Date: 12/07/20 Principal diagnosis: Abdominal pain, colitis Patient is seen and examined sitting up in bed. States he's still having some cramping with bowel movements however bowel movements are less frequent and less in amount. States he is not having gurvinder red bleeding but some small clots passing. He denies any nausea or vomiting. He states he tolerated his full liquid diet but he has a difficult time digesting milk products and would like to advance his diet. Iron studies showed low iron level, IV iron ordered. Morning labs still pending. Objective - Vital Signs Vital signs: Vital Signs Temp 98.4 F 12/07/20 07:59 Pulse 59 L 12/07/20 07:59 Resp 16 12/07/20 07:59 BP 123/78 12/07/20 07:59 Pulse Ox 98 12/07/20 07:59 Intake & Output 12/06/20 12/07/20 12/07/20 18:59 06:59 18:59 Other: Voiding Method Toilet # Voids 3 2 - Exam General appearance: The patient is alert, oriented, appears in no acute distress. HET: Head is normocephalic and atraumatic. Conjunctiva pink. Sclera anicteric. Neck: Supple without lymphadenopathy. Abdomen: Soft, lower quadrant tenderness, nondistended with bowel sounds. No guarding or rigidity. Extremities: Normal skin color and turgor. No pedal edema Skin: No rashes, no jaundice Neurological: No focal deficits. Alert and oriented 3. - Labs CBC & Chem 7: 12/07/20 07:12 12/06/20 07:09 Labs: Abnormal Lab Results - Last 24 Hours (Table) 12/06/20 12/06/20 12/06/20 Range/Units 07:09 07:09 12:08 WBC 12.79 H (4.50-10.00) X 10*3/uL RBC 3.90 L (4.40-5.60) X 10*6/uL Hgb 7.5 L (13.0-17.0) g/dL Hct 26.9 L (39.6-50.0) % MCV 69.0 L (80.0-97.0) fL MCH 19.2 L (27.0-32.0) pg MCHC 27.9 L (32.0-37.0) g/dL RDW 17.9 H (11.5-14.5) % Plt Count 473 H (140-440) X 10*3/uL Absolute Nucleated RBC 0.02 H (0.00-0.00) X 10*3/uL Immature Gran # 0.06 H (0.00-0.04) X 10*3/uL Neutrophils # 11.37 H (1.80-7.70) X 10*3/uL Lymphocytes # 0.76 L (0.90-5.00) X 10*3/uL Eosinophils # 0 L (0.04-0.35) X 10*3/uL NRBC/100 WBC Diff 0.2 H (0.0-0.0) /100 WBCS Iron 5 L (65-175) ug/dL % Saturation 1.74 L (15.00-50.00) Urine Protein 1+ H (Negative) Urine WBC 6 H (0-5) /hpf Urine Bacteria Rare H (None) /hpf Hyaline Casts 17 H (0-2) /lpf Urine Mucus Many H (None) /hpf Microbiology - Last 24 Hours (Table) 12/05/20 21:11 Blood Culture - Preliminary Blood No Growth after 24 hours Assessment and Plan (1) Ulcerative colitis Narrative/Plan: 35-year-old male who presented to the hospital with Phi pain and multiple episodes of bloody diarrhea with a known history of ulcerative colitis that was diagnosed in June of this year. The patient follows with gastroenterology and was started on Entyvio infusions last month, he was due for his second dose last week but presented to the hospital with abdominal pain and multiple episodes of diarrhea and blood per rectum. He was admitted and started on IV Solu-Medrol and subsequently discharged home with a tapered dose of steroids for which he did not take. His last colonoscopy was 06/28/[address] [facility] showing evidence of olmedo colitis. 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 Patient is readmitted to the hospital with abdominal pain, diarrhea and blood per rectum likely related to medication noncompliance. Current Visit: Yes Status: Acute Code(s): K51.90 - ULCERATIVE COLITIS, UNSPECIFIED, WITHOUT COMPLICATIONS SNOMED Code(s): 26148896 (2) Abdominal pain Current Visit: Yes Status: Acute Code(s): R10.9 - UNSPECIFIED ABDOMINAL PAIN SNOMED Code(s): 96465557 (3) Noncompliance with medication regimen Current Visit: No Status: Acute Code(s): Z91.14 - PATIENT'S OTHER NONCOMPLIANCE WITH MEDICATION REGIMEN SNOMED Code(s): 539288270 Plan: 1. Advance to low-fat low fiber diet 2. Solu-Medrol 20 mg IV every 8 hours 3. Sed rate and CRP ordered and reviewed 4. Pain medication as needed 5. IV iron 2 doses 6. Discussed with patient importance of medication compliance with patient 7. Patient will need outpatient follow-up with gastroenterology, patient is due for his Entyvio 8. Patient will need to be discharged home with prednisone taper, patient has prescription from previous hospitalization and may take those Thank you for this consultation, patient may be discharged home today from a gastroenterology standpoint. Dr. Kelly I agree with the dictator's note, documented as a scribe by Crystal Condon.
[2020-12-07 11:35] LABS: Basophils # (A) 0.01 X 10*3/uL (0.00-0.10); Basophils % (A) 0.1 %; Eosinophils # (A) 0 X 10*3/uL (0.04-0.35); Eosinophils % (A) 0 %; HCT 26.3 % (39.6-50.0); HGB 7.2 g/dL (13.0-17.0); Lymphocytes # (A) 0.73 X 10*3/uL (0.90-5.00); Lymphocytes % (A) 6.5 %; MCH 18.7 pg (27.0-32.0); MCHC 27.4 g/dL (32.0-37.0); MCV 68.3 fL (80.0-97.0); Monocytes # (A) 0.83 X 10*3/uL (0.20-1.00); Monocytes % (A) 7.4 %; Neutrophils # (A) 9.61 X 10*3/uL (1.80-7.70); Neutrophils % (A) 85.6 %; Platelet Count 557 X 10*3/uL (140-440); RBC 3.85 X 10*6/uL (4.40-5.60); RDW 18.2 % (11.5-14.5); WBC 11.22 X 10*3/uL (4.50-10.00)
--- NOTE | 2020-12-07 15:56 | P.PN ---
Subjective Progress Note Date: 12/07/20 Acute exacerbation of ulcerative colitis Mr. Steven is a 35-year-old male with a past medical history of ulcerative colitis, chronic low back pain, GERD coming in with a chief complaint of abdominal pain nausea and bloody diarrhea. Patient was recently admitted for exacerbation of ulcerative colitis and discharged home on a tapering dose of steroids. Patient states that he picked up his prescription from the pharmacy but did not take it. He states that after being discharged from the hospital he went home was doing better for couple of days and eventually started to have abdominal pain and bloody diarrhea. He also reports feeling hot but did not check his temperature. Patient denies having any chills or rigors. He denied having any chest pain or palpitations. No cough or difficulty in breathing. He denied having any headaches, neck stiffness, blurring of vision or weakness of his extremities. In the ER at the time of admission patient's vital signs temperature of 100.9, heart rate between 100s to 120s, respiratory rate 18, blood pressure 112/82, saturating at 98% on room air. He had an x-ray of his abdomen showing no acute abdomen. He had labs done showing white count of 22.2, hemoglobin 10.3, platelets 611 with MCV of 65. ESR 33. Sodium 132, potassium 4.7, chloride 94, bicarb 28, BUN 15, creatinine 0.92, lactic acid 2.3 CRP 7.8 amylase 54 lipase 120. On 12/06/2020 -patient is comfortably sitting in bed appears to be no acute distress. He states he just threw up. Patient mentions his abdominal pain is better but still having bloody bowel movements, decreased in frequency. Patient denies having any fevers chills or rigors. He denies having any chest pain or palpitations. No cough or difficulty breathing. On reviewing his vitals T-max of 98.1,Heart rate 50s to 60s, respiratory rate 16, blood pressure 100 x 58, saturating at 98% on room air. Labs from this morning showing white count of 12, hemoglobin 7.5, platelets 473. Sodium 134, potassium 5, chloride 100, bicarb 29, BUN 14, creatinine 0.68. Iron is 5 C. difficile negative. 12/07/2020 Patient is seen and evaluated in follow-up continues to have diarrhea that is bloody and currently receiving 1 of 2 iron transfusions. His hemoglobin today is 7.2 and will continue to monitor closely. May need transfusion of 7 or less. Patient was seen and evaluated by GI and slowly advancing diet to low-fat and discussion was had about diet and medication compliance and outpatient follow-up compliance as well. Patient has had multiple hospitalizations for this. Patient currently denies any chest pain, shortness of breath, or palpitations. Patient is afebrile. No reports of nausea or vomiting and patient is tolerating diet. Patient also continues on IV steroids and will need prednisone taper in the outpatient setting. Review of systems: Constitutional: No reports of fatigue, fever, or chills Cardiovascular: No reports of chest pain or palpitations Respiratory: No reports of shortness of breath or cough GI: No reports of nausea, vomiting, reports continued loose bloody stools : No reports of dysuria or retention Neurovascular: No reports of weakness or numbness All medications have been reviewed Active Medications Hydrocortisone (Hydrocortisone 2.5% Rectal Cream 30 Gm Tube) 1 applic RECTAL BID [facility] Last Admin: 12/07/20 08:31 Dose: 1 applic Documented by: Dextrose/Sodium Chloride (Dextrose 5%-1/2ns Iv Soln) 1,000 mls @ 100 mls/hr IV .Q10H [facility] Last Admin: 12/07/20 05:51 Dose: 100 mls/hr Documented by: Acetaminophen 1,000 mg/ IV (Solution) 100 mls @ 400 mls/hr IVPB Q8H PRN PRN Reason: Fever Last Admin: 12/05/20 20:58 Dose: 400 mls/hr Documented by: Ferric Sodium Gluconate 125 mg (/ Sodium Chloride) 110 mls @ 100 mls/hr IVPB DAILY [facility] Stop: 12/08/20 10:05 Last Admin: 12/07/20 08:30 Dose: 100 mls/hr Documented by: Ketorolac Tromethamine (Ketorolac 15 Mg/Ml 1 Ml Vial) 15 mg IVP Q6H [facility] Stop: 12/08/20 19:50 Last Admin: 12/07/20 14:52 Dose: 15 mg Documented by: Lidocaine (Lidocaine 5% Patch) 1 patch TOPICAL DAILY [facility] Last Admin: 12/07/20 08:30 Dose: 1 patch Documented by: Methocarbamol (Methocarbamol 750 Mg Tab) 750 mg PO Q8HR PRN PRN Reason: Pain Methylprednisolone Sodium Succinate (Methylprednisolone Sod Succi 40 Mg/Ml 1 Ml Vial) 20 mg IV Q8HR [facility] Last Admin: 12/07/20 08:30 Dose: 20 mg Documented by: Morphine Sulfate (Morphine Sulfate 4 Mg/Ml Syringe) 4 mg IV Q4HR PRN PRN Reason: Severe Pain Last Admin: 12/07/20 05:50 Dose: 4 mg Documented by: Naloxone HCl (Naloxone 0.4 Mg/Ml 1 Ml Vial) 0.2 mg IV Q2M PRN PRN Reason: Opioid Reversal Ondansetron HCl (Ondansetron 4 Mg/2 Ml Vial) 4 mg IVP Q8HR PRN PRN Reason: Nausea And Vomiting Last Admin: 12/07/20 01:09 Dose: 4 mg Documented by: Pantoprazole Sodium (Pantoprazole 40 Mg/10 Ml Vial) 40 mg IV DAILY [facility] Last Admin: 12/07/20 08:31 Dose: 40 mg Documented by: Objective - Vital Signs Vital signs: Vital Signs Temp 98.4 F 12/07/20 07:59 Pulse 59 L 12/07/20 07:59 Resp 16 12/07/20 07:59 BP 123/78 12/07/20 07:59 Pulse Ox 98 12/07/20 07:59 Intake & Output 12/06/20 12/07/20 12/07/20 18:59 06:59 18:59 Other: Voiding Method Toilet # Voids 3 2 - Exam GENERAL: Sitting up in bed no acute distress HEENT: Pupils are round and equally reacting to light. EOMI. No scleral icterus.+ conjunctival pallor. CARDIOVASCULAR: S1 and S2 present.Tachycardia PULMONARY: Bilateral breath sounds positive. No wheeze or crackles. ABDOMEN: Soft,+ tenderness in all quadrants, No guarding or rigidity . Hyperactive bowel sounds MUSCULOSKELETAL: No joint swelling or deformity. EXTREMITIES: No edema NEUROLOGICAL: Gross neurological examination did not reveal any focal deficits. SKIN:No rash - Labs CBC & Chem 7: 12/07/20 07:12 12/06/20 07:09 Labs: Abnormal Lab Results - Last 24 Hours (Table) 12/06/20 12/06/20 12/06/20 Range/Units 07:09 07:09 12:08 WBC 12.79 H (4.50-10.00) X 10*3/uL RBC 3.90 L (4.40-5.60) X 10*6/uL Hgb 7.5 L (13.0-17.0) g/dL Hct 26.9 L (39.6-50.0) % MCV 69.0 L (80.0-97.0) fL MCH 19.2 L (27.0-32.0) pg MCHC 27.9 L (32.0-37.0) g/dL RDW 17.9 H (11.5-14.5) % Plt Count 473 H (140-440) X 10*3/uL Absolute Nucleated RBC 0.02 H (0.00-0.00) X 10*3/uL Immature Gran # 0.06 H (0.00-0.04) X 10*3/uL Neutrophils # 11.37 H (1.80-7.70) X 10*3/uL Lymphocytes # 0.76 L (0.90-5.00) X 10*3/uL Eosinophils # 0 L (0.04-0.35) X 10*3/uL NRBC/100 WBC Diff 0.2 H (0.0-0.0) /100 WBCS Iron 5 L (65-175) ug/dL % Saturation 1.74 L (15.00-50.00) Urine Protein 1+ H (Negative) Urine WBC 6 H (0-5) /hpf Urine Bacteria Rare H (None) /hpf Hyaline Casts 17 H (0-2) /lpf Urine Mucus Many H (None) /hpf Microbiology - Last 24 Hours (Table) 12/05/20 21:11 Blood Culture - Preliminary Blood No Growth after 24 hours Assessment and Plan Assessment: Abdominal pain, bloody diarrhea-most likely exacerbation of his ulcerative colitis Noncompliance with medication Fever Leukocytosis Elevated ESR and CRP Lactic acidosis Iron deficiency anemia Thrombocytosis Hyponatremia GERD Full code PLAN: Patient continues to have some minimal abdominal discomfort although states is improved and continues with loose bloody bowel movements. Hemoglobin is 7.2 and will continue to monitor closely. Transfuse if 7 or less. Patient continues on IV Solu-Medrol and will continue at this time and will require prednisone taper on discharge. GI evaluated the patient recommending continuing current medic ations, receiving iron transfusion, and needs outpatient medication and follow- up compliance. Will continue to monitor closely and repeat labs in the morning. Further recommendations to follow based on the clinical course of the patient. Anticipate discharge in 24 hours.
[2020-12-08] MEDS: methylPREDNISolone SOD SUCCI 40 MG/ML 1 ML VIAL IV SCH ×3 (00:49→16:13)
[2020-12-08] MEDS: KETOROLAC 15 MG/ML 1 ML VIAL IVP SCH ×3 (01:22→14:11)
[2020-12-08] MEDS: MORPHINE SULFATE 4 MG/ML SYRINGE IV PRN ×3 (04:15→11:43)
[2020-12-08 06:58] LABS: Anisocytosis Slight; Basophils % (A) 0 %; Eosinophils % (A) 0 %; HCT 27.6 % (39.0-53.0); Hypochromasia Marked; Lymphocytes # (A) 0.9 k/uL (1.0-4.8); Lymphocytes % (A) 11 %; MCH 18.5 pg (25.0-35.0); MCHC 27.5 g/dL (31.0-37.0); MCV 67.4 fL (80.0-100.0); Mean Platelet Volume 6.4; Microcytosis Marked; Monocytes # (A) 0.6 k/uL (0-1.0); Monocytes % (A) 7 %; Neutrophils # (A) 6.5 k/uL (1.3-7.7); Neutrophils % (A) 80 %; Platelet Count 513 k/uL (150-450); Poikilocytosis Slight; RBC 4.09 m/uL (4.30-5.90); RDW 16.5 % (11.5-15.5); WBC 8.2 k/uL (3.8-10.6)
[2020-12-08 07:06] LABS: HGB 7.6 gm/dL (13.0-17.5)
[2020-12-08] MEDS: PANTOPRAZOLE 40 MG/10 ML VIAL IV SCH (07:51)
[2020-12-08] MEDS: LIDOCAINE 5% PATCH TOPICAL SCH (07:52)
[2020-12-08] MEDS: ONDANSETRON 4 MG/2 ML VIAL IVP PRN ×2 (08:09→20:20)
[2020-12-08] MEDS: HYDROCORTISONE 2.5% RECTAL CREAM 30 GM TUBE RECTAL SCH ×2 (08:09→21:27)
[2020-12-08] MEDS: SODIUM FERRIC GLUCONAT-SUCROSE 125 MG in SODIUM CHLORIDE 0.9% 100 ML IVPB SCH (08:31)
[2020-12-08] MEDS: DEXTROSE 5%-0.45% NACL 1,000 ML IV SCH ×2 (14:08→16:14)
--- NOTE | 2020-12-08 15:09 | P.PN ---
Subjective Progress Note Date: 12/08/20 Acute exacerbation of ulcerative colitis Mr. Steven is a 35-year-old male with a past medical history of ulcerative colitis, chronic low back pain, GERD coming in with a chief complaint of abdominal pain nausea and bloody diarrhea. Patient was recently admitted for exacerbation of ulcerative colitis and discharged home on a tapering dose of steroids. Patient states that he picked up his prescription from the pharmacy but did not take it. He states that after being discharged from the hospital he went home was doing better for couple of days and eventually started to have abdominal pain and bloody diarrhea. He also reports feeling hot but did not check his temperature. Patient denies having any chills or rigors. He denied having any chest pain or palpitations. No cough or difficulty in breathing. He denied having any headaches, neck stiffness, blurring of vision or weakness of his extremities. In the ER at the time of admission patient's vital signs temperature of 100.9, heart rate between 100s to 120s, respiratory rate 18, blood pressure 112/82, saturating at 98% on room air. He had an x-ray of his abdomen showing no acute abdomen. He had labs done showing white count of 22.2, hemoglobin 10.3, platelets 611 with MCV of 65. ESR 33. Sodium 132, potassium 4.7, chloride 94, bicarb 28, BUN 15, creatinine 0.92, lactic acid 2.3 CRP 7.8 amylase 54 lipase 120. On 12/06/2020 -patient is comfortably sitting in bed appears to be no acute distress. He states he just threw up. Patient mentions his abdominal pain is better but still having bloody bowel movements, decreased in frequency. Patient denies having any fevers chills or rigors. He denies having any chest pain or palpitations. No cough or difficulty breathing. On reviewing his vitals T-max of 98.1,Heart rate 50s to 60s, respiratory rate 16, blood pressure 100 x 58, saturating at 98% on room air. Labs from this morning showing white count of 12, hemoglobin 7.5, platelets 473. Sodium 134, potassium 5, chloride 100, bicarb 29, BUN 14, creatinine 0.68. Iron is 5 C. difficile negative. 12/07/2020 Patient is seen and evaluated in follow-up continues to have diarrhea that is bloody and currently receiving 1 of 2 iron transfusions. His hemoglobin today is 7.2 and will continue to monitor closely. May need transfusion of 7 or less. Patient was seen and evaluated by GI and slowly advancing diet to low-fat and discussion was had about diet and medication compliance and outpatient follow-up compliance as well. Patient has had multiple hospitalizations for this. Patient currently denies any chest pain, shortness of breath, or palpitations. Patient is afebrile. No reports of nausea or vomiting and patient is tolerating diet. Patient also continues on IV steroids and will need prednisone taper in the outpatient setting. 12/08/2020 Patient is seen this morning stating again he had 2 bloody bowel movements that were large and just blood and hemoglobin is actually improved at 7.6 this morni ng and white blood count normalized at 8.2. Patient is having severe right and left lower quadrant abdominal discomfort and denies any nausea or vomiting. Patient is tolerating diet and being advanced per GI recommendations. Patient continues on IV steroids. Patient is receiving IV pain medications and discussed with nursing staff about weaning as tolerated and using other forms of pain medication as patient will not be going home on IV pain meds. This was also discussed with patient. GI continues to follow. Review of systems: Constitutional: No reports of fatigue, fever, or chills Cardiovascular: No reports of chest pain or palpitations Respiratory: No reports of shortness of breath or cough GI: No reports of nausea, vomiting, reports 2 large bloody bowel movements that consisted of all blood and no stool noted along with severe lower abdominal discomfort in the right and left lower quadrants : No reports of dysuria or retention Neurovascular: No reports of weakness or numbness All medications have been reviewed Active Medications Hydrocortisone (Hydrocortisone 2.5% Rectal Cream 30 Gm Tube) 1 applic RECTAL BID [facility] Last Admin: 12/08/20 08:09 Dose: 1 applic Documented by: Dextrose/Sodium Chloride (Dextrose 5%-1/2ns Iv Soln) 1,000 mls @ 100 mls/hr IV .Q10H [facility] Last Admin: 12/08/20 14:08 Dose: Not Given Documented by: Acetaminophen 1,000 mg/ IV (Solution) 100 mls @ 400 mls/hr IVPB Q8H PRN PRN Reason: Fever Last Admin: 12/05/20 20:58 Dose: 400 mls/hr Documented by: Ketorolac Tromethamine (Ketorolac 15 Mg/Ml 1 Ml Vial) 15 mg IVP Q6H [facility] Stop: 12/08/20 19:50 Last Admin: 12/08/20 14:11 Dose: 15 mg Documented by: Lidocaine (Lidocaine 5% Patch) 1 patch TOPICAL DAILY [facility] Last Admin: 12/08/20 07:52 Dose: 1 patch Documented by: Methocarbamol (Methocarbamol 750 Mg Tab) 750 mg PO Q8HR PRN PRN Reason: Pain Last Admin: 12/08/20 01:24 Dose: 750 mg Documented by: Methylprednisolone Sodium Succinate (Methylprednisolone Sod Succi 40 Mg/Ml 1 Ml Vial) 20 mg IV Q8HR [facility] Last Admin: 12/08/20 07:52 Dose: 20 mg Documented by: Morphine Sulfate (Morphine Sulfate 4 Mg/Ml Syringe) 2 mg IV Q6H PRN PRN Reason: Severe Pain Naloxone HCl (Naloxone 0.4 Mg/Ml 1 Ml Vial) 0.2 mg IV Q2M PRN PRN Reason: Opioid Reversal Ondansetron HCl (Ondansetron 4 Mg/2 Ml Vial) 4 mg IVP Q8HR PRN PRN Reason: Nausea And Vomiting Last Admin: 12/08/20 08:09 Dose: 4 mg Documented by: Pantoprazole Sodium (Pantoprazole 40 Mg/10 Ml Vial) 40 mg IV DAILY [facility] Last Admin: 12/08/20 07:51 Dose: 40 mg Documented by: Objective - Vital Signs Vital signs: Vital Signs Temp 98.8 F 12/08/20 07:29 Pulse 64 12/08/20 07:29 Resp 17 12/08/20 07:29 BP 136/88 12/08/20 07:29 Pulse Ox 96 12/08/20 07:29 Intake & Output 12/07/20 12/08/20 12/08/20 18:59 06:59 18:59 Weight 72.575 kg Other: Voiding Method Toilet Toilet # Voids 3 2 - Exam GENERAL: Lying in bed no acute distress HEENT: Pupils are round and equally reacting to light. EOMI. No scleral icterus.+ conjunctival pallor. CARDIOVASCULAR: S1 and S2 present.Tachycardia PULMONARY: Bilateral breath sounds positive. No wheeze or crackles. ABDOMEN: Soft, tenderness noted in the right and left lower quadrants on palpation, No guarding or rigidity . Hyperactive bowel sounds MUSCULOSKELETAL: No joint swelling or deformity. EXTREMITIES: No edema NEUROLOGICAL: Gross neurological examination did not reveal any focal deficits. SKIN:No rash - Labs CBC & Chem 7: 12/08/20 06:23 12/06/20 07:09 Labs: Abnormal Lab Results - Last 24 Hours (Table) 12/08/20 Range/Units 06:23 RBC 4.09 L (4.30-5.90) m/uL Hgb 7.6 L D (13.0-17.5) gm/dL Hct 27.6 L (39.0-53.0) % MCV 67.4 L (80.0-100.0) fL MCH 18.5 L (25.0-35.0) pg MCHC 27.5 L (31.0-37.0) g/dL RDW 16.5 H (11.5-15.5) % Plt Count 513 H (150-450) k/uL Lymphocytes # 0.9 L (1.0-4.8) k/uL Microbiology - Last 24 Hours (Table) 12/05/20 21:11 Blood Culture - Preliminary Blood No Growth after 48 hours Assessment and Plan Assessment: Abdominal pain, bloody diarrhea-most likely exacerbation of his ulcerative colitis Noncompliance with medication Fever Leukocytosis, improved Elevated ESR and CRP Lactic acidosis Iron deficiency anemia Thrombocytosis Hyponatremia GERD Full code PLAN: Patient continues to have some abdominal discomfort that worsened throughout last night and had 2 large bowel movements that were just blood. Hemoglobin is 7.6 and will continue to monitor closely. Transfuse if 7 or less. Patient continues on IV Solu-Medrol and will continue at this time and will require prednisone taper on discharge. GI evaluated the patient recommending continuing current medications, received second iron transfusion today, and needs outpatient medication and follow-up compliance. Will continue to monitor closely and repeat labs in the morning. Patient is tolerating diet with no reports of nausea or vomiting and has been advanced to low fiber Anticipate discharge in 24 hours.
--- NOTE | 2020-12-08 15:37 | P.PN ---
Subjective Progress Note Date: 12/08/20 Principal diagnosis: Abdominal pain, colitis the patient was seen and examined lying in bed. States he is having more abdominal pain today. Was unable be his dinner or breakfast today due to pain and nausea. States he had a large bloody bowel movement this morning. He has been afebrile. He received 2 doses of IV iron. Hemoglobin stable today at 7.6. Objective - Vital Signs Vital signs: Vital Signs Temp 98.8 F 12/08/20 07:29 Pulse 64 12/08/20 07:29 Resp 17 12/08/20 07:29 BP 136/88 12/08/20 07:29 Pulse Ox 96 12/08/20 07:29 Intake & Output 12/07/20 12/08/20 12/08/20 18:59 06:59 18:59 Weight 72.575 kg Other: Voiding Method Toilet Toilet # Voids 3 2 - Exam General appearance: The patient is alert, oriented, appears in no acute distress. HET: Head is normocephalic and atraumatic. Conjunctiva pink. Sclera anicteric. Neck: Supple without lymphadenopathy. Abdomen: Soft, lower quadrant tenderness, nondistended with bowel sounds. No guarding or rigidity. Extremities: Normal skin color and turgor. No pedal edema Skin: No rashes, no jaundice Neurological: No focal deficits. Alert and oriented 3. - Labs CBC & Chem 7: 12/08/20 06:23 12/06/20 07:09 Labs: Abnormal Lab Results - Last 24 Hours (Table) 12/07/20 12/08/20 Range/Units 07:12 06:23 WBC 11.22 H (4.50-10.00) X 10*3/uL RBC 3.85 L 4.09 L (4.40-5.60) X 10*6/uL Hgb 7.2 L 7.6 L D (13.0-17.0) g/dL Hct 26.3 L 27.6 L (39.6-50.0) % MCV 68.3 L 67.4 L (80.0-97.0) fL MCH 18.7 L 18.5 L (27.0-32.0) pg MCHC 27.4 L 27.5 L (32.0-37.0) g/dL RDW 18.2 H 16.5 H (11.5-14.5) % Plt Count 557 H 513 H (140-440) X 10*3/uL Neutrophils # 9.61 H (1.80-7.70) X 10*3/uL Lymphocytes # 0.73 L 0.9 L (0.90-5.00) X 10*3/uL Eosinophils # 0 L (0.04-0.35) X 10*3/uL Microbiology - Last 24 Hours (Table) 12/05/20 21:11 Blood Culture - Preliminary Blood No Growth after 48 hours Assessment and Plan (1) Ulcerative colitis Narrative/Plan: 35-year-old male who presented to the hospital with Phi pain and multiple episodes of bloody diarrhea with a known history of ulcerative colitis that was diagnosed in June of this year. The patient follows with gastroenterology and was started on Entyvio infusions last month, he was due for his second dose last week but presented to the hospital with abdominal pain and multiple episodes of diarrhea and blood per rectum. He was admitted and started on IV Solu-Medrol and subsequently discharged home with a tapered dose of steroids for which he did not take. His last colonoscopy was 06/28/2020 done at [facility] showing evidence of olmedo colitis. 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 Patient is readmitted to the hospital with abdominal pain, diarrhea and blood per rectum likely related to medication noncompliance. Current Visit: Yes Status: Acute Code(s): K51.90 - ULCERATIVE COLITIS, UNS PECIFIED, WITHOUT COMPLICATIONS SNOMED Code(s): 94704653 (2) Abdominal pain Current Visit: Yes Status: Acute Code(s): R10.9 - UNSPECIFIED ABDOMINAL PAIN SNOMED Code(s): 48426604 (3) Noncompliance with medication regimen Current Visit: No Status: Acute Code(s): Z91.14 - PATIENT'S OTHER NONCOMPLIANCE WITH MEDICATION REGIMEN SNOMED Code(s): 810899088 Plan: 1. Advance to low-fat low fiber diet 2. Continue Solu-Medrol 20 mg IV every 8 hours 3. Daily CBC 4. Pain medication as needed 5. IV iron 2 doses 6. Discussed with patient importance of medication compliance with patient 7. Patient will need outpatient follow-up with gastroenterology, patient is due for his Entyvio 8. Patient will need to be discharged home with prednisone taper, patient has prescription from previous hospitalization and may take those Thank you for this consultation, we will continue to follow Dr. Mamta Aguilar I agree with the dictator's note, documented as a scribe by Crystal RIOJAS.
[2020-12-08] MEDS: MORPHINE SULFATE 2 MG/ML SYRINGE IV PRN ×2 (16:14→21:22)
[2020-12-09] MEDS: methylPREDNISolone SOD SUCCI 40 MG/ML 1 ML VIAL IV SCH ×4 (00:47→22:34)
[2020-12-09] MEDS: ONDANSETRON 4 MG/2 ML VIAL IVP PRN ×3 (04:07→22:34)
[2020-12-09] MEDS: MORPHINE SULFATE 2 MG/ML SYRINGE IV PRN ×4 (04:07→22:34)
[2020-12-09] MEDS: PANTOPRAZOLE 40 MG/10 ML VIAL IV SCH ×2 (07:29→07:30)
[2020-12-09] MEDS: ACETAMINOPHEN IV (For NPO) 1,000 MG in EMPTY BAG 1 BAG IVPB PRN (07:38)
[2020-12-09] MEDS: DEXTROSE 5%-0.45% NACL 1,000 ML IV SCH ×2 (07:40→17:13)
[2020-12-09] MEDS: HYDROCORTISONE 2.5% RECTAL CREAM 30 GM TUBE RECTAL SCH ×2 (07:40→22:35)
[2020-12-09] MEDS: LIDOCAINE 5% PATCH TOPICAL SCH (08:10)
[2020-12-09 08:44] LABS: Anisocytosis Slight; Basophils % (A) 0 %; Eosinophils % (A) 0 %; HCT 27.7 % (39.0-53.0); HGB 8.1 gm/dL (13.0-17.5); Hypochromasia Marked; Lymphocytes # (A) 1.1 k/uL (1.0-4.8); Lymphocytes % (A) 13 %; MCH 19.4 pg (25.0-35.0); MCHC 29.2 g/dL (31.0-37.0); MCV 66.7 fL (80.0-100.0); Mean Platelet Volume 6.4; Microcytosis Marked; Monocytes # (A) 0.4 k/uL (0-1.0); Monocytes % (A) 6 %; Neutrophils # (A) 6.3 k/uL (1.3-7.7); Neutrophils % (A) 79 %; Platelet Count 507 k/uL (150-450); Poikilocytosis Slight; RBC 4.15 m/uL (4.30-5.90); RDW 17.4 % (11.5-15.5)
--- NOTE | 2020-12-09 11:43 | P.PN ---
Subjective Acute exacerbation of ulcerative colitis Mr. Steven is a 35-year-old male with a past medical history of ulcerative colitis, chronic low back pain, GERD coming in with a chief complaint of abdominal pain nausea and bloody diarrhea. Patient was recently admitted for exacerbation of ulcerative colitis and discharged home on a tapering dose of steroids. Patient states that he picked up his prescription from the pharmacy but did not take it. He states that after being discharged from the hospital he went home was doing better for couple of days and eventually started to have abdominal pain and bloody diarrhea. He also reports feeling hot but did not check his temperature. Patient denies having any chills or rigors. He denied having any chest pain or palpitations. No cough or difficulty in breathing. He denied having any headaches, neck stiffness, blurring of vision or weakness of his extremities. In the ER at the time of admission patient's vital signs temperature of 100.9, heart rate between 100s to 120s, respiratory rate 18, blood pressure 112/82, saturating at 98% on room air. He had an x-ray of his abdomen showing no acute abdomen. He had labs done showing white count of 22.2, hemoglobin 10.3, platelets 611 with MCV of 65. ESR 33. Sodium 132, potassium 4.7, chloride 94, bicarb 28, BUN 15, creatinine 0.92, lactic acid 2.3 CRP 7.8 amylase 54 lipase 120. On 12/06/2020 -patient is comfortably sitting in bed appears to be no acute distress. He states he just threw up. Patient mentions his abdominal pain is better but still having bloody bowel movements, decreased in frequency. Patient denies having any fevers chills or rigors. He denies having any chest pain or palpitations. No cough or difficulty breathing. On reviewing his vitals T-max of 98.1,Heart rate 50s to 60s, respiratory rate 16, blood pressure 100 x 58, saturating at 98% on room air. Labs from this morning showing white count of 12, hemoglobin 7.5, platelets 473. Sodium 134, potassium 5, chloride 100, bicarb 29, BUN 14, creatinine 0.68. Iron is 5 C. difficile negative. 12/07/2020 Patient is seen and evaluated in follow-up continues to have diarrhea that is bloody and currently receiving 1 of 2 iron transfusions. His hemoglobin today is 7.2 and will continue to monitor closely. May need transfusion of 7 or less. Patient was seen and evaluated by GI and slowly advancing diet to low-fat and discussion was had about diet and medication compliance and outpatient follow-up compliance as well. Patient has had multiple hospitalizations for this. Patient currently denies any chest pain, shortness of breath, or palpitations. Patient is afebrile. No reports of nausea or vomiting and patient is tolerating diet. Patient also continues on IV steroids and will need prednisone taper in the outpatient setting. 12/08/2020 Patient is seen this morning stating again he had 2 bloody bowel movements that were large and just blood and hemoglobin is actually improved at 7.6 this morning and white blood count normalized at 8.2. Patient is having severe right and left lower quadrant abdominal discomfort and denies any nausea or vomiting. Patient is tolerating diet and being advanced per GI recommendations. Patient continues on IV steroids. Patient is receiving IV pain medications and discussed with nursing staff about weaning as tolerated and using other forms of pain medication as patient will not be going home on IV pain meds. This was also discussed with patient. GI continues to follow. 12/09/2020 Patient is still having some abdominal pain denied any blood in the stools or dark stools at this time. Although patient is highly noncompliant not a reliable historian Constitutional: Denied any fatigue denied any fever. Cardio vascular: denied any chest pain, palpitations Gastrointestinal denied any nausea vomiting Pulmonary: Denied any shortness of breath cough Neurologic denied any new focal deficits All inpatient medications were reviewed and appropriate changes in these medications as dictated in the interval history and assessment and plan. - Exam GENERAL: Lying in bed no acute distress HEENT: Pupils are round and equally reacting to light. EOMI. No scleral icte mague.+ conjunctival pallor. CARDIOVASCULAR: S1 and S2 present.Tachycardia PULMONARY: Bilateral breath sounds positive. No wheeze or crackles. ABDOMEN: Soft, tenderness noted in the right and left lower quadrants on palpation, No guarding or rigidity . Hyperactive bowel sounds MUSCULOSKELETAL: No joint swelling or deformity. EXTREMITIES: No edema NEUROLOGICAL: Gross neurological examination did not reveal any focal deficits. SKIN:No rash Assessment and Plan Assessment: exacerbation of ulcerative colitis Noncompliance with medication Fever Leukocytosis, improved Elevated ESR and CRP Lactic acidosis Iron deficiency anemia Thrombocytosis Hyponatremia GERD Full code PLAN: Patient continues to have some abdominal discomfort that worsened throughout last night and had 2 large bowel movements that were just blood. Hemoglobin is 7.6 and will continue to monitor closely. Transfuse if 7 or less. Patient continues on IV Solu-Medrol and will continue at this time and will require prednisone taper on discharge. GI evaluated the patient recommending continuing current medications, received second iron transfusion today, and needs outpatient medication and follow-up compliance. Will continue to monitor closely and repeat labs in the morning. Patient is tolerating diet with no reports of nausea or vomiting and has been advanced to low fiber . Objective - Vital Signs Vital signs: Vital Signs Temp 98.8 F 12/09/20 06:57 Pulse 54 L 12/09/20 06:57 Resp 18 12/09/20 06:57 BP 111/69 12/09/20 06:57 Pulse Ox 97 12/09/20 06:57 Intake & Output 12/08/20 12/09/20 12/09/20 18:59 06:59 18:59 Other: Voiding Method Toilet # Voids 2 4 # Bowel Movements 1 - Labs CBC & Chem 7: 12/09/20 08:10 12/06/20 07:09 Labs: Abnormal Lab Results - Last 24 Hours (Table) 12/09/20 Range/Units 08:10 RBC 4.15 L (4.30-5.90) m/uL Hgb 8.1 L (13.0-17.5) gm/dL Hct 27.7 L (39.0-53.0) % MCV 66.7 L (80.0-100.0) fL MCH 19.4 L (25.0-35.0) pg MCHC 29.2 L (31.0-37.0) g/dL RDW 17.4 H (11.5-15.5) % Plt Count 507 H (150-450) k/uL Microbiology - Last 24 Hours (Table) 12/05/20 21:11 Blood Culture - Preliminary Blood No Growth after 72 hours
--- NOTE | 2020-12-09 13:44 | PN ---
PROGRESS NOTE PROGRESS NOTE: The patient is a 35-year-old white male, admitted to hospital with exacerbation of ulcerative colitis. Presently on IV Solu-Medrol 20 mg q.8 hours. He is doing better. He still had 2 bloody bowel movements this morning. Complains of diffuse abdominal pain. He denies any nausea, vomiting. On a clear liquid diet, tolerating well. PHYSICAL EXAMINATION: Appears comfortable. Vital signs: Stable. Blood pressure is 111/69, pulse rate 54, temperature 98. HEENT examination unremarkable, conjunctivae pink, sclerae anicteric. Oral cavity no lesions. Neck: No JVD or lymph node enlargement. Chest was clear to auscultation. Heart: Regular rate and rhythm. Abdomen: Soft, there was mild tenderness in the lower abdominal area but no rebound or rigidity. Extremities: No pedal edema. Neurologic: Alert and oriented x3. No focal deficits. LABS: WBC 8, hemoglobin 8.1, platelets 507. Rest of the labs are within normal limits. IMPRESSION: 1. Acute exacerbation of ulcerative colitis. Presently on IV Solu-Medrol 20 mg q.8 hours and symptoms are gradually improving. 2. Iron deficiency anemia, status post iron infusions 2 days ago. RECOMMENDATION: 1. Continue with IV Solu-Medrol 20 mg q.8 hours. 2. Advance diet as tolerated. 3. Will change the IV steroids to oral prednisone 40 mg tomorrow and he was advised to taper it by 5 mg every week. 4. He was advised to call and make an appointment for Entyvio infusion, which was supposed to be scheduled 2 weeks ago, but he did not do it. 5. Discussed with the patient regarding importance of being compliant to outpatient medications. 6. We will follow with you closely. Thank you for this consultation. MMODL / IJN: [id number] /
[2020-12-10] MEDS: DEXTROSE 5%-0.45% NACL 1,000 ML IV SCH ×3 (03:07→21:37)
[2020-12-10] MEDS: MORPHINE SULFATE 2 MG/ML SYRINGE IV PRN (03:39)
[2020-12-10] MEDS: ONDANSETRON 4 MG/2 ML VIAL IVP PRN ×3 (05:34→20:34)
[2020-12-10 06:43] LABS: Anisocytosis Slight; HCT 30.4 % (39.0-53.0); HGB 8.7 gm/dL (13.0-17.5); Hypochromasia Marked; MCH 19.3 pg (25.0-35.0); MCHC 28.8 g/dL (31.0-37.0); MCV 67.1 fL (80.0-100.0); Mean Platelet Volume 6.9; Microcytosis Marked; Platelet Count 719 k/uL (150-450); Poikilocytosis Slight; RBC 4.52 m/uL (4.30-5.90); RDW 18.5 % (11.5-15.5); WBC 10.1 k/uL (3.8-10.6)
[2020-12-10 06:50] LABS: African American GFR (CKD) >90 (>60 ml/min/1.73 sqM); Anion Gap 7 mmol/L; Blood Urea Nitrogen 16 mg/dL (9-20); Calcium 9.3 mg/dL (8.4-10.2); Carbon Dioxide 35 mmol/L (22-30); Chloride 95 mmol/L (98-107); Glucose 134 mg/dL (74-99); Non-African American GFR(CKD) >90 (>60 ml/min/1.73 sqM); Potassium 5.1 mmol/L (3.5-5.1); Sodium 137 mmol/L (137-145)
[2020-12-10 07:47] VITALS: RESP 17
--- NOTE | 2020-12-10 08:02 | P.PN ---
Subjective Acute exacerbation of ulcerative colitis Mr. Steven is a 35-year-old male with a past medical history of ulcerative colitis, chronic low back pain, GERD coming in with a chief complaint of abdominal pain nausea and bloody diarrhea. Patient was recently admitted for exacerbation of ulcerative colitis and discharged home on a tapering dose of steroids. Patient states that he picked up his prescription from the pharmacy but did not take it. He states that after being discharged from the hospital he went home was doing better for couple of days and eventually started to have abdominal pain and bloody diarrhea. He also reports feeling hot but did not check his temperature. Patient denies having any chills or rigors. He denied having any chest pain or palpitations. No cough or difficulty in breathing. He denied having any headaches, neck stiffness, blurring of vision or weakness of his extremities. In the ER at the time of admission patient's vital signs temperature of 100.9, heart rate between 100s to 120s, respiratory rate 18, blood pressure 112/82, saturating at 98% on room air. He had an x-ray of his abdomen showing no acute abdomen. He had labs done showing white count of 22.2, hemoglobin 10.3, platelets 611 with MCV of 65. ESR 33. Sodium 132, potassium 4.7, chloride 94, bicarb 28, BUN 15, creatinine 0.92, lactic acid 2.3 CRP 7.8 amylase 54 lipase 120. On 12/06/2020 -patient is comfortably sitting in bed appears to be no acute distress. He states he just threw up. Patient mentions his abdominal pain is better but still having bloody bowel movements, decreased in frequency. Patient denies having any fevers chills or rigors. He denies having any chest pain or palpitations. No cough or difficulty breathing. On reviewing his vitals T-max of 98.1,Heart rate 50s to 60s, respiratory rate 16, blood pressure 100 x 58, saturating at 98% on room air. Labs from this morning showing white count of 12, hemoglobin 7.5, platelets 473. Sodium 134, potassium 5, chloride 100, bicarb 29, BUN 14, creatinine 0.68. Iron is 5 C. difficile negative. 12/07/2020 Patient is seen and evaluated in follow-up continues to have diarrhea that is bloody and currently receiving 1 of 2 iron transfusions. His hemoglobin today is 7.2 and will continue to monitor closely. May need transfusion of 7 or less. Patient was seen and evaluated by GI and slowly advancing diet to low-fat and discussion was had about diet and medication compliance and outpatient follow-up compliance as well. Patient has had multiple hospitalizations for this. Patient currently denies any chest pain, shortness of breath, or palpitations. Patient is afebrile. No reports of nausea or vomiting and patient is tolerating diet. Patient also continues on IV steroids and will need prednisone taper in the outpatient setting. 12/08/2020 Patient is seen this morning stating again he had 2 bloody bowel movements that were large and just blood and hemoglobin is actually improved at 7.6 this morning and white blood count normalized at 8.2. Patient is having severe right and left lower quadrant abdominal discomfort and denies any nausea or vomiting. Patient is tolerating diet and being advanced per GI recommendations. Patient continues on IV steroids. Patient is receiving IV pain medications and discussed with nursing staff about weaning as tolerated and using other forms of pain medication as patient will not be going home on IV pain meds. This was also discussed with patient. GI continues to follow. 12/09/2020 Patient is still having some abdominal pain denied any blood in the stools or dark stools at this time. Although patient is highly noncompliant not a reliable historian 12/10/2020 Patient is still having nausea vomiting had his diet will be switched to full liquid diet from soft diet. Patient was also having significant pain although he is not complaining much of pain to me. His morphine will be increased to 4 mg every 4. Patient was also having recovered bloody stools. We'll obtain a basic metabolic profile and CBC for tomorrow. Patient will be continued on intravenous steroids. Constitutional: Denied any fatigue denied any fever. Cardio vascular: denied any chest pain, palpitations Gastrointestinal denied any nausea vomiting Pulmonary: Denied any shortness of breath cough Neurologic denied any new focal deficits All inpatient medications were reviewed and appropriate changes in these med ications as dictated in the interval history and assessment and plan. - Exam GENERAL: Lying in bed no acute distress HEENT: Pupils are round and equally reacting to light. EOMI. No scleral icterus.+ conjunctival pallor. CARDIOVASCULAR: S1 and S2 present.Tachycardia PULMONARY: Bilateral breath sounds positive. No wheeze or crackles. ABDOMEN: Soft, tenderness noted in the right and left lower quadrants on palpation, No guarding or rigidity . Hyperactive bowel sounds MUSCULOSKELETAL: No joint swelling or deformity. EXTREMITIES: No edema NEUROLOGICAL: Gross neurological examination did not reveal any focal deficits. SKIN:No rash Assessment and Plan Assessment: exacerbation of ulcerative colitis Noncompliance with medication Fever route Leukocytosis, improved Elevated ESR and CRP to ulcerative colitis Lactic acidosis Iron deficiency anemia Thrombocytosis Hyponatremia GERD Full code PLAN: Patient continues to have some abdominal discomfort continues to have mucoid bloody stools and the nausea along with vomiting. Monitor hemoglobin Transfuse if 7 or less. Patient continues on IV Solu-Medrol and will continue at this time and will require prednisone taper on discharge. GI evaluated the patient recommending continuing current medications, received iron transfusion. Liquid diet Objective - Vital Signs Vital signs: Vital Signs Temp 99.1 F 12/10/20 07:04 Pulse 63 12/10/20 07:04 Resp 17 12/10/20 07:04 BP 122/74 12/10/20 07:04 Pulse Ox 99 12/10/20 07:04 Intake & Output 12/09/20 12/10/20 12/10/20 18:59 06:59 18:59 Other: Voiding Method Toilet # Voids 2 2 - Labs CBC & Chem 7: 12/10/20 05:30 12/10/20 05:30 Labs: Abnormal Lab Results - Last 24 Hours (Table) 12/09/20 12/10/20 12/10/20 Range/Units 08:10 05:30 05:30 RBC 4.15 L (4.30-5.90) m/uL Hgb 8.1 L 8.7 L (13.0-17.5) gm/dL Hct 27.7 L 30.4 L (39.0-53.0) % MCV 66.7 L 67.1 L (80.0-100.0) fL MCH 19.4 L 19.3 L (25.0-35.0) pg MCHC 29.2 L 28.8 L (31.0-37.0) g/dL RDW 17.4 H 18.5 H (11.5-15.5) % Plt Count 507 H 719 H (150-450) k/uL Chloride 95 L (98-107) mmol/L Carbon Dioxide 35 H (22-30) mmol/L Glucose 134 H (74-99) mg/dL Microbiology - Last 24 Hours (Table) 12/05/20 21:11 Blood Culture - Preliminary Blood No Growth after 96 hours
[2020-12-10] MEDS: methylPREDNISolone SOD SUCCI 40 MG/ML 1 ML VIAL IV SCH ×2 (09:03→16:23)
[2020-12-10] MEDS: PANTOPRAZOLE 40 MG/10 ML VIAL IV SCH (09:03)
[2020-12-10] MEDS: LIDOCAINE 5% PATCH TOPICAL SCH (09:04)
[2020-12-10] MEDS: HYDROCORTISONE 2.5% RECTAL CREAM 30 GM TUBE RECTAL SCH ×2 (09:05→20:37)
[2020-12-10] MEDS: MORPHINE SULFATE 4 MG/ML SYRINGE IV PRN ×3 (09:06→18:28)
--- NOTE | 2020-12-10 10:32 | PN ---
PROGRESS NOTE DATE OF SERVICE: 12/10/2020 INTERVAL HISTORY: The patient is a 35-year-old white male with history of ulcerative colitis, admitted to the hospital with exacerbation. On IV steroids, Solu-Medrol 20 mg q.8 hours day #4. He still continues to remain the same. He had two bloody bowel movements last night and two this morning. Continues to complain of lower abdominal pain. No nausea, no vomiting. Some nausea and vomiting. No fever, chills, or night sweats. PHYSICAL EXAMINATION: GENERAL: He appears comfortable. VITAL SIGNS: Stable. Blood pressure is 122/74, pulse is 63, temperature 99.1. HEENT: Examination unremarkable. Conjunctivae are pink. Sclerae anicteric. Oral cavity no lesions. NECK: No JVD or lymph node enlargement. CHEST: Clear to auscultation. HEART: Regular rate and rhythm. ABDOMEN: Soft, there was mild tenderness in the lower abdominal area. EXTREMITIES: No pedal edema. SKIN: No rashes. NEURO: She is alert and oriented x3. No focal deficits. LABS: Done from today WBC 10.1, hemoglobin 8.7, platelets 719. Basic metabolic panel is within normal limits. IMPRESSION: 1. Exacerbation of ulcerative colitis, on IV steroids day #4. The patient continues to remain symptomatic with 2-4 bloody bowel movements daily. He continues to have some nausea and vomiting. He was started on Entyvio infusion and received only one about 2 months ago on an outpatient basis. 2. Severe microcytic hypochromic anemia secondary to gastrointestinal blood loss. RECOMMENDATIONS: 1. Continue with IV Solu-Medrol 20 mg q.8 hours. 2. We will start him on mesalamine enema once at bedtime. 3. Obtain CRP and sedimentation rate, as well as CBC for tomorrow. 4. If he continues to have persistent symptoms or persistent abdominal pain, we will consider obtaining a CT of the abdomen and pelvis. 5. Change to clear liquid diet for today. 6. We will follow with you closely. Thank you for this consultation. MMMITCHELLL / BARBI: [id number] /
[2020-12-10] MEDS ORDERED: ACETAMINOPHEN TAB 500 MG TAB PO PRN (13:10)
[2020-12-10] MEDS: MESALAMINE 4 GM/60 ML ENEMA RECTAL SCH ×2 (21:35→23:33)
[2020-12-11] MEDS: MORPHINE SULFATE 4 MG/ML SYRINGE IV PRN ×3 (00:36→09:58)
[2020-12-11] MEDS: methylPREDNISolone SOD SUCCI 40 MG/ML 1 ML VIAL IV SCH ×2 (00:36→07:09)
[2020-12-11] MEDS: ONDANSETRON 4 MG/2 ML VIAL IVP PRN ×2 (04:31→09:59)
[2020-12-11] MEDS: LIDOCAINE 5% PATCH TOPICAL SCH (07:09)
[2020-12-11] MEDS: DEXTROSE 5%-0.45% NACL 1,000 ML IV SCH (07:10)
[2020-12-11] MEDS: HYDROCORTISONE 2.5% RECTAL CREAM 30 GM TUBE RECTAL SCH (07:10)
[2020-12-11 07:51] LABS: Anisocytosis Slight; Hypochromasia Marked; MCH 19.5 pg (25.0-35.0); MCHC 29.1 g/dL (31.0-37.0); MCV 66.9 fL (80.0-100.0); Mean Platelet Volume 6.3; Microcytosis Marked; Platelet Count 688 k/uL (150-450); Poikilocytosis Slight; RBC 4.64 m/uL (4.30-5.90); RDW 18.9 % (11.5-15.5); WBC 9.7 k/uL (3.8-10.6)
[2020-12-11 08:04] VITALS: BP 119/75; PULSE 55; TEMP 98.9
[2020-12-11 08:25] LABS: African American GFR (CKD) >90 (>60 ml/min/1.73 sqM); Anion Gap 5 mmol/L; Blood Urea Nitrogen 14 mg/dL (9-20); C Reactive Protein 6.2 mg/dL (<1.0); Calcium 9.2 mg/dL (8.4-10.2); Carbon Dioxide 36 mmol/L (22-30); Chloride 95 mmol/L (98-107); Glucose 131 mg/dL (74-99); Non-African American GFR(CKD) >90 (>60 ml/min/1.73 sqM); Potassium 5.3 mmol/L (3.5-5.1); Sodium 136 mmol/L (137-145)
[2020-12-11] MEDS ORDERED: PANTOPRAZOLE 40 MG TABLET PO SCH (09:00)
[2020-12-11] MEDS ORDERED: SODIUM POLYSTYRENE SULFONATE 15 GM/60 ML BOTTLE PO STA (09:34)
[2020-12-11] MEDS ORDERED: LACTATED RINGERS 1,000 ML IV SCH (10:00)
--- NOTE | 2020-12-11 11:32 | P.PN ---
Subjective Progress Note Date: 12/11/20 Principal diagnosis: Abdominal pain, colitis Condition is seen and examined sitting up in bed. He denies any abdominal pain, denies any diarrhea or rectal bleeding. States he is feeling much better and would like to be discharged home. He is been on a clear liquid diet, tolerating well. Has a lactose intolerance and has difficulty with a full liquid diet. He's been afebrile. Objective - Vital Signs Vital signs: Vital Signs Temp 98.9 F 12/11/20 07:32 Pulse 55 L 12/11/20 07:32 Resp 17 12/11/20 07:32 BP 119/75 12/11/20 07:32 Pulse Ox 98 12/11/20 07:32 Intake & Output 12/10/20 12/11/20 12/11/20 18:59 06:59 18:59 Other: Voiding Method Toilet Toilet Toilet # Voids 1 2 - Exam General appearance: The patient is alert, oriented, appears in no acute distress. HET: Head is normocephalic and atraumatic. Conjunctiva pink. Sclera anicteric. Neck: Supple without lymphadenopathy. Abdomen: Soft, nontender, nondistended with bowel sounds. No guarding or rigidity. Extremities: Normal skin color and turgor. No pedal edema Skin: No rashes, no jaundice Neurological: No focal deficits. Alert and oriented 3. - Labs CBC & Chem 7: 12/11/20 07:20 12/11/20 07:20 Labs: Abnormal Lab Results - Last 24 Hours (Table) 12/11/20 12/11/20 Range/Units 07: 07:20 Hgb 9.0 L (13.0-17.5) gm/dL Hct 31.0 L (39.0-53.0) % MCV 66.9 L (80.0-100.0) fL MCH 19.5 L (25.0-35.0) pg MCHC 29.1 L (31.0-37.0) g/dL RDW 18.9 H (11.5-15.5) % Plt Count 688 H (150-450) k/uL Sodium 136 L (137-145) mmol/L Potassium 5.3 H (3.5-5.1) mmol/L Chloride 95 L (98-107) mmol/L Carbon Dioxide 36 H (22-30) mmol/L Glucose 131 H (74-99) mg/dL C-Reactive Protein 6.2 H (<1.0) mg/dL Microbiology - Last 24 Hours (Table) 12/05/20 21:11 Blood Culture - Preliminary Blood No Growth after 120 hours Assessment and Plan (1) Ulcerative colitis Narrative/Plan: 35-year-old male who presented to the hospital with Phi pain and multiple episodes of bloody diarrhea with a known history of ulcerative colitis that was diagnosed in June of this year. The patient follows with gastroenterology and was started on Entyvio infusions last month, he was due for his second dose last week but presented to the hospital with abdominal pain and multiple episodes of diarrhea and blood per rectum. He was admitted and started on IV Solu-Medrol and subsequently discharged home with a tapered dose of steroids for which he did not take. His last colonoscopy was 06/28/2020 done at [facility] showing evidence of olmedo colitis. 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 Patient is readmitted to the hospital with abdominal pain, diarrhea and blood per rectum likely related to medication noncompliance. Current Visit: Yes Status: Acute Code(s): K51.90 - ULCERATIVE COLITIS, UNSPECIFIED, WITHOUT COMPLICATIONS SNOMED Code(s): 76219947 (2) Abdominal pain Current Visit: Yes Status: Acute Code(s): R10.9 - UNSPECIFIED ABDOMINAL PAIN SNOMED Code(s): 61998506 (3) Noncompliance with medication regimen Current Visit: No Status: Acute Code(s): Z91.14 - PATIENT'S OTHER NONCOMPLIANCE WITH MEDICATION REGIMEN SNOMED Code(s): 388675085 Plan: 1. Advance to low-fat low fiber diet 2. Continue Solu-Medrol 20 mg IV every 8 hours 3. Daily CBC 4. Pain medication as needed 5. IV iron 2 doses 6. Discussed with patient importance of medication compliance with patient 7. Patient will need outpatient follow-up with gastroenterology, patient is due for his Entyvio 8. Patient will need to be discharged home with prednisone taper, patient has prescription from previous hospitalization and may take those Thank you for this consultation, patient may be discharged home if he tolerates his lunch. Dr. Mamta Aguilar I agree with the dictator's note, documented as a scribe by Crystal Condon.
[2020-12-11 11:42] LABS: Erythrocyte Sedimentation Rate 35 mm/hr (0-15)
--- NOTE | 2020-12-12 09:12 | P.DS ---
Providers Date of admission: 12/05/20 03:30 Expected date of discharge: 12/11/20 Attending physician: Cristofer Saldaña Consults: 12/05/20 03:31 Consult Physician Routine Consulting Provider: Neva Aguilar Consult Reason/Comments: colitis Do you want consulting provider notified?: Yes Primary care physician: Stated None Hospital Course: Final diagnosis exacerbation of ulcerative colitis Noncompliance with medication Fever route Leukocytosis, improved Elevated ESR and CRP to ulcerative colitis Lactic acidosis Iron deficiency anemia Thrombocytosis Hyponatremia GERD Full code Discharge disposition Patient is being discharged in a stable condition with guarded prognosis to home. Patient will follow-up with primary care provider in the outpatient setting upon discharge. Patient is to also follow-up with GI Dr. Aguilar as schedule in 2 days. Patient will continue on a prednisone taper upon discharge. Total time taken is greater than 35 minutes. Hospital course Mr. Steven is a 35-year-old male with a past medical history of ulcerative colitis, chronic low back pain, GERD coming in with a chief complaint of abdominal pain nausea and bloody diarrhea. Patient was recently admitted for exacerbation of ulcerative colitis and discharged home on a tapering dose of steroids. Patient states that he picked up his prescription from the pharmacy but did not take it. He states that after being discharged from the hospital he went home was doing better for couple of days and eventually started to have abdominal pain and bloody diarrhea. He also reports feeling hot but did not check his temperature. Patient denies having any chills or rigors. He denied having any chest pain or palpitations. No cough or difficulty in breathing. He denied having any headaches, neck stiffness, blurring of vision or weakness of his extremities. In the ER at the time of admission patient's vital signs temperature of 100.9, heart rate between 100s to 120s, respiratory rate 18, blood pressure 112/82, saturating at 98% on room air. He had an x-ray of his abdomen showing no acute abdomen. He had labs done showing white count of 22.2, hemoglobin 10.3, platelets 611 with MCV of 65. ESR 33. Sodium 132, potassium 4.7, chloride 94, bicarb 28, BUN 15, creatinine 0.92, lactic acid 2.3 CRP 7.8 amylase 54 lipase 120. On 12/06/2020 -patient is comfortably sitting in bed appears to be no acute distress. He states he just threw up. Patient mentions his abdominal pain is better but still having bloody bowel movements, decreased in frequency. Patient denies having any fevers chills or rigors. He denies having any chest pain or palpitations. No cough or difficulty breathing. On reviewing his vitals T-max of 98.1,Heart rate 50s to 60s, respiratory rate 16, blood pressure 100 x 58, saturating at 98% on room air. Labs from this morning showing white count of 12, hemoglobin 7.5, platelets 473. Sodium 134, potassium 5, chloride 100, bicarb 29, BUN 14, creatinine 0.68. Iron is 5 C. difficile negative. 12/07/2020 Patient is seen and evaluated in follow-up continues to have diarrhea that is bloody and currently receiving 1 of 2 iron transfusions. His hemoglobin today is 7.2 and will continue to monitor closely. May need transfusion of 7 or less. Patient was seen and evaluated by GI and slowly advancing diet to low-fat and discussion was had about diet and medication compliance and outpatient follow-up compliance as well. Patient has had multiple hospitalizations for this. Patient currently denies any chest pain, shortness of breath, or palpitations. Patient is afebrile. No reports of nausea or vomiting and patient is tolerating diet. Patient also continues on IV steroids and will need prednisone taper in the outpatient setting. 12/08/2020 Patient is seen this morning stating again he had 2 bloody bowel movements that were large and just blood and hemoglobin is actually improved at 7.6 this morning and white blood count normalized at 8.2. Patient is having severe right and left lower quadrant abdominal discomfort and denies any nausea or vomiting. Patient is tolerating diet and being advanced per GI recommendations. Patient continues on IV steroids. Patient is receiving IV pain medications and discussed with nursing staff about weaning as tolerated and using other forms of pain medication as patient will not be going home on IV pain meds. This was also discussed with patient. GI continues to follow. 12/09/2020 Patient is still having some abdominal pain denied any blood in the stools or dark stools at this time. Although patient is highly noncompliant not a reliable historian 12/10/2020 Patient is still having nausea vomiting had his diet will be switched to full liquid diet from soft diet. Patient was also having significant pain although he is not complaining much of pain to me. His morphine will be increased to 4 mg every 4. Patient was also having recovered bloody stools. We'll obtain a basic metabolic profile and CBC for tomorrow. Patient will be continued on intravenous steroids. 12/11/2020 Issue is seen in follow-up continues to have some mild abdominal discomfort although states feels much better. Hemoglobin improving and patient was given iron transfusions 2. Patient is scheduled outpatient in 2 days to follow-up with GI Dr. Aguilar. Patient was also maintained on IV steroids and will continue on a prednisone taper which was sent to the pharmacy. Patient is requesting to go home today. Currently no reports of chest pain, shortness of breath, or palpitations. Patient is afebrile. No reports of nausea or vomiting and patient is tolerating diet. patient will be discharged to home today . guarded prognosis due to multiple readmissions for colitis flareups and noncompliance with medications. On exam vital signs are stable. Cardio S1, S2 are muffled. Respiratory system shows diminished breath sounds at the bases with no wheezing or rhonchi noted. Abdomen is soft and nontender. Nervous system shows no focal deficit. Please refer to medication reconciliation sheet for a list of medications. Patient Condition at Discharge: Fair Plan - Discharge Summary Discharge Rx Participant: No New Discharge Prescriptions: New Acetaminophen Tab [Tylenol] 1,000 mg PO Q8H PRN tab PRN Reason: PAIN/FEVER Hydrocortisone Pr Cream [Proctosol-Hc 2.5%] 1 applic RECTAL BID #30 applic Pantoprazole [Protonix] 40 mg PO DAILY tablet. rOPINIRole HCL [Requip] 0.25 mg PO HS #30 tab Continue Lidocaine 5% Patch [Lidoderm 5% Patch] 1 patch TOPICAL DAILY #7 patch Methocarbamol [Robaxin-750] 750 mg PO Q8HR PRN #42 tablet PRN Reason: Pain predniSONE See Taper PO DAILY Discharge Medication List Lidocaine 5% Patch [Lidoderm 5% Patch] 1 patch TOPICAL DAILY #7 patch 11/22/20 [Rx] Methocarbamol [Robaxin-750] 750 mg PO Q8HR PRN #42 tablet 11/22/20 [Rx] predniSONE See Taper PO DAILY 12/05/20 [History] Acetaminophen Tab [Tylenol] 1,000 mg PO Q8H PRN tab 12/11/20 [Rx] Hydrocortisone Pr Cream [Proctosol-Hc 2.5%] 1 applic RECTAL BID #30 applic 12/11/20 [Rx] Pantoprazole [Protonix] 40 mg PO DAILY tablet. 12/11/20 [Rx] rOPINIRole HCL [Requip] 0.25 mg PO HS #30 tab 12/11/20 [Rx] Follow up Appointment(s)/Referral(s): Neva Aguilar MD [STAFF PHYSICIAN] - 12/13/20 10:45 am (With Macey) None,Stated [Primary Care Provider] - 1-2 days Patient Instructions/Handouts: Colitis (ED) Activity/Diet/Wound Care/Special Instructions: Activity Limited until follow-up Follow-up with primary care provider upon discharge follow up with GI this week Continue current diet low fiber Continue with prednisone taper Follow-up primary care provider upon discharge Discharge Disposition: HOME SELF-CARE
== END 2020-12-11 13:10 | disposition home or self-care (01) | DRG 386 ==
LOC: EC 01:21 → 4SSUR 03:30
PROVIDERS: ADMIT Hospitalist; ATTEND Hospitalist
DX: K51.90 Ulcerative colitis, unspecified, without complications (principal); E87.2 Acidosis; E87.1 Hypo-osmolality and hyponatremia; D62 Acute posthemorrhagic anemia; G89.29 Other chronic pain; K29.70 Gastritis, unspecified, without bleeding; K21.00 Gastro-esophageal reflux disease with esophagitis, without bleeding; M54.5 Low back pain; E87.5 Hyperkalemia; D69.6 Thrombocytopenia, unspecified; E73.9 Lactose intolerance, unspecified; F17.210 Nicotine dependence, cigarettes, uncomplicated; R00.0 Tachycardia, unspecified; F41.9 Anxiety disorder, unspecified; Z91.14 Patient's other noncompliance with medication regimen; Z79.52 Long term (current) use of systemic steroids; Z87.19 Personal history of other diseases of the digestive system; Z89.022 Acquired absence of left finger(s)
CPT/HCPCS: 36415; 74018; 80048; 80053; 81001; 82150; 83540; 83550; 83605; 83690; 85025; 85027; 85652; 86140; 87040; 87324; 96361; 96374; 99285

== ENCOUNTER 2020-12-17 16:00 | Inpatient (IN) | payer OTHER ==
[2020-12-17] MEDS ORDERED: SODIUM CHLORIDE 0.9% 1,000 ML IV STA (16:24)
[2020-12-17] MEDS ORDERED: HYDROmorphone 1 MG/ML 1 ML SYRINGE IVP STA (16:24)
[2020-12-17 16:58] LABS: Anisocytosis Slight; Basophils % (A) 0 %; Eosinophils % (A) 0 %; HCT 30.7 % (39.0-53.0); HGB 9.1 gm/dL (13.0-17.5); Hypochromasia Marked; Lymphocytes # (A) 0.5 k/uL (1.0-4.8); Lymphocytes % (A) 5 %; MCH 19.5 pg (25.0-35.0); MCHC 29.7 g/dL (31.0-37.0); MCV 65.4 fL (80.0-100.0); Mean Platelet Volume 6.7; Microcytosis Marked; Monocytes # (A) 0.2 k/uL (0-1.0); Monocytes % (A) 2 %; Neutrophils # (A) 8.6 k/uL (1.3-7.7); Neutrophils % (A) 93 %; Platelet Count 561 k/uL (150-450); Poikilocytosis Slight; RBC 4.69 m/uL (4.30-5.90); WBC 9.2 k/uL (3.8-10.6)
[2020-12-17 17:09] LABS: ALT 14 U/L (4-49); AST 26 U/L (17-59); African American GFR (CKD) >90 (>60 ml/min/1.73 sqM); Alkaline Phosphatase 65 U/L (38-126); Amylase 66 U/L (30-110); Anion Gap 7 mmol/L; Blood Urea Nitrogen 5 mg/dL (9-20); Calcium 8.8 mg/dL (8.4-10.2); Carbon Dioxide 30 mmol/L (22-30); Chloride 96 mmol/L (98-107); Glucose 107 mg/dL (74-99); Lipase 451 U/L (23-300); Non-African American GFR(CKD) >90 (>60 ml/min/1.73 sqM); Potassium 4.6 mmol/L (3.5-5.1); Sodium 133 mmol/L (137-145); Total Bilirubin 0.2 mg/dL (0.2-1.3)
[2020-12-17 17:30] LABS: Appearance,Urine Clear (Clear); Bilirubin,Urine Negative (Negative); Blood,Urine Negative (Negative); Color,Urine Yellow; Glucose,Urine (UA) Negative (Negative); Ketones,Urine Negative (Negative); Leukocyte Esterase,Urine Negative (Negative); Nitrite,Urine Negative (Negative); PH, Urine 8.5 (5.0-8.0); Protein,Urine Trace (Negative); Urobilinogen,Urine <2.0 mg/dL (<2.0)
--- NOTE | 2020-12-17 17:32 | CT ---
EXAMINATION TYPE: CT abdomen pelvis w con DATE OF EXAM: 12/17/2020 COMPARISON: 11/27/2020 HISTORY: abdominal pain, nausea, vomiting CT DLP: 570.8 mGycm Automated exposure control for dose reduction was used. CONTRAST: Performed with IV Contrast, patient injected with 100 mL of Isovue 300. Images obtained from the diaphragm to the floor the pelvis with IV contrast. Lung bases are clear. There is no pleural effusion. Heart size is normal. Liver spleen stomach pancreas gallbladder appear normal. The bile ducts are not dilated. There is no adrenal mass. Kidneys show satisfactory contrast opacification. There is no hydronephrosi s. There is 1 cm cortical cyst lateral right kidney. There is no retroperitoneal adenopathy. Bladder distends smoothly. There is small amount of free fluid in the pelvis. There is no inguinal hernia. There is no mesenteric edema. There is small amount of free fluid in the left paracolic gutter. There is some evidence for mild wall thickening of the sigmoid colon. Exam limited by lack of intestinal c ontrast. There is no sign of free air. Appendix is not seen. The lumbar vertebra have normal alignment. Posterior elements are intact. There is no compression fra cture. The bony pelvis is intact. The hip joints are intact. There is no hip dysplasia. IMPRESSION: There is small amount of free fluid in the pelvis and left paracolic gutter. There is evidence for so me wall thickening of the sigmoid colon that could relate to inflammatory bowel disease. Fluid in the abdomen is a change compared to old exam.
[2020-12-17] MEDS ORDERED: NALOXONE 0.4 MG/ML 1 ML VIAL IV PRN (18:12)
--- NOTE | 2020-12-17 18:12 | ED ---
General Adult HPI - General Chief complaint: Abdominal Pain Stated complaint: Ulcerative Colitis Time Seen by Provider: 12/17/20 16:11 Source: patient, RN notes reviewed Mode of arrival: wheelchair Limitations: no limitations - History of Present Illness Initial comments: 35-year-old male with a past medical history of ulcerative colitis, GI bleed presents to the emergency room for a chief complaint of abdominal pain. Patient reports he has been having a flare of his ulcerative colitis. States she was discharged home about a week ago. States his pain has worsened again. States he is unable to tolerate oral intake. He has not been eating or drinking. Patient denies fevers.Patient has no other complaints at this time including shortness of breath, chest pain, headache, or visual changes. - Related Data Home Medications Medication Instructions Recorded Confirmed predniSONE See Taper PO DAILY 12/05/20 12/05/20 Previous Rx's Medication Instructions Recorded Lidocaine 5% Patch [Lidoderm 5% 1 patch TOPICAL DAILY #7 patch 11/22/20 Patch] Methocarbamol [Robaxin-750] 750 mg PO Q8HR PRN #42 tablet 11/22/20 Acetaminophen Tab [Tylenol] 1,000 mg PO Q8H PRN tab 12/11/20 Hydrocortisone Pr Cream 1 applic RECTAL BID #30 applic 12/11/20 [Proctosol-Hc 2.5%] Pantoprazole [Protonix] 40 mg PO DAILY tablet. 12/11/20 rOPINIRole HCL [Requip] 0.25 mg PO HS #30 tab 12/11/20 Allergies Allergy/AdvReac Type Severity Reaction Status Date / Time No Known Allergies Allergy Verified 12/17/20 16:04 Review of Systems ROS Statement: Those systems with pertinent positive or pertinent negative responses have been documented in the HPI. ROS Other: All systems not noted in ROS Statement are negative. Past Medical History Past Medical History: GERD/Reflux Additional Past Medical History / Comment(s): Pt recently admitted to [facility] on 07/26/20 with acute ulcerative colitis exacerbation, acute blood loss anemia 2ndary to lower GI bleed/transfusion, hyperkalemia. Other hx: chronic low back pain. History of Any Multi-Drug Resistant Organisms: None Reported Past Surgical History: Orthopedic Surgery Additional Past Surgical History / Comment(s): left hand industrial accident/finger amputations, EGD, colonoscopy. Past Anesthesia/Blood Transfusion Reactions: No Reported Reaction Additional Past Anesthesia/Blood Transfusion Reaction / Comment(s): Pt recently received blood without reaction. Past Psychological History: Anxiety Smoking Status: Former smoker Past Alcohol Use History: None Reported Past Drug Use History: Marijuana - Past Family History Father History Unknown: Yes Mother Family Medical History: No Reported History Additional Family Medical History / Comment(s): Healthy. General Exam Limitations: no limitations General appearance: alert Head exam: Present: atraumatic, normocephalic, normal inspection Eye exam: Present: normal appearance, PERRL, EOMI. Absent: scleral icterus, conjunctival injection, periorbital swelling ENT exam: Present: normal exam, mucous membranes moist Neck exam: Present: normal inspection. Absent: tenderness, meningismus, lymphadenopathy Respiratory exam: Present: normal lung sounds bilaterally. Absent: respiratory distress, wheezes, rales, rhonchi, stridor Cardiovascular Exam: Present: regular rate, normal rhythm, normal heart sounds. Absent: systolic murmur, diastolic murmur, rubs, gallop, clicks GI/Abdominal exam: Present: soft, tenderness (Generalized tenderness noted), normal bowel sounds. Absent: distended, guarding, rebound, rigid Neurological exam: Present: alert Course Vital Signs 12/17/20 18:01 Temperature 99.6 F Pulse Rate 73 Respiratory 18 Rate Blood Pressure 102/65 O2 Sat by Pulse 99 Oximetry Medical Decision Making - Medical Decision Making Patient presents initially distress secondary to pain. Abdomen is tender. Laboratory evaluation was initiated. CBC is unremarkable. Patient does have thrombocytosis which is likely reactive in nature. White blood cell count is normal at 9.2. CMP is unremarkable. Urinalysis does not show any evidence of infection. CT abdomen and pelvis shows a small amount of free fluid in the pelvis and left paracolic gutter. There is evidence for wall thickening of the sigmoid colon that could relate to inflammatory bowel disease. Fluid in abdomen is new compared to the old exam from November 27. Patient was reevaluated, continues to have severe abdominal pain after pain medication. Given new CT findings as well as significant pain we will admit patient for GI consultation and pain control. Patient would also benefit from IV fluids. - Lab Data Result diagrams: 12/17/20 16:36 12/17/20 16:36 Lab Results 07/18/21 07/18/21 07/18/21 Range/Units 16:36 16:36 16:36 WBC 9.2 (3.8-10.6) k/uL RBC 4.69 (4.30-5.90) m/uL Hgb 9.1 L (13.0-17.5) gm/dL Hct 30.7 L (39.0-53.0) % MCV 65.4 L (80.0-100.0) fL MCH 19.5 L (25.0-35.0) pg MCHC 29.7 L (31.0-37.0) g/dL RDW 19.0 H (11.5-15.5) % Plt Count 561 H (150-450) k/uL MPV 6.7 Neutrophils % 93 % Lymphocytes % 5 % Monocytes % 2 % Eosinophils % 0 % Basophils % 0 % Neutrophils # 8.6 H (1.3-7.7) k/uL Lymphocytes # 0.5 L (1.0-4.8) k/uL Monocytes # 0.2 (0-1.0) k/uL Eosinophils # 0.0 (0-0.7) k/uL Basophils # 0.0 (0-0.2) k/uL Hypochromasia Marked Poikilocytosis Slight Anisocytosis Slight Microcytosis Marked Sodium 133 L (137-145) mmol/L Potassium 4.6 (3.5-5.1) mmol/L Chloride 96 L (98-107) mmol/L Carbon Dioxide 30 (22-30) mmol/L Anion Gap 7 mmol/L BUN 5 L (9-20) mg/dL Creatinine 0.75 (0.66-1.25) mg/dL Est GFR (CKD-EPI)AfAm >90 (>60 ml/min/1.73 sqM) Est GFR (CKD-EPI)NonAf >90 (>60 ml/min/1.73 sqM) Glucose 107 H (74-99) mg/dL Calcium 8.8 (8.4-10.2) mg/dL Total Bilirubin 0.2 (0.2-1.3) mg/dL AST 26 (17-59) U/L ALT 14 (4-49) U/L Alkaline Phosphatase 65 (38-126) U/L Total Protein 6.0 L (6.3-8.2) g/dL Albumin 3.0 L (3.5-5.0) g/dL Amylase 66 (30-110) U/L Lipase 451 H (23-300) U/L Urine Color Yellow Urine Appearance Clear (Clear) Urine pH 8.5 H (5.0-8.0) Ur Specific [place] 1.050 H (1.001-1.035) Urine Protein Trace H (Negative) Urine Glucose (UA) Negative (Negative) Urine Ketones Negative (Negative) Urine Blood Negative (Negative) Urine Nitrite Negative (Negative) Urine Bilirubin Negative (Negative) Urine Urobilinogen <2.0 (<2.0) mg/dL Ur Leukocyte Esterase Negative (Negative) Disposition Clinical Impression: Abdominal pain, Thrombocytosis, Ulcerative colitis, Intractable abdominal pain Disposition: ADMITTED IP TO THIS HOSP Is patient prescribed a controlled substance at d/c from ED?: No Referrals: None,Stated [Primary Care Provider] - 1-2 days Time of Disposition: 18:12
[2020-12-17] MEDS: HYDROmorphone 1 MG/ML 1 ML SYRINGE IVP PRN ×2 (19:09→22:56)
[2020-12-17] MEDS: ONDANSETRON 4 MG/2 ML VIAL IVP PRN (19:09)
[2020-12-17] MEDS: SODIUM CHLORIDE 0.9% 1,000 ML IV SCH ×2 (19:10→22:57)
[2020-12-17] MEDS ORDERED: IBUPROFEN 400 MG TAB PO PRN (21:40)
[2020-12-17] MEDS: methylPREDNISolone SOD SUCCI 125 MG/2 ML VIAL IV SCH (22:57)
--- NOTE | 2020-12-17 23:01 | HP ---
HISTORY AND PHYSICAL DATE OF SERVICE: 12/17/2020 CHIEF COMPLAINT: Abdominal pain and diarrhea. HISTORY OF PRESENT ILLNESS: This 35-year-old gentleman with past medical history of ulcerative colitis, noncompliance was recently admitted with ulcerative colitis exacerbation. The patient treated with IV steroids. Patient was discharged home on a prednisone taper, but however currently the patient is complaining of abdominal pain and patient is not tolerating p.o. intake. The patient came to [facility] and was admitted for evaluation and treatment. A CT scan of the abdomen and pelvis was done which showed a small amount of fluid in the pelvis and paracolic gutter and evidence of some wall thickening of the sigmoid colon also noted. There is no history of fever, rigors, chills at this time. PAST MEDICAL HISTORY: History of GERD, history of ulcerative colitis, history of DJD, anxiety. MEDICATIONS: Home medications: Omeprazole, Robaxin, Motrin, dicyclomine, prednisone. ALLERGIES: None. FAMILY HISTORY: No history of heart disease or strokes family. SOCIAL HISTORY: History of smoking. REVIEW OF SYSTEMS: ENT: No diminished vision. No diminished hearing. CARDIO system: No angina. RESPIRATORY: No cough, hemoptysis. GI as mentioned earlier. : No dysuria. NERVOUS SYSTEM: No numbness, weakness. ALLERGY/IMMUNOLOGY: No asthma or hayfever. MUSCULOSKELETAL as mentioned earlier. HEMATOLOGY/ONCOLOGY: No history of anemia. ENDOCRINE: No history of diabetes or hypothyroidism. CONSTITUTIONAL: As mentioned earlier. DERMATOLOGY: Negative. RHEUMATOLOGY: Negative. PSYCHIATRIC: As mentioned earlier. PHYSICAL EXAMINATION: Alert and oriented x3. Pulse is 76. Blood pressure 93/52. Respirations 18. Temperature 97.7, pulse ox 100 percent on room air. HEENT: Conjunctivae normal. NECK: No JVD. CARDIOVASCULAR: S1, S2 muffled. RESPIRATORY SYSTEM: Breath sounds diminished at the bases. No rhonchi. No crackles. ABDOMEN: Soft. Mild diffuse tenderness. No mass palpable. LEGS: No edema. No swelling. NERVOUS SYSTEM: Higher functions as mentioned earlier. Moves all four limbs. No focal motor or sensory deficits. LYMPHATICS: No lymph nodes palpable in the neck, axillae or groin. SKIN: No ulcer, no rash and no bleeding. JOINTS: No active deforming arthropathy. LABS: WBC 9.8, hemoglobin 9.1. Sodium 133, potassium 4.6. UA noted. ASSESSMENT: 1. Acute ulcerative colitis, acute exacerbation. 2. Failure of outpatient treatment. 3. Anemia, microcytic secondary from chronic gastrointestinal blood loss. 4. Hyponatremia. 5. History of gastroesophageal reflux disease. 6. History of degenerative joint disease. 7. History of anxiety. 8. History of nicotine dependence. 9. FULL CODE. 10.Severe protein calorie malnutrition, BMI of 18.7. RECOMMENDATIONS AND DISCUSSION: This 35-year-old gentleman who presented with multiple complex medical issues, we will monitor the patient closely. Continue the current medications, management and symptomatic treatment. I recommend IV steroids as well as I would also recommend a GI consultation. Basic labs. Symptomatic treatment. Prognosis guarded because of multiple complex medical issues. Further recommendations to follow. Also recommend close followup with primary physician. MMODL / IJN: [id number] /
[2020-12-17 23:44] LABS: Amphetamine Screen,Urine Not Detected (NotDetected); Barbiturate Screen,Urine Not Detected (NotDetected); Benzodiazepines Screen,Urine Not Detected (NotDetected); Cocaine Screen,Urine Not Detected (NotDetected); Methadone Screen, Urine Not Detected (NotDetected); Opiate Screen,Urine Detected (NotDetected); Oxycodone Screen, Urine Not Detected (NotDetected); Phencyclidine Screen,Urine Not Detected (NotDetected); Tricyclic Antidepressant,Urine Not Detected (NotDetected); Urn Cannabinoid Scrn Detected (NotDetected)
[2020-12-18] MEDS: HYDROmorphone 1 MG/ML 1 ML SYRINGE IVP PRN ×4 (01:45→13:23)
[2020-12-18] MEDS: methylPREDNISolone SOD SUCCI 125 MG/2 ML VIAL IV SCH ×2 (04:56→11:30)
[2020-12-18] MEDS: SODIUM CHLORIDE 0.9% 1,000 ML IV SCH ×2 (07:52→15:06)
[2020-12-18] MEDS: HEPARIN SODIUM,PORCINE/PF 5,000 UNIT/0.5 ML SYRINGE SQ SCH ×2 (07:53→19:43)
[2020-12-18] MEDS: DICYCLOMINE 20 MG TAB PO PRN ×2 (07:53→12:34)
[2020-12-18] MEDS: NICOTINE 14MG/24HR PATCH TRANSDERM SCH (07:53)
[2020-12-18] MEDS: PANTOPRAZOLE 40 MG TABLET PO SCH (07:53)
[2020-12-18] MEDS ORDERED: predniSONE 10 MG TAB PO SCH (09:00)
[2020-12-18 11:39] LABS: Basophils # (A) 0.01 X 10*3/uL (0.00-0.10); Basophils % (A) 0.1 %; Eosinophils # (A) 0 X 10*3/uL (0.04-0.35); Eosinophils % (A) 0 %; HCT 26.9 % (39.6-50.0); Lymphocytes # (A) 0.59 X 10*3/uL (0.90-5.00); Lymphocytes % (A) 5.9 %; MCH 18.4 pg (27.0-32.0); MCV 70.6 fL (80.0-97.0); Monocytes # (A) 0.23 X 10*3/uL (0.20-1.00); Monocytes % (A) 2.3 %; Neutrophils % (A) 91.3 %; Platelet Count 569 X 10*3/uL (140-440); RBC 3.81 X 10*6/uL (4.40-5.60); RDW 21.5 % (11.5-14.5); WBC 10.07 X 10*3/uL (4.50-10.00)
[2020-12-18 11:50] LABS: African American GFR (CKD) 149.9 (60.0-200.0); Anion Gap 7.1 mmol/L (4.00-12.00); BUN/Creat Ratio 11.67 Ratio (12.00-20.00); Calcium 7.7 mg/dL (8.7-10.3); Carbon Dioxide 26.9 mmol/L (21.6-31.8); Non-African American GFR(CKD) 129.3 (60.0-200.0); Potassium 4.9 mmol/L (3.5-5.5)
[2020-12-18 11:52] VITALS: BMI 18.6
--- NOTE | 2020-12-18 15:46 | P.CONS ---
History of Present Illness - Reason for Consult Consult date: 12/18/20 ulcerative colitis Requesting physician: Cristofer Saldaña - Chief Complaint abdominal pain,diarrhea,rectal bleeding - History of Present Illness This is a 35-year-old white male who presented to the emergency department yesterday with complaints of abdominal pain she states started the day he was discharged. The patient was recently admitted last week and discharged home wi th acute colitis after being noncompliant with his medications. The patient states he did start taking his prednisone when he was discharged. He was supposed to have a follow-up appointment the next day after discharge with gastroenterology, however he states he called and was told he didn't have an appointment and has not received his Entyvio either. The patient has no significant past medical history other than recently being diagnosed with ulcerative colitis in June of this year. The patient was initially seen at [facility] in June where he underwent an EGD and colonoscopy on 06/28/2020 with findings of erosive esophagitis, mild gastritis and pancolitis. Pathology from procedure showed active colitis with features consistent with inflammatory bowel disease with crypt abscess on colonoscopy. He was initially started on tapered steroids, he was noncompliant and stopped his steroids due to symptoms of GERD, he ended up back in the hospital in July where he again was discharged with a tapered dose of steroids. He had followed up with gastroenterology and sees Macey Hsieh NP, and was recently started on Entyvio infusion, stating his first dose was approximately one month ago and he was due to receive his second dose yesterday. He states his symptoms return following his first dose of Entyvio. Admitting labs WBC 9.2, hemoglobin 9.1, hematocrit 30.7, platelet count 561, ESR 26, CRP 6.4. Review of Systems REVIEW OF SYSTEMS: CARDIOPULMONARY: No chest pain or shortness of breath. Gastrointestinal: Abdominal pain. No nausea or vomiting. No hematemesis, coffee-ground emesis. No rectal bleeding, or melena. Diarrhea. GENITOURINARY: No dysuria or hematuria. MUSCULOSKELETAL: Reports normal range of motion., Joint pain. SKIN: No rashes. No jaundice. ENDOCRINE: No chills, fevers. No excessive weight gain or loss. No polydipsia or polyuria. PSYCHIATRIC: Unremarkable. NEUROLOGY: No change in mental status. Denies dizziness, headache. ENT: Vision unremarkable. CONSTITUTIONAL: No recent weight loss. No fever, chills, night sweats. Past Medical History Past Medical History: GERD/Reflux Additional Past Medical History / Comment(s): Pt recently admitted to [facility] on 07/26/20 with acute ulcerative colitis exacerbation, acute blood loss anemia 2ndary to lower GI bleed/transfusion, hyperkalemia. Other hx: chronic low lona k pain. History of Any Multi-Drug Resistant Organisms: None Reported Past Surgical History: Orthopedic Surgery Additional Past Surgical History / Comment(s): left hand industrial accident/finger amputations, EGD, colonoscopy. Past Anesthesia/Blood Transfusion Reactions: No Reported Reaction Additional Past Anesthesia/Blood Transfusion Reaction / Comm: Pt recently received blood without reaction. Past Psychological History: Anxiety Additional Psychological History / Comment(s): Pt resides with his mother. He is independent. Smoking Status: Former smoker Past Alcohol Use History: None Reported Additional Past Alcohol Use History / Comment(s): Pt started smoking in 1999 Past Drug Use History: Marijuana Additional Drug Use History / Comment(s): Occasional marijuana use. - Past Family History Father History Unknown: Yes Mother Family Medical History: No Reported History Additional Family Medical History / Comment(s): Healthy. Medications and Allergies Home Medications Medication Instructions Recorded Confirmed Type Methocarbamol [Robaxin-750] 750 mg PO Q8HR PRN #42 tablet 11/22/20 12/17/20 Rx predniSONE See Taper PO DAILY 12/05/20 12/17/20 History Dicyclomine HCl 20 mg PO QID PRN 12/17/20 12/17/20 History Ibuprofen [Motrin] 400 mg PO Q6H PRN 12/17/20 12/17/20 History Omeprazole 20 mg PO DAILY 12/17/20 12/17/20 History Allergies Allergy/AdvReac Type Severity Reaction Status Date / Time No Known Allergies Allergy Verified 12/17/20 19:07 Physical Exam Vitals: Vital Signs Temp Pulse Pulse Resp BP BP Pulse Ox 12/18/20 07:33 98.4 F 61 19 96/56 98 12/18/20 00:59 97.7 F 63 14 100/54 98 12/17/20 21:37 76 18 12/17/20 21:25 97.7 F 76 18 93/54 100 12/17/20 21:09 99.3 F 76 18 98/61 99 12/17/20 18:01 99.6 F 73 18 102/65 99 Intake and Output 12/17/20 12/18/20 12/18/20 22:59 06:59 14:59 Output Total 300 Balance -300 Output: Urine 300 Other: Weight 60.781 kg General appearance: The patient is alert, oriented, appears in no acute distress. HET: Head is normocephalic and atraumatic. Conjunctiva pink. Sclera anicteric. Neck: Supple without lymphadenopathy. Trachea midline. Heart: S1 S2. Regular rate and rhythm. Lungs: Clear to auscultation. Abdomen: Soft, nontender, nondistended with bowel sounds. No guarding or rigidity. Skin: No rashes. No jaundice. Extremities: Normal skin color and turgor. No pedal edema. Neurological: No focal deficits. Alert and oriented 3.. Results CBC & Chem 7: 12/18/20 05:48 12/18/20 05:48 Labs: Abnormal Lab Results - Last 24 Hours (Table) 12/17/20 12/17/20 12/17/20 Range/Units 16:36 16:36 16:36 Hgb 9.1 L (13.0-17.5) gm/dL Hct 30.7 L (39.0-53.0) % MCV 65.4 L (80.0-100.0) fL MCH 19.5 L (25.0-35.0) pg MCHC 29.7 L (31.0-37.0) g/dL RDW 19.0 H (11.5-15.5) % Plt Count 561 H (150-450) k/uL Neutrophils # 8.6 H (1.3-7.7) k/uL Lymphocytes # 0.5 L (1.0-4.8) k/uL ESR (0-15) mm/hr Sodium 133 L (137-145) mmol/L Chloride 96 L (98-107) mmol/L BUN 5 L (9-20) mg/dL Glucose 107 H (74-99) mg/dL C-Reactive Protein (<1.0) mg/dL Total Protein 6.0 L (6.3-8.2) g/dL Albumin 3.0 L (3.5-5.0) g/dL Lipase 451 H (23-300) U/L Urine pH 8.5 H (5.0-8.0) Ur Specific [place] 1.050 H (1.001-1.035) Urine Protein Trace H (Negative) Urine Opiates Screen (NotDetected) U Marijuana (THC) Screen (NotDetected) 12/17/20 12/17/20 12/17/20 Range/Units 22:50 22:54 22:54 Hgb (13.0-17.5) gm/dL Hct (39.0-53.0) % MCV (80.0-100.0) fL MCH (25.0-35.0) pg MCHC (31.0-37.0) g/dL RDW (11.5-15.5) % Plt Count (150-450) k/uL Neutrophils # (1.3-7.7) k/uL Lymphocytes # (1.0-4.8) k/uL ESR 26 H (0-15) mm/hr Sodium (137-145) mmol/L Chloride (98-107) mmol/L BUN (9-20) mg/dL Glucose (74-99) mg/dL C-Reactive Protein 6.4 H (<1.0) mg/dL Total Protein (6.3-8.2) g/dL Albumin (3.5-5.0) g/dL Lipase (23-300) U/L Urine pH (5.0-8.0) Ur Specific [place] (1.001-1.035) Urine Protein (Negative) Urine Opiates Screen Detected H (NotDetected) U Marijuana (THC) Screen Detected H (NotDetected) CT scan - abdomen: report reviewed (Small amount of free fluid in the pelvis and left paracolic gutter. There is evidence for some wall thickening of the sigmoid colon that could relate to inflammatory bowel disease. Fluid in the abdomen is change compared to old exam.) Assessment and Plan (1) Ulcerative colitis Narrative/Plan: 35-year-old male who presented to the hospital with abdominal pain. Patient was recently hospitalized and discharged on 12/11/2020 for exacerbation of ulcerative colitis, and was noncompliant with his medication. The patient follows with gastroenterology and was started on Entyvio infusions last month, he was due for his second dose 2-3 weeks ago but presented to the hospital with abdominal pain and multiple episodes of diarrhea and blood per rectum. He was admitted and started on IV Solu-Medrol and subsequently discharged home with a tapered dose of steroids which he states he is taking. His last colonoscopy was 06/28/[address] [facility] showing evidence of olmedo colitis. 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 Patient is readmitted to the hospital with abdominal pain, he is requesting IV Dilaudid every 3 hours. He denies any rectal bleeding, he states he is having loose bowels up to 2-3 times a day, which is improved for him. Current Visit: Yes Status: Acute Code(s): K51.90 - ULCERATIVE COLITIS, UNSPECIFIED, WITHOUT COMPLICATIONS SNOMED Code(s): 41385779 (2) Abdominal pain Current Visit: Yes Status: Acute Code(s): R10.9 - UNSPECIFIED ABDOMINAL PAIN SNOMED Code(s): 34298586 Plan: 1. Clear liquid diet 2. Bentyl 20 mg 3 times a day, [id number] 3. Discussed with patient importance of medication compliance 4. We do not recommend continued IV pain medications, consider transitioning to oral as needed. Bentyl prescribed for abdominal cramping 5. CT of the abdomen reviewed 6. Recommend repeat outpatient colonoscopy in the next 4-8 weeks 7. Recommend patient continue follow-up with gastroenterology and schedule an Entyvio infusion 8. The patient continues to have abdominal pain, consider surgical consultation Thank you for this consultation, we will continue to follow Dr. Kelly I agree with the dictator's note, documented as a scribe by Crystal Condon.
[2020-12-18] MEDS: DICYCLOMINE 20 MG TAB PO SCH ×2 (16:00→19:43)
[2020-12-18] MEDS: methylPREDNISolone SOD SUCCI 40 MG/ML 1 ML VIAL IV SCH ×2 (16:00→21:02)
[2020-12-18] MEDS: HYDROcodone/APAP 5-325MG 1 EACH TAB PO PRN (19:43)
--- NOTE | 2020-12-18 21:48 | PN ---
PROGRESS NOTE DATE OF SERVICE: 12/18/2020 This 35-year-old gentleman was admitted with abdominal pain and possibly ulcerative colitis acute exacerbation. No chest pain. No palpitations. No fever. EXAM: Alert and oriented x3. Pulse is 60, blood pressure 118/70, respiration 18, temperature 97.8, pulse ox 100% on room air. HEENT: Conjunctivae pale. Oral mucosa moist. NECK: No jugular venous distention. No lymph node enlargement. CARDIOVASCULAR: S1, S2, muffled. No S3, no S4, RESPIRATORY: Diminished breath sounds at the bases. Scattered rhonchi and crackles. ABDOMEN: Soft, nontender. LEGS: No edema, no swelling. NERVOUS SYSTEM: No focal deficits. LAB STUDIES: WBC 10.2, hemoglobin 7, sodium 130. ASSESSMENT: 1. Severe abdominal pain with ulcerative colitis acute exacerbation. 2. Anemia, possibly acute on chronic gastrointestinal blood loss anemia. 3. Increased WBC. 4. Hyponatremia. 5. Failure of outpatient treatment. 6. History of GERD. 7. History of DJD. 8. History of anxiety. 9. History of nicotine dependence. 10.Severe protein calorie malnutrition, BMI of 18.7. 11.FULL CODE. RECOMMENDATIONS: Continue current medications, continue with IV steroids, monitor blood sugars closely. Otherwise, we will monitor the hemoglobin and if hemoglobin falls less than 7 I will transfuse the patient. Closely follow with Gastroenterology. Prognosis guarded because of multiple complex medical issues. Further recommendations to follow. MMODL / IJN: [id number] /
[2020-12-18] MEDS: TEMAZEPAM 15 MG CAP PO PRN (22:35)
[2020-12-19 04:43] LABS: % Iron Saturation 4.17 (15.00-50.00)
[2020-12-19 04:48] LABS: Ferritin 151.4 ng/mL (22.0-322.0)
[2020-12-19] MEDS: HYDROcodone/APAP 5-325MG 1 EACH TAB PO PRN ×3 (06:19→18:23)
[2020-12-19] MEDS: methylPREDNISolone SOD SUCCI 40 MG/ML 1 ML VIAL IV SCH ×3 (07:55→23:57)
[2020-12-19] MEDS: HEPARIN SODIUM,PORCINE/PF 5,000 UNIT/0.5 ML SYRINGE SQ SCH ×2 (08:12→20:42)
[2020-12-19] MEDS: NICOTINE 14MG/24HR PATCH TRANSDERM SCH (08:12)
[2020-12-19] MEDS: DICYCLOMINE 20 MG TAB PO SCH ×3 (08:12→20:42)
[2020-12-19] MEDS: PANTOPRAZOLE 40 MG TABLET PO SCH (08:12)
[2020-12-19] MEDS: SODIUM FERRIC GLUCONAT-SUCROSE 125 MG in SODIUM CHLORIDE 0.9% 100 ML IVPB SCH (09:46)
--- NOTE | 2020-12-19 11:51 | P.PN ---
Subjective Progress Note Date: 12/19/20 Principal diagnosis: Ulcerative colitis, abdominal pain Patient is seen and examined. He just had a small loose bowel movement, states small amount of blood. Complains feeling of and crying out with abdominal pain states he has the pain and it is severe prior to having a bowel movement and afterwards lasting approximately 30 minutes. Denies any nausea or vomiting. States he has had 3 bowel movements today, they are smaller in amount, feels like some constipation. He received IV iron. Today's labs are currently pending. Objective - Vital Signs Vital signs: Vital Signs Temp 98.4 F 12/19/20 07:18 Pulse 60 12/19/20 07:18 Resp 16 12/19/20 07:18 BP 104/54 12/19/20 07:18 Pulse Ox 98 12/19/20 07:18 Intake & Output 12/18/20 12/19/20 12/19/20 18:59 06:59 18:59 Intake Total 600 240 Output Total 300 Balance 300 240 Weight 60.781 kg Intake: Oral 600 240 Output: Urine 300 Other: # Voids 3 2 # Bowel Movements 1 1 - Exam General appearance: The patient is alert, oriented, appears in no acute distress. Thin. HET: Head is normocephalic and atraumatic. Conjunctiva pink. Sclera anicteric. Neck: Supple without lymphadenopathy. Abdomen: Soft, thin, left lower quadrant tenderness, nondistended with bowel sounds. No guarding or rigidity. Extremities: Normal skin color and turgor. No pedal edema Skin: No rashes, no jaundice Neurological: No focal deficits. Alert and oriented 3. - Labs CBC & Chem 7: 12/18/20 05:48 12/18/20 05:48 Labs: Abnormal Lab Results - Last 24 Hours (Table) 12/18/20 12/18/20 12/18/20 Range/Units 05:26 05:30 05:48 ESR 42 H (0-15) mm/Hr Sodium 134 L (135-145) mmol/L BUN 7.0 L (9.0-27.0) mg/dL BUN/Creatinine Ratio 11.67 L (12.00-20.00) Ratio Calcium 7.7 L (8.7-10.3) mg/dL Iron 9 L (65-175) ug/dL TIBC 216 L (228-460) ug/dL % Saturation 4.17 L (15.00-50.00) Assessment and Plan (1) Ulcerative colitis Narrative/Plan: 35-year-old male who presented to the hospital with abdominal pain. Patient was recently hospitalized and discharged on 12/11/2020 for exacerbation of ulcerative colitis, and was noncompliant with his medication. The patient follows with gastroenterology and was started on Entyvio infusions last month, he was due for his second dose 2-3 weeks ago but presented to the hospital with abdominal pain and multiple episodes of diarrhea and blood per rectum. He was admitted and started on IV Solu-Medrol and subsequently discharged home with a tapered dose of steroids which he states he is taking. His last colonoscopy was 06/28/2020 done at [facility] showing evidence of olmedo colitis. 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 Patient is readmitted to the hospital with abdominal pain, he is requesting IV Dilaudid every 3 hours. He denies any rectal bleeding, he states he is having loose bowels up to 2-3 times a day, which is improved for him. Current Visit: Yes Status: Acute Code(s): K51.90 - ULCERATIVE COLITIS, UNSPECIFIED, WITHOUT COMPLICATIONS SNOMED Code(s): 22161835 (2) Abdominal pain Current Visit: Yes Status: Acute Code(s): R10.9 - UNSPECIFIED ABDOMINAL PAIN SNOMED Code(s): 23754151 Plan: 1. Continue Clear liquid diet 2. Bentyl 20 mg 3 times a day, [id number] 3. Discussed with patient importance of medication compliance 4. Continue Bentyl 5. CT of the abdomen reviewed 6. Abdominal x-ray ordered 7. Recommend repeat outpatient colonoscopy in the next 4-8 weeks 8. Recommend patient continue follow-up with gastroenterology and schedule an Entyvio infusion 9. General surgery consulted per Primary Medicine team Thank you for this consultation, we will continue to follow Dr. Kelly I agree with the dictator's note, documented as a scribe by Crystal Condon.
[2020-12-19] MEDS: SODIUM CHLORIDE 0.9% 1,000 ML IV SCH (12:15)
--- NOTE | 2020-12-19 13:01 | XR ---
2 view abdomen HISTORY: Abdominal pain 2 views of the abdomen on [address] scan dated 12/17/2020 No evident bowel obstruction or pneumoperitoneum. Bone mineralization is normal. Lung bases are clear . Possible phleboliths present within the pelvis. There is a slight spinal curvature. IMPRESSION: Nonspecific bowel gas pattern.
--- NOTE | 2020-12-19 13:06 | P.GSCN ---
History of Present Illness Consult date: 12/19/20 History of present illness: CHIEF COMPLAINT: Abdominal pain HISTORY OF PRESENT ILLNESS: This is a 35-year-old male with a known past medical history of ulcerative colitis. He presents to the emergency room with complaints of abdominal pain. He felt that he was having a flareup of his ulcerative colitis. He had a recent hospitalization about a week ago and feels that his pain has worsened again. He had a computed tomography scan of the abdomen and pelvis showing small amount of free fluid in the pelvis and left paracolic gutter. There is evidence for some wall thickening of the sigmoid colon that could relate to inflammatory bowel disease. Fluid in the abdomen is a change compared to old exam. Patient followed by GI service. He is currently on IV steroids for his ulcerative colitis. GI no reported that patient has been noncompliant with his ulcerative colitis medication and treatment. Surgical service consult in regards to abdominal pain. PAST MEDICAL HISTORY: See list. PAST SURGICAL HISTORY: See list. MEDICATIONS: See list. ALLERGIES: See list. SOCIAL HISTORY: No illicit drug use. REVIEW OF SYSTEMS: CONSTITUTIONAL: Denies fever or chills. HEENT: Denies blurred vision, vision changes, or eye pain. Denies hemoptysis CARDIOVASCULAR: Denies chest pain or pressure. RESPIRATORY: No shortness of breath. GASTROINTESTINAL: See HPI for pertinent findings HEMATOLOGIC: Denies bleeding disorders. GENITOURINARY: Denies any blood in urine or increased urinary frequency. SKIN: Denies pruitis. Denies rash. PHYSICAL EXAM: VITAL SIGNS: Reviewed GENERAL: Well-developed in no acute distress. HEENT: No sclera icterus. Extraocular movements grossly intact. Moist buccal mucosa. Head is atraumatic, normocephalic. No nasal drainage. ABDOMEN: Soft. Nondistended. Tenderness patient of the left side of the abdomen NEUROLOGIC: Alert and oriented. Cranial nerves II through XII grossly intact. LABORATORY DATA: WBC 10.07 hemoglobin 7.0 platelets 569 Sodium 134 potassium 4.9 creatinine 0.6 iron low at 9 AST 26 ALT 14 CRP 6.6 lip ase 450 IMAGING: computed tomography scan of the abdomen and pelvis showing small amount of free fluid in the pelvis and left paracolic gutter. There is evidence for some wall thickening of the sigmoid colon that could relate to inflammatory bowel disease. Fluid in the abdomen is a change compared to old exam. ASSESSMENT: 1. Ulcerative colitis exacerbation with continuous abdominal pain 2. Iron deficiency anemia receiving iron transfusion PLAN: -No surgical intervention planned -Continue conservative management -Continue steroids per GI service -We'll continue to follow Thank you for this consultation Physician Academic Affairs Coordinator note has been reviewed by physician. Signing provider agrees with the documented findings, assessment, and plan of care. Past Medical History Past Medical History: GERD/Reflux Additional Past Medical History / Comment(s): Pt recently admitted to [facility] on 07/26/20 with acute ulcerative colitis exacerbation, acute blood loss anemia 2ndary to lower GI bleed/transfusion, hyperkalemia. Other hx: chronic low back pain. History of Any Multi-Drug Resistant Organisms: None Reported Past Surgical History: Orthopedic Surgery Additional Past Surgical History / Comment(s): left hand industrial accident/finger amputations, EGD, colonoscopy. Past Anesthesia/Blood Transfusion Reactions: No Reported Reaction Additional Past Anesthesia/Blood Transfusion Reaction / Comm: Pt recently received blood without reaction. Past Psychological History: Anxiety Additional Psychological History / Comment(s): Pt resides with his mother. He is independent. Smoking Status: Former smoker Past Alcohol Use History: None Reported Additional Past Alcohol Use History / Comment(s): Pt started smoking in 1999 Past Drug Use History: Marijuana Additional Drug Use History / Comment(s): Occasional marijuana use. - Past Family History Father History Unknown: Yes Mother Family Medical History: No Reported History Additional Family Medical History / Comment(s): Healthy. Medications and Allergies Home Medications Medication Instructions Recorded Confirmed Type Methocarbamol [Robaxin-750] 750 mg PO Q8HR PRN #42 tablet 11/22/20 12/17/20 Rx predniSONE See Taper PO DAILY 12/05/20 12/17/20 History Dicyclomine HCl 20 mg PO QID PRN 12/17/20 12/17/20 History Ibuprofen [Motrin] 400 mg PO Q6H PRN 12/17/20 12/17/20 History Omeprazole 20 mg PO DAILY 12/17/20 12/17/20 History Allergies Allergy/AdvReac Type Severity Reaction Status Date / Time No Known Allergies Allergy Verified 12/17/20 19:07 Surgical - Exam Vital Signs Temp Pulse Resp BP Pulse Ox 99.6 F 73 18 102/65 99 12/17/20 18:01 12/17/20 18:01 12/17/20 18:01 12/17/20 18:01 12/17/20 18:01 Results - Labs 12/18/20 05:48 12/18/20 05:48 Abnormal Lab Results - Last 24 Hours (Table) 12/18/20 12/18/20 Range/Units 05:26 05:30 ESR 42 H (0-15) mm/Hr Iron 9 L (65-175) ug/dL TIBC 216 L (228-460) ug/dL % Saturation 4.17 L (15.00-50.00)
[2020-12-19 14:38] LABS: African American GFR (CKD) 149.9 (60.0-200.0); Anion Gap 5.8 mmol/L (4.00-12.00); BUN/Creat Ratio 13.33 Ratio (12.00-20.00); C Reactive Protein 3.8 mg/dL (0.0-0.8); Calcium 8.1 mg/dL (8.7-10.3); Carbon Dioxide 29.2 mmol/L (21.6-31.8); Non-African American GFR(CKD) 129.3 (60.0-200.0); Potassium 4.3 mmol/L (3.5-5.5)
[2020-12-19 16:07] LABS: Basophils # (A) 0.01 X 10*3/uL (0.00-0.10); Basophils % (A) 0.1 %; Eosinophils # (A) 0 X 10*3/uL (0.04-0.35); Eosinophils % (A) 0 %; Lymphocytes % (A) 13.1 %; Monocytes # (A) 0.73 X 10*3/uL (0.20-1.00); Neutrophils # (A) 7.19 X 10*3/uL (1.80-7.70); Neutrophils % (A) 78.6 %
[2020-12-19 16:09] LABS: HCT 25.5 % (39.6-50.0); HGB 6.9 g/dL (13.0-17.0); Hypochromasia (M) 2+; MCH 19.2 pg (27.0-32.0); MCHC 27.1 g/dL (32.0-37.0); MCV 70.8 fL (80.0-97.0); Mean Platelet Volume 9.9 fL (9.5-12.2); Microcytosis (M) 2+; Platelet Count 578 X 10*3/uL (140-440); RDW 21.2 % (11.5-14.5); WBC 9.15 X 10*3/uL (4.50-10.00)
[2020-12-19 18:28] LABS: Erythrocyte Sedimentation Rate 32 mm/Hr (0-15)
--- NOTE | 2020-12-19 22:37 | P.PN ---
Subjective this is a pleasant 35 yo M with past medical history of ulcerative colitis with frequent hospitalization for UC flare up , and there is concern about pt compliance as well, who presents this time with similar complaints of abdominal pain and tenderness especially in the lower abdomen, also with elevated EST & CRP , CT of abd and pelvis showing evidance of mildly inflamed sigmoid colon with fluid in the abd gutter of the colons. he is started on solumedrol of 20 mg and GI team are following , today we consulted surgical team who recommended co nservatice management abd xr: non specific gas pattern c diff is negative pt is with low HB 6.9 and started on iv iron x3 doses will need outpt follow with GI eg repeat colonoscopy in 4-8 weeks Objective - Vital Signs Vital signs: Vital Signs Temp 98.5 F 12/19/20 20:00 Pulse 68 12/19/20 20:00 Resp 16 12/19/20 20:00 BP 100/61 12/19/20 20:00 Pulse Ox 98 12/19/20 20:00 Intake & Output 12/19/20 12/19/20 12/20/20 06:59 18:59 06:59 Intake Total 600 240 Output Total 300 Balance 300 240 Intake: Oral 600 240 Output: Urine 300 Other: # Voids 2 3 # Bowel Movements 1 - Exam GENERAL: The patient is alert and oriented x3, not in any acute distress. Well developed, well nourished. HEENT: Pupils are round and equally reacting to light. EOMI. No scleral icterus. No conjunctival pallor. Normocephalic, atraumatic. No pharyngeal erythema. No thyromegaly. CARDIOVASCULAR: S1 and S2 present. No murmurs, rubs, or gallops. PULMONARY: Chest is clear to auscultation, no wheezing or crackles. -ABDOMEN: Soft, lower abd tendress dominique in LLQ, nondistended, normoactive bowel sounds. No palpable organomegaly. MUSCULOSKELETAL: No joint swelling or deformity. EXTREMITIES: No cyanosis, clubbing, or pedal edema. NEUROLOGICAL: Gross neurological examination did not reveal any focal deficits. SKIN: No rashes. no petechiae. - Labs CBC & Chem 7: 12/19/20 06:22 12/19/20 06:22 Labs: Abnormal Lab Results - Last 24 Hours (Table) 12/18/20 12/19/2021 Range/Units 05:30 06:22 06:22 RBC 3.60 L (4.40-5.60) X 10*6/uL Hgb 6.9 L* (13.0-17.0) g/dL Hct 25.5 L (39.6-50.0) % MCV 70.8 L (80.0-97.0) fL MCH 19.2 L (27.0-32.0) pg MCHC 27.1 L (32.0-37.0) g/dL RDW 21.2 H (11.5-14.5) % Plt Count 578 H (140-440) X 10*3/uL Plt Count Comment INCREASED A Eosinophils # 0 L (0.04-0.35) X 10*3/uL ESR 32 H (0-15) mm/Hr BUN 8.0 L (9.0-27.0) mg/dL Calcium 8.1 L (8.7-10.3) mg/dL Iron 9 L (65-175) ug/dL TIBC 216 L (228-460) ug/dL % Saturation 4.17 L (15.00-50.00) C-Reactive Protein 3.8 H (0.0-0.8) mg/dL Assessment and Plan Assessment: ulcerative colitis flaure up sever anemia moderate to sever calories protein malnutrition nicotine dependance Plan: this is a pleasant 73 yo M who presents with UC flare up c/w solumedrol and bentyl GI and surgery team on the case c/w iv iron x 3 doses needs outpatient colonoscopy in 4-8 weeks Labs and medication were reviewed.. Continue same treatment. Continue with symptomatic treatment. Resume home medication. Monitor lytes and vitals. DVT and GI prophylaxis. Further recommendations as per clinical course of the p atient DVT prophylaxis: heparin GI Prophylaxis: Ppi
[2020-12-20] MEDS: HYDROcodone/APAP 5-325MG 1 EACH TAB PO PRN ×5 (00:26→23:23)
[2020-12-20] MEDS: methocarbamoL 750 MG TAB PO PRN (03:37)
[2020-12-20 08:25] LABS: Anisocytosis Slight; Basophils % (A) 0 %; Eosinophils % (A) 1 %; HCT 26.1 % (39.0-53.0); Hypochromasia Marked; Lymphocytes # (A) 0.7 k/uL (1.0-4.8); Lymphocytes % (A) 9 %; MCH 19.4 pg (25.0-35.0); MCHC 28.3 g/dL (31.0-37.0); MCV 68.6 fL (80.0-100.0); Mean Platelet Volume 6.6; Microcytosis Marked; Monocytes # (A) 0.5 k/uL (0-1.0); Monocytes % (A) 6 %; Neutrophils # (A) 6.7 k/uL (1.3-7.7); Neutrophils % (A) 84 %; Platelet Count 551 k/uL (150-450); RDW 19.1 % (11.5-15.5)
[2020-12-20 08:37] LABS: HGB 7.4 gm/dL (13.0-17.5)
[2020-12-20] MEDS: DICYCLOMINE 20 MG TAB PO SCH ×3 (09:40→23:22)
[2020-12-20] MEDS: PANTOPRAZOLE 40 MG TABLET PO SCH (09:40)
[2020-12-20] MEDS: HEPARIN SODIUM,PORCINE/PF 5,000 UNIT/0.5 ML SYRINGE SQ SCH ×2 (09:52→23:23)
[2020-12-20] MEDS: NICOTINE 14MG/24HR PATCH TRANSDERM SCH (09:52)
--- NOTE | 2020-12-20 11:49 | P.PN ---
Subjective Progress Note Date: 12/20/20 CHIEF COMPLAINT: Abdominal pain HISTORY OF PRESENT ILLNESS: Surgical service is following regards to patient's abdominal pain. He is currently hospitalized for ulcerative colitis exacerbation. Patient does report a slight improvement in his abdominal pain today compared to admission. He is still having some nausea. Reports multiple bowel movements that are liquidy. And occasionally he has blood in his stools. Abdominal x-ray shows a nonspecific bowel gas pattern. Currently on a clear liquid diet. He did have a temp this morning of 100.2 heart rate was 103. WBC 8.0 hemoglobin 7.4 up from 6.9. Patient's been receiving IV iron. PHYSICAL EXAM: VITAL SIGNS: Reviewed. GENERAL: Well-developed in no acute distress. HEENT: No sclera icterus. Extraocular movements grossly intact. Moist buccal mucosa. Head is atraumatic, normocephalic. ABDOMEN: Soft. Nondistended. Tenderness mostly on the left side of the abdomen NEUROLOGIC: Alert and oriented. Cranial nerves II through XII grossly intact. ASSESSMENT: 1. Ulcerative colitis exacerbation with continuous abdominal pain 2. Iron deficiency anemia receiving iron transfusion PLAN: -No surgical intervention planned -Continue conservative management -Continue steroids per GI service -Continue clear liquid diet -Midline ordered due to no IV access Physician Aircraft Assembler note has been reviewed by physician. Signing provider agrees with the documented findings, assessment, and plan of care. Objective - Vital Signs Vital signs: Vital Signs Temp 99.2 F 12/20/20 07:28 Pulse 90 12/20/20 07:28 Resp 13 12/20/20 06:50 BP 102/57 12/20/20 07:28 Pulse Ox 97 12/20/20 07:28 Intake & Output 12/19/20 12/20/20 12/20/20 18:59 06:59 18:59 Intake Total 240 Output Total 200 Balance 240 -200 Intake: Oral 240 Output: Stool 200 Other: # Voids 3 3 # Bowel Movements 2 - Labs CBC & Chem 7: 12/20/20 08:05 12/19/20 06:22 Labs: Abnormal Lab Results - Last 24 Hours (Table) 12/19/20 12/19/20 12/20/20 Range/Units 06:22 06:22 08:05 RBC 3.60 L 3.80 L (4.40-5.60) X 10*6/uL Hgb 6.9 L* 7.4 L D (13.0-17.0) g/dL Hct 25.5 L 26.1 L (39.6-50.0) % MCV 70.8 L 68.6 L (80.0-97.0) fL MCH 19.2 L 19.4 L (27.0-32.0) pg MCHC 27.1 L 28.3 L (32.0-37.0) g/dL RDW 21.2 H 19.1 H (11.5-14.5) % Plt Count 578 H 551 H (140-440) X 10*3/uL Plt Count Comment INCREASED A Lymphocytes # 0.7 L (1.0-4.8) k/uL Eosinophils # 0 L (0.04-0.35) X 10*3/uL ESR 32 H (0-15) mm/Hr BUN 8.0 L (9.0-27.0) mg/dL Calcium 8.1 L (8.7-10.3) mg/dL C-Reactive Protein 3.8 H (0.0-0.8) mg/dL
[2020-12-20] MEDS: methylPREDNISolone SOD SUCCI 40 MG/ML 1 ML VIAL IV SCH ×3 (12:43→23:24)
[2020-12-20] MEDS: MESALAMINE 4 GM/60 ML ENEMA RECTAL SCH ×3 (12:50→23:34)
[2020-12-20] MEDS: SODIUM FERRIC GLUCONAT-SUCROSE 125 MG in SODIUM CHLORIDE 0.9% 100 ML IVPB SCH (14:01)
[2020-12-20] MEDS: SODIUM CHLORIDE 0.9% 1,000 ML IV SCH (14:03)
--- NOTE | 2020-12-20 15:00 | P.PN ---
Subjective this is a pleasant 35 yo M with past medical history of ulcerative colitis with frequent hospitalization for UC flare up , and there is concern about pt compliance as well, who presents this time with similar complaints of abdominal pain and tenderness especially in the lower abdomen, also with elevated EST & CRP , CT of abd and pelvis showing evidance of mildly inflamed sigmoid colon with fluid in the abd gutter of the colons. he is started on solumedrol of 20 mg and GI team are following , today we consulted surgical team who recommended co nservatice management abd xr: non specific gas pattern c diff is negative pt is with low HB 6.9, 7.4 and started on iv iron x3 doses will need outpt follow with GI eg repeat colonoscopy in 4-8 weeks 12/20/2020 Patient is still complaining of from the lower abdominal pain and tenderness, from small frequent bowel movements with some blood, patient reports about 13 of them overnight. No nausea vomiting. He is hemodynamically stable but is developing low-grade temperature today of 100.2. His hemoglobin improved to 6.9 up to 7.4 today. We continued on IV iron for today and tomorrow. He remains on Solu-Medrol 20 mg 3 times a day, Normal saline at 50 mL per hour surgery and GI team on the case. As the case with GI team today, slack patient is noncompliant with his medication which wasn't him to have this frequent exacerbation of UC. He missed his dose of Entyvio infusion We will discuss with field nurse case manager to see if she can help with setting a new appointment for him Objective - Vital Signs Vital signs: Vital Signs Temp 99.2 F 12/20/20 07:28 Pulse 90 12/20/20 07:28 Resp 13 12/20/20 06:50 BP 102/57 12/20/20 07:28 Pulse Ox 97 12/20/20 07:28 Intake & Output 12/19/20 12/20/20 12/20/20 18:59 06:59 18:59 Intake Total 240 Output Total 200 Balance 240 -200 Intake: Oral 240 Output: Stool 200 Other: # Voids 3 3 # Bowel Movements 2 - Exam GENERAL: The patient is alert and oriented x3, not in any acute distress. Well developed, well nourished. HEENT: Pupils are round and equally reacting to light. EOMI. No scleral icterus. No conjunctival pallor. Normocephalic, atraumatic. No pharyngeal erythema. No th yromegaly. CARDIOVASCULAR: S1 and S2 present. No murmurs, rubs, or gallops. PULMONARY: Chest is clear to auscultation, no wheezing or crackles. -ABDOMEN: Soft, lower abd tendress dominique in LLQ, nondistended, normoactive bowel sounds. No palpable organomegaly. MUSCULOSKELETAL: No joint swelling or deformity. EXTREMITIES: No cyanosis, clubbing, or pedal edema. NEUROLOGICAL: Gross neurological examination did not reveal any focal deficits. SKIN: No rashes. no petechiae. - Labs CBC & Chem 7: 12/20/20 08:05 12/19/20 06:22 Labs: Abnormal Lab Results - Last 24 Hours (Table) 12/19/20 12/20/20 Range/Units 06:22 08:05 RBC 3.60 L 3.80 L (4.40-5.60) X 10*6/uL Hgb 6.9 L* 7.4 L D (13.0-17.0) g/dL Hct 25.5 L 26.1 L (39.6-50.0) % MCV 70.8 L 68.6 L (80.0-97.0) fL MCH 19.2 L 19.4 L (27.0-32.0) pg MCHC 27.1 L 28.3 L (32.0-37.0) g/dL RDW 21.2 H 19.1 H (11.5-14.5) % Plt Count 578 H 551 H (140-440) X 10*3/uL Plt Count Comment INCREASED A Lymphocytes # 0.7 L (1.0-4.8) k/uL Eosinophils # 0 L (0.04-0.35) X 10*3/uL ESR 32 H (0-15) mm/Hr Assessment and Plan Assessment: ulcerative colitis flaure up sever anemia moderate to sever calories protein malnutrition Noncompliance with medication nicotine dependance Plan: this is a pleasant 73 yo M who presents with UC flare up c/w solumedrol and bentyl GI and surgery team on the case c/w iv iron x 3 doses needs outpatient colonoscopy in 4-8 weeks We'll need close follow-up for his Entyvio infusion Labs and medication were reviewed.. Continue same treatment. Continue with symptomatic treatment. Resume home medication. Monitor lytes and vitals. DVT and GI prophylaxis. Further recommendations as per clinical course of the patient DVT prophylaxis: heparin GI Prophylaxis: Ppi
--- NOTE | 2020-12-20 15:19 | P.PN ---
Subjective Progress Note Date: 12/20/20 Principal diagnosis: Ulcerative colitis, abdominal pain She was seen and examined sleeping in bed. States he was up throughout the night having multiple episodes of diarrhea. States very small amount, mucousy. Denies any nausea or vomiting or current abdominal pain. Patient was noted to have a hemoglobin yesterday of 6.9, he was not transfused. Today's repeat hemoglobin is 7.4. Sed rate and CRP improving. Sed rate 32, CRP 3.8. Afebrile. Surgery is on consult, with no plans on any surgical intervention. Objective - Vital Signs Vital signs: Vital Signs Temp 99.2 F 12/20/20 07:28 Pulse 90 12/20/20 07:28 Resp 13 12/20/20 06:50 BP 102/57 12/20/20 07:28 Pulse Ox 97 12/20/20 07:28 Intake & Output 12/19/20 12/20/20 12/20/20 18:59 06:59 18:59 Intake Total 240 Output Total 200 Balance 240 -200 Intake: Oral 240 Output: Stool 200 Other: # Voids 3 3 # Bowel Movements 2 - Exam General appearance: The patient is alert, oriented, appears in no acute distress. Thin. HET: Head is normocephalic and atraumatic. Conjunctiva pink. Sclera anicteric. Neck: Supple without lymphadenopathy. Abdomen: Soft, thin, left lower quadrant tenderness, nondistended with bowel sounds. No guarding or rigidity. Extremities: Normal skin color and turgor. No pedal edema Skin: No rashes, no jaundice Neurological: No focal deficits. Alert and oriented 3. - Labs CBC & Chem 7: 12/20/20 08:05 12/19/20 06:22 Labs: Abnormal Lab Results - Last 24 Hours (Table) 12/19/20 12/19/20 12/20/20 Range/Units 06:22 06:22 08:05 RBC 3.60 L 3.80 L (4.40-5.60) X 10*6/uL Hgb 6.9 L* 7.4 L D (13.0-17.0) g/dL Hct 25.5 L 26.1 L (39.6-50.0) % MCV 70.8 L 68.6 L (80.0-97.0) fL MCH 19.2 L 19.4 L (27.0-32.0) pg MCHC 27.1 L 28.3 L (32.0-37.0) g/dL RDW 21.2 H 19.1 H (11.5-14.5) % Plt Count 578 H 551 H (140-440) X 10*3/uL Plt Count Comment INCREASED A Lymphocytes # 0.7 L (1.0-4.8) k/uL Eosinophils # 0 L (0.04-0.35) X 10*3/uL ESR 32 H (0-15) mm/Hr BUN 8.0 L (9.0-27.0) mg/dL Calcium 8.1 L (8.7-10.3) mg/dL C-Reactive Protein 3.8 H (0.0-0.8) mg/dL Assessment and Plan (1) Ulcerative colitis Narrative/Plan: 35-year-old male who presented to the hospital with abdominal pain. Patient was recently hospitalized and discharged on 12/11/2020 for exacerbation of ulcerative colitis, and was noncompliant with his medication. The patient follows with gastroenterology and was started on Entyvio infusions last month, he was due for his second dose 2-3 weeks ago but presented to the hospital with abdominal pain and multiple episodes of diarrhea and blood per rectum. He was admitted and started on IV Solu-Medrol and subsequently discharged home with a tapered dose of steroids which he states he is taking. His last colonoscopy was 06/28/2020 done at [facility] showing evidence of olmedo colitis. 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 Patient is readmitted to the hospital with abdominal pain, he is requesting IV Dilaudid every 3 hours. He denies any rectal bleeding, he states he is having loose bowels up to 2-3 times a day, which is improved for him. Patient eats to follow-up with gastroenterology, he has been noncompliant. Discussed the importance of medication compliance and follow-up. Patient is past due for his Entyvio. Current Visit: Yes Status: Acute Code(s): K51.90 - ULCERATIVE COLITIS, UNSPECIFIED, WITHOUT COMPLICATIONS SNOMED Code(s): 06196273 (2) Abdominal pain Current Visit: Yes Status: Acute Code(s): R10.9 - UNSPECIFIED ABDOMINAL PAIN SNOMED Code(s): 25536617 Plan: 1. Advance to low fiber diet 2. Bentyl 20 mg 3 times a day, [id number] 3. Discussed with patient importance of medication compliance 4. CT of the abdomen reviewed 5. Abdominal x-ray ordered and reviewed 6. Recommend repeat outpatient colonoscopy in the next 4-8 weeks 7. Recommend patient continue follow-up with gastroenterology and schedule an Entyvio infusion 8. General surgery consulted per Primary Medicine team 9. Recommend no narcotics 10. Will order mesalamine enema, give first dose now then at HS tomorrow Thank you for this consultation, we will continue to follow. Patient may be discharged home from gastroenterology standpoint and will need to make appointment for Entyvio infusion Dr. Kelly I agree with the dictator's note, documented as a scribe by Crystal Condon.
[2020-12-20] MEDS: AMOXIC-POT CLAV 875-125MG 1 EACH TAB PO SCH ×2 (16:54→23:24)
[2020-12-21] MEDS: SODIUM CHLORIDE 0.9% 1,000 ML IV SCH ×2 (01:00→05:46)
[2020-12-21] MEDS: ONDANSETRON 4 MG/2 ML VIAL IVP PRN ×2 (08:01→15:00)
[2020-12-21] MEDS: methylPREDNISolone SOD SUCCI 40 MG/ML 1 ML VIAL IV SCH ×2 (08:08→14:53)
[2020-12-21] MEDS: DICYCLOMINE 20 MG TAB PO SCH ×3 (08:09→21:17)
[2020-12-21] MEDS: AMOXIC-POT CLAV 875-125MG 1 EACH TAB PO SCH ×2 (08:09→21:28)
[2020-12-21] MEDS: HEPARIN SODIUM,PORCINE/PF 5,000 UNIT/0.5 ML SYRINGE SQ SCH ×2 (08:09→21:19)
[2020-12-21] MEDS: PANTOPRAZOLE 40 MG TABLET PO SCH (08:09)
[2020-12-21] MEDS: HYDROcodone/APAP 5-325MG 1 EACH TAB PO PRN ×3 (08:10→21:17)
[2020-12-21] MEDS: NICOTINE 14MG/24HR PATCH TRANSDERM SCH (08:10)
[2020-12-21 09:18] LABS: Anisocytosis Slight; Basophils % (A) 0 %; Eosinophils % (A) 0 %; HCT 33.8 % (39.0-53.0); Hypochromasia Marked; Lymphocytes # (A) 0.7 k/uL (1.0-4.8); Lymphocytes % (A) 9 %; MCH 19.4 pg (25.0-35.0); MCHC 26.8 g/dL (31.0-37.0); MCV 72.2 fL (80.0-100.0); Mean Platelet Volume 7.2; Microcytosis Marked; Monocytes # (A) 0.2 k/uL (0-1.0); Monocytes % (A) 3 %; Neutrophils # (A) 7.2 k/uL (1.3-7.7); Neutrophils % (A) 88 %; Platelet Count 714 k/uL (150-450); RBC 4.68 m/uL (4.30-5.90); RDW 19.5 % (11.5-15.5); WBC 8.2 k/uL (3.8-10.6)
[2020-12-21 09:31] LABS: HGB 9.1 gm/dL (13.0-17.5)
--- NOTE | 2020-12-21 09:52 | P.PN ---
Subjective Progress Note Date: 12/21/20 Principal diagnosis: Ulcerative colitis, abdominal pain Patient is seen and examined lying in bed sleeping when entering. Upon examination he states he's feeling "terrible" and having abdominal pain. States his bowel movements are about the same small amounts but frequently, with a little bit of blood. Repeat hemoglobin is stable at 9.1. He has remained on IV Solu-Medrol 20 mg every 8 hours, will transition to oral prednisone tomorrow morning. Objective - Vital Signs Vital signs: Vital Signs Temp 98.3 F 12/21/20 07:23 Pulse 75 12/21/20 07:23 Resp 16 12/21/20 07:23 BP 102/55 12/21/20 07:23 Pulse Ox 98 12/21/20 07:23 Intake & Output 12/20/20 12/21/20 12/21/20 18:59 06:59 18:59 Intake Total 1250 Output Total 500 Balance 750 Intake: Intake, IV Titration 600 Amount Sodium Chloride 0.9% 1, 600 000 ml @ 50 mls/hr IV . Q20H [facility] Rx#:[id number] Oral 650 Output: Urine 300 Stool 200 Other: # Voids 2 3 # Bowel Movements 2 - Labs CBC & Chem 7: 12/21/20 08:23 12/19/20 06:22 Labs: Abnormal Lab Results - Last 24 Hours (Table) 12/21/20 Range/Units 08:23 Hgb 9.1 L D (13.0-17.5) gm/dL Hct 33.8 L (39.0-53.0) % MCV 72.2 L (80.0-100.0) fL MCH 19.4 L (25.0-35.0) pg MCHC 26.8 L (31.0-37.0) g/dL RDW 19.5 H (11.5-15.5) % Plt Count 714 H (150-450) k/uL Lymphocytes # 0.7 L (1.0-4.8) k/uL Assessment and Plan (1) Ulcerative colitis Narrative/Plan: 35-year-old male who presented to the hospital with abdominal pain. Patient was recently hospitalized and discharged on 12/11/2020 for exacerbation of ulcerative colitis, and was noncompliant with his medication. The patient follows with gastroenterology and was started on Entyvio infusions last month, he was due for his second dose 2-3 weeks ago but presented to the hospital with abdominal pain and multiple episodes of diarrhea and blood per rectum. He was admitted and started on IV Solu-Medrol and subsequently discharged home with a tapered dose of steroids which he states he is taking. His last colonoscopy was 06/28/2020 done at [facility] showing evidence of olmedo colitis. 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 Patient is readmitted to the hospital with abdominal pain, he is requesting IV Dilaudid every 3 hours. He denies any rectal bleeding, he states he is having loose bowels up to 2-3 times a day, which is improved for him. Patient eats to follow-up with gastroenterology, he has been noncompliant. Discussed the importance of medication compliance and follow-up. Patient is past due for his Entyvio. Current Visit: Yes Status: Acute Code(s): K51.90 - ULCERATIVE COLITIS, UNSPECIFIED, WITHOUT COMPLICATIONS SNOMED Code(s): 76208053 (2) Abdominal pain Current Visit: Yes Status: Acute Code(s): R10.9 - UNSPECIFIED ABDOMINAL PAIN SNOMED Code(s): 66189450 Plan: 1. Advance to low fiber diet 2. Bentyl 20 mg 3 times a day, [id number] 3. Discussed with patient importance of medication compliance 4. CT of the abdomen reviewed 5. Abdominal x-ray ordered and reviewed 6. Recommend repeat outpatient colonoscopy in the next 4-8 weeks 7. Recommend patient continue follow-up with gastroenterology and schedule an Entyvio infusion 8. General surgery consulted per Primary Medicine team 9. Recommend no narcotics/limited narcotic use 10. Will order mesalamine enema, give first dose now then at HS tomorrow 11. Recommend patient continue prednisone taper dose upon discharge, patient has his taper dose on hand and may continue with this. Thank you for this consultation, we will be on standby if needed. Patient may be discharged home from gastroenterology standpoint and will need to make appointment for Entyvio infusion Dr. Kelly I agree with the dictator's note, documented as a scribe by Crystal Condon.
[2020-12-21] MEDS: SODIUM FERRIC GLUCONAT-SUCROSE 125 MG in SODIUM CHLORIDE 0.9% 100 ML IVPB SCH (11:48)
--- NOTE | 2020-12-21 12:40 | P.PN ---
Subjective Progress Note Date: 12/21/20 CHIEF COMPLAINT: Abdominal pain HISTORY OF PRESENT ILLNESS: Surgical service is following in regards to joseline lyn's abdominal pain. He is currently hospitalized for ulcerative colitis exacerbation. Patient reports that his abdominal pain is same. He still having multiple loose bowel movements. Occasionally there is some small amount of blood in stools. He is on IV steroids. He is followed closely by GI service. Afebrile WBC remains normal at 8.2 hemoglobin 9.1 PHYSICAL EXAM: VITAL SIGNS: Reviewed. GENERAL: Well-developed in no acute distress. HEENT: No sclera icterus. Extraocular movements grossly intact. Moist buccal mucosa. Head is atraumatic, normocephalic. ABDOMEN: Soft. Nondistended. Tenderness mostly on the left side of the abdomen NEUROLOGIC: Alert and oriented. Cranial nerves II through XII grossly intact. ASSESSMENT: 1. Ulcerative colitis exacerbation with continuous abdominal pain 2. Iron deficiency anemia received iron transfusion PLAN: -No surgical intervention planned -Continue conservative management -Continue steroids per GI service -Continue treatment per GI service Physician Bilingual Case Manager note has been reviewed by physician. Signing provider agrees with the documented findings, assessment, and plan of care. Objective - Vital Signs Vital signs: Vital Signs Temp 98.3 F 12/21/20 07:23 Pulse 75 12/21/20 07:23 Resp 16 12/21/20 07:23 BP 102/55 12/21/20 07:23 Pulse Ox 98 12/21/20 07:23 Intake & Output 12/20/20 12/21/20 12/21/20 18:59 06:59 18:59 Intake Total 1250 Output Total 500 Balance 750 Weight 60.781 kg Intake: Intake, IV Titration 600 Amount Sodium Chloride 0.9% 1, 600 000 ml @ 50 mls/hr IV . Q20H [facility] Rx#:[id number] Oral 650 Output: Urine 300 Stool 200 Other: # Voids 2 3 # Bowel Movements 2 - Labs CBC & Chem 7: 12/21/20 08:23 12/19/20 06:22 Labs: Abnormal Lab Results - Last 24 Hours (Table) 12/21/20 Range/Units 08:23 Hgb 9.1 L D (13.0-17.5) gm/dL Hct 33.8 L (39.0-53.0) % MCV 72.2 L (80.0-100.0) fL MCH 19.4 L (25.0-35.0) pg MCHC 26.8 L (31.0-37.0) g/dL RDW 19.5 H (11.5-15.5) % Plt Count 714 H (150-450) k/uL Lymphocytes # 0.7 L (1.0-4.8) k/uL
--- NOTE | 2020-12-21 13:04 | P.PN ---
Subjective this is a pleasant 35 yo M with past medical history of ulcerative colitis with frequent hospitalization for UC flare up , and there is concern about pt compliance as well, who presents this time with similar complaints of abdominal pain and tenderness especially in the lower abdomen, also with elevated EST & CRP , CT of abd and pelvis showing evidance of mildly inflamed sigmoid colon with fluid in the abd gutter of the colons. he is started on solumedrol of 20 mg and GI team are following , today we consulted surgical team who recommended co nservatice management abd xr: non specific gas pattern c diff is negative pt is with low HB 6.9, 7.4 and started on iv iron x3 doses will need outpt follow with GI eg repeat colonoscopy in 4-8 weeks 12/20/2020 Patient is still complaining of from the lower abdominal pain and tenderness, from small frequent bowel movements with some blood, patient reports about 13 of them overnight. No nausea vomiting. He is hemodynamically stable but is developing low-grade temperature today of 100.2. His hemoglobin improved to 6.9 up to 7.4 today. We continued on IV iron for today and tomorrow. He remains on Solu-Medrol 20 mg 3 times a day, Normal saline at 50 mL per hour surgery and GI team on the case. As the case with GI team today, lexi patient is noncompliant with his medication which wasn't him to have this frequent exacerbation of UC. He missed his dose of Entyvio infusion We will discuss with sample case porter to see if she can help with setting a new appointment for him 12/21/2020 Patient still with lower abdominal pain which is continuous due to his noncompliance with medication as an outpatient I discussed the case with Colton today, patient was not taking his prednisone as is supposed to be as an outpatient, he only took 1 dose of 3 of Entyvio infusion. Patient's was counseled extensively about compliance, risks of losing function or colectomy are explained for the patient verbalized understanding and acceptance. Even showed me his bottle of prednisone in the pocket of his ba rochelle which is almost full and told me he is going to take it when he goes home. Other than that he is hemodynamically stable. Hemoglobin went up to 9.1, no leukocytosis. He has a small grade fever yesterday of 100.2 and Augmentin was added. We going to check pro-calcitonin, and C-reactive protein today. I discussed the case with GI team and they cleared him for discharge tomorrow where he is steroid is a switched to prednisone 40 mg. We will try to discharge the patient from the hospital to the infusion center, the social service manager/sample case porter contacted the mother to see if she can help with his transportation tomorrow Objective - Vital Signs Vital signs: Vital Signs Temp 98.3 F 12/21/20 07:23 Pulse 75 12/21/20 07:23 Resp 16 12/21/20 07:23 BP 102/55 12/21/20 07:23 Pulse Ox 98 12/21/20 07:23 Intake & Output 12/20/20 12/21/20 12/21/20 18:59 06:59 18:59 Intake Total 1250 Output Total 500 Balance 750 Weight 60.781 kg Intake: Intake, IV Titration 600 Amount Sodium Chloride 0.9% 1, 600 000 ml @ 50 mls/hr IV . Q20H [facility] Rx#:[id number] Oral 650 Output: Urine 300 Stool 200 Other: # Voids 2 3 # Bowel Movements 2 - Exam GENERAL: The patient is alert and oriented x3, not in any acute distress. Well developed, well nourished. HEENT: Pupils are round and equally reacting to light. EOMI. No scleral icterus. No conjunctival pallor. Normocephalic, atraumatic. No pharyngeal erythema. No thyromegaly. CARDIOVASCULAR: S1 and S2 present. No murmurs, rubs, or gallops. PULMONARY: Chest is clear to auscultation, no wheezing or crackles. -ABDOMEN: Soft, lower abd tendress dominique in LLQ, nondistended, normoactive bowel sounds. No palpable organomegaly. MUSCULOSKELETAL: No joint swelling or deformity. EXTREMITIES: No cyanosis, clubbing, or pedal edema. NEUROLOGICAL: Gross neurological examination did not reveal any focal deficits. SKIN: No rashes. no petechiae. - Labs CBC & Chem 7: 12/21/20 08:23 12/19/20 06:22 Labs: Abnormal Lab Results - Last 24 Hours (Table) 12/21/20 Range/Units 08:23 Hgb 9.1 L D (13.0-17.5) gm/dL Hct 33.8 L (39.0-53.0) % MCV 72.2 L (80.0-100.0) fL MCH 19.4 L (25.0-35.0) pg MCHC 26.8 L (31.0-37.0) g/dL RDW 19.5 H (11.5-15.5) % Plt Count 714 H (150-450) k/uL Lymphocytes # 0.7 L (1.0-4.8) k/uL Assessment and Plan Assessment: ulcerative colitis flaure up sever anemia moderate to sever calories protein malnutrition Noncompliance with medication nicotine dependance Plan: this is a pleasant 73 yo M who presents with UC flare up c/w solumedrol and bentyl GI and surgery team on the case c/w iv iron x 3 doses needs outpatient colonoscopy in 4-8 weeks We'll need close follow-up for his Entyvio infusion Labs and medication were reviewed.. Continue same treatment. Continue with symptomatic treatment. Resume home medication. Monitor lytes and vitals. DVT and GI prophylaxis. Further recommendations as per clinical course of the pat ient DVT prophylaxis: heparin GI Prophylaxis: Ppi
[2020-12-21] MEDS: MESALAMINE 4 GM/60 ML ENEMA RECTAL SCH (21:28)
[2020-12-21] MEDS: ALPRAZolam 0.25 MG TAB PO PRN (21:28)
[2020-12-22] MEDS: HYDROcodone/APAP 5-325MG 1 EACH TAB PO PRN ×4 (03:06→21:33)
[2020-12-22] MEDS: ONDANSETRON 4 MG/2 ML VIAL IVP PRN ×4 (03:11→21:35)
[2020-12-22] MEDS: PANTOPRAZOLE 40 MG TABLET PO SCH (07:29)
--- NOTE | 2020-12-22 08:22 | P.PN ---
Progress Note - Text Progress Note Date: 12/22/20 Patient feels about the same. He still has abdominal pain. On exam her vital signs are stable. Abdomen is soft. There is tenderness throughout. There is no rebound or guarding. Inflammatory bowel disease. Patient received medical management.
[2020-12-22] MEDS: AMOXIC-POT CLAV 875-125MG 1 EACH TAB PO SCH ×2 (08:48→21:34)
[2020-12-22] MEDS: DICYCLOMINE 20 MG TAB PO SCH ×3 (08:49→21:34)
[2020-12-22] MEDS: HEPARIN SODIUM,PORCINE/PF 5,000 UNIT/0.5 ML SYRINGE SQ SCH ×2 (08:53→21:34)
[2020-12-22] MEDS ORDERED: predniSONE 20 MG TAB PO SCH (09:00)
[2020-12-22] MEDS: NICOTINE 14MG/24HR PATCH TRANSDERM SCH (09:50)
--- NOTE | 2020-12-22 13:48 | P.PN ---
Subjective this is a pleasant 35 yo M with past medical history of ulcerative colitis with frequent hospitalization for UC flare up , and there is concern about pt compliance as well, who presents this time with similar complaints of abdominal pain and tenderness especially in the lower abdomen, also with elevated EST & CRP , CT of abd and pelvis showing evidance of mildly inflamed sigmoid colon with fluid in the abd gutter of the colons. he is started on solumedrol of 20 mg and GI team are following , today we consulted surgical team who recommended co nservatice management abd xr: non specific gas pattern c diff is negative pt is with low HB 6.9, 7.4 and started on iv iron x3 doses will need outpt follow with GI eg repeat colonoscopy in 4-8 weeks 12/20/2020 Patient is still complaining of from the lower abdominal pain and tenderness, from small frequent bowel movements with some blood, patient reports about 13 of them overnight. No nausea vomiting. He is hemodynamically stable but is developing low-grade temperature today of 100.2. His hemoglobin improved to 6.9 up to 7.4 today. We continued on IV iron for today and tomorrow. He remains on Solu-Medrol 20 mg 3 times a day, Normal saline at 50 mL per hour surgery and GI team on the case. As the case with GI team today, lexi patient is noncompliant with his medication which wasn't him to have this frequent exacerbation of UC. He missed his dose of Entyvio infusion We will discuss with rn case manager hospice to see if she can help with setting a new appointment for him 12/21/2020 Patient still with lower abdominal pain which is continuous due to his noncompliance with medication as an outpatient I discussed the case with Colton today, patient was not taking his prednisone as is supposed to be as an outpatient, he only took 1 dose of 3 of Entyvio infusion. Patient's was counseled extensively about compliance, risks of losing function or colectomy are explained for the patient verbalized understanding and acceptance. Even showed me his bottle of prednisone in the pocket of his ba rochelle which is almost full and told me he is going to take it when he goes home. Other than that he is hemodynamically stable. Hemoglobin went up to 9.1, no leukocytosis. He has a small grade fever yesterday of 100.2 and Augmentin was added. We going to check pro-calcitonin, and C-reactive protein today. I discussed the case with GI team and they cleared him for discharge tomorrow where he is steroid is a switched to prednisone 40 mg. We will try to discharge the patient from the hospital to the infusion center, the social media marketing manager/rn case manager hospice contacted the mother to see if she can help with his transportation tomorrow 12/22/2020 Patient still have some lower abdominal pain, 4-5 bowel movements with little blood. Patient will get his appointment for IV infusion of Entyvio Friday rather than today we will keep the patient on IV Solu Medrol with possible discharge on Friday Objective - Vital Signs Vital signs: Vital Signs Temp 98.1 F 12/22/20 07:40 Pulse 60 12/22/20 07:40 Resp 16 12/22/20 07:40 BP 121/60 12/22/20 07:40 Pulse Ox 94 L 12/22/20 02:00 Intake & Output 12/21/20 12/22/20 12/22/20 18:59 06:59 18:59 Intake Total 2000 240 Output Total 200 Balance 2000 -200 240 Weight 60.781 kg Intake: Oral 1999 240 Output: Stool 200 Other: Voiding Method Toilet # Voids 4 2 # Bowel Movements 1 1 - Exam GENERAL: The patient is alert and oriented x3, not in any acute distress. Well developed, well nourished. HEENT: Pupils are round and equally reacting to light. EOMI. No scleral icterus. No conjunctival pallor. Normocephalic, atraumatic. No pharyngeal erythema. No thyromegaly. CARDIOVASCULAR: S1 and S2 present. No murmurs, rubs, or gallops. PULMONARY: Chest is clear to auscultation, no wheezing or crackles. -ABDOMEN: Soft, lower abd tendress dominique in LLQ, nondistended, normoactive bowel sounds. No palpable organomegaly. MUSCULOSKELETAL: No joint swelling or deformity. EXTREMITIES: No cyanosis, clubbing, or pedal edema. NEUROLOGICAL: Gross neurological examination did not reveal any focal deficits. SKIN: No rashes. no petechiae. - Labs CBC & Chem 7: 12/21/20 08:23 12/19/20 06:22 Labs: Abnormal Lab Results - Last 24 Hours (Table) 07/22/21 07/22/21 Range/Units 08:23 08:23 ESR 32 H (0-15) mm/hr Procalcitonin 0.22 H (0.02-0.09) ng/mL Assessment and Plan Assessment: ulcerative colitis flaure up sever anemia moderate to sever calories protein malnutrition Noncompliance with medication nicotine dependance Plan: this is a pleasant 73 yo M who presents with UC flare up c/w solumedrol and bentyl GI and surgery team on the case Status post iv iron x 3 doses needs outpatient colonoscopy in 4-8 weeks We'll need close follow-up for his Entyvio infusion Labs and medication were reviewed.. Continue same treatment. Continue with symptomatic treatment. Resume home medication. Monitor lytes and vitals. DVT and GI prophylaxis. Further recommendations as per clinical course of the patient DVT prophylaxis: heparin GI Prophylaxis: Ppi
[2020-12-22] MEDS: methylPREDNISolone SOD SUCCI 40 MG/ML 1 ML VIAL IV SCH (15:26)
[2020-12-22] MEDS: ALPRAZolam 0.25 MG TAB PO PRN (21:34)
[2020-12-22] MEDS: TEMAZEPAM 15 MG CAP PO PRN (21:34)
[2020-12-22] MEDS: MESALAMINE 4 GM/60 ML ENEMA RECTAL SCH (21:41)
[2020-12-22] MEDS: SODIUM CHLORIDE 0.9% 1,000 ML IV SCH (23:31)
[2020-12-23] MEDS: methylPREDNISolone SOD SUCCI 40 MG/ML 1 ML VIAL IV SCH ×4 (00:33→23:58)
[2020-12-23] MEDS: HYDROcodone/APAP 5-325MG 1 EACH TAB PO PRN ×4 (06:18→23:58)
[2020-12-23] MEDS: AMOXIC-POT CLAV 875-125MG 1 EACH TAB PO SCH (07:14)
[2020-12-23] MEDS: PANTOPRAZOLE 40 MG TABLET PO SCH (07:14)
[2020-12-23] MEDS: DICYCLOMINE 20 MG TAB PO SCH ×3 (07:14→22:49)
[2020-12-23] MEDS: NICOTINE 14MG/24HR PATCH TRANSDERM SCH (07:18)
[2020-12-23] MEDS: HEPARIN SODIUM,PORCINE/PF 5,000 UNIT/0.5 ML SYRINGE SQ SCH ×3 (07:18→22:52)
[2020-12-23 10:59] LABS: Anisocytosis Moderate; Basophils % (A) 0 %; Eosinophils % (A) 0 %; HCT 29.1 % (39.0-53.0); HGB 8.4 gm/dL (13.0-17.5); Hypochromasia Marked; Lymphocytes # (A) 0.5 k/uL (1.0-4.8); Lymphocytes % (A) 7 %; MCH 20.2 pg (25.0-35.0); MCHC 28.8 g/dL (31.0-37.0); Microcytosis Marked; Monocytes # (A) 0.2 k/uL (0-1.0); Monocytes % (A) 3 %; Neutrophils # (A) 6.1 k/uL (1.3-7.7); Neutrophils % (A) 90 %; Platelet Count 618 k/uL (150-450); RBC 4.16 m/uL (4.30-5.90); RDW 20.4 % (11.5-15.5); WBC 6.8 k/uL (3.8-10.6)
[2020-12-23 11:09] LABS: ALT 10 U/L (4-49); AST 14 U/L (17-59); African American GFR (CKD) >90 (>60 ml/min/1.73 sqM); Albumin 2.7 g/dL (3.5-5.0); Albumin/Globulin Ratio 0.9; Alkaline Phosphatase 54 U/L (38-126); Anion Gap 5 mmol/L; Blood Urea Nitrogen 11 mg/dL (9-20); Calcium 8.7 mg/dL (8.4-10.2); Carbon Dioxide 36 mmol/L (22-30); Chloride 93 mmol/L (98-107); Globulin 2.9 g/dL; Glucose 213 mg/dL (74-99); Magnesium 2.1 mg/dL (1.6-2.3); Non-African American GFR(CKD) >90 (>60 ml/min/1.73 sqM); Potassium 4.9 mmol/L (3.5-5.1); Sodium 134 mmol/L (137-145); Total Bilirubin <0.1 mg/dL (0.2-1.3); Total Protein 5.6 g/dL (6.3-8.2)
--- NOTE | 2020-12-23 12:04 | P.PN ---
Progress Note - Text Progress Note Date: 12/23/20 The patient's saphenous bed. He still has complaints of abdominal pain. He states his pain really is unchanged from yesterday. On exam her vital signs are stable. Abdomen soft. There is mild tenderness throughout. There is no rebound or guarding. Exacerbation inflamed. Bowel disease. Patiently receive supportive care
[2020-12-23] MEDS: ONDANSETRON 4 MG/2 ML VIAL IVP PRN ×2 (12:32→23:57)
--- NOTE | 2020-12-23 14:27 | P.PN ---
Subjective this is a pleasant 35 yo M with past medical history of ulcerative colitis with frequent hospitalization for UC flare up , and there is concern about pt compliance as well, who presents this time with similar complaints of abdominal pain and tenderness especially in the lower abdomen, also with elevated EST & CRP , CT of abd and pelvis showing evidance of mildly inflamed sigmoid colon with fluid in the abd gutter of the colons. he is started on solumedrol of 20 mg and GI team are following , today we consulted surgical team who recommended co nservatice management abd xr: non specific gas pattern c diff is negative pt is with low HB 6.9, 7.4 and started on iv iron x3 doses will need outpt follow with GI eg repeat colonoscopy in 4-8 weeks 12/20/2020 Patient is still complaining of from the lower abdominal pain and tenderness, from small frequent bowel movements with some blood, patient reports about 13 of them overnight. No nausea vomiting. He is hemodynamically stable but is developing low-grade temperature today of 100.2. His hemoglobin improved to 6.9 up to 7.4 today. We continued on IV iron for today and tomorrow. He remains on Solu-Medrol 20 mg 3 times a day, Normal saline at 50 mL per hour surgery and GI team on the case. As the case with GI team today, lexi patient is noncompliant with his medication which wasn't him to have this frequent exacerbation of UC. He missed his dose of Entyvio infusion We will discuss with field nurse case manager to see if she can help with setting a new appointment for him 12/21/2020 Patient still with lower abdominal pain which is continuous due to his noncompliance with medication as an outpatient I discussed the case with Colton today, patient was not taking his prednisone as is supposed to be as an outpatient, he only took 1 dose of 3 of Entyvio infusion. Patient's was counseled extensively about compliance, risks of losing function or colectomy are explained for the patient verbalized understanding and acceptance. Even showed me his bottle of prednisone in the pocket of his ba rochelle which is almost full and told me he is going to take it when he goes home. Other than that he is hemodynamically stable. Hemoglobin went up to 9.1, no leukocytosis. He has a small grade fever yesterday of 100.2 and Augmentin was added. We going to check pro-calcitonin, and C-reactive protein today. I discussed the case with GI team and they cleared him for discharge tomorrow where he is steroid is a switched to prednisone 40 mg. We will try to discharge the patient from the hospital to the infusion center, the social services manager/field nurse case manager contacted the mother to see if she can help with his transportation tomorrow 12/22/2020 Patient still have some lower abdominal pain, 4-5 bowel movements with little blood. Patient will get his appointment for IV infusion of Entyvio Friday morning rather than today we will keep the patient on IV Solu Medrol with possible discharge on Friday12/23/2020 Patient has persistent lower abdominal pain but his abdomen looks more so than yesterday or the day before. He reports 2-3 bowel movement last night with little blood still. He is tolerating diet. He is hemodynamically stable. Labs reviewed, hemoglobin is stable at 8.4, no leukocytosis. ESR is seen at 32 but C-reactive protein is increased from 3.8 up to 16.1. Pro-calcitonin 0.2, repeat testing is pending Patient remains on IV Solu-Medrol 20 mg and Augmentin. Also he is on normal saline at 50 mL per hour plan for him to be discharged on Friday and mother take him to the infusion center for Entyvio and fusion Objective - Vital Signs Vital signs: Vital Signs Temp 98.5 F 12/23/20 07:11 Pulse 59 L 12/23/20 07:11 Resp 14 12/23/20 07:11 BP 107/57 12/23/20 07:11 Pulse Ox 100 12/23/20 02:56 Intake & Output 12/22/20 12/23/20 12/23/20 18:59 06:59 18:59 Intake Total 600 240 360 Output Total 200 Balance 600 40 360 Intake: Oral 600 240 360 Output: Stool 200 Other: Voiding Method Toilet Toilet Toilet # Voids 2 # Bowel Movements 1 - Exam GENERAL: The patient is alert and oriented x3, not in any acute distress. Well developed, well nourished. HEENT: Pupils are round and equally reacting to light. EOMI. No scleral icterus. No conjunctival pallor. Normocephalic, atraumatic. No pharyngeal erythema. No thyromegaly. CARDIOVASCULAR: S1 and S2 present. No murmurs, rubs, or gallops. PULMONARY: Chest is clear to auscultation, no wheezing or crackles. -ABDOMEN: Soft, lower abd tendress dominique in LLQ, nondistended, normoactive bowel sounds. No palpable organomegaly. MUSCULOSKELETAL: No joint swelling or deformity. EXTREMITIES: No cyanosis, clubbing, or pedal edema. NEUROLOGICAL: Gross neurological examination did not reveal any focal deficits. SKIN: No rashes. no petechiae. - Labs CBC & Chem 7: 12/23/20 10:30 12/23/20 10:30 Labs: Abnormal Lab Results - Last 24 Hours (Table) 12/23/20 12/23/20 Range/Units 10:30 10:30 RBC 4.16 L (4.30-5.90) m/uL Hgb 8.4 L (13.0-17.5) gm/dL Hct 29.1 L (39.0-53.0) % MCV 70.0 L (80.0-100.0) fL MCH 20.2 L (25.0-35.0) pg MCHC 28.8 L (31.0-37.0) g/dL RDW 20.4 H (11.5-15.5) % Plt Count 618 H (150-450) k/uL Lymphocytes # 0.5 L (1.0-4.8) k/uL Sodium 134 L (137-145) mmol/L Chloride 93 L (98-107) mmol/L Carbon Dioxide 36 H (22-30) mmol/L Creatinine 0.60 L (0.66-1.25) mg/dL Glucose 213 H (74-99) mg/dL Total Bilirubin <0.1 L (0.2-1.3) mg/dL AST 14 L (17-59) U/L Total Protein 5.6 L (6.3-8.2) g/dL Albumin 2.7 L (3.5-5.0) g/dL Assessment and Plan Assessment: ulcerative colitis flaure up sever anemia moderate to sever calories protein malnutrition Noncompliance with medication nicotine dependance Plan: this is a pleasant 73 yo M who presents with UC flare up c/w solumedrol and bentyl GI and surgery team on the case Status post iv iron x 3 doses needs outpatient colonoscopy in 4-8 weeks We'll need close follow-up for his Entyvio infusion Labs and medication were reviewed.. Continue same treatment. Continue with symptomatic treatment. Resume home medication. Monitor lytes and vitals. DVT and GI prophylaxis. Further recommendations as per clinical course of the patient DVT prophylaxis: heparin GI Prophylaxis: Ppi
[2020-12-23] MEDS: SODIUM CHLORIDE 0.9% 1,000 ML IV SCH (15:56)
[2020-12-23] MEDS: MESALAMINE 4 GM/60 ML ENEMA RECTAL SCH (22:53)
[2020-12-23] MEDS: TEMAZEPAM 15 MG CAP PO PRN (23:58)
[2020-12-23] MEDS: ALPRAZolam 0.25 MG TAB PO PRN (23:58)
[2020-12-24] MEDS: AMOXIC-POT CLAV 875-125MG 1 EACH TAB PO SCH (00:05)
[2020-12-24] MEDS: HYDROcodone/APAP 5-325MG 1 EACH TAB PO PRN ×3 (07:28→18:16)
[2020-12-24] MEDS: NICOTINE 14MG/24HR PATCH TRANSDERM SCH (07:28)
[2020-12-24] MEDS: DICYCLOMINE 20 MG TAB PO SCH ×3 (07:28→21:51)
[2020-12-24] MEDS: methylPREDNISolone SOD SUCCI 40 MG/ML 1 ML VIAL IV SCH ×2 (07:29→15:43)
[2020-12-24] MEDS: PANTOPRAZOLE 40 MG TABLET PO SCH (07:29)
[2020-12-24] MEDS: HEPARIN SODIUM,PORCINE/PF 5,000 UNIT/0.5 ML SYRINGE SQ SCH ×2 (07:29→22:04)
[2020-12-24] MEDS: ALPRAZolam 0.25 MG TAB PO PRN ×2 (07:29→21:51)
[2020-12-24] MEDS: SODIUM CHLORIDE 0.9% 1,000 ML IV SCH (08:20)
--- NOTE | 2020-12-24 10:34 | P.PN ---
Progress Note - Text Progress Note Date: 12/24/20 Patient states he feels slightly better today. On exam vital signs are stable. Abdomen soft. There is minimal tenderness throughout. There is no rebound or guarding. Is a patient inflamed or bowel disease. Patient will continue medical management
--- NOTE | 2020-12-24 11:44 | P.PN ---
Subjective this is a pleasant 35 yo M with past medical history of ulcerative colitis with frequent hospitalization for UC flare up , and there is concern about pt compliance as well, who presents this time with similar complaints of abdominal pain and tenderness especially in the lower abdomen, also with elevated EST & CRP , CT of abd and pelvis showing evidance of mildly inflamed sigmoid colon with fluid in the abd gutter of the colons. he is started on solumedrol of 20 mg and GI team are following , today we consulted surgical team who recommended co nservatice management abd xr: non specific gas pattern c diff is negative pt is with low HB 6.9, 7.4 and started on iv iron x3 doses will need outpt follow with GI eg repeat colonoscopy in 4-8 weeks 12/20/2020 Patient is still complaining of from the lower abdominal pain and tenderness, from small frequent bowel movements with some blood, patient reports about 13 of them overnight. No nausea vomiting. He is hemodynamically stable but is developing low-grade temperature today of 100.2. His hemoglobin improved to 6.9 up to 7.4 today. We continued on IV iron for today and tomorrow. He remains on Solu-Medrol 20 mg 3 times a day, Normal saline at 50 mL per hour surgery and GI team on the case. As the case with GI team today, lexi patient is noncompliant with his medication which wasn't him to have this frequent exacerbation of UC. He missed his dose of Entyvio infusion We will discuss with leather case finisher to see if she can help with setting a new appointment for him 12/21/2020 Patient still with lower abdominal pain which is continuous due to his noncompliance with medication as an outpatient I discussed the case with [place] today, patient was not taking his prednisone as is supposed to be as an outpatient, he only took 1 dose of 3 of Entyvio infusion. Patient's was counseled extensively about compliance, risks of losing function or colectomy are explained for the patient verbalized understanding and acceptance. Even showed me his bottle of prednisone in the pocket of his ba rochelle which is almost full and told me he is going to take it when he goes home. Other than that he is hemodynamically stable. Hemoglobin went up to 9.1, no leukocytosis. He has a small grade fever yesterday of 100.2 and Augmentin was added. We going to check pro-calcitonin, and C-reactive protein today. I discussed the case with GI team and they cleared him for discharge tomorrow where he is steroid is a switched to prednisone 40 mg. We will try to discharge the patient from the hospital to the infusion center, the social services coordinator/leather case finisher contacted the mother to see if she can help with his transportation tomorrow 12/22/2020 Patient still have some lower abdominal pain, 4-5 bowel movements with little blood. Patient will get his appointment for IV infusion of Entyvio Friday rather than today we will keep the patient on IV Solu Medrol with possible discharge on Friday12/23/2020 Patient has persistent lower abdominal pain but his abdomen looks more so than yesterday or the day before. He reports 2-3 bowel movement last night with little blood still. He is tolerating diet. He is hemodynamically stable. Labs reviewed, hemoglobin is stable at 8.4, no leukocytosis. ESR is seen at 32 but C-reactive protein is increased from 3.8 up to 16.1. Pro-calcitonin 0.2, repeat testing is pending Patient remains on IV Solu-Medrol 20 mg and Augmentin. Also he is on normal saline at 50 mL per hour plan for him to be discharged on Friday and mother take him to the infusion center for Entyvio and fusion 12/24/2020 Patient states that his lower abdominal pain is improving, most that he has only 2 bowel movements with no blood for the first time as he states. He is hemodynamically stable. He continues on salmeterol 20 mg 3 times a day Patient comes restorable prednisone tomorrow and discharge area morning as he has an appointment for Entyvio infusion at 8:30 AM where his mother will come to pick him up to the appointments, patient informed and he agrees with this plan Objective - Vital Signs Vital signs: Vital Signs Temp 97.5 F L 12/24/20 07:52 Pulse 65 12/24/20 07:52 Resp 12 12/24/20 07:52 BP 109/64 12/24/20 07:52 Pulse Ox 97 12/24/20 07:52 Intake & Output 12/23/20 12/24/20 12/24/20 18:59 06:59 18:59 Intake Total 1160 500 Output Total 200 Balance 1160 300 Intake: Intake, IV Titration 500 Amount Sodium Chloride 0.9% 1, 500 000 ml @ 50 mls/hr IV . Q20H [facility] Rx#:[id number] Oral 1160 Output: Stool 200 Other: Voiding Method Toilet Toilet Toilet - Exam GENERAL: The patient is alert and oriented x3, not in any acute distress. Well developed, well nourished. HEENT: Pupils are round and equally reacting to light. EOMI. No scleral icterus. No conjunctival pallor. Normocephalic, atraumatic. No pharyngeal erythema. No thyromegaly. CARDIOVASCULAR: S1 and S2 present. No murmurs, rubs, or gallops. PULMONARY: Chest is clear to auscultation, no wheezing or crackles. -ABDOMEN: Soft, lower abd tendress dominique in LLQ, nondistended, normoactive bowel sounds. No palpable organomegaly. MUSCULOSKELETAL: No joint swelling or deformity. EXTREMITIES: No cyanosis, clubbing, or pedal edema. NEUROLOGICAL: Gross neurological examination did not reveal any focal deficits. SKIN: No rashes. no petechiae. - Labs CBC & Chem 7: 12/23/20 10:30 12/23/20 10:30 Assessment and Plan Assessment: ulcerative colitis flaure up sever anemia moderate to sever calories protein malnutrition Noncompliance with medication nicotine dependance Plan: this is a pleasant 73 yo M who presents with UC flare up c/w solumedrol and bentyl GI and surgery team on the case Status post iv iron x 3 doses needs outpatient colonoscopy in 4-8 weeks We'll need close follow-up for his Entyvio infusion Labs and medication were reviewed.. Continue same treatment. Continue with symptomatic treatment. Resume home medication. Monitor lytes and vitals. DVT and GI prophylaxis. Further recommendations as per clinical course of the patient DVT prophylaxis: heparin GI Prophylaxis: Ppi
[2020-12-24] MEDS: ONDANSETRON 4 MG/2 ML VIAL IVP PRN (21:51)
[2020-12-24] MEDS: TEMAZEPAM 15 MG CAP PO PRN (21:51)
[2020-12-24] MEDS: MESALAMINE 4 GM/60 ML ENEMA RECTAL SCH (21:55)
[2020-12-25 03:48] VITALS: RESP 18; TEMP 98.2
[2020-12-25] MEDS: HYDROcodone/APAP 5-325MG 1 EACH TAB PO PRN (03:55)
[2020-12-25] MEDS: methocarbamoL 750 MG TAB PO PRN (03:57)
[2020-12-25] MEDS: ONDANSETRON 4 MG/2 ML VIAL IVP PRN (04:18)
[2020-12-25 08:07] VITALS: BP 106/69; PULSE 69
[2020-12-25] MEDS ORDERED: predniSONE 20 MG TAB PO SCH (09:00)
--- NOTE | 2020-12-25 23:41 | P.DS ---
Providers Date of admission: 12/17/20 18:33 Attending physician: Abhijit Gonzalez MD Consults: 12/19/20 09:43 Consult Physician Routine Consulting Provider: Jaswinder Grant Consult Reason/Comments: Abd pain Do you want consulting provider notified?: Yes Primary care physician: Stated None Hospital Course: Diagnoses: ulcerative colitis flaure up sever anemia moderate to sever calories protein malnutrition Noncompliance with medication nicotine dependance Hospital course: this is a pleasant 35 yo M with past medical history of ulcerative colitis with frequent hospitalization for UC flare up , and there is concern about pt compliance as well, who presents this time with similar complaints of lower abdominal pain and tenderness with mildly bloody frequent bowel movement, also with elevated EST & CRP , CT of abd and pelvis showing evidance of mildly inflamed sigmoid colon with fluid in the abd gutter of the colons. he is started on solumedrol of 20 mg and GI team are followed him closely. Patient showed significant interval improvement however not completely resolved. GI team recommended to resume his prednisone taper, patient has his bottle of prednisone with him from last time as he did not use it, he was instructed to resume taking his prednisone upon discharge and he confirmed to me he is going to do that. Actual bottle of prednisone is at bedside in his backpack Also GI team recommended to resume his second of 3 doses of Entyvio fusion, his appointment to get this medicine is today at the infusion center, he was discharged a.m. so he can follow up with his appointment at 8:30 where his mother is coming to pick him up to his appointment, wrapper caser was in contact with his mom as well Today patient is clinically stable for discharge, I discussed the discharge plan with him and he verbalized understanding including telling me he is going to take his prednisone as well as his going to the infusion center today at 8:30 Patient was cleared for discharge by GI team, and also by surgical team also him with recommendation for no surgical intervention Problems and management plan were discussed with the patient and he verbalized understanding and acceptance Patient was found stable and can be discharged home however he needs follow-up as an outpatient. Patient was instructed to follow up with PCP within one week and patient agrees Patient was instructed to follow up with GI POWER REGULATOR in one week and he agrees to call and make his own appointment Physical exam Gen: patient is a AAOx3, no distress CVS: S1-S2, RRR, no murmur Lungs: B/L CTA, no wheezing Abdomen: soft, mild lower abdominal distention, no tenderness, positive bowel sounds Extremity: no leg edema or induration Time spent more than 35 minutes Patient Condition at Discharge: Fair Plan - Discharge Summary Discharge Rx Participant: Yes New Discharge Prescriptions: New HYDROcodone/APAP 5-325MG [[place] 5-325] 1 each PO Q8HR PRN 3 Days #9 tab PRN Reason: Pain Continue Omeprazole 20 mg PO DAILY Dicyclomine HCl 20 mg PO QID PRN PRN Reason: STOMACH CRAMPS Methocarbamol [Robaxin-750] 750 mg PO Q8HR PRN #42 tablet PRN Reason: Pain predniSONE See Taper PO DAILY Discontinued Ibuprofen [Motrin] 400 mg PO Q6H PRN PRN Reason: Pain Discharge Medication List Methocarbamol [Robaxin-750] 750 mg PO Q8HR PRN #42 tablet 11/22/20 [Rx] predniSONE See Taper PO DAILY 12/05/20 [History] Dicyclomine HCl 20 mg PO QID PRN 12/17/20 [History] Omeprazole 20 mg PO DAILY 12/17/20 [History] HYDROcodone/APAP 5-325MG [[place] 5-325] 1 each PO Q8HR PRN 3 Days #9 tab 12/25/20 [Rx] Follow up Appointment(s)/Referral(s): [facility],Infusion [NON-STAFF] - 12/25/20 8:30 am None,Stated [Primary Care Provider] - 1-2 days Macey Hsieh NPC [Nurse Practitioner] - 1 Week Patient Instructions/Handouts: Ulcerative Colitis (DC) Activity/Diet/Wound Care/Special Instructions: First Entyvio infusion on 12/25/20 at 8:30a.m. Patient's mother will pick him up at 8:00a.m. and take him directly to [facility] for the infusion. use your prednisone taper bottle you have with your resume your previous diet, we recommend low carbohydrate diet 1800kcal per day activity is restricted till you see your doctor Discharge Disposition: HOME SELF-CARE
== END 2020-12-25 08:27 | disposition home or self-care (01) | DRG 385 ==
LOC: EC 16:00 → 4SSUR 18:33
PROVIDERS: ADMIT Internal Medicine; ATTEND Internal Medicine
PROC: 05HF33Z Insertion of Infusion Device into Left Cephalic Vein, Percutaneous Approach (ICD-10-PCS; principal; 2020-12-20 12:25)
DX: K51.90 Ulcerative colitis, unspecified, without complications (principal); E43 Unspecified severe protein-calorie malnutrition; E87.1 Hypo-osmolality and hyponatremia; Z68.1 Body mass index [BMI] 19.9 or less, adult; K92.2 Gastrointestinal hemorrhage, unspecified; K21.9 Gastro-esophageal reflux disease without esophagitis; G89.29 Other chronic pain; M54.5 Low back pain; R79.89 Other specified abnormal findings of blood chemistry; Z87.891 Personal history of nicotine dependence; M19.90 Unspecified osteoarthritis, unspecified site; F41.9 Anxiety disorder, unspecified; Z91.14 Patient's other noncompliance with medication regimen; K63.89 Other specified diseases of intestine; D50.9 Iron deficiency anemia, unspecified; Z87.19 Personal history of other diseases of the digestive system; Z91.19 Patient's noncompliance with other medical treatment and regimen
CPT/HCPCS: 36410; 36415; 74019; 74177; 76937; 80048; 80053; 80306; 81003; 82150; 82728; 83540; 83550; 83690; 83735; 84145; 85025; 85652; 86140; 87324; 96361; 96374; 99285

== ENCOUNTER 2021-05-31 07:08 | Inpatient (IN) | payer OTHER ==
[2021-05-31] MEDS ORDERED: HYDROmorphone 1 MG/ML 1 ML SYRINGE IVP STA ×2 (07:32→10:31)
[2021-05-31] MEDS ORDERED: ONDANSETRON 4 MG/2 ML VIAL IVP STA (07:32)
[2021-05-31] MEDS ORDERED: SODIUM CHLORIDE 0.9% 1,000 ML IV STA (07:32)
[2021-05-31 08:12] LABS: Anisocytosis Slight; Basophils % (A) 0 %; Eosinophils # (A) 0.3 k/uL (0-0.7); Eosinophils % (A) 3 %; Hypochromasia Marked; Lymphocytes # (A) 1.7 k/uL (1.0-4.8); Lymphocytes % (A) 17 %; MCH 15.4 pg (25.0-35.0); MCHC 24.9 g/dL (31.0-37.0); MCV 61.8 fL (80.0-100.0); Mean Platelet Volume 7.1; Microcytosis Marked; Monocytes % (A) 10 %; Neutrophils # (A) 6.9 k/uL (1.3-7.7); Neutrophils % (A) 68 %; Poikilocytosis Slight; RBC 2.69 m/uL (4.30-5.90); RDW 16.5 % (11.5-15.5); WBC 10.1 k/uL (3.8-10.6)
[2021-05-31 08:28] LABS: INR 0.9 (<1.2); Prothrombin Time 10.2 sec (9.0-12.0)
[2021-05-31 08:29] LABS: HCT 16.6 % (39.0-53.0); HGB 4.1 gm/dL (13.0-17.5)
[2021-05-31 08:30] LABS: Platelet Count 778 k/uL (150-450)
[2021-05-31 08:36] LABS: ALT 9 U/L (4-49); AST 26 U/L (17-59); African American GFR (CKD) >90 (>60 ml/min/1.73 sqM); Albumin 2.8 g/dL (3.5-5.0); Alkaline Phosphatase 52 U/L (38-126); Anion Gap 10 mmol/L; Blood Urea Nitrogen 17 mg/dL (9-20); C Reactive Protein 4.3 mg/dL (<1.0); Calcium 8.1 mg/dL (8.4-10.2); Carbon Dioxide 28 mmol/L (22-30); Chloride 92 mmol/L (98-107); Glucose 116 mg/dL (74-99); Lipase 107 U/L (23-300); Non-African American GFR(CKD) >90 (>60 ml/min/1.73 sqM); Potassium 4.3 mmol/L (3.5-5.1); Sodium 130 mmol/L (137-145); Total Bilirubin <0.1 mg/dL (0.2-1.3); Total Protein 6.1 g/dL (6.3-8.2)
--- NOTE | 2021-05-31 08:39 | CT ---
EXAMINATION TYPE: CT abdomen pelvis w con DATE OF EXAM: 05/31/2021 COMPARISON: 12/17/2020 HISTORY: pain, ulcerative colitis CT DLP: 617.6 mGycm CONTRAST: CT scan of the abdomen and pelvis is performed without Oral Contrast and with IV Contrast, patient in jected with 100 mL of Isovue 300. FINDINGS: LUNG BASES-: No visible nodule. No infiltrate. LIVER/GB: No calcified gallstones. No space occupying hepatic lesion. Biliary tree is of normal ca liber. PANCREAS: No inflammation. No distinct mass. SPLEEN: No splenic enlargement. No lesion seen. ADRENALS: No nodule. No thickening. KIDNEYS/BLADDER: No hydronephrosis. No nephrolithiasis. No distinct renal mass. Urinary bladder g rossly unremarkable. BOWEL: There is extensive bowel wall thickening involving the rectosigmoid colon extending into the d escending colon and transverse colon with relative sparing of the right hemicolon. Findings are efraín tible with ulcerative colitis. At the rectosigmoid junction there is focal decreased attenuation lu uring 1.1 cm seen best on image 72 which could reflect an intramural abscess. No evidence of perforat ion. No extraluminal abscess.. GENITAL ORGANS: No gross abnormality. LYMPH NODES: No greater than 1cm abdominal or pelvic lymph nodes are appreciated. AORTA: No significant abnormality. OSSEOUS STRUCTURES: No significant abnormality is seen. OTHER: No significant additional abnormality is seen. IMPRESSION: 1. Findings consistent with the provided history of ulcerative colitis with colonic wall thickening e xtending from the proximal transverse colon through the rectosigmoid junction. At the level of the re ctum there is focal decreased attenuation seen at the approximate 5:00 position which could reflect a small intramural abscess. No evidence of perforation.
--- NOTE | 2021-05-31 08:51 | ED ---
Abdominal Pain HPI - General Chief Complaint: Abdominal Pain Stated Complaint: Abdominal Pain Time Seen by Provider: 05/31/21 07:10 Source: patient Mode of arrival: ambulatory Limitations: no limitations - History of Present Illness Initial Comments: Patient is a 35-year-old male with past medical history of ulcerative colitis who presents to the emergency Department with reported abdominal pain. States that he has had diffuse abdominal pain for the past one week. He follows with Dr. Aguilar and normally gets Entyvio infusions every 4 months. His last infusion was in April. He has not been on steroids since his hospitalization in November. He has had stools consisting of dark and bright red blood. Has upwards of 12 bowel movements per day. Feels as if he has difficulty passing the stool out of his rectum and is concerned for "blockage". Patient presents stating that he is extremely weak. He has had blood transfusions before in the past due to his symptomatic anemia. He denies any changes in his bladder habits. Denies any fevers. No other alleviating, precipitating or modifying factors - Related Data Home Medications Medication Instructions Recorded Confirmed No Known Home Medications 05/31/21 05/31/21 Allergies Allergy/AdvReac Type Severity Reaction Status Date / Time No Known Allergies Allergy Verified 05/31/21 08:57 Review of Systems ROS Statement: Those systems with pertinent positive or pertinent negative responses have been documented in the HPI. ROS Other: All systems not noted in ROS Statement are negative. Past Medical History Past Medical History: GERD/Reflux Additional Past Medical History / Comment(s): Pt recently admitted to [facility] on 07/26/20 with acute ulcerative colitis exacerbation, acute blood loss anemia 2ndary to lower GI bleed/transfusion, hyperkalemia. Other hx: chronic low back pain. History of Any Multi-Drug Resistant Organisms: None Reported Past Surgical History: Orthopedic Surgery Additional Past Surgical History / Comment(s): left hand industrial accident/finger amputations, EGD, colonoscopy. Past Anesthesia/Blood Transfusion Reactions: No Reported Reaction Additional Past Anesthesia/Blood Transfusion Reaction / Comment(s): Pt recently received blood without reaction. Past Psychological History: Anxiety Smoking Status: Former smoker Past Alcohol Use History: None Reported Past Drug Use History: Marijuana - Past Family History Father History Unknown: Yes Mother Family Medical History: No Reported History Additional Family Medical History / Comment(s): Healthy. General Exam Limitations: no limitations General appearance: alert, in no apparent distress Head exam: Present: atraumatic, normocephalic, normal inspection Eye exam: Present: normal appearance, PERRL, EOMI. Absent: scleral icterus, conjunctival injection, periorbital swelling ENT exam: Present: normal exam, mucous membranes moist Neck exam: Present: normal inspection. Absent: tenderness, meningismus, lymphadenopathy Respiratory exam: Present: normal lung sounds bilaterally. Absent: respiratory distress, wheezes, rales, rhonchi, stridor Cardiovascular Exam: Present: regular rate, normal rhythm, normal heart sounds. Absent: systolic murmur, diastolic murmur, rubs, gallop, clicks GI/Abdominal exam: Present: soft, tenderness (Generalized), normal bowel sounds. Absent: distended, guarding, rebound, rigid Rectal exam: Present: deferred Extremities exam: Present: normal inspection, full ROM, normal capillary refill. Absent: tenderness, pedal edema, joint swelling, calf tenderness Back exam: Present: normal inspection Neurological exam: Present: alert, oriented X3, CN II-XII intact Psychiatric exam: Present: normal affect, normal mood Skin exam: Present: warm, dry, intact, normal color. Absent: rash Course Vital Signs 05/31/21 05/31/21 05/31/21 07:10 10:56 11:07 Temperature 98.3 F 99.0 F 98.6 F Pulse Rate 121 H 87 91 Respiratory 18 18 18 Rate Blood Pressure 136/87 101/59 101/66 O2 Sat by Pulse 99 96 98 Oximetry 05/31/21 05/31/21 05/31/21 11:37 12:03 12:04 Temperature 98.5 F 99.4 F Pulse Rate 84 80 80 Respiratory 18 20 20 Rate Blood Pressure 104/60 107/60 107/60 O2 Sat by Pulse 95 100 100 Oximetry 05/31/21 05/31/21 05/31/21 13:16 13:45 13:55 Temperature 99.3 F 99.3 F 99.3 F Pulse Rate 76 77 79 Respiratory 20 20 18 Rate Blood Pressure 102/64 100/59 99/63 O2 Sat by Pulse 99 98 99 Oximetry 05/31/21 05/31/21 05/31/21 14:25 15:34 15:53 Temperature 99.4 F 99.4 F 99.3 F Pulse Rate 80 78 74 Respiratory 20 20 18 Rate Blood Pressure 104/64 109/58 101/63 O2 Sat by Pulse 99 97 97 Oximetry 05/31/21 05/31/21 05/31/21 16:03 16:33 17:46 Temperature 99.2 F 99.4 F 97.7 F Pulse Rate 74 76 70 Respiratory 17 20 20 Rate Blood Pressure 101/60 100/70 100/60 O2 Sat by Pulse 98 98 98 Oximetry 05/31/21 20:14 Temperature Pulse Rate 68 Respiratory 16 Rate Blood Pressure 100/60 O2 Sat by Pulse 97 Oximetry Medical Decision Making - Medical Decision Making Upon arrival patient is placed into room 29. A thorough history and physical exam was performed. IV is established laboratory studies are conducted. The patient was given a milligram of Dilaudid and a liter bolus of normal saline. Laboratory studies are reviewed and demonstrate a hemoglobin of 4.1. Lactic acid 2.1. CT abdomen and pelvis is performed which demonstrates diffuse colitis with a possible intramural abscess at the level of the rectum. Results are discussed with the patient. I did call and speak with Dr. Grant. He is willing to offer surgical consult on the patient. Patient will be admitted to [facility] with surgery to consult. Patient agreed to the treatment plan and is awaiting a bed on the floor - Lab Data Result diagrams: 06/01/21 08:10 06/01/21 08:10 Lab Results 05/31/21 05/31/21 05/31/21 Range/Units 07:38 07:38 07:38 WBC 10.1 (3.8-10.6) k/uL RBC 2.69 L (4.30-5.90) m/uL Hgb 4.1 L* (13.0-17.5) gm/dL Hct 16.6 L* (39.0-53.0) % MCV 61.8 L (80.0-100.0) fL MCH 15.4 L (25.0-35.0) pg MCHC 24.9 L (31.0-37.0) g/dL RDW 16.5 H (11.5-15.5) % Plt Count 778 H (150-450) k/uL MPV 7.1 Neutrophils % 68 % Lymphocytes % 17 % Monocytes % 10 % Eosinophils % 3 % Basophils % 0 % Neutrophils # 6.9 (1.3-7.7) k/uL Lymphocytes # 1.7 (1.0-4.8) k/uL Monocytes # 1.0 (0-1.0) k/uL Eosinophils # 0.3 (0-0.7) k/uL Basophils # 0.0 (0-0.2) k/uL Manual Slide Review Performed Polychromasia Present Hypochromasia Marked Poikilocytosis Slight Anisocytosis Slight Microcytosis Marked ESR 75 H (0-15) mm/hr PT 10.2 (9.0-12.0) sec INR 0.9 (<1.2) APTT 22.0 (22.0-30.0) sec Sodium 130 L (137-145) mmol/L Potassium 4.3 (3.5-5.1) mmol/L Chloride 92 L (98-107) mmol/L Carbon Dioxide 28 (22-30) mmol/L Anion Gap 10 mmol/L BUN 17 (9-20) mg/dL Creatinine 0.96 (0.66-1.25) mg/dL Est GFR (CKD-EPI)AfAm >90 (>60 ml/min/1.73 sqM) Est GFR (CKD-EPI)NonAf >90 (>60 ml/min/1.73 sqM) Glucose 116 H (74-99) mg/dL Lactic Ac Sepsis Rflx Plasma Lactic Acid Jeancarlos (0.7-2.0) mmol/L Calcium 8.1 L (8.4-10.2) mg/dL Iron (65-175) ug/dL TIBC (228-460) ug/dL % Saturation (15.00-50.00) Transferrin (204.0-354.0) mg/dL Total Bilirubin <0.1 L (0.2-1.3) mg/dL AST 26 (17-59) U/L ALT 9 (4-49) U/L Alkaline Phosphatase 52 (38-126) U/L C-Reactive Protein 4.3 H (<1.0) mg/dL Total Protein 6.1 L (6.3-8.2) g/dL Albumin 2.8 L (3.5-5.0) g/dL Lipase 107 (23-300) U/L Vitamin B12 (200.0-944.0) pg/mL Blood Type Blood Type Recheck Bld Type Recheck Status Antibody Screen Crossmatch Spec Expiration Date 05/31/21 05/31/21 05/31/21 Range/Units 07:38 07:38 07:38 WBC (3.8-10.6) k/uL RBC (4.30-5.90) m/uL Hgb (13.0-17.5) gm/dL Hct (39.0-53.0) % MCV (80.0-100.0) fL MCH (25.0-35.0) pg MCHC (31.0-37.0) g/dL RDW (11.5-15.5) % Plt Count (150-450) k/uL MPV Neutrophils % % Lymphocytes % % Monocytes % % Eosinophils % % Basophils % % Neutrophils # (1.3-7.7) k/uL Lymphocytes # (1.0-4.8) k/uL Monocytes # (0-1.0) k/uL Eosinophils # (0-0.7) k/uL Basophils # (0-0.2) k/uL Manual Slide Review Polychromasia Hypochromasia Poikilocytosis Anisocytosis Microcytosis ESR (0-15) mm/hr PT (9.0-12.0) sec INR (<1.2) APTT (22.0-30.0) sec Sodium (137-145) mmol/L Potassium (3.5-5.1) mmol/L Chloride (98-107) mmol/L Carbon Dioxide (22-30) mmol/L Anion Gap mmol/L BUN (9-20) mg/dL Creatinine (0.66-1.25) mg/dL Est GFR (CKD-EPI)AfAm (>60 ml/min/1.73 sqM) Est GFR (CKD-EPI)NonAf (>60 ml/min/1.73 sqM) Glucose (74-99) mg/dL Lactic Ac Sepsis Rflx Plasma Lactic Acid Jeancarlos 2.1 H* (0.7-2.0) mmol/L Calcium (8.4-10.2) mg/dL Iron 7 L (65-175) ug/dL TIBC 367 (228-460) ug/dL % Saturation 1.81 L (15.00-50.00) Transferrin 262.0 (204.0-354.0) mg/dL Total Bilirubin (0.2-1.3) mg/dL AST (17-59) U/L ALT (4-49) U/L Alkaline Phosphatase (38-126) U/L C-Reactive Protein (<1.0) mg/dL Total Protein (6.3-8.2) g/dL Albumin (3.5-5.0) g/dL Lipase (23-300) U/L Vitamin B12 667.0 (200.0-944.0) pg/mL Blood Type B Positive Blood Type Recheck B Pos Bld Type Recheck Status No Antibody Screen NEGATIVE Crossmatch See Detail Spec Expiration Date 06/03/2021 - 233705/31/21 Range/Units 08:52 WBC (3.8-10.6) k/uL RBC (4.30-5.90) m/uL Hgb (13.0-17.5) gm/dL Hct (39.0-53.0) % MCV (80.0-100.0) fL MCH (25.0-35.0) pg MCHC (31.0-37.0) g/dL RDW (11.5-15.5) % Plt Count (150-450) k/uL MPV Neutrophils % % Lymphocytes % % Monocytes % % Eosinophils % % Basophils % % Neutrophils # (1.3-7.7) k/uL Lymphocytes # (1.0-4.8) k/uL Monocytes # (0-1.0) k/uL Eosinophils # (0-0.7) k/uL Basophils # (0-0.2) k/uL Manual Slide Review Polychromasia Hypochromasia Poikilocytosis Anisocytosis Microcytosis ESR (0-15) mm/hr PT (9.0-12.0) sec INR (<1.2) APTT (22.0-30.0) sec Sodium (137-145) mmol/L Potassium (3.5-5.1) mmol/L Chloride (98-107) mmol/L Carbon Dioxide (22-30) mmol/L Anion Gap mmol/L BUN (9-20) mg/dL Creatinine (0.66-1.25) mg/dL Est GFR (CKD-EPI)AfAm (>60 ml/min/1.73 sqM) Est GFR (CKD-EPI)NonAf (>60 ml/min/1.73 sqM) Glucose (74-99) mg/dL Lactic Ac Sepsis Rflx Y Plasma Lactic Acid Jeancarlos (0.7-2.0) mmol/L Calcium (8.4-10.2) mg/dL Iron (65-175) ug/dL TIBC (228-460) ug/dL % Saturation (15.00-50.00) Transferrin (204.0-354.0) mg/dL Total Bilirubin (0.2-1.3) mg/dL AST (17-59) U/L ALT (4-49) U/L Alkaline Phosphatase (38-126) U/L C-Reactive Protein (<1.0) mg/dL Total Protein (6.3-8.2) g/dL Albumin (3.5-5.0) g/dL Lipase (23-300) U/L Vitamin B12 (200.0-944.0) pg/mL Blood Type Blood Type Recheck Bld Type Recheck Status Antibody Screen Crossmatch Spec Expiration Date Critical Care Time Critical Care Time: Yes Critical Care Time: 50 minutes Disposition Clinical Impression: GI bleed, Ulcerative colitis, Thrombocytosis, Anemia Disposition: ADMITTED IP TO THIS [facility] Condition: Serious Is patient prescribed a controlled substance at d/c from ED?: No Decision to Admit Reason: Admit from EC Decision Date: 05/31/21 Decision Time: 09:14
[2021-05-31] MEDS ORDERED: methylPREDNISolone SOD SUCCI 125 MG/2 ML VIAL IV STA (08:53)
[2021-05-31] MEDS ORDERED: ONDANSETRON 4 MG/2 ML VIAL IVP PRN (09:15)
[2021-05-31] MEDS ORDERED: NALOXONE 0.4 MG/ML 1 ML VIAL IV PRN (09:15)
[2021-05-31 09:44] LABS: Polychromasia Present
[2021-05-31] MEDS: PIPERACILLIN-TAZOBACTAM 3.375 GM in SODIUM CHLORIDE 0.9% 100 ML IVPB SCH ×3 (10:07→23:27)
[2021-05-31] MEDS: SODIUM CHLORIDE 0.9% 1,000 ML IV SCH ×2 (10:07→17:48)
[2021-05-31] MEDS ORDERED: HYDROmorphone 1 MG/ML 1 ML SYRINGE IM STA (10:26)
--- NOTE | 2021-05-31 12:59 | P.GSCN ---
History of Present Illness Consult date: 05/31/21 Reason for Consult: history of ulcerative colitis History of present illness: so 35-year-old male who was admitted with exacerbation of ulcerative colitis. patient has a known history of placed. He states he developed severe abdominal pain over the last 72 hours. Past Medical History Past Medical History: GERD/Reflux Additional Past Medical History / Comment(s): Pt recently admitted to [facility] on 07/26/20 with acute ulcerative colitis exacerbation, acute blood loss anemia 2n [place]lsey to lower GI bleed/transfusion, hyperkalemia. Other hx: chronic low back pain. History of Any Multi-Drug Resistant Organisms: None Reported Past Surgical History: Orthopedic Surgery Additional Past Surgical History / Comment(s): left hand industrial accident/finger amputations, EGD, colonoscopy. Past Anesthesia/Blood Transfusion Reactions: No Reported Reaction Additional Past Anesthesia/Blood Transfusion Reaction / Comm: Pt recently received blood without reaction. Past Psychological History: Anxiety Smoking Status: Former smoker Past Alcohol Use History: None Reported Past Drug Use History: Marijuana - Past Family History Father History Unknown: Yes Mother Family Medical History: No Reported History Additional Family Medical History / Comment(s): Healthy. Medications and Allergies Home Medications Medication Instructions Recorded Confirmed Type No Known Home Medications 05/31/21 05/31/21 History Allergies Allergy/AdvReac Type Severity Reaction Status Date / Time No Known Allergies Allergy Verified 05/31/21 08:57 Surgical - Exam Vital Signs Temp Pulse Resp BP Pulse Ox 98.3 F 121 H 18 136/87 99 05/31/21 07:10 05/31/21 07:10 05/31/21 07:10 05/31/21 07:10 05/31/21 07:10 - General well developed, moderate distress - Eyes PERRL - ENT normal pinna - Neck no masses - Respiratory normal expansion - Cardiovascular Rhythm: regular - Abdomen mild distention. There is mild diffuse tenderness. There is no rebound or guarding. Abdomen: soft Results - Labs 05/31/21 07:38 05/31/21 07:38 Abnormal Lab Results - Last 24 Hours (Table) 05/31/21 05/31/21 05/31/21 Range/Units 07:38 07:38 07:38 RBC 2.69 L (4.30-5.90) m/uL Hgb 4.1 L* (13.0-17.5) gm/dL Hct 16.6 L* (39.0-53.0) % MCV 61.8 L (80.0-100.0) fL MCH 15.4 L (25.0-35.0) pg MCHC 24.9 L (31.0-37.0) g/dL RDW 16.5 H (11.5-15.5) % Plt Count 778 H (150-450) k/uL Sodium 130 L (137-145) mmol/L Chloride 92 L (98-107) mmol/L Glucose 116 H (74-99) mg/dL Plasma Lactic Acid Jeancarlos 2.1 H* (0.7-2.0) mmol/L Calcium 8.1 L (8.4-10.2) mg/dL Total Bilirubin <0.1 L (0.2-1.3) mg/dL C-Reactive Protein 4.3 H (<1.0) mg/dL Total Protein 6.1 L (6.3-8.2) g/dL Albumin 2.8 L (3.5-5.0) g/dL Crossmatch 05/31/21 Range/Units 07:38 RBC (4.30-5.90) m/uL Hgb (13.0-17.5) gm/dL Hct (39.0-53.0) % MCV (80.0-100.0) fL MCH (25.0-35.0) pg MCHC (31.0-37.0) g/dL RDW (11.5-15.5) % Plt Count (150-450) k/uL Sodium (137-145) mmol/L Chloride (98-107) mmol/L Glucose (74-99) mg/dL Plasma Lactic Acid Jeancarlos (0.7-2.0) mmol/L Calcium (8.4-10.2) mg/dL Total Bilirubin (0.2-1.3) mg/dL C-Reactive Protein (<1.0) mg/dL Total Protein (6.3-8.2) g/dL Albumin (3.5-5.0) g/dL Crossmatch See Detail Diabetes panel 05/31/21 Range/Units 07:38 Sodium 130 L (137-145) mmol/L Potassium 4.3 (3.5-5.1) mmol/L Chloride 92 L (98-107) mmol/L Carbon Dioxide 28 (22-30) mmol/L BUN 17 (9-20) mg/dL Creatinine 0.96 (0.66-1.25) mg/dL Glucose 116 H (74-99) mg/dL Calcium 8.1 L (8.4-10.2) mg/dL AST 26 (17-59) U/L ALT 9 (4-49) U/L Alkaline Phosphatase 52 (38-126) U/L Total Protein 6.1 L (6.3-8.2) g/dL Albumin 2.8 L (3.5-5.0) g/dL Calcium panel 05/31/21 Range/Units 07:38 Calcium 8.1 L (8.4-10.2) mg/dL Albumin 2.8 L (3.5-5.0) g/dL Pituitary panel 05/31/21 Range/Units 07:38 Sodium 130 L (137-145) mmol/L Potassium 4.3 (3.5-5.1) mmol/L Chloride 92 L (98-107) mmol/L Carbon Dioxide 28 (22-30) mmol/L BUN 17 (9-20) mg/dL Creatinine 0.96 (0.66-1.25) mg/dL Glucose 116 H (74-99) mg/dL Calcium 8.1 L (8.4-10.2) mg/dL Adrenal panel 05/31/21 Range/Units 07:38 Sodium 130 L (137-145) mmol/L Potassium 4.3 (3.5-5.1) mmol/L Chloride 92 L (98-107) mmol/L Carbon Dioxide 28 (22-30) mmol/L BUN 17 (9-20) mg/dL Creatinine 0.96 (0.66-1.25) mg/dL Glucose 116 H (74-99) mg/dL Calcium 8.1 L (8.4-10.2) mg/dL Total Bilirubin <0.1 L (0.2-1.3) mg/dL AST 26 (17-59) U/L ALT 9 (4-49) U/L Alkaline Phosphatase 52 (38-126) U/L Total Protein 6.1 L (6.3-8.2) g/dL Albumin 2.8 L (3.5-5.0) g/dL - Imaging CT scan - pelvis: report reviewed ( extensive thickening of rectosigmoid) Assessment and Plan Assessment: his results placed. Patient will be medically managed currently.
[2021-05-31 13:42] LABS: Erythrocyte Sedimentation Rate 75 mm/hr (0-15)
[2021-05-31] MEDS: HYDROmorphone 1 MG/ML 1 ML SYRINGE IVP PRN ×4 (14:42→23:26)
[2021-05-31] MEDS: predniSONE 10 MG TAB PO SCH (16:40)
[2021-05-31 19:46] LABS: % Iron Saturation 1.81 (15.00-50.00)
[2021-05-31] MEDS: FAMOTIDINE 20 MG TAB PO SCH (20:00)
--- NOTE | 2021-06-01 00:45 | P.HPIM ---
History of Present Illness H&P Date: 05/31/21 Chief Complaint: Abdominal pain Patient is a 35 old male with a known history of ulcerative colitis, acute blood loss anemia and transfusions, anxiety, GERD, history of smoking and marijuana use presents to ER with complaints of abdominal pain. Abdominal pain is diffuse and has been ongoing for the past 1 week. Patient also states that he's been having dark stools as well. Patient follows with GI and Entyvio infusions every 4 months. Patient is also having generalized weakness. Patient was previously admitted to the hospital due to ulcerative colitis exacerbation. CT of abdomen pelvis showed findings consistent with history of ulcerative colitis with colonic wall thickening extending from the proximal transverse colon through the rectosigmoid junction. Possible small intramural abscess at the level of rectum. No evidence of perforation. Laboratory data showed WBC 10.1 hemoglobin 4.1 and platelets 778 and MCV 61.8 Sodium 1:30 potassium 4.3 chloride 92 BUN 17 and creatinine 0.96 lactic acid 2.1 Covid 19 PCR not detected Review of Systems Constitutional: Patient denies any fever or chills . Generalized weakness and tiredness.. Abdomen: Patient does have nausea vomiting or abdominal pain. pain. Cardiovascular: Patient denies any chest pain or short of breath no palpitations. Respiratory: patient denied any cough is from production. No shortness of breath Neurologic: Patient denied any numbness or tingling headache. Musculoskeletal: Patient denies any complaints of joint swelling or deformity. Skin: Negative Psychiatric: Negative Endocrine: No heat or cold intolerance. No recent weight gain. Genitourinary: No dysuria or hematuria. All other 14 point ROS negative except the above Past Medical History Past Medical History: GERD/Reflux Additional Past Medical History / Comment(s): Pt recently admitted to [facility] on 07/26/20 with acute ulcerative colitis exacerbation, acute blood loss anemia 2ndary to lower GI bleed/transfusion, hyperkalemia. Other hx: chronic low back pain. History of Any Multi-Drug Resistant Organisms: None Reported Past Surgical History: Orthopedic Surgery Additional Past Surgical History / Comment(s): left hand industrial accident/finger amputations, EGD, colonoscopy. Past Anesthesia/Blood Transfusion Reactions: No Reported Reaction Additional Past Anesthesia/Blood Transfusion Reaction / Comment(s): Pt recently received blood without reaction. Past Psychological History: Anxiety Smoking Status: Former smoker Past Alcohol Use History: None Reported Past Drug Use History: Marijuana - Past Family History Father History Unknown: Yes Mother Family Medical History: No Reported History Additional Family Medical History / Comment(s): Healthy. Medications and Allergies Home Medications Medication Instructions Recorded Confirmed Type No Known Home Medications 05/31/21 05/31/21 History Allergies Allergy/AdvReac Type Severity Reaction Status Date / Time No Known Allergies Allergy Verified 05/31/21 08:57 Physical Exam Vitals: Vital Signs Temp Pulse Resp BP Pulse Ox 05/31/21 07:10 98.3 F 121 H 18 136/87 99 Intake and Output 05/30/21 05/31/21 05/31/21 22:59 06:59 14:59 Other: Weight 68.039 kg PHYSICAL EXAMINATION: Patient is lying in the bed comfortably, no acute distress, awake alert and oriented. Appears to be in pain.. HEENT: Normocephalic. Neck is supple. Pupils reactive. Nostrils clear. Oral cavity is moist. Neck reveals no JVD, carotid bruits, or thyromegaly. CHEST EXAMINATION: Trachea is central. Symmetrical expansion. Bibasilar dimini shed sounds. No wheezing or rhonchi.. CARDIAC: Normal S1, S2 with no gallops. No murmurs ABDOMEN: Soft. Abdominal tenderness mainly left sided. Minimal guarding. No rigidity. Bowel sounds normal. No organomegaly. No abdominal bruits. Extremities: reveal no edema. No clubbing or cyanosis Neurologically awake, alert, oriented x3 with well-coordinated movements. No focal deficits noted Skin: No rash or skin lesions. Psychiatric: Coperative. Nonsuicidal, anxious. Musculoskeletal: No joint swelling or deformity. Normal range of motion. Results CBC & Chem 7: 06/01/21 08:10 06/01/21 08:10 Labs: Abnormal Lab Results - Last 24 Hours (Table) 05/31/21 05/31/21 05/31/21 Range/Units 07:38 07:38 07:38 RBC 2.69 L (4.30-5.90) m/uL Hgb 4.1 L* (13.0-17.5) gm/dL Hct 16.6 L* (39.0-53.0) % MCV 61.8 L (80.0-100.0) fL MCH 15.4 L (25.0-35.0) pg MCHC 24.9 L (31.0-37.0) g/dL RDW 16.5 H (11.5-15.5) % Plt Count 778 H (150-450) k/uL Sodium 130 L (137-145) mmol/L Chloride 92 L (98-107) mmol/L Glucose 116 H (74-99) mg/dL Plasma Lactic Acid Jeancarlos 2.1 H* (0.7-2.0) mmol/L Calcium 8.1 L (8.4-10.2) mg/dL Total Bilirubin <0.1 L (0.2-1.3) mg/dL C-Reactive Protein 4.3 H (<1.0) mg/dL Total Protein 6.1 L (6.3-8.2) g/dL Albumin 2.8 L (3.5-5.0) g/dL Crossmatch 05/31/21 Range/Units 07:38 RBC (4.30-5.90) m/uL Hgb (13.0-17.5) gm/dL Hct (39.0-53.0) % MCV (80.0-100.0) fL MCH (25.0-35.0) pg MCHC (31.0-37.0) g/dL RDW (11.5-15.5) % Plt Count (150-450) k/uL Sodium (137-145) mmol/L Chloride (98-107) mmol/L Glucose (74-99) mg/dL Plasma Lactic Acid Jeancarlos (0.7-2.0) mmol/L Calcium (8.4-10.2) mg/dL Total Bilirubin (0.2-1.3) mg/dL C-Reactive Protein (<1.0) mg/dL Total Protein (6.3-8.2) g/dL Albumin (3.5-5.0) g/dL Crossmatch See Detail Thrombosis Risk Factor Assmnt - DVT/VTE Prophylaxis DVT/VTE Prophylaxis: Mechanical Prophylaxis ordered Assessment and Plan Assessment: Abdominal pain secondary to acute ulcerative colitis exacerbation. Possible intramural abscess and the rectum level Acute blood loss anemia due to GI bleed Symptomatic anemia Ulcerative colitis currently getting Entyvio infusions every 4 months Lactic acidosis Microcytic iron deficiency anemia DVT prophylaxis with SCDs due to GI bleed. Plan: Patient will be continued on IV hydration and pain management with Dilaudid. Patient will be transfused with 3 units of PRBC and follow hemoglobin level. Denied any active bleeding at this time. Patient will be continued on antibiotics in the form of Zosyn. Follow up culture reports. Continue with symptomatic management. Gen. surgery is on board. Follow up closely. Time with Patient: Greater than 30
[2021-06-01] MEDS: HYDROmorphone 1 MG/ML 1 ML SYRINGE IVP PRN ×5 (03:23→19:28)
[2021-06-01] MEDS: SODIUM CHLORIDE 0.9% 1,000 ML IV SCH ×3 (05:18→21:38)
[2021-06-01] MEDS: PIPERACILLIN-TAZOBACTAM 3.375 GM in SODIUM CHLORIDE 0.9% 100 ML IVPB SCH ×2 (08:40→17:12)
[2021-06-01] MEDS: FAMOTIDINE 20 MG TAB PO SCH ×2 (08:40→19:27)
[2021-06-01] MEDS: predniSONE 10 MG TAB PO SCH (08:40)
[2021-06-01 09:05] LABS: African American GFR (CKD) >90 (>60 ml/min/1.73 sqM); Anion Gap 6 mmol/L; Blood Urea Nitrogen 12 mg/dL (9-20); Calcium 8.1 mg/dL (8.4-10.2); Carbon Dioxide 26 mmol/L (22-30); Chloride 101 mmol/L (98-107); Glucose 106 mg/dL (74-99); Non-African American GFR(CKD) >90 (>60 ml/min/1.73 sqM); Potassium 4.5 mmol/L (3.5-5.1); Sodium 133 mmol/L (137-145)
[2021-06-01 09:10] LABS: Anisocytosis Moderate; HCT 23.6 % (39.0-53.0); Hypochromasia Marked; MCH 20.8 pg (25.0-35.0); MCHC 28.9 g/dL (31.0-37.0); Mean Platelet Volume 7.9; Microcytosis Marked; Platelet Count 578 k/uL (150-450); Poikilocytosis Marked; RBC 3.29 m/uL (4.30-5.90); RDW 20.9 % (11.5-15.5); WBC 12.2 k/uL (3.8-10.6)
[2021-06-01 09:20] LABS: HGB 6.8 gm/dL (13.0-17.5); MCV 71.8 fL (80.0-100.0)
[2021-06-01 12:34] LABS: Band Neutrophils % 4 %; Lymphocytes # (M) 0.85 k/uL (1.0-4.8); Metamyelocytes # (M) 0.12 k/uL (0); Metamyelocytes % 1 %; Monocytes # (M) 0.85 k/uL (0-1.0); Neutrophils % (M) 83 %; Nucleated Red Blood Cells 0 /100 WBC (0-0); Total Cells Counted 200
[2021-06-01 12:35] LABS: Mixed Population RBC Present
[2021-06-01 12:36] LABS: Toxic Granulation Present
--- NOTE | 2021-06-01 13:00 | P.PN ---
Progress Note - Text Progress Note Date: 06/01/21 Patient feels better today. He states his pain is 610. On exam vital signs are stable. Abdomen soft. There is mild diffuse tenderness. There is no rebound or guarding. Exacerbation of ulcerative colitis. Patient will receive medical therapy. We will place him on clear liquids.
--- NOTE | 2021-06-01 15:32 | P.PN ---
Subjective Progress Note Date: 06/01/21 Principal diagnosis: Abdominal pain due to ulcerative colitis exacerbation Patient is a 35 old male with a known history of ulcerative colitis, acute blood loss anemia and transfusions, anxiety, GERD, history of smoking and marijuana use presents to ER with complaints of abdominal pain. Abdominal pain is diffuse and has been ongoing for the past 1 week. Patient also states that he's been having dark stools as well. Patient follows with GI and Entyvio infusions every 4 months. Patient is also having generalized weakness. Patient was previously admitted to the hospital due to ulcerative colitis exacerbation. CT of abdomen pelvis showed findings consistent with history of ulcerative colitis with colonic wall thickening extending from the proximal transverse colon through the rectosigmoid junction. Possible small intramural abscess at the level of rectum. No evidence of perforation. Laboratory data showed WBC 10.1 hemoglobin 4.1 and platelets 778 and MCV 61.8 Sodium 1:30 potassium 4.3 chloride 92 BUN 17 and creatinine 0.96 lactic acid 2.1 Covid 19 PCR not detected 06/01/2021 Patient is currently resting in bed. Awake alert and oriented 3. Abdominal Pain is much improved. Patient states that he is hungry and wants to eat. Hemoglobin level went up to 6.8. 1 more unit of PRBC was ordered. Patient is iron deficient otherwise. No complaints of chest pain. Nausea improved and vomiting. patient has been afebrile. patient is also on zosyn for possible intra-abdominal abscess. general surgery is following. current medications reviewed. Objective - Vital Signs Vital signs: Vital Signs Temp 99.0 F 06/01/21 12:43 Pulse 72 06/01/21 12:43 Resp 16 06/01/21 12:43 BP 101/56 06/01/21 12:43 Pulse Ox 99 06/01/21 12:43 Intake & Output 05/31/21 06/01/21 06/01/21 18:59 06:59 18:59 Intake Total 859 0 Output Total 1 Balance 859 -1 0 Weight 68.039 kg 68.039 kg Intake: Blood Product 859 0 Rc As-1 Unit 310 [id number] Rc Pheresis 2 As3 Unit 273 [id number] Rc Pheresis 2 As3 Unit 0 [id number] Rc Pheresis As-3 Unit 276 [id number] Output: Stool 1 Other: Voiding Method Toilet Toilet - Exam PHYSICAL EXAMINATION: Patient is lying in the bed comfortably, no acute distress, awake alert and oriented.. HEENT: Normocephalic. Neck is supple. Pupils reactive. Nostrils clear. Oral cavity is moist. Neck reveals no JVD, carotid bruits, or thyromegaly. CHEST EXAMINATION: Trachea is central. Symmetrical expansion. Lung chacon clear to auscultation and percussion. CARDIAC: Normal S1, S2 with no gallops. No murmurs ABDOMEN: Soft. Left lower quadrant minimal tenderness. No guarding or rigidity. Bowel sounds normal. No organomegaly. No abdominal bruits. Extremities: reveal no edema. No clubbing or cyanosis Neurologically awake, alert, oriented x3 with well-coordinated movements. No focal deficits noted Skin: No rash or skin lesions. Psychiatric: Coperative. Nonsuicidal Musculoskeletal: No joint swelling or deformity. Normal range of motion. - Labs CBC & Chem 7: 06/01/21 08:10 06/01/21 08:10 Labs: Abnormal Lab Results - Last 24 Hours (Table) 05/31/21 05/31/21 05/31/21 Range/Units 07:38 07:38 07:38 WBC (3.8-10.6) k/uL RBC (4.30-5.90) m/uL Hgb (13.0-17.5) gm/dL Hct (39.0-53.0) % MCV (80.0-100.0) fL MCH (25.0-35.0) pg MCHC (31.0-37.0) g/dL RDW (11.5-15.5) % Plt Count (150-450) k/uL Neutrophils # (Manual) (1.3-7.7) k/uL Lymphocytes # (Manual) (1.0-4.8) k/uL Metamyelocytes # (Man) (0) k/uL ESR 75 H (0-15) mm/hr Sodium (137-145) mmol/L Glucose (74-99) mg/dL Calcium (8.4-10.2) mg/dL Iron 7 L (65-175) ug/dL % Saturation 1.81 L (15.00-50.00) Crossmatch See Detail 06/01/21 06/01/21 Range/Units 08:10 08:10 WBC 12.2 H (3.8-10.6) k/uL RBC 3.29 L (4.30-5.90) m/uL Hgb 6.8 L* D (13.0-17.5) gm/dL Hct 23.6 L (39.0-53.0) % MCV 71.8 L D (80.0-100.0) fL MCH 20.8 L (25.0-35.0) pg MCHC 28.9 L (31.0-37.0) g/dL RDW 20.9 H (11.5-15.5) % Plt Count 578 H (150-450) k/uL Neutrophils # (Manual) 10.60 H (1.3-7.7) k/uL Lymphocytes # (Manual) 0.85 L (1.0-4.8) k/uL Metamyelocytes # (Man) 0.12 H (0) k/uL ESR (0-15) mm/hr Sodium 133 L (137-145) mmol/L Glucose 106 H (74-99) mg/dL Calcium 8.1 L (8.4-10.2) mg/dL Iron (65-175) ug/dL % Saturation (15.00-50.00) Crossmatch Microbiology - Last 24 Hours (Table) 05/31/21 09:25 Blood Culture - Preliminary Blood No Growth after 24 hours 05/31/21 09:10 Blood Culture - Preliminary Blood No Growth after 24 hours Assessment and Plan Assessment: Abdominal pain secondary to acute ulcerative colitis exacerbation. Possible intramural abscess and the rectum level Acute blood loss anemia due to GI bleed Symptomatic anemia Ulcerative colitis currently getting Entyvio infusions every 4 months Lactic acidosis Microcytic iron deficiency anemia DVT prophylaxis with SCDs due to GI bleed. Plan: Patient will be continued on IV hydration and pain management with Dilaudid. Patient will be transfused with 3 units of PRBC and follow hemoglobin level. Denied any active bleeding at this time. Patient was started on clear liquid diet and advance as tolerated. Patient will be continued on antibiotics in the form of Zosyn. Follow up culture reports. Continue with symptomatic management. Gen. surgery is on board. Follow up closely. Time with Patient: Greater than 30
[2021-06-02] MEDS: PIPERACILLIN-TAZOBACTAM 3.375 GM in SODIUM CHLORIDE 0.9% 100 ML IVPB SCH ×3 (00:14→17:39)
[2021-06-02] MEDS: HYDROmorphone 1 MG/ML 1 ML SYRINGE IVP PRN ×7 (00:54→20:10)
[2021-06-02] MEDS: SODIUM CHLORIDE 0.9% 1,000 ML IV SCH ×3 (05:43→23:55)
[2021-06-02] MEDS: predniSONE 10 MG TAB PO SCH (08:16)
[2021-06-02] MEDS: FAMOTIDINE 20 MG TAB PO SCH ×2 (08:16→20:11)
[2021-06-02 08:34] LABS: Anisocytosis Moderate; HCT 22.7 % (39.0-53.0); HGB 6.4 gm/dL (13.0-17.5); Hypochromasia Marked; MCH 20.6 pg (25.0-35.0); MCV 73.7 fL (80.0-100.0); Mean Platelet Volume 7.2; Microcytosis Marked; Platelet Count 563 k/uL (150-450); Poikilocytosis Marked; RBC 3.09 m/uL (4.30-5.90); RDW 22.2 % (11.5-15.5); WBC 9.8 k/uL (3.8-10.6)
[2021-06-02 08:37] LABS: African American GFR (CKD) >90 (>60 ml/min/1.73 sqM); Anion Gap 0 mmol/L; Blood Urea Nitrogen 10 mg/dL (9-20); Calcium 7.8 mg/dL (8.4-10.2); Carbon Dioxide 28 mmol/L (22-30); Chloride 102 mmol/L (98-107); Glucose 92 mg/dL (74-99); Non-African American GFR(CKD) >90 (>60 ml/min/1.73 sqM); Potassium 4.9 mmol/L (3.5-5.1); Sodium 130 mmol/L (137-145)
[2021-06-02 09:13] LABS: Band Neutrophils % 1 %; Eosinophils # (M) 0.29 k/uL (0-0.7); Hypochromasia (M) Present; Lymphocytes # (M) 2.16 k/uL (1.0-4.8); Neutrophils % (M) 73 %; Nucleated Red Blood Cells 0 /100 WBC (0-0); Polychromasia Present; Total Cells Counted 100
--- NOTE | 2021-06-02 22:59 | P.PN ---
Subjective Progress Note Date: 06/02/21 Principal diagnosis: Abdominal pain due to ulcerative colitis exacerbation Patient is a 35 old male with a known history of ulcerative colitis, acute blood loss anemia and transfusions, anxiety, GERD, history of smoking and marijuana use presents to ER with complaints of abdominal pain. Abdominal pain is diffuse and has been ongoing for the past 1 week. Patient also states that he's been having dark stools as well. Patient follows with GI and Entyvio infusions every 4 months. Patient is also having generalized weakness. Patient was previously admitted to the hospital due to ulcerative colitis exacerbation. CT of abdomen pelvis showed findings consistent with history of ulcerative colitis with colonic wall thickening extending from the proximal transverse colon through the rectosigmoid junction. Possible small intramural abscess at the level of rectum. No evidence of perforation. Laboratory data showed WBC 10.1 hemoglobin 4.1 and platelets 778 and MCV 61.8 Sodium 1:30 potassium 4.3 chloride 92 BUN 17 and creatinine 0.96 lactic acid 2.1 Covid 19 PCR not detected 06/01/2021 Patient is currently resting in bed. Awake alert and oriented 3. Abdominal Pain is much improved. Patient states that he is hungry and wants to eat. Hemoglobin level went up to 6.8. 1 more unit of PRBC was ordered. Patient is iron deficient otherwise. No complaints of chest pain. Nausea improved and vomiting. patient has been afebrile. patient is also on zosyn for possible intra-abdominal abscess. general surgery is following. 06/02/2020 Patient is currently able to ambulate to the room. Abdominal pain is much improved. No complaints of chest pain or shortness of breath. Denies any cough or sputum production. Patient states that he is still having blood in the stool. Hemoglobin dropped down to 6.4 today. Patient is being current on IV hydration and prednisone 30 mg daily. Continue with antibiotics, Zosyn. General surgery is on board. Patient is tolerating clear liquid diet and advance to regular diet today. REVIEW OF SYSTEMS CONSTITUTIONAL: Denies fever or chills. CARDIOVASCULAR: Denies chest pain, shortness of breath, orthopnea, PND or palpitations. RESPIRATORY: Denies cough. GASTROINTESTINAL: Denies constipation, nausea or vomiting. MUSCULOSKELETAL: Denies myalgias. NEUROLOGIC: Denies numbness, tingling or weakness. ENDOCRINE: Denies fatigue, weight change, polydipsia or polyurina. GENITOURINARY: Denies burning, hematuria or urgency with micturation. HEMATOLOGIC: Denies history of anemia or bleeding. current medications reviewed. Objective - Vital Signs Vital signs: Vital Signs Temp 98.0 F 06/02/21 16:00 Pulse 62 06/02/21 16:00 Resp 18 06/02/21 16:31 BP 104/56 06/02/21 16:31 Pulse Ox 100 06/02/21 16:00 Intake & Output 06/02/21 06/02/21 06/03/21 06:59 18:59 06:59 Intake Total 1620 255 Output Total 1 202 Balance 1619 53 Weight 65.4 kg Intake: Intake, IV Titration 900 Amount Piperacillin-Tazobactam 3 100 .375 gm In Sodium Chloride 0.9% 100 ml @ 25 mls/hr IVPB Q8H JANE Rx#: [id number] Sodium Chloride 0.9% 1, 800 000 ml @ 100 mls/hr IV . Q10H JANE Rx#:[id number] Oral 720 Blood Product 255 Rc Pheresis 2 As3 Unit 255 [id number] Output: Urine 200 Stool 1 2 Other: Voiding Method Toilet # Voids 2 # Bowel Movements 1 - Exam PHYSICAL EXAMINATION: Patient is lying in the bed comfortably, no acute distress, awake alert and oriented.. HEENT: Normocephalic. Neck is supple. Pupils reactive. Nostrils clear. Oral cavity is moist. Neck reveals no JVD, carotid bruits, or thyromegaly. CHEST EXAMINATION: Trachea is central. Symmetrical expansion. Lung chacon clear to auscultation and percussion. CARDIAC: Normal S1, S2 with no gallops. No murmurs ABDOMEN: Soft. Left lower quadrant minimal tenderness. No guarding or rigidity. Bowel sounds normal. No organomegaly. No abdominal bruits. Extremities: reveal no edema. No clubbing or cyanosis Neurologically awake, alert, oriented x3 with well-coordinated movements. No focal deficits noted Skin: No rash or skin lesions. Psychiatric: Coperative. Nonsuicidal Musculoskeletal: No joint swelling or deformity. Normal range of motion. - Labs CBC & Chem 7: 06/02/21 07:41 06/02/21 07:41 Labs: Abnormal Lab Results - Last 24 Hours (Table) 1206/02/21 06/02/21 Range/Units 07:38 07:41 07:41 RBC 3.09 L (4.30-5.90) m/uL Hgb 6.4 L* (13.0-17.5) gm/dL Hct 22.7 L (39.0-53.0) % MCV 73.7 L (80.0-100.0) fL MCH 20.6 L (25.0-35.0) pg MCHC 28.0 L (31.0-37.0) g/dL RDW 22.2 H (11.5-15.5) % Plt Count 563 H (150-450) k/uL Sodium 130 L (137-145) mmol/L Calcium 7.8 L (8.4-10.2) mg/dL Crossmatch See Detail Microbiology - Last 24 Hours (Table) 05/31/21 09:25 Blood Culture - Preliminary Blood No Growth after 48 hours 05/31/21 09:10 Blood Culture - Preliminary Blood No Growth after 48 hours Assessment and Plan Assessment: Abdominal pain secondary to acute ulcerative colitis exacerbation. Possible intramural abscess and the rectum level Acute blood loss anemia due to GI bleed Symptomatic anemia Ulcerative colitis currently getting Entyvio infusions every 4 months Lactic acidosis Microcytic iron deficiency anemia DVT prophylaxis with SCDs due to GI bleed. Plan: Patient will be continued on IV hydration and pain management with Dilaudid. Patient will be transfused with 3 units of PRBC and follow hemoglobin level. Denied any active bleeding at this time. Patient was started on clear liquid diet and advance as tolerated. Patient will be continued on antibiotics in the form of Zosyn. Follow up culture reports. Continue with symptomatic management. Gen. surgery is on board. Follow up closely. Time with Patient: Greater than 30
[2021-06-03] MEDS: PIPERACILLIN-TAZOBACTAM 3.375 GM in SODIUM CHLORIDE 0.9% 100 ML IVPB SCH ×3 (00:58→17:52)
[2021-06-03] MEDS: HYDROmorphone 1 MG/ML 1 ML SYRINGE IVP PRN ×4 (02:42→20:46)
[2021-06-03 09:35] LABS: Anisocytosis Moderate; HCT 29.6 % (39.0-53.0); Hypochromasia Marked; MCH 21.6 pg (25.0-35.0); MCHC 28.3 g/dL (31.0-37.0); MCV 76.2 fL (80.0-100.0); Mean Platelet Volume 7.4; Microcytosis Marked; Platelet Count 632 k/uL (150-450); Poikilocytosis Marked; RBC 3.88 m/uL (4.30-5.90); RDW 23.2 % (11.5-15.5); WBC 8.7 k/uL (3.8-10.6)
[2021-06-03 09:41] LABS: HGB 8.4 gm/dL (13.0-17.5)
[2021-06-03] MEDS: SODIUM FERRIC GLUCONAT-SUCROSE 125 MG in SODIUM CHLORIDE 0.9% 100 ML IVPB SCH (10:38)
[2021-06-03] MEDS: SODIUM CHLORIDE 0.9% 1,000 ML IV SCH ×2 (10:39→20:49)
[2021-06-03] MEDS: predniSONE 10 MG TAB PO SCH (10:39)
[2021-06-03] MEDS: FAMOTIDINE 20 MG TAB PO SCH ×2 (10:39→20:46)
--- NOTE | 2021-06-03 11:19 | P.PN ---
Progress Note - Text Progress Note Date: 06/02/21 Patient states his pain is better. His requesting more to eat. He still has some bloody diarrhea. On exam his abdomen is soft. His tenderness has improved. Patient will have his diet advanced. He will continue supportive care.
--- NOTE | 2021-06-03 11:20 | P.PN ---
Progress Note - Text Progress Note Date: 06/03/21 Patient is tolerating his diet. He still has bloody diarrhea. He states his pain is improved. On exam vital signs appear stable. Abdomen soft. Exacerbation of ulcerative colitis. Patient will continue medical management. His hematomas 8.4
[2021-06-04] MEDS: HYDROmorphone 1 MG/ML 1 ML SYRINGE IVP PRN ×6 (00:21→22:55)
[2021-06-04] MEDS: PIPERACILLIN-TAZOBACTAM 3.375 GM in SODIUM CHLORIDE 0.9% 100 ML IVPB SCH ×3 (00:21→17:16)
--- NOTE | 2021-06-04 01:16 | P.PN ---
Subjective Progress Note Date: 06/03/21 Principal diagnosis: Abdominal pain due to ulcerative colitis exacerbation Patient is a 35 old male with a known history of ulcerative colitis, acute blood loss anemia and transfusions, anxiety, GERD, history of smoking and marijuana use presents to ER with complaints of abdominal pain. Abdominal pain is diffuse and has been ongoing for the past 1 week. Patient also states that he's been having dark stools as well. Patient follows with GI and Entyvio infusions every 4 months. Patient is also having generalized weakness. Patient was previously admitted to the hospital due to ulcerative colitis exacerbation. CT of abdomen pelvis showed findings consistent with history of ulcerative colitis with colonic wall thickening extending from the proximal transverse colon through the rectosigmoid junction. Possible small intramural abscess at the level of rectum. No evidence of perforation. Laboratory data showed WBC 10.1 hemoglobin 4.1 and platelets 778 and MCV 61.8 Sodium 1:30 potassium 4.3 chloride 92 BUN 17 and creatinine 0.96 lactic acid 2.1 Covid 19 PCR not detected 06/01/2021 Patient is currently resting in bed. Awake alert and oriented 3. Abdominal Pain is much improved. Patient states that he is hungry and wants to eat. Hemoglobin level went up to 6.8. 1 more unit of PRBC was ordered. Patient is iron deficient otherwise. No complaints of chest pain. Nausea improved and vomiting. patient has been afebrile. patient is also on zosyn for possible intra-abdominal abscess. general surgery is following. 06/02/2020 Patient is currently able to ambulate to the room. Abdominal pain is much improved. No complaints of chest pain or shortness of breath. Denies any cough or sputum production. Patient states that he is still having blood in the stool. Hemoglobin dropped down to 6.4 today. Patient is being current on IV hydration and prednisone 30 mg daily. Continue with antibiotics, Zosyn. General surgery is on board. Patient is tolerating clear liquid diet and advance to regular diet today. 06/03/2021 Patient is currently lying in the bed. Abdominal pain is much improved. Still having blood in the urine. No complaints of chest pain or shortness of breath. Hemoglobin level improved to 8.4 today. Patient is also receiving IV iron i nfusion. Patient will be continued on prednisone 30 mg daily and slow taper. No fever no chills. And antibiotics in the form of Zosyn. REVIEW OF SYSTEMS CONSTITUTIONAL: Denies fever or chills. CARDIOVASCULAR: Denies chest pain, shortness of breath, orthopnea, PND or palpitations. RESPIRATORY: Denies cough. GASTROINTESTINAL: Denies constipation, nausea or vomiting. MUSCULOSKELETAL: Denies myalgias. NEUROLOGIC: Denies numbness, tingling or weakness. ENDOCRINE: Denies fatigue, weight change, polydipsia or polyurina. GENITOURINARY: Denies burning, hematuria or urgency with micturation. HEMATOLOGIC: Denies history of anemia or bleeding. current medications reviewed. Objective - Vital Signs Vital signs: Vital Signs Temp 98.6 F 06/03/21 08:00 Pulse 81 06/03/21 12:00 Resp 18 06/03/21 12:00 BP 122/77 06/03/21 12:00 Pulse Ox 100 06/03/21 12:00 Intake & Output 06/02/21 06/03/21 06/03/21 18:59 06:59 18:59 Intake Total 255 1680 402 Output Total 202 2 2 Balance 53 1678 400 Weight 65.4 kg Intake: Intake, IV Titration 1200 Amount Piperacillin-Tazobactam 3 100 .375 gm In Sodium Chloride 0.9% 100 ml @ 25 mls/hr IVPB Q8H JANE Rx#: [id number] Sodium Chloride 0.9% 1, 1100 000 ml @ 100 mls/hr IV . Q10H JANE Rx#:[id number] Oral 480 402 Blood Product 255 Rc Pheresis 2 As3 Unit 255 [id number] Output: Urine 200 Stool 2 2 2 Other: Voiding Method Toilet # Voids 4 2 - Exam PHYSICAL EXAMINATION: Patient is lying in the bed comfortably, no acute distress, awake alert and oriented.. HEENT: Normocephalic. Neck is supple. Pupils reactive. Nostrils clear. Oral cavity is moist. Neck reveals no JVD, carotid bruits, or thyromegaly. CHEST EXAMINATION: Trachea is central. Symmetrical expansion. Lung chacon clear to auscultation and percussion. CARDIAC: Normal S1, S2 with no gallops. No murmurs ABDOMEN: Soft. Left lower quadrant minimal tenderness. No guarding or rigidity. Bowel sounds normal. No organomegaly. No abdominal bruits. Extremities: reveal no edema. No clubbing or cyanosis Neurologically awake, alert, oriented x3 with well-coordinated movements. No focal deficits noted Skin: No rash or skin lesions. Psychiatric: Coperative. Nonsuicidal Musculoskeletal: No joint swelling or deformity. Normal range of motion. - Labs CBC & Chem 7: 06/03/21 08:35 06/02/21 07:41 Labs: Abnormal Lab Results - Last 24 Hours (Table) 05/31/21 06/03/21 Range/Units 07:38 08:35 RBC 3.88 L (4.30-5.90) m/uL Hgb 8.4 L D (13.0-17.5) gm/dL Hct 29.6 L (39.0-53.0) % MCV 76.2 L (80.0-100.0) fL MCH 21.6 L (25.0-35.0) pg MCHC 28.3 L (31.0-37.0) g/dL RDW 23.2 H (11.5-15.5) % Plt Count 632 H (150-450) k/uL Crossmatch See Detail Microbiology - Last 24 Hours (Table) 05/31/21 09:25 Blood Culture - Preliminary Blood No Growth after 72 hours 05/31/21 09:10 Blood Culture - Preliminary Blood No Growth after 72 hours Assessment and Plan Assessment: Abdominal pain secondary to acute ulcerative colitis exacerbation. Possible intramural abscess and the rectum level Acute blood loss anemia due to GI bleed Symptomatic anemia Ulcerative colitis currently getting Entyvio infusions every 4 months Lactic acidosis Microcytic iron deficiency anemia DVT prophylaxis with SCDs due to GI bleed. Plan: Patient will be continued on IV hydration and pain management with Dilaudid. Patient will be transfused with 3 units of PRBC and follow hemoglobin level. Denied any active bleeding at this time. Patient was started on clear liquid diet and advance as tolerated. Patient will be continued on antibiotics in the form of Zosyn. Follow up culture reports. Continue with symptomatic management. Gen. surgery is on board. Follow up closely. Time with Patient: Greater than 30
[2021-06-04] MEDS: SODIUM CHLORIDE 0.9% 1,000 ML IV SCH ×2 (04:46→17:16)
[2021-06-04] MEDS: SODIUM FERRIC GLUCONAT-SUCROSE 125 MG in SODIUM CHLORIDE 0.9% 100 ML IVPB SCH (08:47)
[2021-06-04] MEDS: predniSONE 10 MG TAB PO SCH (08:47)
[2021-06-04] MEDS: FAMOTIDINE 20 MG TAB PO SCH ×2 (08:47→19:57)
[2021-06-04 10:15] LABS: African American GFR (CKD) >90 (>60 ml/min/1.73 sqM); Anion Gap 3 mmol/L; Blood Urea Nitrogen 7 mg/dL (9-20); Calcium 8.2 mg/dL (8.4-10.2); Carbon Dioxide 29 mmol/L (22-30); Chloride 101 mmol/L (98-107); Glucose 78 mg/dL (74-99); Non-African American GFR(CKD) >90 (>60 ml/min/1.73 sqM); Sodium 133 mmol/L (137-145)
[2021-06-04 10:49] LABS: Anisocytosis Marked; Basophils % (A) 0 %; Eosinophils # (A) 0.3 k/uL (0-0.7); Eosinophils % (A) 3 %; HCT 28.3 % (39.0-53.0); HGB 7.9 gm/dL (13.0-17.5); Hypochromasia Marked; Lymphocytes # (A) 1.7 k/uL (1.0-4.8); Lymphocytes % (A) 18 %; MCH 21.4 pg (25.0-35.0); MCV 76.2 fL (80.0-100.0); Mean Platelet Volume 7.2; Microcytosis Marked; Monocytes # (A) 0.9 k/uL (0-1.0); Monocytes % (A) 9 %; Neutrophils # (A) 6.5 k/uL (1.3-7.7); Neutrophils % (A) 69 %; Platelet Count 582 k/uL (150-450); Poikilocytosis Marked; RBC 3.71 m/uL (4.30-5.90); RDW 24.4 % (11.5-15.5); WBC 9.5 k/uL (3.8-10.6)
--- NOTE | 2021-06-04 12:31 | P.PN ---
Subjective Progress Note Date: 06/04/21 CHIEF COMPLAINT: Ulcerative colitis HISTORY OF PRESENT ILLNESS: Patient was placed for ulcerative colitis exacerbation. He is still having bloody diarrhea. He reports he has about 10- 15 episodes a day. He reports that his abdominal pain is about the same. Denies any nausea or vomiting. He is tolerating regular diet. He is able to eat most of his trach. Afebrile. Hemoglobin dropped from 8.4-7.9 PHYSICAL EXAM: VITAL SIGNS: Reviewed. GENERAL: Well-developed in no acute distress. HEENT: No sclera icterus. Extraocular movements grossly intact. Moist buccal mucosa. Head is atraumatic, normocephalic. ABDOMEN: Soft. Nondistended. tenderness with palpation of lower abdomen NEUROLOGIC: Alert and oriented. Cranial nerves II through XII grossly intact. ASSESSMENT: 1. Ulcerative colitis exacerbation PLAN: -Continue medical management -Continue steroids -Continue to monitor hemoglobin Physician Personnel Clerk note has been reviewed by physician. Signing provider agrees with the documented findings, assessment, and plan of care. Objective - Vital Signs Vital signs: Vital Signs Temp 98.4 F 06/04/21 08:00 Pulse 67 06/04/21 08:00 Resp 18 06/04/21 08:00 BP 105/65 06/04/21 08:00 Pulse Ox 100 06/04/21 08:00 Intake & Output 06/03/21 06/04/21 06/04/21 18:59 06:59 18:59 Intake Total 402 1720 118 Output Total 2 Balance 400 1720 118 Intake: Intake, IV Titration 600 Amount Piperacillin-Tazobactam 3 200 .375 gm In Sodium Chloride 0.9% 100 ml @ 25 mls/hr IVPB Q8H JANE Rx#: [id number] Sodium Chloride 0.9% 1, 400 000 ml @ 100 mls/hr IV . Q10H JANE Rx#:[id number] Oral 402 1120 118 Output: Stool 2 Other: Voiding Method Toilet # Voids 2 1 # Bowel Movements 2 - Labs CBC & Chem 7: 06/04/21 08:58 06/04/21 08:58 Labs: Abnormal Lab Results - Last 24 Hours (Table) 06/04/21 06/04/21 Range/Units 08:58 08:58 RBC 3.71 L (4.30-5.90) m/uL Hgb 7.9 L (13.0-17.5) gm/dL Hct 28.3 L (39.0-53.0) % MCV 76.2 L (80.0-100.0) fL MCH 21.4 L (25.0-35.0) pg MCHC 28.0 L (31.0-37.0) g/dL RDW 24.4 H (11.5-15.5) % Plt Count 582 H (150-450) k/uL Sodium 133 L (137-145) mmol/L BUN 7 L (9-20) mg/dL Calcium 8.2 L (8.4-10.2) mg/dL Microbiology - Last 24 Hours (Table) 05/31/21 09:25 Blood Culture - Preliminary Blood No Growth after 96 hours 05/31/21 09:10 Blood Culture - Preliminary Blood No Growth after 96 hours
[2021-06-05] MEDS: methylPREDNISolone SOD SUCCI 40 MG/ML 1 ML VIAL IV SCH ×3 (02:00→17:25)
[2021-06-05] MEDS: HYDROmorphone 1 MG/ML 1 ML SYRINGE IVP PRN ×4 (02:00→18:52)
[2021-06-05] MEDS: PIPERACILLIN-TAZOBACTAM 3.375 GM in SODIUM CHLORIDE 0.9% 100 ML IVPB SCH ×3 (02:18→17:25)
[2021-06-05] MEDS: SODIUM CHLORIDE 0.9% 1,000 ML IV SCH ×3 (02:20→20:21)
[2021-06-05 06:55] LABS: Anisocytosis Marked; HCT 32.7 % (39.0-53.0); Hypochromasia Marked; MCH 21.9 pg (25.0-35.0); MCHC 27.6 g/dL (31.0-37.0); MCV 79.2 fL (80.0-100.0); Mean Platelet Volume 7.5; Microcytosis Marked; Platelet Count 719 k/uL (150-450); Poikilocytosis Marked; RBC 4.13 m/uL (4.30-5.90); RDW 24.5 % (11.5-15.5); WBC 13.4 k/uL (3.8-10.6)
[2021-06-05 07:12] LABS: Glucose,Whole Blood 123 mg/dL (75-99)
[2021-06-05] MEDS: FAMOTIDINE 20 MG TAB PO SCH ×2 (09:43→20:21)
[2021-06-05] MEDS: SODIUM FERRIC GLUCONAT-SUCROSE 125 MG in SODIUM CHLORIDE 0.9% 100 ML IVPB SCH (09:43)
--- NOTE | 2021-06-05 10:32 | P.PN ---
Subjective Progress Note Date: 06/04/21 Principal diagnosis: Abdominal pain due to ulcerative colitis exacerbation Patient is a 35 old male with a known history of ulcerative colitis, acute blood loss anemia and transfusions, anxiety, GERD, history of smoking and marijuana use presents to ER with complaints of abdominal pain. Abdominal pain is diffuse and has been ongoing for the past 1 week. Patient also states that he's been having dark stools as well. Patient follows with GI and Entyvio infusions every 4 months. Patient is also having generalized weakness. Patient was previously admitted to the hospital due to ulcerative colitis exacerbation. CT of abdomen pelvis showed findings consistent with history of ulcerative colitis with colonic wall thickening extending from the proximal transverse colon through the rectosigmoid junction. Possible small intramural abscess at the level of rectum. No evidence of perforation. Laboratory data showed WBC 10.1 hemoglobin 4.1 and platelets 778 and MCV 61.8 Sodium 1:30 potassium 4.3 chloride 92 BUN 17 and creatinine 0.96 lactic acid 2.1 Covid 19 PCR not detected 06/01/2021 Patient is currently resting in bed. Awake alert and oriented 3. Abdominal Pain is much improved. Patient states that he is hungry and wants to eat. Hemoglobin level went up to 6.8. 1 more unit of PRBC was ordered. Patient is iron deficient otherwise. No complaints of chest pain. Nausea improved and vomiting. patient has been afebrile. patient is also on zosyn for possible intra-abdominal abscess. general surgery is following. 06/02/2020 Patient is currently able to ambulate to the room. Abdominal pain is much improved. No complaints of chest pain or shortness of breath. Denies any cough or sputum production. Patient states that he is still having blood in the stool. Hemoglobin dropped down to 6.4 today. Patient is being current on IV hydration and prednisone 30 mg daily. Continue with antibiotics, Zosyn. General surgery is on board. Patient is tolerating clear liquid diet and advance to regular diet today. 06/03/2021 Patient is currently lying in the bed. Abdominal pain is much improved. Still having blood in the urine. No complaints of chest pain or shortness of breath. Hemoglobin level improved to 8.4 today. Patient is also receiving IV iron i nfusion. Patient will be continued on prednisone 30 mg daily and slow taper. No fever no chills. And antibiotics in the form of Zosyn. 06/04/2021 Patient is currently resting in the bed. Abdominal pain is better. No complaints of chest pain or shortness of breath. Patient still having bloody diarrhea. Hemoglobin is 7.9 today. No complaints of fever or chills. Patient is being current on antibiotics in the form of Zosyn. General surgery is on board. Prednisone will be changed to methylprednisolone IV and consulted gastroenterology. REVIEW OF SYSTEMS CONSTITUTIONAL: Denies fever or chills. CARDIOVASCULAR: Denies chest pain, shortness of breath, orthopnea, PND or palpitations. RESPIRATORY: Denies cough. GASTROINTESTINAL: Denies constipation, nausea or vomiting. MUSCULOSKELETAL: Denies myalgias. NEUROLOGIC: Denies numbness, tingling or weakness. ENDOCRINE: Denies fatigue, weight change, polydipsia or polyurina. GENITOURINARY: Denies burning, hematuria or urgency with micturation. HEMATOLOGIC: Denies history of anemia or bleeding. current medications reviewed. Objective - Vital Signs Vital signs: Vital Signs Temp 98.3 F 06/04/21 20:00 Pulse 59 L 06/04/21 20:00 Resp 16 06/04/21 20:00 BP 103/58 06/04/21 20:00 Pulse Ox 99 06/04/21 20:00 Intake & Output 06/04/21 06/04/21 06/05/21 06:59 18:59 06:59 Intake Total 1720 236 Balance 1720 236 Intake: Intake, IV Titration 600 Amount Piperacillin-Tazobactam 3 200 .375 gm In Sodium Chloride 0.9% 100 ml @ 25 mls/hr IVPB Q8H JANE Rx#: [id number] Sodium Chloride 0.9% 1, 400 000 ml @ 100 mls/hr IV . Q10H JANE Rx#:[id number] Oral 1120 236 Other: Voiding Method Toilet # Voids 1 3 # Bowel Movements 2 - Exam PHYSICAL EXAMINATION: Patient is lying in the bed comfortably, no acute distress, awake alert and oriented.. HEENT: Normocephalic. Neck is supple. Pupils reactive. Nostrils clear. Oral cavity is moist. Neck reveals no JVD, carotid bruits, or thyromegaly. CHEST EXAMINATION: Trachea is central. Symmetrical expansion. Lung chacon clear to auscultation and percussion. CARDIAC: Normal S1, S2 with no gallops. No murmurs ABDOMEN: Soft. Left lower quadrant minimal tenderness. No guarding or rigidity. Bowel sounds normal. No organomegaly. No abdominal bruits. Extremities: reveal no edema. No clubbing or cyanosis Neurologically awake, alert, oriented x3 with well-coordinated movements. No focal deficits noted Skin: No rash or skin lesions. Psychiatric: Coperative. Nonsuicidal Musculoskeletal: No joint swelling or deformity. Normal range of motion. - Labs CBC & Chem 7: 06/05/21 06:21 06/04/21 08:58 Labs: Abnormal Lab Results - Last 24 Hours (Table) 06/04/21 06/04/21 Range/Units 08:58 08:58 RBC 3.71 L (4.30-5.90) m/uL Hgb 7.9 L (13.0-17.5) gm/dL Hct 28.3 L (39.0-53.0) % MCV 76.2 L (80.0-100.0) fL MCH 21.4 L (25.0-35.0) pg MCHC 28.0 L (31.0-37.0) g/dL RDW 24.4 H (11.5-15.5) % Plt Count 582 H (150-450) k/uL Sodium 133 L (137-145) mmol/L BUN 7 L (9-20) mg/dL Calcium 8.2 L (8.4-10.2) mg/dL Microbiology - Last 24 Hours (Table) 05/31/21 09:25 Blood Culture - Preliminary Blood No Growth after 96 hours 05/31/21 09:10 Blood Culture - Preliminary Blood No Growth after 96 hours Assessment and Plan Assessment: Abdominal pain secondary to acute ulcerative colitis exacerbation. Possible intramural abscess and the rectum level Acute blood loss anemia due to GI bleed Symptomatic anemia Ulcerative colitis currently getting Entyvio infusions every 4 months Lactic acidosis Microcytic iron deficiency anemia DVT prophylaxis with SCDs due to GI bleed. Plan: c/w methylpred. Patient will be continued on IV hydration and pain management with Dilaudid. Patient will be transfused with 3 units of PRBC and follow hemoglobin level. Denied any active bleeding at this time. Patient was started on clear liquid diet and advance as tolerated. Patient will be continued on antibiotics in the form of Zosyn. Follow up culture reports. Continue with symptomatic management. Gen. surgery is on board. Follow up closely. Time with Patient: Greater than 30
[2021-06-05 11:14] LABS: Glucose,Whole Blood 127 mg/dL (75-99)
--- NOTE | 2021-06-05 11:15 | P.PN ---
Subjective Progress Note Date: 06/05/21 CHIEF COMPLAINT: Ulcerative colitis HISTORY OF PRESENT ILLNESS: Patient was placed for ulcerative colitis exacerbation. Patient reports that he feels slightly better today but he has just received pain medication. He is still having multiple bowel movements. Reports that might be a little decrease in the amount of blood in stools. He is tolerating regular diet. Afebrile. Hemoglobin is up from 7.9-9.0. Medicine service has consulted GI and have restarted IV steroids PHYSICAL EXAM: VITAL SIGNS: Reviewed. GENERAL: Well-developed in no acute distress. HEENT: No sclera icterus. Extraocular movements grossly intact. Moist buccal mucosa. Head is atraumatic, normocephalic. ABDOMEN: Soft. Nondistended. tenderness with palpation of lower abdomen NEUROLOGIC: Alert and oriented. Cranial nerves II through XII grossly intact. ASSESSMENT: 1. Ulcerative colitis exacerbation PLAN: -Patient to be seen by GI service -Continue medical management -Continue steroids -Continue to monitor hemoglobin Physician [employer] Service Porter note has been reviewed by physician. Signing provider agrees with the documented findings, assessment, and plan of care. Objective - Vital Signs Vital signs: Vital Signs Temp 98.8 F 06/05/21 08:00 Pulse 100 06/05/21 08:00 Resp 16 06/05/21 08:00 BP 126/77 06/05/21 08:00 Pulse Ox 100 06/05/21 08:00 Intake & Output 06/04/21 06/05/21 06/05/21 18:59 06:59 18:59 Intake Total 236 1000 118 Balance 236 1000 118 Intake: Intake, IV Titration 800 Amount Sodium Chloride 0.9% 1, 800 000 ml @ 100 mls/hr IV . Q10H JANE Rx#:[id number] Oral 236 200 118 Other: Voiding Method Toilet Toilet # Voids 3 2 # Bowel Movements 2 - Labs CBC & Chem 7: 06/05/21 06:21 06/04/21 08:58 Labs: Abnormal Lab Results - Last 24 Hours (Table) 06/05/21 06/05/21 06/05/21 Range/Units 06:21 06:21 06:21 WBC 13.4 H (3.8-10.6) k/uL RBC 4.13 L (4.30-5.90) m/uL Hgb 9.0 L (13.0-17.5) gm/dL Hct 32.7 L (39.0-53.0) % MCV 79.2 L (80.0-100.0) fL MCH 21.9 L (25.0-35.0) pg MCHC 27.6 L (31.0-37.0) g/dL RDW 24.5 H (11.5-15.5) % Plt Count 719 H (150-450) k/uL ESR 22 H (0-15) mm/hr POC Glucose (mg/dL) (75-99) mg/dL C-Reactive Protein 3.3 H (<1.0) mg/dL 06/05/21 Range/Units 07:11 WBC (3.8-10.6) k/uL RBC (4.30-5.90) m/uL Hgb (13.0-17.5) gm/dL Hct (39.0-53.0) % MCV (80.0-100.0) fL MCH (25.0-35.0) pg MCHC (31.0-37.0) g/dL RDW (11.5-15.5) % Plt Count (150-450) k/uL ESR (0-15) mm/hr POC Glucose (mg/dL) 123 H (75-99) mg/dL C-Reactive Protein (<1.0) mg/dL Microbiology - Last 24 Hours (Table) 05/31/21 09:25 Blood Culture - Preliminary Blood No Growth after 96 hours 05/31/21 09:10 Blood Culture - Preliminary Blood No Growth after 96 hours
--- NOTE | 2021-06-05 13:48 | P.CONS ---
History of Present Illness - Reason for Consult Consult date: 06/05/21 ulcerative colitis Requesting physician: Shaji Bolanos - Chief Complaint Abdominal pain - History of Present Illness This is a 35-year-old male well-known to gastroenterology services. He presented to the emergency department on 05/31/2021 with complaints of severe ab dominal pain with bloody bowel movements. On admission he was noted to have a hemoglobin of 4.1. He is status post 5 units of PRBC transfusion. Patient underwent an EGD and colonoscopy on 06/28/2020 with findings of erosive esophagitis, mild gastritis and pancolitis with the pathology showing active colitis with features consistent with inflammatory bowel disease with crypt abscess on colonoscopy. He has been following with Dr. Aguilar and was started on Entyvio, with his last dose being in April. States that he is due soon for his next dose. His last admission was seen in November at that time he was started on tapered dose of steroids and Entyvio. States approximately [address] arted having abdominal pain which increasingly got worse followed with lower abdominal pain and cramping with multiple episodes of bloody diarrhea. Diarrhea is improving some still has some blood with his stool. His hemoglobin currently is 9. On admission he had a CRP of 4.3 and his sed rate is 75. Started on Solu-Medrol 40 mg IV every 8 hours yesterday prior to that he was on prednisone 30 mg daily. He does state abdominal pain again is improving as well as frequency of diarrhea. He denies any nausea or vomiting and has been tolerating a regular diet. He is been afebrile. Initially he had a CT of the abdomen and pelvis with findings consistent with has provided history of ulcerative colitis with colonic wall thickening extending from the proximal transverse colon through the rectosigmoid junction. At the level of the rectum there is focal decreased attenuation seen at the approximate 5 o'clock position which could reflect a small intramural mural abscess no evidence of perforation. Review of Systems REVIEW OF SYSTEMS: CARDIOPULMONARY: No chest pain or shortness of breath. Gastrointestinal: No pain, especially low cramping with bowel movements, frequent bloody diarrhea, now improving. No nausea or vomiting. GENITOURINARY: No dysuria or hematuria. MUSCULOSKELETAL: Reports normal range of motion., Joint pain. SKIN: No rashes. No jaundice. ENDOCRINE: No chills, fevers. No excessive weight gain or loss. No polydipsia or polyuria. PSYCHIATRIC: Unremarkable. NEUROLOGY: No change in mental status. Denies dizziness, headache. ENT: Vision unremarkable. CONSTITUTIONAL: No recent weight loss. No fever, chills, night sweats. Past Medical History Past Medical History: GERD/Reflux Additional Past Medical History / Comment(s): Pt recently admitted to [facility] on 07/26/20 with acute ulcerative colitis exacerbation, acute blood loss anemia 2ndary to lower GI bleed/transfusion, hyperkalemia. Other hx: chronic low back pain. History of Any Multi-Drug Resistant Organisms: None Reported Past Surgical History: Orthopedic Surgery Additional Past Surgical History / Comment(s): left hand industrial accident/finger amputations, EGD, colonoscopy. Past Anesthesia/Blood Transfusion Reactions: No Reported Reaction Additional Past Anesthesia/Blood Transfusion Reaction / Comm: Pt recently received blood without reaction. Past Psychological History: Anxiety Smoking Status: Former smoker Past Alcohol Use History: None Reported Past Drug Use History: Marijuana - Past Family History Father History Unknown: Yes Mother Family Medical History: No Reported History Additional Family Medical History / Comment(s): Healthy. Medications and Allergies Home Medications Medication Instructions Recorded Confirmed Type No Known Home Medications 05/31/21 05/31/21 History Allergies Allergy/AdvReac Type Severity Reaction Status Date / Time No Known Allergies Allergy Verified 05/31/21 08:57 Physical Exam Vitals: Vital Signs Temp Pulse Resp BP Pulse Ox 06/05/21 08:00 98.8 F 100 16 126/77 100 06/05/21 02:00 98.3 F 60 17 109/67 100 06/04/21 20:00 98.3 F 59 L 16 103/58 99 06/04/21 16:00 73 111/59 93 L 06/04/21 14:00 80 18 06/04/21 12:00 80 110/69 99 Intake and Output 06/04/21 06/05/21 06/05/21 22:59 06:59 14:59 Intake Total 118 1000 Balance 118 1000 Intake: Intake, IV Titration 800 Amount Sodium Chloride 0.9% 1, 800 000 ml @ 100 mls/hr IV . Q10H [facility] Rx#:[id number] Oral 118 200 Other: Voiding Method Toilet # Voids 2 # Bowel Movements 2 General appearance: The patient is alert, oriented, appears in no acute distress. HET: Head is normocephalic and atraumatic. Conjunctiva pink. Sclera anicteric. Neck: Supple without lymphadenopathy. Trachea midline. Heart: S1 S2. Regular rate and rhythm. Lungs: Clear to auscultation. Abdomen: Soft, nontender, nondistended with bowel sounds. No guarding or rigidity. Skin: No rashes. No jaundice. Extremities: Normal skin color and turgor. No pedal edema. Neurological: No focal deficits. Alert and oriented x3. Results CBC & Chem 7: 06/05/21 06:21 06/04/21 08:58 Labs: Abnormal Lab Results - Last 24 Hours (Table) 06/04/21 06/04/21 06/05/21 Range/Units 08:58 08:58 06:21 WBC 13.4 H (3.8-10.6) k/uL RBC 3.71 L 4.13 L (4.30-5.90) m/uL Hgb 7.9 L 9.0 L (13.0-17.5) gm/dL Hct 28.3 L 32.7 L (39.0-53.0) % MCV 76.2 L 79.2 L (80.0-100.0) fL MCH 21.4 L 21.9 L (25.0-35.0) pg MCHC 28.0 L 27.6 L (31.0-37.0) g/dL RDW 24.4 H 24.5 H (11.5-15.5) % Plt Count 582 H 719 H (150-450) k/uL Sodium 133 L (137-145) mmol/L BUN 7 L (9-20) mg/dL POC Glucose (mg/dL) (75-99) mg/dL Calcium 8.2 L (8.4-10.2) mg/dL C-Reactive Protein (<1.0) mg/dL 06/05/21 06/05/21 Range/Units 06:21 07:11 WBC (3.8-10.6) k/uL RBC (4.30-5.90) m/uL Hgb (13.0-17.5) gm/dL Hct (39.0-53.0) % MCV (80.0-100.0) fL MCH (25.0-35.0) pg MCHC (31.0-37.0) g/dL RDW (11.5-15.5) % Plt Count (150-450) k/uL Sodium (137-145) mmol/L BUN (9-20) mg/dL POC Glucose (mg/dL) 123 H (75-99) mg/dL Calcium (8.4-10.2) mg/dL C-Reactive Protein 3.3 H (<1.0) mg/dL Microbiology - Last 24 Hours (Table) 05/31/21 09:25 Blood Culture - Preliminary Blood No Growth after 96 hours 05/31/21 09:10 Blood Culture - Preliminary Blood No Growth after [address] scan - abdomen: report reviewed (CT of the abdomen and pelvis with findings c onsistent with has provided history of ulcerative colitis with colonic wall thickening extending from the proximal transverse colon through the rectosigmoid junction. At the level of the rectum there is focal decreased attenuation seen at the approximate ) Assessment and Plan (1) Ulcerative colitis Narrative/Plan: Sit 35-year-old male who presented to emergency department 5 days ago with complaints of abdominal pain with bloody bowel movements. He was diagnosed with ulcerative colitis and June of last year and was noncompliant with follow-up with multiple hospitalizations. His last hospitalization was in November of this year for which he was discharged on a prednisone taper dose and started on Entyvio. He states he has been taking his and tibial since beginning of December and is due this month. States his last dose was in April. However he has not had any follow-up with gastroenterology. On admission he was noted to have a hemoglobin of 4.1 and is status post 5 units of PRBC transfusion. Had an elevated sed rate as well as CRP on admission consistent with active disease. He was started on prednisone 30 mg daily initially and transitioned yesterday to Solu-Medrol 40 mg IV every 8 hours. He has had some improvement in his diarrhea as well as bleeding. Current Visit: Yes Status: Acute Code(s): K51.90 - ULCERATIVE COLITIS, UNSPECIFIED, WITHOUT COMPLICATIONS SNOMED Code(s): 70031451 (2) Anemia Narrative/Plan: Patient is status post 5 units PRBC transfusion. He is currently getting IV iron. Current Visit: Yes Status: Acute Code(s): D64.9 - ANEMIA, UNSPECIFIED SNOMED Code(s): 916858683 Plan: 1. Decrease Solu-Medrol 40 mg IV every 8 hours to 20 mg IV every 8 hours 2. Repeat daily CBC 3. Agree with IV iron 4. Patient to continue with Entyvio as scheduled 5. Discussed importance of medical compliance and follow-up with gastroenterology with patient as he has not been compliant in past 6. No plans an endoscopic evaluation 7. Continue diet as tolerated 8. Patient will need to be discharged on prednisone 40 mg taper dose by 5 mg weekly Thank you for this consultation, we will continue to follow. Dr. Mamta Aguilar I agree with the dictator's note, documented as a scribe by Crystal Condon.
[2021-06-05 13:59] VITALS: BMI 20.1
[2021-06-06] MEDS: methylPREDNISolone SOD SUCCI 40 MG/ML 1 ML VIAL IV SCH ×3 (00:52→16:48)
[2021-06-06] MEDS: PIPERACILLIN-TAZOBACTAM 3.375 GM in SODIUM CHLORIDE 0.9% 100 ML IVPB SCH ×3 (00:52→16:47)
[2021-06-06] MEDS: HYDROmorphone 1 MG/ML 1 ML SYRINGE IVP PRN ×6 (00:57→20:05)
[2021-06-06] MEDS: SODIUM CHLORIDE 0.9% 1,000 ML IV SCH ×2 (06:28→13:13)
[2021-06-06] MEDS: FAMOTIDINE 20 MG TAB PO SCH ×2 (08:16→20:05)
[2021-06-06 08:25] LABS: Anisocytosis Marked; HCT 29.3 % (39.0-53.0); HGB 8.3 gm/dL (13.0-17.5); Hypochromasia Marked; MCH 22.2 pg (25.0-35.0); MCHC 28.3 g/dL (31.0-37.0); MCV 78.5 fL (80.0-100.0); Mean Platelet Volume 7.7; Microcytosis Marked; Platelet Count 591 k/uL (150-450); Poikilocytosis Marked; RBC 3.73 m/uL (4.30-5.90); RDW 24.8 % (11.5-15.5); WBC 10.1 k/uL (3.8-10.6)
--- NOTE | 2021-06-06 09:58 | P.PN ---
Subjective Progress Note Date: 06/06/21 35-year-old male with a history of ulcerative colitis with multiple hospitalizations in the past 2 had presented several days ago to the emergency room with complaints of abdominal pain with bloody stools. He was initially started on prednisone 30 mg by mouth daily and transition to Solu-Medrol IV. He is currently on Solu-Medrol 20 mg every 8 hours IV. Symptoms have improved over the last couple days however he states this morning he felt very gassy and did have a couple loose bowel movements before breakfast that did have blood in it again. He had a repeat hemoglobin this morning of 8.3. He denies any nausea or vomiting or abdominal pain other than some cramping with bowel movements. He has been tolerating a regular diet. He states he is due for his and tibial today at 3:30 at the infusion center. He is been afebrile. Objective - Vital Signs Vital signs: Vital Signs Temp 99.1 F 06/06/21 01:52 Pulse 51 L 06/06/21 01:52 Resp 18 06/06/21 01:52 BP 120/79 06/06/21 01:52 Pulse Ox 97 06/06/21 01:52 Intake & Output 06/05/21 06/06/21 06/06/21 18:59 06:59 18:59 Intake Total 118 Balance 118 Weight 65.4 kg Intake: Oral 118 Other: Voiding Method Toilet # Voids 5 3 # Bowel Movements 5 - Exam General appearance: The patient is alert, oriented, appears in no acute distress. HET: Head is normocephalic and atraumatic. Conjunctiva pink. Sclera anicteric. Neck: Supple without lymphadenopathy. Abdomen: Soft, nontender, nondistended with bowel sounds. No guarding or rigidity. Extremities: Normal skin color and turgor. No pedal edema Skin: No rashes, no jaundice Neurological: No focal deficits. Alert and oriented -3. - Labs CBC & Chem 7: 06/06/21 07:57 06/04/21 08:58 Labs: Abnormal Lab Results - Last 24 Hours (Table) 06/05/21 06/05/21 06/05/21 Range/Units 06:21 06:21 11:11 ESR 22 H (0-15) mm/hr POC Glucose (mg/dL) 127 H (75-99) mg/dL C-Reactive Protein 3.3 H (<1.0) mg/dL Microbiology - Last 24 Hours (Table) 05/31/21 09:25 Blood Culture - Preliminary Blood No Growth after 120 hours 05/31/21 09:10 Blood Culture - Preliminary Blood No Growth after 120 hours Assessment and Plan (1) Ulcerative colitis Narrative/Plan: Sit 35-year-old male who presented to emergency department 5 days ago with complaints of abdominal pain with bloody bowel movements. He was diagnosed with ulcerative colitis and June last year and was noncompliant with follow-up with multiple hospitalizations. His last hospitalization was in November of this year for which he was discharged on a prednisone taper dose and started on Entyvio. He states he has been taking his and tibial since beginning of December and is due this month. States his last dose was in April. However he has not had any follow-up with gastroenterology. On admission he was noted to have a hemoglobin of 4.1 and is status post 5 units of PRBC transfusion. Had an elevated sed rate as well as CRP on admission consistent with active disease. He was started on prednisone 30 mg daily initially and transitioned yesterday to Solu-Medrol 40 mg IV every 8 hours. He has had some improvement in his diarrhea as well as bleeding. Current Visit: Yes Status: Acute Code(s): K51.90 - ULCERATIVE COLITIS, UNSPECIFIED, WITHOUT COMPLICATIONS SNOMED Code(s): 68103789 (2) Anemia Narrative/Plan: Patient is status post 5 units PRBC transfusion. He is currently getting IV iron. Bloody bowel movements have improved. Hemoglobin stable at 8.3. Current Visit: Yes Status: Acute Code(s): D64.9 - ANEMIA, UNSPECIFIED SNOMED Code(s): 643443579 Plan: 1. Continue Solu-Medrol 20 mg IV every 8 hours, transition to prednisone 40 mg daily on DC 2. Repeat daily CBC 3. Agree with IV iron 4. Patient to continue with Entyvio as scheduled today 5. Discussed importance of medical compliance and follow-up with gastroenterology with patient as he has not been compliant in past 6. No plans an endoscopic evaluation 7. Continue diet as tolerated 8. Hold discharge for now and continue IV steroids 9. Reschedule Entyvio for next week Thank you for this consultation, we will continue to follow. Dr. Mamta Aguilar I agree with the dictator's note, documented as a scribe by Crystal Condon.
--- NOTE | 2021-06-06 12:25 | P.PN ---
Subjective Progress Note Date: 06/06/21 CHIEF COMPLAINT: Ulcerative colitis HISTORY OF PRESENT ILLNESS: Patient was admitted for ulcerative colitis exacerbation. Patient reports she feels about the same. He is having some improvement since admission and his pain. He still has multiple stools with blood present. He is currently on IV steroids and followed by GI service. He is tolerating regular diet. Afebrile hemoglobin has dropped from 9-8.3 PHYSICAL EXAM: VITAL SIGNS: Reviewed. GENERAL: Well-developed in no acute distress. HEENT: No sclera icterus. Extraocular movements grossly intact. Moist buccal mucosa. Head is atraumatic, normocephalic. ABDOMEN: Soft. Nondistended. tenderness with palpation of lower abdomen NEUROLOGIC: Alert and oriented. Cranial nerves II through XII grossly intact. ASSESSMENT: 1. Ulcerative colitis exacerbation PLAN: -Continue medical management -Steroid management per GI service -Continue to monitor hemoglobin Physician Supervisor Scouring Pads note has been reviewed by physician. Signing provider agrees with the documented findings, assessment, and plan of care. Objective - Vital Signs Vital signs: Vital Signs Temp 98.6 F 06/06/21 08:06 Pulse 81 06/06/21 08:06 Resp 17 06/06/21 08:06 BP 113/68 06/06/21 08:06 Pulse Ox 100 06/06/21 08:06 Intake & Output 06/05/21 06/06/21 06/06/21 18:59 06:59 18:59 Intake Total 118 Balance 118 Weight 65.4 kg Intake: Oral 118 Other: Voiding Method Toilet # Voids 5 3 # Bowel Movements 5 1 - Labs CBC & Chem 7: 06/06/21 07:57 06/04/21 08:58 Labs: Abnormal Lab Results - Last 24 Hours (Table) 06/06/21 Range/Units 07:57 RBC 3.73 L (4.30-5.90) m/uL Hgb 8.3 L (13.0-17.5) gm/dL Hct 29.3 L (39.0-53.0) % MCV 78.5 L (80.0-100.0) fL MCH 22.2 L (25.0-35.0) pg MCHC 28.3 L (31.0-37.0) g/dL RDW 24.8 H (11.5-15.5) % Plt Count 591 H (150-450) k/uL Microbiology - Last 24 Hours (Table) 05/31/21 09:25 Blood Culture - Final Blood No Growth after 144 hours 05/31/21 09:10 Blood Culture - Final Blood No Growth after 144 hours
[2021-06-07] MEDS: HYDROmorphone 1 MG/ML 1 ML SYRINGE IVP PRN ×2 (00:02→03:58)
[2021-06-07] MEDS: methylPREDNISolone SOD SUCCI 40 MG/ML 1 ML VIAL IV SCH ×3 (01:11→17:01)
[2021-06-07] MEDS: PIPERACILLIN-TAZOBACTAM 3.375 GM in SODIUM CHLORIDE 0.9% 100 ML IVPB SCH ×2 (01:11→09:06)
[2021-06-07] MEDS: SODIUM CHLORIDE 0.9% 1,000 ML IV SCH ×2 (01:12→14:41)
[2021-06-07 07:17] LABS: Anisocytosis Marked; Basophils % (A) 0 %; Eosinophils % (A) 0 %; HCT 30.5 % (39.0-53.0); HGB 8.2 gm/dL (13.0-17.5); Hypochromasia Marked; Lymphocytes # (A) 0.9 k/uL (1.0-4.8); Lymphocytes % (A) 8 %; MCH 21.6 pg (25.0-35.0); MCHC 26.9 g/dL (31.0-37.0); MCV 80.3 fL (80.0-100.0); Mean Platelet Volume 6.5; Microcytosis Marked; Monocytes # (A) 0.5 k/uL (0-1.0); Monocytes % (A) 4 %; Neutrophils # (A) 10.6 k/uL (1.3-7.7); Neutrophils % (A) 88 %; Platelet Count 648 k/uL (150-450); Poikilocytosis Moderate; RBC 3.79 m/uL (4.30-5.90); RDW 24.9 % (11.5-15.5); WBC 12.1 k/uL (3.8-10.6)
[2021-06-07 07:38] LABS: African American GFR (CKD) >90 (>60 ml/min/1.73 sqM); Anion Gap 5 mmol/L; Blood Urea Nitrogen 8 mg/dL (9-20); Calcium 8.6 mg/dL (8.4-10.2); Carbon Dioxide 31 mmol/L (22-30); Chloride 100 mmol/L (98-107); Glucose 163 mg/dL (74-99); Non-African American GFR(CKD) >90 (>60 ml/min/1.73 sqM); Potassium 4.6 mmol/L (3.5-5.1); Sodium 136 mmol/L (137-145)
[2021-06-07] MEDS: FAMOTIDINE 20 MG TAB PO SCH ×2 (09:06→21:34)
--- NOTE | 2021-06-07 13:06 | P.PN ---
Subjective Progress Note Date: 06/07/21 CHIEF COMPLAINT: Ulcerative colitis HISTORY OF PRESENT ILLNESS: Patient was admitted for ulcerative colitis exacerbation. Patient reports she feels about the same. Patient is still having blood in his stools. GI service has downgraded diet to full liquids. Patient remains on IV steroids. WBC 12.1 hemoglobin trending down from 8.3-8 point PHYSICAL EXAM: VITAL SIGNS: Reviewed. GENERAL: Well-developed in no acute distress. HEENT: No sclera icterus. Extraocular movements grossly intact. Moist buccal mucosa. Head is atraumatic, normocephalic. ABDOMEN: Soft. Nondistended. tenderness with palpation of lower abdomen NEUROLOGIC: Alert and oriented. Cranial nerves II through XII grossly intact. ASSESSMENT: 1. Ulcerative colitis exacerbation PLAN: -Continue medical management -Steroid management per GI service -Continue to monitor hemoglobin -Surgical service on standby Physician Library Technology Instructor note has been reviewed by physician. Signing provider agrees with the documented findings, assessment, and plan of care. Objective - Vital Signs Vital signs: Vital Signs Temp 99.0 F 06/07/21 12:21 Pulse 86 06/07/21 12:21 Resp 16 06/07/21 12:21 BP 108/66 06/07/21 12:21 Pulse Ox 98 06/07/21 12:21 Intake & Output 06/06/21 06/07/21 06/07/21 18:59 06:59 18:59 Intake Total 180 Output Total 1 Balance 180 -1 Intake: Oral 180 Output: Stool 1 Other: Voiding Method Toilet # Voids 10 2 # Bowel Movements 20 1 - Labs CBC & Chem 7: 06/07/21 06:55 06/07/21 06:55 Labs: Abnormal Lab Results - Last 24 Hours (Table) 06/07/21 06/07/21 Range/Units 06:55 06:55 WBC 12.1 H (3.8-10.6) k/uL RBC 3.79 L (4.30-5.90) m/uL Hgb 8.2 L (13.0-17.5) gm/dL Hct 30.5 L (39.0-53.0) % MCH 21.6 L (25.0-35.0) pg MCHC 26.9 L (31.0-37.0) g/dL RDW 24.9 H (11.5-15.5) % Plt Count 648 H (150-450) k/uL Neutrophils # 10.6 H (1.3-7.7) k/uL Lymphocytes # 0.9 L (1.0-4.8) k/uL Sodium 136 L (137-145) mmol/L Carbon Dioxide 31 H (22-30) mmol/L BUN 8 L (9-20) mg/dL Glucose 163 H (74-99) mg/dL Microbiology - Last 24 Hours (Table) 05/31/21 09:25 Blood Culture - Final Blood No Growth after 144 hours 05/31/21 09:10 Blood Culture - Final Blood No Growth after 144 hours
[2021-06-07] MEDS: HYDROcodone/APAP 5-325MG 1 EACH TAB PO PRN ×2 (14:39→21:34)
--- NOTE | 2021-06-07 22:30 | P.PN ---
Subjective Progress Note Date: 06/05/21 Principal diagnosis: Abdominal pain due to ulcerative colitis exacerbation Patient is a 35 old male with a known history of ulcerative colitis, acute blood loss anemia and transfusions, anxiety, GERD, history of smoking and marijuana use presents to ER with complaints of abdominal pain. Abdominal pain is diffuse and has been ongoing for the past 1 week. Patient also states that he's been having dark stools as well. Patient follows with GI and Entyvio infusions every 4 months. Patient is also having generalized weakness. Patient was previously admitted to the hospital due to ulcerative colitis exacerbation. CT of abdomen pelvis showed findings consistent with history of ulcerative colitis with colonic wall thickening extending from the proximal transverse colon through the rectosigmoid junction. Possible small intramural abscess at the level of rectum. No evidence of perforation. Laboratory data showed WBC 10.1 hemoglobin 4.1 and platelets 778 and MCV 61.8 Sodium 1:30 potassium 4.3 chloride 92 BUN 17 and creatinine 0.96 lactic acid 2.1 Covid 19 PCR not detected 06/01/2021 Patient is currently resting in bed. Awake alert and oriented 3. Abdominal Pain is much improved. Patient states that he is hungry and wants to eat. Hemoglobin level went up to 6.8. 1 more unit of PRBC was ordered. Patient is iron deficient otherwise. No complaints of chest pain. Nausea improved and vomiting. patient has been afebrile. patient is also on zosyn for possible intra-abdominal abscess. general surgery is following. 06/02/2020 Patient is currently able to ambulate to the room. Abdominal pain is much improved. No complaints of chest pain or shortness of breath. Denies any cough or sputum production. Patient states that he is still having blood in the stool. Hemoglobin dropped down to 6.4 today. Patient is being current on IV hydration and prednisone 30 mg daily. Continue with antibiotics, Zosyn. General surgery is on board. Patient is tolerating clear liquid diet and advance to regular diet today. 06/03/2021 Patient is currently lying in the bed. Abdominal pain is much improved. Still having blood in the urine. No complaints of chest pain or shortness of breath. Hemoglobin level improved to 8.4 today. Patient is also receiving IV iron i nfusion. Patient will be continued on prednisone 30 mg daily and slow taper. No fever no chills. And antibiotics in the form of Zosyn. 06/04/2021 Patient is currently resting in the bed. Abdominal pain is better. No complaints of chest pain or shortness of breath. Patient still having bloody diarrhea. Hemoglobin is 7.9 today. No complaints of fever or chills. Patient is being current on antibiotics in the form of Zosyn. General surgery is on board. Prednisone will be changed to methylprednisolone IV and consulted gastroenterology. 06/05/2021 Patient is able to rest in the bed comfortably. No complaints of chest pain. Abdominal pain is much improved. Otherwise still having blood in the stools. Laboratory data showed WBC 13.4 hemoglobin 9.0 and platelets 719 and MCV 79.2. Patient was seen by gastroenterology and will be continued on Solu-Medrol 20 mg every 8. Patient is also on antibiotics along with Zosyn. GI is following. REVIEW OF SYSTEMS CONSTITUTIONAL: Denies fever or chills. CARDIOVASCULAR: Denies chest pain, shortness of breath, orthopnea, PND or palpitations. RESPIRATORY: Denies cough. GASTROINTESTINAL: Denies constipation, nausea or vomiting. MUSCULOSKELETAL: Denies myalgias. NEUROLOGIC: Denies numbness, tingling or weakness. ENDOCRINE: Denies fatigue, weight change, polydipsia or polyurina. GENITOURINARY: Denies burning, hematuria or urgency with micturation. HEMATOLOGIC: Denies history of anemia or bleeding. current medications reviewed. Objective - Vital Signs Vital signs: Vital Signs Temp 98.8 F 06/05/21 15:00 Pulse 93 06/05/21 15:00 Resp 16 06/05/21 15:00 BP 119/69 06/05/21 15:00 Pulse Ox 92 L 06/05/21 15:00 Intake & Output 06/05/21 06/05/21 06/06/21 06:59 18:59 06:59 Intake Total 1000 118 Balance 1000 118 Weight 65.4 kg Intake: Intake, IV Titration 800 Amount Sodium Chloride 0.9% 1, 800 000 ml @ 100 mls/hr IV . Q10H [facility] Rx#:[id number] Oral 200 118 Other: Voiding Method Toilet # Voids 2 5 # Bowel Movements 2 5 - Exam PHYSICAL EXAMINATION: Patient is lying in the bed comfortably, no acute distress, awake alert and oriented.. HEENT: Normocephalic. Neck is supple. Pupils reactive. Nostrils clear. Oral cavity is moist. Neck reveals no JVD, carotid bruits, or thyromegaly. CHEST EXAMINATION: Trachea is central. Symmetrical expansion. Lung chacon clear to auscultation and percussion. CARDIAC: Normal S1, S2 with no gallops. No murmurs ABDOMEN: Soft. Left lower quadrant minimal tenderness. No guarding or rigidity. Bowel sounds normal. No organomegaly. No abdominal bruits. Extremities: reveal no edema. No clubbing or cyanosis Neurologically awake, alert, oriented x3 with well-coordinated movements. No focal deficits noted Skin: No rash or skin lesions. Psychiatric: Coperative. Nonsuicidal Musculoskeletal: No joint swelling or deformity. Normal range of motion. - Labs CBC & Chem 7: 06/07/21 06:55 06/07/21 06:55 Labs: Abnormal Lab Results - Last 24 Hours (Table) 06/05/21 06/05/21 06/05/21 Range/Units 06:21 06:21 06:21 WBC 13.4 H (3.8-10.6) k/uL RBC 4.13 L (4.30-5.90) m/uL Hgb 9.0 L (13.0-17.5) gm/dL Hct 32.7 L (39.0-53.0) % MCV 79.2 L (80.0-100.0) fL MCH 21.9 L (25.0-35.0) pg MCHC 27.6 L (31.0-37.0) g/dL RDW 24.5 H (11.5-15.5) % Plt Count 719 H (150-450) k/uL ESR 22 H (0-15) mm/hr POC Glucose (mg/dL) (75-99) mg/dL C-Reactive Protein 3.3 H (<1.0) mg/dL 06/05/21 06/05/21 Range/Units 07:11 11:11 WBC (3.8-10.6) k/uL RBC (4.30-5.90) m/uL Hgb (13.0-17.5) gm/dL Hct (39.0-53.0) % MCV (80.0-100.0) fL MCH (25.0-35.0) pg MCHC (31.0-37.0) g/dL RDW (11.5-15.5) % Plt Count (150-450) k/uL ESR (0-15) mm/hr POC Glucose (mg/dL) 123 H 127 H (75-99) mg/dL C-Reactive Protein (<1.0) mg/dL Microbiology - Last 24 Hours (Table) 05/31/21 09:25 Blood Culture - Preliminary Blood No Growth after 120 hours 05/31/21 09:10 Blood Culture - Preliminary Blood No Growth after 120 hours Assessment and Plan Assessment: Abdominal pain secondary to acute ulcerative colitis exacerbation. Possible intramural abscess and the rectum level Acute blood loss anemia due to GI bleed Symptomatic anemia Ulcerative colitis currently getting Entyvio infusions every 4 months Lactic acidosis Microcytic iron deficiency anemia Noncompliance with medications and follow-up. DVT prophylaxis with SCDs due to GI bleed. Plan: c/w methylpred. Patient will be continued on IV hydration and pain management with Dilaudid. Patient will be transfused with 3 units of PRBC and follow hemoglobin level. Still having blood in the stools.. Patient was started on clear liquid diet and advance as tolerated. Patient will be continued on antibiotics in the form of Zosyn. Follow up culture reports-negative. Continue with symptomatic management. Gen. surgery and GI is on board. Follow up closely.
--- NOTE | 2021-06-07 22:32 | P.PN ---
Subjective Progress Note Date: 06/06/21 Principal diagnosis: Abdominal pain due to ulcerative colitis exacerbation Patient is a 35 old male with a known history of ulcerative colitis, acute blood loss anemia and transfusions, anxiety, GERD, history of smoking and marijuana use presents to ER with complaints of abdominal pain. Abdominal pain is diffuse and has been ongoing for the past 1 week. Patient also states that he's been having dark stools as well. Patient follows with GI and Entyvio infusions every 4 months. Patient is also having generalized weakness. Patient was previously admitted to the hospital due to ulcerative colitis exacerbation. CT of abdomen pelvis showed findings consistent with history of ulcerative colitis with colonic wall thickening extending from the proximal transverse colon through the rectosigmoid junction. Possible small intramural abscess at the level of rectum. No evidence of perforation. Laboratory data showed WBC 10.1 hemoglobin 4.1 and platelets 778 and MCV 61.8 Sodium 1:30 potassium 4.3 chloride 92 BUN 17 and creatinine 0.96 lactic acid 2.1 Covid 19 PCR not detected 06/01/2021 Patient is currently resting in bed. Awake alert and oriented 3. Abdominal Pain is much improved. Patient states that he is hungry and wants to eat. Hemoglobin level went up to 6.8. 1 more unit of PRBC was ordered. Patient is iron deficient otherwise. No complaints of chest pain. Nausea improved and vomiting. patient has been afebrile. patient is also on zosyn for possible intra-abdominal abscess. general surgery is following. 06/02/2020 Patient is currently able to ambulate to the room. Abdominal pain is much improved. No complaints of chest pain or shortness of breath. Denies any cough or sputum production. Patient states that he is still having blood in the stool. Hemoglobin dropped down to 6.4 today. Patient is being current on IV hydration and prednisone 30 mg daily. Continue with antibiotics, Zosyn. General surgery is on board. Patient is tolerating clear liquid diet and advance to regular diet today. 06/03/2021 Patient is currently lying in the bed. Abdominal pain is much improved. Still having blood in the urine. No complaints of chest pain or shortness of breath. Hemoglobin level improved to 8.4 today. Patient is also receiving IV iron i nfusion. Patient will be continued on prednisone 30 mg daily and slow taper. No fever no chills. And antibiotics in the form of Zosyn. 06/04/2021 Patient is currently resting in the bed. Abdominal pain is better. No complaints of chest pain or shortness of breath. Patient still having bloody diarrhea. Hemoglobin is 7.9 today. No complaints of fever or chills. Patient is being current on antibiotics in the form of Zosyn. General surgery is on board. Prednisone will be changed to methylprednisolone IV and consulted gastroenterology. 06/05/2021 Patient is able to rest in the bed comfortably. No complaints of chest pain. Abdominal pain is much improved. Otherwise still having blood in the stools. Laboratory data showed WBC 13.4 hemoglobin 9.0 and platelets 719 and MCV 79.2. Patient was seen by gastroenterology and will be continued on Solu-Medrol 20 mg every 8. Patient is also on antibiotics along with Zosyn. GI is following. 06/06/2021 Patient is currently resting well. Still having mild abdominal discomfort and having blood in the stool. Patient is supposed to get immunotherapy today. Continue to monitor H&H due to active GI bleeding. Patient has been continued on IV steroids and pain management. Gastroenterology and general surgery is following. Hemoglobin is 8.3 today. Platelets 591 and MCV 78.5. Other lab data reviewed. Patient has been afebrile. No nausea vomiting. No cough or sputum production. No chest pain or shortness of breath. REVIEW OF SYSTEMS CONSTITUTIONAL: Denies fever or chills. CARDIOVASCULAR: Denies chest pain, shortness of breath, orthopnea, PND or palpitations. RESPIRATORY: Denies cough. GASTROINTESTINAL: Denies constipation, nausea or vomiting. MUSCULOSKELETAL: Denies myalgias. NEUROLOGIC: Denies numbness, tingling or weakness. ENDOCRINE: Denies fatigue, weight change, polydipsia or polyurina. GENITOURINARY: Denies burning, hematuria or urgency with micturation. HEMATOLOGIC: Denies history of anemia or bleeding. current medications reviewed. Objective - Vital Signs Vital signs: Vital Signs Temp 97.5 F L 06/06/21 20:00 Pulse 82 06/06/21 20:00 Resp 16 06/06/21 20:00 BP 109/67 06/06/21 20:00 Pulse Ox 100 06/06/21 20:00 Intake & Output 01/05/22 01/05/22 01/06/22 06:59 18:59 06:59 Intake Total 180 Output Total 1 Balance 180 -1 Intake: Oral 180 Output: Stool 1 Other: Voiding Method Toilet Toilet # Voids 3 10 2 # Bowel Movements 20 1 - Exam PHYSICAL EXAMINATION: Patient is lying in the bed comfortably, no acute distress, awake alert and oriented.. HEENT: Normocephalic. Neck is supple. Pupils reactive. Nostrils clear. Oral cavity is moist. Neck reveals no JVD, carotid bruits, or thyromegaly. CHEST EXAMINATION: Trachea is central. Symmetrical expansion. Lung chacon clear to auscultation and percussion. CARDIAC: Normal S1, S2 with no gallops. No murmurs ABDOMEN: Soft. Left lower quadrant minimal tenderness. No guarding or rigidity. Bowel sounds normal. No organomegaly. No abdominal bruits. Extremities: reveal no edema. No clubbing or cyanosis Neurologically awake, alert, oriented x3 with well-coordinated movements. No focal deficits noted Skin: No rash or skin lesions. Psychiatric: Coperative. Nonsuicidal Musculoskeletal: No joint swelling or deformity. Normal range of motion. - Labs CBC & Chem 7: 06/07/21 06:55 06/07/21 06:55 Labs: Abnormal Lab Results - Last 24 Hours (Table) 06/06/21 Range/Units 07:57 RBC 3.73 L (4.30-5.90) m/uL Hgb 8.3 L (13.0-17.5) gm/dL Hct 29.3 L (39.0-53.0) % MCV 78.5 L (80.0-100.0) fL MCH 22.2 L (25.0-35.0) pg MCHC 28.3 L (31.0-37.0) g/dL RDW 24.8 H (11.5-15.5) % Plt Count 591 H (150-450) k/uL Microbiology - Last 24 Hours (Table) 05/31/21 09:25 Blood Culture - Final Blood No Growth after 144 hours 05/31/21 09:10 Blood Culture - Final Blood No Growth after 144 hours Assessment and Plan Assessment: Abdominal pain secondary to acute ulcerative colitis exacerbation. Possible intramural abscess and the rectum level Acute blood loss anemia due to GI bleed Symptomatic anemia Ulcerative colitis currently getting Entyvio infusions every 4 months Lactic acidosis Microcytic iron deficiency anemia Noncompliance with medications and follow-up. DVT prophylaxis with SCDs due to GI bleed. Plan: c/w methylpred. Patient will be continued on IV hydration and pain management with Dilaudid. Patient will be transfused with 3 units of PRBC and follow hemoglobin level. St ill having blood in the stools.. Patient was started on clear liquid diet and advance as tolerated. Patient will be continued on antibiotics in the form of Zosyn. Follow up culture reports-negative. Continue with symptomatic management. Gen. surgery and GI is on board. Follow up closely.
--- NOTE | 2021-06-07 22:33 | P.PN ---
Subjective Progress Note Date: 06/07/21 Principal diagnosis: Abdominal pain due to ulcerative colitis exacerbation Patient is a 35 old male with a known history of ulcerative colitis, acute blood loss anemia and transfusions, anxiety, GERD, history of smoking and marijuana use presents to ER with complaints of abdominal pain. Abdominal pain is diffuse and has been ongoing for the past 1 week. Patient also states that he's been having dark stools as well. Patient follows with GI and Entyvio infusions every 4 months. Patient is also having generalized weakness. Patient was previously admitted to the hospital due to ulcerative colitis exacerbation. CT of abdomen pelvis showed findings consistent with history of ulcerative colitis with colonic wall thickening extending from the proximal transverse colon through the rectosigmoid junction. Possible small intramural abscess at the level of rectum. No evidence of perforation. Laboratory data showed WBC 10.1 hemoglobin 4.1 and platelets 778 and MCV 61.8 Sodium 1:30 potassium 4.3 chloride 92 BUN 17 and creatinine 0.96 lactic acid 2.1 Covid 19 PCR not detected 06/01/2021 Patient is currently resting in bed. Awake alert and oriented 3. Abdominal Pain is much improved. Patient states that he is hungry and wants to eat. Hemoglobin level went up to 6.8. 1 more unit of PRBC was ordered. Patient is iron deficient otherwise. No complaints of chest pain. Nausea improved and vomiting. patient has been afebrile. patient is also on zosyn for possible intra-abdominal abscess. general surgery is following. 06/02/2020 Patient is currently able to ambulate to the room. Abdominal pain is much improved. No complaints of chest pain or shortness of breath. Denies any cough or sputum production. Patient states that he is still having blood in the stool. Hemoglobin dropped down to 6.4 today. Patient is being current on IV hydration and prednisone 30 mg daily. Continue with antibiotics, Zosyn. General surgery is on board. Patient is tolerating clear liquid diet and advance to regular diet today. 06/03/2021 Patient is currently lying in the bed. Abdominal pain is much improved. Still having blood in the urine. No complaints of chest pain or shortness of breath. Hemoglobin level improved to 8.4 today. Patient is also receiving IV iron i nfusion. Patient will be continued on prednisone 30 mg daily and slow taper. No fever no chills. And antibiotics in the form of Zosyn. 06/04/2021 Patient is currently resting in the bed. Abdominal pain is better. No complaints of chest pain or shortness of breath. Patient still having bloody diarrhea. Hemoglobin is 7.9 today. No complaints of fever or chills. Patient is being current on antibiotics in the form of Zosyn. General surgery is on board. Prednisone will be changed to methylprednisolone IV and consulted gastroenterology. 06/05/2021 Patient is able to rest in the bed comfortably. No complaints of chest pain. Abdominal pain is much improved. Otherwise still having blood in the stools. Laboratory data showed WBC 13.4 hemoglobin 9.0 and platelets 719 and MCV 79.2. Patient was seen by gastroenterology and will be continued on Solu-Medrol 20 mg every 8. Patient is also on antibiotics along with Zosyn. GI is following. 06/06/2021 Patient is currently resting well. Still having mild abdominal discomfort and having blood in the stool. Patient is supposed to get immunotherapy today. Continue to monitor H&H due to active GI bleeding. Patient has been continued on IV steroids and pain management. Gastroenterology and general surgery is following. Hemoglobin is 8.3 today. Platelets 591 and MCV 78.5. Other lab data reviewed. Patient has been afebrile. No nausea vomiting. No cough or sputum production. No chest pain or shortness of breath. 06/07/2021 Patient's condition remains the same. Still having blood in the stools. Denied any dizziness or lightheadedness. No chest pain or shortness of breath. No cough or sputum production. Diet changed back to full liquid diet today. Continued on IV steroids and pain management. There is Patient completed Zosyn for 7 days. Laboratory showed WBC 12.1 hemoglobin 8.1 platelets 648 sodium 136 potassium 4.6 chloride 100 bicarb is 31 BUN 8 and creatinine 0.87. Follow-up CBC and BMP tomorrow. REVIEW OF SYSTEMS CONSTITUTIONAL: Denies fever or chills. CARDIOVASCULAR: Denies chest pain, shortness of breath, orthopnea, PND or palpitations. RESPIRATORY: Denies cough. GASTROINTESTINAL: Denies constipation, nausea or vomiting. MUSCULOSKELETAL: Denies myalgias. NEUROLOGIC: Denies numbness, tingling or weakness. ENDOCRINE: Denies fatigue, weight change, polydipsia or polyurina. GENITOURINARY: Denies burning, hematuria or urgency with micturation. HEMATOLOGIC: Denies history of anemia or bleeding. current medications reviewed. Objective - Vital Signs Vital signs: Vital Signs Temp 98.7 F 06/07/21 20:34 Pulse 66 06/07/21 20:34 Resp 18 06/07/21 20:34 BP 121/73 06/07/21 20:34 Pulse Ox 99 06/07/21 20:34 Intake & Output 06/07/21 06/07/21 06/08/21 06:59 18:59 06:59 Intake Total 1300 Output Total 1 Balance -1 1300 Intake: Intake, IV Titration 1300 Amount Piperacillin-Tazobactam 3 100 .375 gm In Sodium Chloride 0.9% 100 ml @ 25 mls/hr IVPB Q8H [facility] Rx#: [id number] Sodium Chloride 0.9% 1, 1200 000 ml @ 100 mls/hr IV . Q10H [facility] Rx#:[id number] Output: Stool 1 Other: Voiding Method Toilet # Voids 2 # Bowel Movements 1 3 - Exam PHYSICAL EXAMINATION: Patient is lying in the bed comfortably, no acute distress, awake alert and oriented.. HEENT: Normocephalic. Neck is supple. Pupils reactive. Nostrils clear. Oral cavity is moist. Neck reveals no JVD, carotid bruits, or thyromegaly. CHEST EXAMINATION: Trachea is central. Symmetrical expansion. Lung chacon clear to auscultation and percussion. CARDIAC: Normal S1, S2 with no gallops. No murmurs ABDOMEN: Soft. Left lower quadrant minimal tenderness. No guarding or rigidity. Bowel sounds normal. No organomegaly. No abdominal bruits. Extremities: reveal no edema. No clubbing or cyanosis Neurologically awake, alert, oriented x3 with well-coordinated movements. No focal deficits noted Skin: No rash or skin lesions. Psychiatric: Coperative. Nonsuicidal Musculoskeletal: No joint swelling or deformity. Normal range of motion. - Labs CBC & Chem 7: 06/07/21 06:55 06/07/21 06:55 Labs: Abnormal Lab Results - Last 24 Hours (Table) 06/07/21 06/07/21 Range/Units 06:55 06:55 WBC 12.1 H (3.8-10.6) k/uL RBC 3.79 L (4.30-5.90) m/uL Hgb 8.2 L (13.0-17.5) gm/dL Hct 30.5 L (39.0-53.0) % MCH 21.6 L (25.0-35.0) pg MCHC 26.9 L (31.0-37.0) g/dL RDW 24.9 H (11.5-15.5) % Plt Count 648 H (150-450) k/uL Neutrophils # 10.6 H (1.3-7.7) k/uL Lymphocytes # 0.9 L (1.0-4.8) k/uL Sodium 136 L (137-145) mmol/L Carbon Dioxide 31 H (22-30) mmol/L BUN 8 L (9-20) mg/dL Glucose 163 H (74-99) mg/dL Assessment and Plan Assessment: Abdominal pain secondary to acute ulcerative colitis exacerbation. Possible intramural abscess and the rectum level Acute blood loss anemia due to GI bleed Symptomatic anemia Ulcerative colitis currently getting Entyvio infusions every 4 months Lactic acidosis Microcytic iron deficiency anemia Noncompliance with medications and follow-up. DVT prophylaxis with SCDs due to GI bleed. Plan: c/w methylpred. Patient will be continued on IV hydration and pain management with Dilaudid. Patient will be transfused with 3 units of PRBC and follow hemoglobin level. Still having blood in the stools.. Patient was started on clear liquid diet and advance as tolerated. Patient will be continued on antibiotics in the form of Zosyn. Follow up culture reports-negative. Continue with symptomatic management. Gen. surgery and GI is on board. Follow up closely. Time with Patient: Greater than 30
[2021-06-08] MEDS: methylPREDNISolone SOD SUCCI 40 MG/ML 1 ML VIAL IV SCH ×3 (02:51→17:14)
[2021-06-08] MEDS: HYDROcodone/APAP 5-325MG 1 EACH TAB PO PRN ×2 (02:53→20:28)
[2021-06-08] MEDS: SODIUM CHLORIDE 0.9% 1,000 ML IV SCH ×3 (02:55→20:30)
[2021-06-08 06:39] LABS: Anisocytosis Marked; Basophils % (A) 0 %; Eosinophils # (A) 0.1 k/uL (0-0.7); Eosinophils % (A) 1 %; HCT 29.1 % (39.0-53.0); HGB 7.8 gm/dL (13.0-17.5); Hypochromasia Marked; Lymphocytes # (A) 1.1 k/uL (1.0-4.8); Lymphocytes % (A) 9 %; MCH 22.1 pg (25.0-35.0); MCV 81.9 fL (80.0-100.0); Mean Platelet Volume 6.6; Microcytosis Moderate; Monocytes # (A) 0.4 k/uL (0-1.0); Monocytes % (A) 3 %; Neutrophils # (A) 11.4 k/uL (1.3-7.7); Neutrophils % (A) 87 %; Platelet Count 577 k/uL (150-450); Poikilocytosis Moderate; RBC 3.55 m/uL (4.30-5.90); WBC 13.1 k/uL (3.8-10.6)
--- NOTE | 2021-06-08 09:08 | P.PN ---
Subjective Progress Note Date: 06/07/21 35-year-old male with a history of ulcerative colitis with multiple hospitalizations in the past 2 had presented several days ago to the emergency room with complaints of abdominal pain with bloody stools. He was initially started on prednisone 30 mg by mouth daily and transition to Solu-Medrol IV. He is currently on Solu-Medrol 20 mg every 8 hours IV. He is still having multiple bloody loose stools. Increased abdominal pain. He had a repeat hemoglobin this morning of 8.2. He denies any nausea or vomiting or abdominal pain other than some cramping with bowel movements. He has been tolerating a regular diet. Objective - Vital Signs Vital signs: Vital Signs Temp 98.7 F 06/07/21 07:35 Pulse 86 06/07/21 07:35 Resp 16 06/07/21 07:35 BP 110/69 06/07/21 07:35 Pulse Ox 100 06/07/21 07:35 Intake & Output 06/06/21 06/07/21 06/07/21 18:59 06:59 18:59 Intake Total 180 Output Total 1 Balance 180 -1 Intake: Oral 180 Output: Stool 1 Other: Voiding Method Toilet # Voids 10 2 # Bowel Movements 20 1 - Exam General appearance: The patient is alert, oriented, appears in no acute distress. HET: Head is normocephalic and atraumatic. Conjunctiva pink. Sclera anicteric. Neck: Supple without lymphadenopathy. Abdomen: Soft, nontender, nondistended with bowel sounds. No guarding or rigidity. Extremities: Normal skin color and turgor. No pedal edema Skin: No rashes, no jaundice Neurological: No focal deficits. Alert and oriented -3. - Labs CBC & Chem 7: 06/08/21 05:58 06/07/21 06:55 Labs: Abnormal Lab Results - Last 24 Hours (Table) 06/07/21 06/07/21 Range/Units 06:55 06:55 WBC 12.1 H (3.8-10.6) k/uL RBC 3.79 L (4.30-5.90) m/uL Hgb 8.2 L (13.0-17.5) gm/dL Hct 30.5 L (39.0-53.0) % MCH 21.6 L (25.0-35.0) pg MCHC 26.9 L (31.0-37.0) g/dL RDW 24.9 H (11.5-15.5) % Plt Count 648 H (150-450) k/uL Neutrophils # 10.6 H (1.3-7.7) k/uL Lymphocytes # 0.9 L (1.0-4.8) k/uL Sodium 136 L (137-145) mmol/L Carbon Dioxide 31 H (22-30) mmol/L BUN 8 L (9-20) mg/dL Glucose 163 H (74-99) mg/dL Microbiology - Last 24 Hours (Table) 05/31/21 09:25 Blood Culture - Final Blood No Growth after 144 hours 05/31/21 09:10 Blood Culture - Final Blood No Growth after 144 hours Assessment and Plan (1) Ulcerative colitis Narrative/Plan: Sit 35-year-old male who presented to emergency department 5 days ago with complaints of abdominal pain with bloody bowel movements. He was diagnosed with ulcerative colitis and June of last year and was noncompliant with follow-up with multiple hospitalizations. His last hospitalization was in November of this year for which he was discharged on a prednisone taper dose and started on Entyvio. He states he has been taking his and tibial since beginning of December and is due this month. States his last dose was in April. However he has not had any follow-up with gastroenterology. On admission he was noted to have a hemoglobin of 4.1 and is status post 5 units of PRBC transfusion. Had an elevated sed rate as well as CRP on admission consistent with active disease. He was started on prednisone 30 mg daily initially and transitioned yesterday to Solu-Medrol 40 mg IV every 8 hours. He has had some improvement in his diarrhea as well as bleeding. Current Visit: Yes Status: Acute Code(s): K51.90 - ULCERATIVE COLITIS, UNSPECIFIED, WITHOUT COMPLICATIONS SNOMED Code(s): 14122684 (2) Anemia Narrative/Plan: Patient is status post 5 units PRBC transfusion. He is currently getting IV iron. Bloody bowel movements have improved. Hemoglobin stable at 8.3. Current Visit: Yes Status: Acute Code(s): D64.9 - ANEMIA, UNSPECIFIED SNOMED Code(s): 987498563 Plan: 1. Continue Solu-Medrol 20 mg IV every 8 hours, transition to prednisone 40 mg daily on DC 2. Repeat daily CBC 3. Recommend changing IV pain meds to oral 4. Discussed importance of medical compliance and follow-up with gastroenterology with patient as he has not been compliant in past 5. No plans an endoscopic evaluation 6. Change to full liquid diet. 7. Reschedule Entyvio for next week Thank you for this consultation, we will continue to follow. Dr. Mamta Aguilar I agree with the dictator's note, documented as a scribe by Crystal Condon.
[2021-06-08 09:46] LABS: African American GFR (CKD) 140.7 (60.0-200.0); Anion Gap 6.7 mmol/L (10.00-18.00); Blood Urea Nitrogen 4.2 mg/dL (9.0-27.0); Calcium 8.6 mg/dL (8.7-10.3); Carbon Dioxide 27.3 mmol/L (20.0-27.5); Non-African American GFR(CKD) 121.4 (60.0-200.0); Potassium 4.7 mmol/L (3.5-5.5)
[2021-06-08] MEDS: FAMOTIDINE 20 MG TAB PO SCH ×2 (10:00→20:27)
--- NOTE | 2021-06-08 12:13 | P.PN ---
Subjective Progress Note Date: 06/08/21 CHIEF COMPLAINT: Ulcerative colitis HISTORY OF PRESENT ILLNESS: Patient was admitted for ulcerative colitis exacerbation. Patient reports that he is better. His pain is improving. Currently on regular diet. He still reports blood in his stools. He reports slightly better. WBC is up from 12.1-13.1 he is on steroids. Hemoglobin is down from 8.2-7.8 Patient reports she feels about the same. Patient is still having blood in his stools. GI service has downgraded diet to full liquids. Patient remains on IV steroids. WBC 12.1 hemoglobin trending down from 8.2 to 7.8 PHYSICAL EXAM: VITAL SIGNS: Reviewed. GENERAL: Well-developed in no acute distress. HEENT: No sclera icterus. Extraocular movements grossly intact. Moist buccal mucosa. Head is atraumatic, normocephalic. ABDOMEN: Soft. Nondistended. Minimal tenderness palpation lower abdomen NEUROLOGIC: Alert and oriented. Cranial nerves II through XII grossly intact. ASSESSMENT: 1. Ulcerative colitis exacerbation PLAN: -Continue medical management -Steroid management per GI service -Continue to monitor hemoglobin -Surgical service on standby Physician Wave Solder Offbearer note has been reviewed by physician. Signing provider agrees with the documented findings, assessment, and plan of care. Objective - Vital Signs Vital signs: Vital Signs Temp 98.6 F 06/08/21 04:46 Pulse 61 06/08/21 04:46 Resp 16 06/08/21 04:46 BP 101/60 06/08/21 04:46 Pulse Ox 98 06/08/21 04:46 Intake & Output 06/07/21 06/08/21 06/08/21 18:59 06:59 18:59 Intake Total 1300 1200 Balance 1300 1200 Intake: Intake, IV Titration 1300 1200 Amount Piperacillin-Tazobactam 3 100 .375 gm In Sodium Chloride 0.9% 100 ml @ 25 mls/hr IVPB Q8H [facility] Rx#: [id number] Sodium Chloride 0.9% 1, 1200 1200 000 ml @ 100 mls/hr IV . Q10H [facility] Rx#:[id number] Other: Voiding Method Toilet # Voids 3 # Bowel Movements 3 - Labs CBC & Chem 7: 06/08/21 05:58 06/08/21 05:58 Labs: Abnormal Lab Results - Last 24 Hours (Table) 06/08/21 06/08/21 Range/Units 05:58 05:58 WBC 13.1 H (3.8-10.6) k/uL RBC 3.55 L (4.30-5.90) m/uL Hgb 7.8 L (13.0-17.5) gm/dL Hct 29.1 L (39.0-53.0) % MCH 22.1 L (25.0-35.0) pg MCHC 27.0 L (31.0-37.0) g/dL RDW 25.0 H (11.5-15.5) % Plt Count 577 H (150-450) k/uL Neutrophils # 11.4 H (1.3-7.7) k/uL Anion Gap 6.70 L (10.00-18.00) mmol/L BUN 4.2 L (9.0-27.0) mg/dL BUN/Creatinine Ratio 6.00 L (12.00-20.00) Ratio Calcium 8.6 L (8.7-10.3) mg/dL
--- NOTE | 2021-06-08 13:40 | P.PN ---
Subjective Progress Note Date: 06/08/21 35-year-old male with a history of ulcerative colitis with multiple hospitalizations in the past presented several days ago to the emergency room with complaints of abdominal pain with bloody stools. He was initially started on prednisone 30 mg by mouth daily and transition to Solu-Medrol IV. He is cur rently on Solu-Medrol 20 mg every 8 hours IV. He is still having multiple bloody loose stools however he states it is smaller in amount and less bleeding. Abdominal pain has improved and he is denying any abdominal pain this morning. Today's repeat hemoglobin is 7.8. He denies any nausea or vomiting. Objective - Vital Signs Vital signs: Vital Signs Temp 98.6 F 06/08/21 04:46 Pulse 61 06/08/21 04:46 Resp 16 06/08/21 04:46 BP 101/60 06/08/21 04:46 Pulse Ox 98 06/08/21 04:46 Intake & Output 06/07/21 06/08/21 06/08/21 18:59 06:59 18:59 Intake Total 1300 1200 Balance 1300 1200 Intake: Intake, IV Titration 1300 1200 Amount Piperacillin-Tazobactam 3 100 .375 gm In Sodium Chloride 0.9% 100 ml @ 25 mls/hr IVPB Q8H [facility] Rx#: [id number] Sodium Chloride 0.9% 1, 1200 1200 000 ml @ 100 mls/hr IV . Q10H [facility] Rx#:[id number] Other: Voiding Method Toilet # Voids 3 # Bowel Movements 3 - Exam General appearance: The patient is alert, oriented, appears in no acute distress. HET: Head is normocephalic and atraumatic. Conjunctiva pink. Sclera anicteric. Neck: Supple without lymphadenopathy. Abdomen: Soft, nontender, nondistended with bowel sounds. No guarding or rigidity. Extremities: Normal skin color and turgor. No pedal edema Skin: No rashes, no jaundice Neurological: No focal deficits. Alert and oriented x 3. - Labs CBC & Chem 7: 06/08/21 05:58 06/08/21 05:58 Labs: Abnormal Lab Results - Last 24 Hours (Table) 06/08/21 06/08/21 Range/Units 05:58 05:58 WBC 13.1 H (3.8-10.6) k/uL RBC 3.55 L (4.30-5.90) m/uL Hgb 7.8 L (13.0-17.5) gm/dL Hct 29.1 L (39.0-53.0) % MCH 22.1 L (25.0-35.0) pg MCHC 27.0 L (31.0-37.0) g/dL RDW 25.0 H (11.5-15.5) % Plt Count 577 H (150-450) k/uL Neutrophils # 11.4 H (1.3-7.7) k/uL Anion Gap 6.70 L (10.00-18.00) mmol/L BUN 4.2 L (9.0-27.0) mg/dL BUN/Creatinine Ratio 6.00 L (12.00-20.00) Ratio Calcium 8.6 L (8.7-10.3) mg/dL Assessment and Plan (1) Ulcerative colitis Narrative/Plan: Sit 35-year-old male who presented to emergency department 5 days ago with complaints of abdominal pain with bloody bowel movements. He was diagnosed with ulcerative colitis and June of last year and was noncompliant with follow-up with multiple hospitalizations. His last hospitalization was in November of this year for which he was discharged on a prednisone taper dose and started on Entyvio. He states he has been taking his and tibial since beginning of December and is due this month. States his last dose was in April. However he has not had any follow-up with gastroenterology. On admission he was noted to have a hemoglobin of 4.1 and is status post 5 units of PRBC transfusion. Had an elevated sed rate as well as CRP on admission consistent with active disease. He was started on prednisone 30 mg daily initially and transitioned yesterday to Solu-Medrol 40 mg IV every 8 hours. He has had some improvement in his diarrhea as well as bleeding. Current Visit: Yes Status: Acute Code(s): K51.90 - ULCERATIVE COLITIS, UNSPE CIFIED, WITHOUT COMPLICATIONS SNOMED Code(s): 06988601 (2) Anemia Narrative/Plan: Patient is status post 5 units PRBC transfusion. He is currently getting IV iron. Bloody bowel movements have improved. Hemoglobin stable at 8.3. Current Visit: Yes Status: Acute Code(s): D64.9 - ANEMIA, UNSPECIFIED SNOMED Code(s): 007793851 Plan: 1. Continue Solu-Medrol 20 mg IV every 8 hours, transition to prednisone 40 mg daily tomorrow morning 2. Repeat daily CBC, transfuse for hemoglobin less than 7 3. Continue pain medications as needed and try to wean. 4. Encourage ambulation 5. No plans an endoscopic evaluation, patient with active colitis. Gastroenterology is recommending no colonoscopy at this time. 6. Low fat/low fiber diet 7. Reschedule Entyvio for next week 8. If hemoglobin stable patient may be discharged home tomorrow. Prednisone taper dose prescriptions sent 9. Discussed importance of medical compliance and follow-up with gastroenterology with patient as he has not been compliant in past Thank you for allowing us to participate in the care of the patient, the GI se rvice will sign off, gastroenterology will not be available at the hospital this weekend. If further evaluation by gastroenterology is required the patient will need transfer as per the primary team's discretion. Dr. Mamta Aguilar I agree with the dictator's note, documented as a scribe by Crystal Condon.
[2021-06-09] MEDS: SODIUM CHLORIDE 0.9% 1,000 ML IV SCH ×2 (03:29→13:15)
[2021-06-09] MEDS: HYDROcodone/APAP 5-325MG 1 EACH TAB PO PRN ×2 (05:12→21:10)
[2021-06-09] MEDS: FAMOTIDINE 20 MG TAB PO SCH ×2 (09:08→21:10)
[2021-06-09] MEDS: predniSONE 20 MG TAB PO SCH (09:08)
--- NOTE | 2021-06-09 10:49 | P.PN ---
Subjective Progress Note Date: 06/09/21 Principal diagnosis: Abdominal pain Patient says his pain is about the same today. Have 5-6 loose stools yesterday with some blood. Tolerating regular diet. Appetite is decent he says. No nausea or vomiting. Feels abdominal cramps at times. Objective - Vital Signs Vital signs: Vital Signs Temp 98.6 F 06/09/21 04:28 Pulse 83 06/09/21 04:28 Resp 16 06/09/21 04:28 BP 115/71 06/09/21 04:28 Pulse Ox 99 06/09/21 04:28 Intake & Output 06/08/21 06/09/21 06/09/21 18:59 06:59 18:59 Intake Total 1200 1200 Balance 1200 1200 Intake: Intake, IV Titration 1200 1200 Amount Sodium Chloride 0.9% 1, 1200 1200 000 ml @ 100 mls/hr IV . Q10H [facility] Rx#:[id number] Other: Voiding Method Toilet # Voids 1 - Exam Abdomen: Soft, nondistended, mild diffuse tenderness, no rebound or guarding - Labs CBC & Chem 7: 06/08/21 05:58 06/08/21 05:58 Assessment and Plan (1) Ulcerative colitis Narrative/Plan: Patient doing about the same. Continue diet as tolerated. Continue steroids per GI. Will follow. Current Visit: Yes Status: Acute Code(s): K51.90 - ULCERATIVE COLITIS, UNSPECIFIED, WITHOUT COMPLICATIONS SNOMED Code(s): 03726168
--- NOTE | 2021-06-09 13:45 | P.PN ---
Subjective Progress Note Date: 06/08/21 Principal diagnosis: Abdominal pain due to ulcerative colitis exacerbation 35 old male with a known history of ulcerative colitis, acute blood loss anemia and transfusions, anxiety, GERD, history of smoking and marijuana use presents to ER with complaints of abdominal pain. Abdominal pain is diffuse and has been ongoing for the past 1 week. Patient also states that he's been having dark stools as well. Patient follows with GI and Entyvio infusions every 4 months. Patient is also having generalized weakness. Patient was previously admitted to the hospital due to ulcerative colitis exacerbation. CT of abdomen pelvis showed findings consistent with history of ulcerative colitis with colonic wall thickening extending from the proximal transverse colon through the rectosigmoid junction. Possible small intramural abscess at the level of rectum. No evidence of perforation. Laboratory data showed WBC 10.1 hemoglobin 4.1 and platelets 778 and MCV 61.8 Sodium 1:30 potassium 4.3 chloride 92 BUN 17 and creatinine 0.96 lactic acid 2.1 Covid 19 PCR not detected Objective - Vital Signs Vital signs: Vital Signs Temp 98.6 F 06/08/21 04:46 Pulse 61 06/08/21 04:46 Resp 16 06/08/21 04:46 BP 101/60 06/08/21 04:46 Pulse Ox 98 06/08/21 04:46 Intake & Output 06/07/21 06/08/21 06/08/21 18:59 06:59 18:59 Intake Total 1300 1200 Balance 1300 1200 Intake: Intake, IV Titration 1300 1200 Amount Piperacillin-Tazobactam 3 100 .375 gm In Sodium Chloride 0.9% 100 ml @ 25 mls/hr IVPB Q8H [facility] Rx#: [id number] Sodium Chloride 0.9% 1, 1200 1200 000 ml @ 100 mls/hr IV . Q10H [facility] Rx#:[id number] Other: Voiding Method Toilet # Voids 3 # Bowel Movements 3 - Exam Patient is lying in the bed comfortably, no acute distress, awake alert and oriented.. HEENT: Normocephalic. Neck is supple. Pupils reactive. Nostrils clear. Oral cavity is moist. Neck reveals no JVD, carotid bruits, or thyromegaly. CHEST EXAMINATION: Trachea is central. Symmetrical expansion. Lung chacon clear to auscultation and percussion. CARDIAC: Normal S1, S2 with no gallops. No murmurs ABDOMEN: Soft. Left lower quadrant minimal tenderness. No guarding or rigidity. Bowel sounds normal. No organomegaly. No abdominal bruits. Extremities: reveal no edema. No clubbing or cyanosis Neurologically awake, alert, oriented x3 with well-coordinated movements. No focal deficits noted Skin: No rash or skin lesions. Psychiatric: Coperative. Nonsuicidal Musculoskeletal: No joint swelling or deformity. Normal range of motion. - Labs CBC & Chem 7: 06/08/21 05:58 06/08/21 05:58 Labs: Abnormal Lab Results - Last 24 Hours (Table) 06/08/21 06/08/21 Range/Units 05:58 05:58 WBC 13.1 H (3.8-10.6) k/uL RBC 3.55 L (4.30-5.90) m/uL Hgb 7.8 L (13.0-17.5) gm/dL Hct 29.1 L (39.0-53.0) % MCH 22.1 L (25.0-35.0) pg MCHC 27.0 L (31.0-37.0) g/dL RDW 25.0 H (11.5-15.5) % Plt Count 577 H (150-450) k/uL Neutrophils # 11.4 H (1.3-7.7) k/uL Anion Gap 6.70 L (10.00-18.00) mmol/L BUN 4.2 L (9.0-27.0) mg/dL BUN/Creatinine Ratio 6.00 L (12.00-20.00) Ratio Calcium 8.6 L (8.7-10.3) mg/dL Assessment and Plan Assessment: Abdominal pain secondary to acute ulcerative colitis exacerbation. Possible intramural abscess and the rectum level Acute blood loss anemia due to GI bleed Symptomatic anemia Ulcerative colitis currently getting Entyvio infusions every 4 months Lactic acidosis Microcytic iron deficiency anemia Noncompliance with medications and follow-up. DVT prophylaxis with SCDs due to GI bleed. Plan: c/w methylpred. Patient will be continued on IV hydration and pain management with Dilaudid. Patient will be transfused with 3 units of PRBC and follow hemoglobin level. Still having blood in the stools.. Patient was started on clear liquid diet and advance as tolerated. Patient will be continued on antibiotics in the form of Zosyn. Follow up cultur e reports-negative. Continue with symptomatic management. Gen. surgery and GI is on board. Follow up closely.
[2021-06-10] MEDS: SODIUM CHLORIDE 0.9% 1,000 ML IV SCH ×3 (01:39→19:48)
[2021-06-10] MEDS: HYDROcodone/APAP 5-325MG 1 EACH TAB PO PRN ×3 (05:17→19:47)
[2021-06-10 07:51] LABS: Anisocytosis Marked; Basophils % (A) 0 %; Eosinophils # (A) 0.3 k/uL (0-0.7); Eosinophils % (A) 3 %; HCT 26.9 % (39.0-53.0); HGB 7.3 gm/dL (13.0-17.5); Hypochromasia Marked; Lymphocytes # (A) 2.2 k/uL (1.0-4.8); Lymphocytes % (A) 24 %; MCH 21.9 pg (25.0-35.0); MCHC 27.1 g/dL (31.0-37.0); MCV 80.6 fL (80.0-100.0); Mean Platelet Volume 6.6; Microcytosis Marked; Monocytes # (A) 0.6 k/uL (0-1.0); Monocytes % (A) 6 %; Neutrophils # (A) 6.3 k/uL (1.3-7.7); Neutrophils % (A) 66 %; Platelet Count 537 k/uL (150-450); Poikilocytosis Slight; RBC 3.33 m/uL (4.30-5.90); RDW 24.4 % (11.5-15.5); WBC 9.5 k/uL (3.8-10.6)
[2021-06-10] MEDS: FAMOTIDINE 20 MG TAB PO SCH ×2 (07:59→19:48)
[2021-06-10] MEDS: predniSONE 20 MG TAB PO SCH (07:59)
--- NOTE | 2021-06-10 10:33 | P.PN ---
Subjective Progress Note Date: 06/10/21 Principal diagnosis: Abdominal pain Patient says his pain is improved today. At 6-7 bowel movement yesterday. Hemoglobin today 7.3, white blood cell count normal. Overall says he is doing better. Objective - Vital Signs Vital signs: Vital Signs Temp 98.2 F 06/10/21 05:00 Pulse 71 06/10/21 05:00 Resp 18 06/10/21 05:00 BP 110/71 06/10/21 05:00 Pulse Ox 99 06/10/21 05:00 Intake & Output 06/09/21 06/10/21 06/10/21 18:59 06:59 18:59 Intake Total 1200 Output Total 2 Balance 1198 Intake: Intake, IV Titration 1200 Amount Sodium Chloride 0.9% 1, 1200 000 ml @ 100 mls/hr IV . Q10H [facility] Rx#:[id number] Output: Stool 2 Other: Voiding Method Toilet Toilet # Bowel Movements 6 3 - Exam Abdomen: Soft, nondistended, mild diffuse tenderness, no rebound or guarding - Labs CBC & Chem 7: 06/10/21 07:09 06/08/21 05:58 Labs: Abnormal Lab Results - Last 24 Hours (Table) 06/10/21 Range/Units 07:09 RBC 3.33 L (4.30-5.90) m/uL Hgb 7.3 L (13.0-17.5) gm/dL Hct 26.9 L (39.0-53.0) % MCH 21.9 L (25.0-35.0) pg MCHC 27.1 L (31.0-37.0) g/dL RDW 24.4 H (11.5-15.5) % Plt Count 537 H (150-450) k/uL Assessment and Plan (1) Ulcerative colitis Narrative/Plan: Patient doing better at this time. Follow hemoglobin. Continue steroids per GI. Will follow. Current Visit: Yes Status: Acute Code(s): K51.90 - ULCERATIVE COLITIS, UNSPECIFIED, WITHOUT COMPLICATIONS SNOMED Code(s): 83752234
[2021-06-10 11:28] LABS: African American GFR (CKD) 145.1 (60.0-200.0); Anion Gap 7.1 mmol/L (10.00-18.00); BUN/Creat Ratio 9.58 Ratio (12.00-20.00); Blood Urea Nitrogen 6.2 mg/dL (9.0-27.0); Calcium 8.4 mg/dL (8.7-10.3); Carbon Dioxide 29.2 mmol/L (20.0-27.5); Non-African American GFR(CKD) 125.2 (60.0-200.0); Potassium 4.1 mmol/L (3.5-5.5)
[2021-06-10 15:56] VITALS: RESP 16
--- NOTE | 2021-06-10 19:26 | P.PN ---
Subjective Progress Note Date: 06/09/21 Principal diagnosis: Abdominal pain due to ulcerative colitis exacerbation 35 old male with a known history of ulcerative colitis, acute blood loss anemia and transfusions, anxiety, GERD, history of smoking and marijuana use presents to ER with complaints of abdominal pain. Abdominal pain is diffuse and has been ongoing for the past 1 week. Patient also states that he's been having dark stools as well. Patient follows with GI and Entyvio infusions every 4 months. Patient is also having generalized weakness. Patient was previously admitted to the hospital due to ulcerative colitis exacerbation. CT of abdomen pelvis showed findings consistent with history of ulcerative colitis with colonic wall thickening extending from the proximal transverse colon through the rectosigmoid junction. Possible small intramural abscess at the level of rectum. No evidence of perforation. Laboratory data showed WBC 10.1 hemoglobin 4.1 and platelets 778 and MCV 61.8 Sodium 1:30 potassium 4.3 chloride 92 BUN 17 and creatinine 0.96 lactic acid 2.1 Covid 19 PCR not detected 06/09/2021 Patient is seen and evaluated resting in bed; continues to complain of several episodes of diarrhea. Minimal amount of blood in it; nausea and vomiting that improved Vital signs are reviewed and temperature is stable at 98.6, pulse 83, respirati ons 16 and blood pressure of 115/71 Gen. surgery is following and recommending to continue diet as tolerated; patient has been switched to oral steroids Objective - Vital Signs Vital signs: Vital Signs Temp 98.6 F 06/09/21 04:28 Pulse 83 06/09/21 04:28 Resp 16 06/09/21 04:28 BP 115/71 06/09/21 04:28 Pulse Ox 99 06/09/21 04:28 Intake & Output 06/08/21 06/09/21 06/09/21 18:59 06:59 18:59 Intake Total 1200 1200 Balance 1200 1200 Intake: Intake, IV Titration 1200 1200 Amount Sodium Chloride 0.9% 1, 1200 1200 000 ml @ 100 mls/hr IV . Q10H [facility] Rx#:[id number] Other: Voiding Method Toilet Toilet # Voids 1 - Exam Patient is lying in the bed comfortably, no acute distress, awake alert and oriented.. HEENT: Normocephalic. Neck is supple. Pupils reactive. Nostrils clear. Oral cavity is moist. Neck reveals no JVD, carotid bruits, or thyromegaly. CHEST EXAMINATION: Trachea is central. Symmetrical expansion. Lung chacon clear to auscultation and percussion. CARDIAC: Normal S1, S2 with no gallops. No murmurs ABDOMEN: Soft. Left lower quadrant minimal tenderness. No guarding or rigidity. Bowel sounds normal. No organomegaly. No abdominal bruits. Extremities: reveal no edema. No clubbing or cyanosis Neurologically awake, alert, oriented x3 with well-coordinated movements. No focal deficits noted Skin: No rash or skin lesions. Psychiatric: Coperative. Nonsuicidal Musculoskeletal: No joint swelling or deformity. Normal range of motion. - Labs CBC & Chem 7: 06/10/21 07:09 06/10/21 07:09 Assessment and Plan Assessment: Abdominal pain secondary to acute ulcerative colitis exacerbation. Possible intramural abscess and the rectum level Acute blood loss anemia due to GI bleed Symptomatic anemia Ulcerative colitis currently getting Entyvio infusions every 4 months Lactic acidosis Microcytic iron deficiency anemia Noncompliance with medications and follow-up. DVT prophylaxis with SCDs due to GI bleed. Plan: c/w methylpred. Patient will be continued on IV hydration and pain management with Dilaudid. Patient will be transfused with 3 units of PRBC and follow hemoglobin level. Still having blood in the stools.. Patient was started on clear liquid diet and advance as tolerated. Patient will be continued on antibiotics in the form of Zosyn. Follow up culture reports-negative. Continue with symptomatic management. Gen. surgery and GI is on board. Follow up closely.
--- NOTE | 2021-06-10 19:31 | P.PN ---
Subjective Progress Note Date: 06/10/21 Principal diagnosis: Abdominal pain due to ulcerative colitis exacerbation 35 old male with a known history of ulcerative colitis, acute blood loss anemia and transfusions, anxiety, GERD, history of smoking and marijuana use presents to ER with complaints of abdominal pain. Abdominal pain is diffuse and has been ongoing for the past 1 week. Patient also states that he's been having dark stools as well. Patient follows with GI and Entyvio infusions every 4 months. Patient is also having generalized weakness. Patient was previously admitted to the hospital due to ulcerative colitis exacerbation. CT of abdomen pelvis showed findings consistent with history of ulcerative colitis with colonic wall thickening extending from the proximal transverse colon through the rectosigmoid junction. Possible small intramural abscess at the level of rectum. No evidence of perforation. Laboratory data showed WBC 10.1 hemoglobin 4.1 and platelets 778 and MCV 61.8 Sodium 1:30 potassium 4.3 chloride 92 BUN 17 and creatinine 0.96 lactic acid 2.1 Covid 19 PCR not detected 06/09/2021 Patient is seen and evaluated resting in bed; continues to complain of several episodes of diarrhea. Minimal amount of blood in it; nausea and vomiting that improved Vital signs are reviewed and temperature is stable at 98.6, pulse 83, respirati ons 16 and blood pressure of 115/71 Gen. surgery is following and recommending to continue diet as tolerated; patient has been switched to oral steroids 06/10/2021 Patient is seen and evaluated resting in bed; report some improvement in pain; still requiring pain medication; discussed with nursing staff reporting 6-7 bowel movements since yesterday Vital signs are reviewed, temperature of 98.2, pulse 71, respiration 18 and blood pressure 110/71 with O2 saturation of 99% on room air Lab review shows WBC of 9.5, hemoglobin of 7., hematocrit 26.9 and platelet count of 537; sodium 140, potassium 4.7, BUN/creatinine of 4.2/0.7 Patient is currently on prednisone 40 mg daily; continue with IV fluids in form of normal saline at rate of 100 mL an hour; Pepcid 20 mg by mouth twice a day We will monitor H&H closely with plans to transfuse if hemoglobin falls below 7; general surgery recommending to continue with steroids at this time and taper as able Continue with symptomatic treatment with plans to transfuse as needed; patient can be discharged on oral steroids with follow-up with GI if hemoglobin remains stable Objective - Vital Signs Vital signs: Vital Signs Temp 98.2 F 06/10/21 05:00 Pulse 71 06/10/21 05:00 Resp 18 06/10/21 05:00 BP 110/71 06/10/21 05:00 Pulse Ox 99 06/10/21 05:00 Intake & Output 06/09/21 06/10/21 06/10/21 18:59 06:59 18:59 Intake Total 1200 Output Total 2 Balance 1198 Intake: Intake, IV Titration 1200 Amount Sodium Chloride 0.9% 1, 1200 000 ml @ 100 mls/hr IV . Q10H [facility] Rx#:[id number] Output: Stool 2 Other: Voiding Method Toilet Toilet Toilet # Bowel Movements 6 3 - Exam Patient is lying in the bed comfortably, no acute distress, awake alert and oriented.. HEENT: Normocephalic. Neck is supple. Pupils reactive. Nostrils clear. Oral cavity is moist. Neck reveals no JVD, carotid bruits, or thyromegaly. CHEST EXAMINATION: Trachea is central. Symmetrical expansion. Lung chacon clear to auscultation and percussion. CARDIAC: Normal S1, S2 with no gallops. No murmurs ABDOMEN: Soft. Left lower quadrant minimal tenderness. No guarding or rigidity. Bowel sounds normal. No organomegaly. No abdominal bruits. Extremities: reveal no edema. No clubbing or cyanosis Neurologically awake, alert, oriented x3 with well-coordinated movements. No focal deficits noted Skin: No rash or skin lesions. Psychiatric: Coperative. Nonsuicidal Musculoskeletal: No joint swelling or deformity. Normal range of motion. - Labs CBC & Chem 7: 06/10/21 07:09 06/10/21 07:09 Labs: Abnormal Lab Results - Last 24 Hours (Table) 06/10/21 06/10/21 Range/Units 07:09 07:09 RBC 3.33 L (4.30-5.90) m/uL Hgb 7.3 L (13.0-17.5) gm/dL Hct 26.9 L (39.0-53.0) % MCH 21.9 L (25.0-35.0) pg MCHC 27.1 L (31.0-37.0) g/dL RDW 24.4 H (11.5-15.5) % Plt Count 537 H (150-450) k/uL Carbon Dioxide 29.2 H (20.0-27.5) mmol/L Anion Gap 7.10 L (10.00-18.00) mmol/L BUN 6.2 L (9.0-27.0) mg/dL BUN/Creatinine Ratio 9.58 L (12.00-20.00) Ratio Calcium 8.4 L (8.7-10.3) mg/dL Assessment and Plan Assessment: Abdominal pain secondary to acute ulcerative colitis exacerbation. Possible intramural abscess and the rectum level Acute blood loss anemia due to GI bleed Symptomatic anemia Ulcerative colitis currently getting Entyvio infusions every 4 months Lactic acidosis Microcytic iron deficiency anemia Noncompliance with medications and follow-up. DVT prophylaxis with SCDs due to GI bleed. Plan: c/w methylpred. Patient will be continued on IV hydration and pain management with Dilaudid. Patient will be transfused with 3 units of PRBC and follow hemoglobin level. St ill having blood in the stools.. Patient was started on clear liquid diet and advance as tolerated. Patient will be continued on antibiotics in the form of Zosyn. Follow up culture reports-negative. Continue with symptomatic management. Gen. surgery and GI is on board. Follow up closely.
[2021-06-11] MEDS: SODIUM CHLORIDE 0.9% 1,000 ML IV SCH ×2 (04:27→10:58)
[2021-06-11] MEDS: HYDROcodone/APAP 5-325MG 1 EACH TAB PO PRN (04:30)
[2021-06-11 08:04] LABS: Anisocytosis Marked; Basophils % (A) 0 %; Eosinophils # (A) 0.1 k/uL (0-0.7); Eosinophils % (A) 2 %; HGB 7.3 gm/dL (13.0-17.5); Hypochromasia Marked; Lymphocytes # (A) 1.4 k/uL (1.0-4.8); Lymphocytes % (A) 16 %; MCV 81.5 fL (80.0-100.0); Mean Platelet Volume 7.1; Microcytosis Moderate; Monocytes # (A) 0.6 k/uL (0-1.0); Monocytes % (A) 7 %; Neutrophils # (A) 6.3 k/uL (1.3-7.7); Neutrophils % (A) 74 %; Platelet Count 531 k/uL (150-450); Poikilocytosis Slight; RBC 3.31 m/uL (4.30-5.90); RDW 24.3 % (11.5-15.5); WBC 8.5 k/uL (3.8-10.6)
[2021-06-11] MEDS: FAMOTIDINE 20 MG TAB PO SCH (08:17)
[2021-06-11] MEDS: predniSONE 20 MG TAB PO SCH (08:17)
[2021-06-11 09:54] LABS: Mixed Population RBC Present; Polychromasia Present
--- NOTE | 2021-06-11 10:34 | P.PN ---
Subjective Progress Note Date: 06/11/21 Principal diagnosis: ulcerative colitis 35-year-old male with a history of ulcerative colitis with multiple hospitalizations in the past presented several days ago to the emergency room with complaints of abdominal pain with bloody stools. Friday he was transitioned to prednisone 40 mg by mouth daily. He states he's having some in a loose bowel movements still that are bloody. However smaller amounts. Has occasional abdominal pain/cramping with bowel movements otherwise well controlled. According to nursing reports patient continues to eat large amounts of food despite his symptoms and education for a lowfat low fiber diet. He denies any nausea or vomiting. He is scheduled for his Entyvio tomorrow. Hemoglobin is 7.3 which is stable from yesterday. Objective - Vital Signs Vital signs: Vital Signs Temp 98.5 F 06/11/21 04:24 Pulse 79 06/11/21 04:24 Resp 16 06/11/21 04:24 BP 96/57 06/11/21 04:24 Pulse Ox 100 06/11/21 04:24 Intake & Output 06/10/21 06/11/21 06/11/21 18:59 06:59 18:59 Intake Total 1200 Output Total 2 Balance 1198 Intake: Intake, IV Titration 1200 Amount Sodium Chloride 0.9% 1, 1200 000 ml @ 100 mls/hr IV . Q10H [facility] Rx#:[id number] Output: Stool 2 Other: Voiding Method Toilet Toilet # Voids 3 # Bowel Movements 2 - Exam General appearance: The patient is alert, oriented, appears in no acute distress. HET: Head is normocephalic and atraumatic. Conjunctiva pink. Sclera anicteric. Neck: Supple without lymphadenopathy. Abdomen: Soft, nontender, nondistended with bowel sounds. No guarding or rigidity. Extremities: Normal skin color and turgor. No pedal edema Skin: No rashes, no jaundice Neurological: No focal deficits. Alert and oriented x 3. - Labs CBC & Chem 7: 06/11/21 07:02 06/10/21 07:09 Labs: Abnormal Lab Results - Last 24 Hours (Table) 06/10/21 06/11/21 Range/Units 07:09 07:02 RBC 3.31 L (4.30-5.90) m/uL Hgb 7.3 L (13.0-17.5) gm/dL Hct 27.0 L (39.0-53.0) % MCH 22.0 L (25.0-35.0) pg MCHC 27.0 L (31.0-37.0) g/dL RDW 24.3 H (11.5-15.5) % Plt Count 531 H (150-450) k/uL Carbon Dioxide 29.2 H (20.0-27.5) mmol/L Anion Gap 7.10 L (10.00-18.00) mmol/L BUN 6.2 L (9.0-27.0) mg/dL BUN/Creatinine Ratio 9.58 L (12.00-20.00) Ratio Calcium 8.4 L (8.7-10.3) mg/dL Assessment and Plan (1) Ulcerative colitis Narrative/Plan: Sit 35-year-old male who presented to emergency department 5 days ago with compl aints of abdominal pain with bloody bowel movements. He was diagnosed with ulcerative colitis and June of last year and was noncompliant with follow-up with multiple hospitalizations. His last hospitalization was in November of this year for which he was discharged on a prednisone taper dose and started on Entyvio. He states he has been taking his and tibial since beginning of December and is due this month. States his last dose was in April. However he has not had any follow-up with gastroenterology. On admission he was noted to have a hemoglobin of 4.1 and is status post 5 units of PRBC transfusion. Had an elevated sed rate as well as CRP on admission consistent with active disease. He was started on prednisone 30 mg daily initially and transitioned yesterday to Solu-Medrol 40 mg IV every 8 hours. He has had some improvement in his diarrhea as well as bleeding. Current Visit: Yes Status: Acute Code(s): K51.90 - ULCERATIVE COLITIS, UNSPECIFIED, WITHOUT COMPLICATIONS SNOMED Code(s): 61398516 (2) Anemia Narrative/Plan: Patient is status post 5 units PRBC transfusion and iron infusion. Hemoglobin stable at 7.3. Will plan for 1 unit of PRBC transfusion and then patient may be discharged. Current Visit: Yes Status: Acute Code(s): D64.9 - ANEMIA, UNSPECIFIED SNOMED Code(s): 579921822 Plan: 1. Continue prednisone 40 mg daily 2. Transfuse 1 unit PRBC 3. Continue pain medications as needed and try to wean. 4. Encourage ambulation 5. No plans an endoscopic evaluation, patient with active colitis. Gastroenterology is recommending no colonoscopy at this time. 6. Low fat/low fiber diet 7. Entyvio scheduled for tomorrow at infusion center 8. Patient may be discharged home from a gastroenterology standpoint after receiving blood transfusion 9. Discussed importance of medical compliance and follow-up with gastroenterology with patient as he has not been compliant in past Thank you for this consultation, we will continue to follow. Dr. Mamta Aguilar I agree with the dictator's note, documented as a scribe by Crystal Condon.
--- NOTE | 2021-06-11 13:47 | P.PN ---
Subjective Progress Note Date: 06/11/21 CHIEF COMPLAINT: Ulcerative colitis HISTORY OF PRESENT ILLNESS: Patient was admitted for ulcerative colitis exacerbation. Patient does report that he feels the same. He still has blood in his stools. Reports that his abdominal pain is better since admission. Hemoglobin is at 7.3. He has been seen by GI service. They've ordered 1 unit of blood and if cleared him for discharge after blood transfusion. He is tolerating diet. Patient is scheduled for his Entyvio infusion tomorrow outpatient. Afebrile. WBC is 8.5 hemoglobin remains at 7.3 platelets 531 PHYSICAL EXAM: VITAL SIGNS: Reviewed. GENERAL: Well-developed in no acute distress. HEENT: No sclera icterus. Extraocular movements grossly intact. Moist buccal mucosa. Head is atraumatic, normocephalic. ABDOMEN: Soft. Nondistended. Minimal tenderness palpation lower abdomen NEUROLOGIC: Alert and oriented. Cranial nerves II through XII grossly intact. ASSESSMENT: 1. Ulcerative colitis exacerbation PLAN: -Agree with blood transfusion -Patient may benefit from colectomy since no significant improvement with medical treatment -Recommend patient follow up with Dr. Grant outpatient to discuss surgical option -Patient can be discharged from surgical standpoint after blood transfusion and when cleared medically -Steroid management per GI service Physician Procurement Assistant note has been reviewed by physician. Signing provider agrees with the documented findings, assessment, and plan of care. Objective - Vital Signs Vital signs: Vital Signs Temp 98.5 F 06/11/21 12:13 Pulse 85 06/11/21 12:13 Resp 16 06/11/21 12:13 BP 101/64 06/11/21 12:13 Pulse Ox 98 06/11/21 12:13 Intake & Output 06/10/21 06/11/21 06/11/21 18:59 06:59 18:59 Intake Total 1200 0 Output Total 2 Balance 1198 0 Intake: Intake, IV Titration 1200 Amount Sodium Chloride 0.9% 1, 1200 000 ml @ 100 mls/hr IV . Q10H [facility] Rx#:[id number] Blood Product 0 Rc As-1 Unit 0 [id number] Output: Stool 2 Other: Voiding Method Toilet Toilet # Voids 3 # Bowel Movements 2 - Labs CBC & Chem 7: 06/11/21 07:02 06/10/21 07:09 Labs: Abnormal Lab Results - Last 24 Hours (Table) 06/11/21 06/11/21 Range/Units 07:02 07:09 RBC 3.31 L (4.30-5.90) m/uL Hgb 7.3 L (13.0-17.5) gm/dL Hct 27.0 L (39.0-53.0) % MCH 22.0 L (25.0-35.0) pg MCHC 27.0 L (31.0-37.0) g/dL RDW 24.3 H (11.5-15.5) % Plt Count 531 H (150-450) k/uL Crossmatch See Detail
[2021-06-11 14:57] VITALS: BP 114/68; PULSE 78; TEMP 98.2
[2021-06-11 15:51] LABS: % Iron Saturation 4.65 (15.00-50.00); Ferritin 58.9 ng/mL (22.0-322.0)
--- NOTE | 2021-06-11 23:25 | DS ---
DISCHARGE SUMMARY FINAL DIAGNOSES: 1. Acute ulcerative colitis, acute exacerbation with abdominal pain. 2. Possible intramural abscess. 3. Acute blood loss anemia secondary to gastrointestinal bleed. 4. Symptomatic anemia. 5. Severe colitis, currently getting Entyvio infusion every 4 months. 6. Lactic acidosis. 7. Microcytic iron deficiency anemia. 8. Noncompliance with medication and followup. 9. Deep vein thrombosis prophylaxis. DISCHARGE DISPOSITION: The patient is being discharged in stable condition with guarded prognosis. HISTORY OF PRESENT ILLNESS: This 35-year-old gentleman with past medical history of multiple medical problems admitted with abdominal pain, ulcerative colitis, acute exacerbation, treated symptomatically. GI saw the patient. Patient improved significantly and Gastroenterology cleared the patient for discharge. EXAM: Vitals stable. Cardiovascular: S1, S2. Abdomen soft. Nervous system: No focal deficits. DISCHARGE ADVICE AND MEDICATIONS: 1. Diet is cardiac, soft. 2. Activity limited until followup. 3. Follow up with Dr. Galvin 2-3 days. 4. Follow up with surgery as recommended. 5. Follow up with Gastroenterology as recommended. MEDICATIONS: 1. Prednisone taper per Gastroenterology. 2. Protonix 40 mg p.o. b.i.d. 3. Prednisone will be 40 mg daily for 1 week, 35 mg for 1 week, 30 mg for 1 week, 25 mg for one week, 20 mg for one week, 15 mg for one week and 10 mg for 1 week and then 5 mg for 1 week. Once again, the patient discharged in stable condition with guarded prognosis. MMODL / JULIANN: [id number] / MTDD
== END 2021-06-11 15:25 | disposition home or self-care (01) | DRG 386 ==
LOC: EC 07:08 → 3SCARD 09:26 → 3NCARDOBS 06-04 21:19 → 5NMEDONC 06-07 18:11
PROVIDERS: ADMIT Hospitalist; ATTEND Hospitalist
PROC: 30233N1 Transfusion of Nonautologous Red Blood Cells into Peripheral Vein, Percutaneous Approach (ICD-10-PCS; principal; 2021-05-31)
DX: K51.914 Ulcerative colitis, unspecified with abscess (principal); K92.2 Gastrointestinal hemorrhage, unspecified; E87.2 Acidosis; D62 Acute posthemorrhagic anemia; F41.9 Anxiety disorder, unspecified; D75.839 Thrombocytosis, unspecified; D50.9 Iron deficiency anemia, unspecified; Z20.822 Contact with and (suspected) exposure to COVID-19; Z87.19 Personal history of other diseases of the digestive system; Z87.891 Personal history of nicotine dependence; Z91.14 Patient's other noncompliance with medication regimen; Z91.19 Patient's noncompliance with other medical treatment and regimen; E87.5 Hyperkalemia; F12.90 Cannabis use, unspecified, uncomplicated; G89.29 Other chronic pain; K21.9 Gastro-esophageal reflux disease without esophagitis; K29.70 Gastritis, unspecified, without bleeding; K63.89 Other specified diseases of intestine; M54.50 Low back pain, unspecified; R10.84 Generalized abdominal pain; R70.0 Elevated erythrocyte sedimentation rate; R31.9 Hematuria, unspecified
CPT/HCPCS: 36415; 74177; 80048; 80053; 82607; 82728; 82747; 83540; 83550; 83605; 83690; 85025; 85027; 85610; 85652; 85730; 86140; 86850; 86900; 86901; 86920; 87040; 87635; 96361; 96374; 96375; 99291

== ENCOUNTER 2021-07-16 00:02 | Emergency (ER) | payer OTHER ==
[2021-07-16 00:46] LABS: ALT 12 U/L (4-49); AST 34 U/L (17-59); African American GFR (CKD) >90 (>60 ml/min/1.73 sqM); Albumin 2.5 g/dL (3.5-5.0); Alkaline Phosphatase 56 U/L (38-126); Amylase 34 U/L (30-110); Anion Gap 6 mmol/L; Blood Urea Nitrogen 14 mg/dL (9-20); Calcium 8.1 mg/dL (8.4-10.2); Carbon Dioxide 27 mmol/L (22-30); Chloride 96 mmol/L (98-107); Glucose 97 mg/dL (74-99); Lipase 57 U/L (23-300); Non-African American GFR(CKD) >90 (>60 ml/min/1.73 sqM); Potassium 4.4 mmol/L (3.5-5.1); Sodium 129 mmol/L (137-145); Total Bilirubin 0.3 mg/dL (0.2-1.3); Total Protein 5.8 g/dL (6.3-8.2)
[2021-07-16] MEDS ORDERED: ONDANSETRON 4 MG/2 ML VIAL IVP STA (00:54)
[2021-07-16] MEDS ORDERED: HYDROmorphone 1 MG/ML 1 ML SYRINGE IVP STA ×2 (00:54→01:38)
[2021-07-16] MEDS ORDERED: SODIUM CHLORIDE 0.9% 1,000 ML IV ONE (00:54)
--- NOTE | 2021-07-16 01:08 | ED ---
General Adult HPI - General Chief complaint: Abdominal Pain Stated complaint: Abdominal Pain Time Seen by Provider: 07/16/21 00:49 Source: patient Mode of arrival: wheelchair Limitations: no limitations - History of Present Illness Initial comments: 35 year-old male patient with past history significant for ulcerative colitis with last admission 05/31/21, presents to the emergency department for evaluation of left flank pain that started yesterday. States it has been severe throughout the day. States the pain is in his left low back and around to the left lower quadrant. States it is sharp and stabbing. Reports multiple bloody bowel movements. Does have history of ulcerative colitis so this is not unusual for him. Reports nausea and dry heaves. States he did have an episode of vomiting yesterday after eating spaghetti. Denies fever or chills. States he is having decreased urination. Denies history of abdominal surgery. States this pain is different than his usual pain from ulcerative colitis. Denies alcohol or illicit drug use. Does use marijuana. Patient denies any recent rash, cough, shortness of breath, chest pain, numbness, tingling, dizziness, weakness, headache, visual changes, or any other complaints. - Related Data Previous Rx's Medication Instructions Recorded predniSONE 10 mg PO DAILY #126 tab 06/05/21 Pantoprazole Sodium [Protonix] 40 mg PO BID 30 Days #60 tab 06/11/21 Allergies Allergy/AdvReac Type Severity Reaction Status Date / Time No Known Allergies Allergy Verified 07/16/21 00:04 Review of Systems ROS Statement: Those systems with pertinent positive or pertinent negative responses have been documented in the HPI. ROS Other: All systems not noted in ROS Statement are negative. Past Medical History Past Medical History: GERD/Reflux Additional Past Medical History / Comment(s): Pt recently admitted to [facility] on 07/26/20 with acute ulcerative colitis exacerbation, acute blood loss anemia 2n [place]lsey to lower GI bleed/transfusion, hyperkalemia. Other hx: chronic low back pain. History of Any Multi-Drug Resistant Organisms: None Reported Past Surgical History: Orthopedic Surgery Additional Past Surgical History / Comment(s): left hand industrial accident/finger amputations, EGD, colonoscopy. Past Anesthesia/Blood Transfusion Reactions: No Reported Reaction Additional Past Anesthesia/Blood Transfusion Reaction / Comment(s): Pt recently received blood without reaction. Past Psychological History: Anxiety Smoking Status: Current every day smoker Past Alcohol Use History: None Reported Past Drug Use History: Marijuana - Past Family History Father History Unknown: Yes Mother Family Medical History: No Reported History Additional Family Medical History / Comment(s): Healthy. General Exam Limitations: no limitations General appearance: alert, in no apparent distress, other (This is a well developed, well nourished adult male patient in mild distress related to pain.) Eye exam: Present: normal appearance, PERRL, EOMI. Absent: scleral icterus, conjunctival injection, periorbital swelling ENT exam: Present: normal exam, normal oropharynx, mucous membranes moist Respiratory exam: Present: normal lung sounds bilaterally. Absent: respiratory distress, wheezes, rales, rhonchi, stridor Cardiovascular Exam: Present: normal rhythm, tachycardia, normal heart sounds. Absent: systolic murmur, diastolic murmur, rubs, gallop, clicks GI/Abdominal exam: Present: soft, tenderness (Left lower quadrant), normal bowel sounds. Absent: distended, guarding, rebound, rigid Back exam: Present: normal inspection, CVA tenderness (L). Absent: CVA tenderness (R) Neurological exam: Present: alert, oriented X3, CN II-XII intact Psychiatric exam: Present: normal affect, normal mood Skin exam: Present: warm, dry, intact, normal color. Absent: rash Course Vital Signs 07/16/21 00:05 Temperature 98.6 F Pulse Rate 136 H Respiratory 20 Rate Blood Pressure 115/71 O2 Sat by Pulse 100 Oximetry Medical Decision Making - Medical Decision Making 35-year-old male patient with past medical history significant for ulcerative colitis currently maintained on Entyvio (last dose 06/12/21), presents to the emergency department today for evaluation of left low back pain with radiation to the left lower quadrant abdomen. Reported multiple bloody bowel movements. Physical examination did reveal left lower quadrant tenderness, left CVA tenderness. He is afebrile normal vital signs. Labs reviewed and did reveal a hemoglobin of 4.5, hematocrit 17.5. Sodium is 129. Urinalysis is unremarkable. ESR and CRP are pending. CT abdomen pelvis does reveal diffuse bowel wall thickening and possible rectal vs intramural abscess. The abscess is a new finding for this patient. We will start zosyn and flagyl. We will transfuse 1 units packed red blood cells and transfer to [facility] for GI evaluation. Patient's vital signs are stable. He is agreeable to the transfer. My attending is Dr. Fair. - Lab Data Result diagrams: 07/16/21 00:18 07/16/21 00:18 Lab Results 07/16/21 07/16/21 07/16/21 Range/Units 00:18 00:18 00:38 WBC 10.4 (3.8-10.6) k/uL RBC 2.54 L (4.30-5.90) m/uL Hgb 4.5 L* D (13.0-17.5) gm/dL Hct 17.5 L* (39.0-53.0) % MCV 69.1 L D (80.0-100.0) fL MCH 17.6 L (25.0-35.0) pg MCHC 25.4 L (31.0-37.0) g/dL RDW 21.4 H (11.5-15.5) % Plt Count 792 H (150-450) k/uL MPV 6.0 Neutrophils % Not Reportable Neutrophils % (Manual) 46 % Band Neuts % (Manual) 7 % Lymphocytes % Not Reportable Lymphocytes % (Manual) 30 % Monocytes % Not Reportable Monocytes % (Manual) 9 % Eosinophils % Not Reportable Eosinophils % (Manual) 7 % Basophils % Not Reportable Basophils % (Manual) 1 % Neutrophils # Not Reportable Neutrophils # (Manual) 5.50 (1.3-7.7) k/uL Lymphocytes # Not Reportable Lymphocytes # (Manual) 3.12 (1.0-4.8) k/uL Monocytes # Not Reportable Monocytes # (Manual) 0.94 (0-1.0) k/uL Eosinophils # Not Reportable Eosinophils # (Manual) 0.73 H (0-0.7) k/uL Basophils # Not Reportable Basophils # (Manual) 0.10 (0-0.2) k/uL Nucleated RBCs 0 (0-0) /100 WBC Manual Slide Review Performed Polychromasia Present Hypochromasia Marked Hypochromasia (manual) Present Poikilocytosis Moderate Poikilocytosis (manual Present Anisocytosis Moderate Anisocytosis (manual) Present Microcytosis Marked Stomatocytes Present Sodium 129 L (137-145) mmol/L Potassium 4.4 (3.5-5.1) mmol/L Chloride 96 L (98-107) mmol/L Carbon Dioxide 27 (22-30) mmol/L Anion Gap 6 mmol/L BUN 14 (9-20) mg/dL Creatinine 1.02 (0.66-1.25) mg/dL Est GFR (CKD-EPI)AfAm >90 (>60 ml/min/1.73 sqM) Est GFR (CKD-EPI)NonAf >90 (>60 ml/min/1.73 sqM) Glucose 97 (74-99) mg/dL Plasma Lactic Acid Jeancarlos (0.7-2.0) mmol/L Calcium 8.1 L (8.4-10.2) mg/dL Total Bilirubin 0.3 (0.2-1.3) mg/dL AST 34 (17-59) U/L ALT 12 (4-49) U/L Alkaline Phosphatase 56 (38-126) U/L Total Protein 5.8 L (6.3-8.2) g/dL Albumin 2.5 L (3.5-5.0) g/dL Amylase 34 (30-110) U/L Lipase 57 (23-300) U/L Urine Color Yellow Urine Appearance Clear (Clear) Urine pH 6.0 (5.0-8.0) Ur Specific Peterson 1.022 (1.001-1.035) Urine Protein Trace H (Negative) Urine Glucose (UA) Negative (Negative) Urine Ketones Negative (Negative) Urine Blood Negative (Negative) Urine Nitrite Negative (Negative) Urine Bilirubin Negative (Negative) Urine Urobilinogen <2.0 (<2.0) mg/dL Ur Leukocyte Esterase Negative (Negative) 07/16/21 Range/Units 01:30 WBC (3.8-10.6) k/uL RBC (4.30-5.90) m/uL Hgb (13.0-17.5) gm/dL Hct (39.0-53.0) % MCV (80.0-100.0) fL MCH (25.0-35.0) pg MCHC (31.0-37.0) g/dL RDW (11.5-15.5) % Plt Count (150-450) k/uL MPV Neutrophils % Neutrophils % (Manual) % Band Neuts % (Manual) % Lymphocytes % Lymphocytes % (Manual) % Monocytes % Monocytes % (Manual) % Eosinophils % Eosinophils % (Manual) % Basophils % Basophils % (Manual) % Neutrophils # Neutrophils # (Manual) (1.3-7.7) k/uL Lymphocytes # Lymphocytes # (Manual) (1.0-4.8) k/uL Monocytes # Monocytes # (Manual) (0-1.0) k/uL Eosinophils # Eosinophils # (Manual) (0-0.7) k/uL Basophils # Basophils # (Manual) (0-0.2) k/uL Nucleated RBCs (0-0) /100 WBC Manual Slide Review Polychromasia Hypochromasia Hypochromasia (manual) Poikilocytosis Poikilocytosis (manual Anisocytosis Anisocytosis (manual) Microcytosis Stomatocytes Sodium (137-145) mmol/L Potassium (3.5-5.1) mmol/L Chloride (98-107) mmol/L Carbon Dioxide (22-30) mmol/L Anion Gap mmol/L BUN (9-20) mg/dL Creatinine (0.66-1.25) mg/dL Est GFR (CKD-EPI)AfAm (>60 ml/min/1.73 sqM) Est GFR (CKD-EPI)NonAf (>60 ml/min/1.73 sqM) Glucose (74-99) mg/dL Plasma Lactic Acid Jeancarlos 2.9 H* (0.7-2.0) mmol/L Calcium (8.4-10.2) mg/dL Total Bilirubin (0.2-1.3) mg/dL AST (17-59) U/L ALT (4-49) U/L Alkaline Phosphatase (38-126) U/L Total Protein (6.3-8.2) g/dL Albumin (3.5-5.0) g/dL Amylase (30-110) U/L Lipase (23-300) U/L Urine Color Urine Appearance (Clear) Urine pH (5.0-8.0) Ur Specific Peterson (1.001-1.035) Urine Protein (Negative) Urine Glucose (UA) (Negative) Urine Ketones (Negative) Urine Blood (Negative) Urine Nitrite (Negative) Urine Bilirubin (Negative) Urine Urobilinogen (<2.0) mg/dL Ur Leukocyte Esterase (Negative) - Radiology Data Radiology results: report reviewed, image reviewed CT abdomen and pelvis is obtained with contrast. Report was reviewed in its entirety. Impression by Dr. Velazquez shows wall thickening of the large bowel is present and suggestive of inflammatory bowel disease. No bowel obstruction. No free air. Inflammatory changes appear increased compared to old exam. There is mixed air and soft tissue in fluid density at the posterior aspect of the rectum is increased compared to the old exam and could be intramural or perirectal abscess. Disposition Clinical Impression: GI bleed, Acute blood loss anemia, Rectal abscess, Ulcerative colitis Disposition: OTHER INSTITUTION NOT DEFINED Condition: Serious Referrals: None,Stated [Primary Care Provider] - 1-2 days - Out of Hospital Transfer - Req. Specs Out of Hospital Transfer - Requested Specifics: Other Emergency Center ([facility])
[2021-07-16 01:14] LABS: Anisocytosis Moderate; Hypochromasia Marked; MCH 17.6 pg (25.0-35.0); MCHC 25.4 g/dL (31.0-37.0); Microcytosis Marked; Platelet Count 792 k/uL (150-450); Poikilocytosis Moderate; RBC 2.54 m/uL (4.30-5.90); RDW 21.4 % (11.5-15.5); WBC 10.4 k/uL (3.8-10.6)
[2021-07-16 01:16] LABS: HCT 17.5 % (39.0-53.0); HGB 4.5 gm/dL (13.0-17.5)
[2021-07-16 01:17] LABS: MCV 69.1 fL (80.0-100.0)
--- NOTE | 2021-07-16 01:27 | CT ---
EXAMINATION TYPE: CT abdomen pelvis wo con DATE OF EXAM: 07/16/2021 COMPARISON: 05/31/2021 HISTORY: left flank pain CT DLP: 373.5 mGycm Automated exposure control for dose reduction was used. Images obtained from the diaphragm to the floor the pelvis with no contrast. Lung bases are clear. There is no pleural effusion. Heart size is normal. There is no pericardial eff usion. Liver spleen and stomach pancreas appear normal. The bile ducts are not dilated. Gallbladder appears normal. There is no adrenal mass. Kidneys show normal size and contour. There is no hydronephrosis. Ureters a re not dilated. There is no retroperitoneal adenopathy. Urinary bladder is almost empty. There is no pelvic mass. There is no free fluid in the pelvis. There is high density material in the distal small bowel that could be some medication. Small bowel i s not dilated. There is no mesenteric edema. There is no ascites or free air. There is no bowel obstruction. There a re some large bowel loops with mild wall thickening seen at the splenic flexure and descending colon. There is minimal fat stranding around the descending colon. There is also mild wall thickening of th e sigmoid colon. Right colon Also appears to show some wall thickening at the cecum. There is 4 x 2 cm area of mixed air and fluid density seen on the posterior aspect of the rectum. It is not clear if this is extraluminal abscess and perforation. The lumbar vertebrae have normal spacing and alignment. Posterior elements are intact. There is no co mpression fracture. The bony pelvis appears intact. IMPRESSION: Wall thickening of the large bowel is present and suggestive of inflammatory bowel disease. No bowel obstruction. No free air. Inflammatory changes appear increased compared to the old exam. There is mi xed air and soft tissue and fluid density at the posterior aspect of the rectum that is increased com pared to the old exam and could be intramural or perirectal abscess.
[2021-07-16 01:37] LABS: Appearance,Urine Clear (Clear); Bilirubin,Urine Negative (Negative); Blood,Urine Negative (Negative); Color,Urine Yellow; Glucose,Urine (UA) Negative (Negative); Ketones,Urine Negative (Negative); Leukocyte Esterase,Urine Negative (Negative); Nitrite,Urine Negative (Negative); Protein,Urine Trace (Negative); Specific Gravity,Urine 1.022 (1.001-1.035); Urobilinogen,Urine <2.0 mg/dL (<2.0)
[2021-07-16] MEDS ORDERED: PIPERACILLIN-TAZOBACTAM 3.375 GM in SODIUM CHLORIDE 0.9% 100 ML IVPB STA (01:37)
[2021-07-16] MEDS ORDERED: metroNIDAZOLE-NS PMX 500 MG in SALINE 1 100ML.BAG IVPB STA (01:37)
[2021-07-16 01:55] LABS: Prothrombin Time 10.5 sec (9.0-12.0)
[2021-07-16 01:57] LABS: Anisocytosis (M) Present; Band Neutrophils % 7 %; Eosinophils # (M) 0.73 k/uL (0-0.7); Hypochromasia (M) Present; Lymphocytes # (M) 3.12 k/uL (1.0-4.8); Monocytes # (M) 0.94 k/uL (0-1.0); Neutrophils % (M) 46 %; Nucleated Red Blood Cells 0 /100 WBC (0-0); Total Cells Counted 100
[2021-07-16 01:58] LABS: Poikilocytosis (M) Present; Polychromasia Present; Stomatocytes Present
[2021-07-16 02:18] VITALS: RESP 22
[2021-07-16 03:17] VITALS: BP 107/67; TEMP 98.2
[2021-07-16 03:28] VITALS: PULSE 78
== END 2021-07-16 03:20 | disposition other institution (70) ==
LOC: EC 00:02
DX: K92.2 Gastrointestinal hemorrhage, unspecified (principal); K51.90 Ulcerative colitis, unspecified, without complications; K61.1 Rectal abscess; D62 Acute posthemorrhagic anemia; K21.9 Gastro-esophageal reflux disease without esophagitis; F41.9 Anxiety disorder, unspecified; F17.200 Nicotine dependence, unspecified, uncomplicated; F12.90 Cannabis use, unspecified, uncomplicated
CPT/HCPCS: 99285; 96365; 96375 ×2; 96376; 96361; 36415; 86900; 86901; 80053; 85652; 82150; 83605; 83690; 85025; 85610; 85730; 86850; 86920; 86140; 81003; 87040; 87635; 74176; P9016; J2543; J2405; J1170

== ENCOUNTER 2021-09-13 08:06 | Emergency (ER) | payer OTHER ==
--- NOTE | 2021-09-13 08:41 | ED ---
Weakness HPI - General Chief complaint: Weakness Stated complaint: Weakness/Chest Pain Time Seen by Provider: 09/13/21 08:17 Source: patient, RN notes reviewed Mode of arrival: wheelchair Limitations: no limitations - History of Present Illness Initial comments: This a 35-year-old male presents emergency Department with chief complaint of abdominal discomfort, chest pain, shortness of breath. Patient states that this has been present for the last couple weeks. Patient states that he was admitted a few months ago at [facility] secondary to GI bleed patient has underlying ulcerative colitis he does receive infusions outpatient for this. Patient has persistent rectal bleeding which is nothing new for patient. Patient had anemia issues in the past and feels very similar. 6 short of breath denies any trauma. Patient denies any new medications. Patient hasn't palpitations. Patient states she's not had his hemoglobin checked recently. - Related Data Home Medications Medication Instructions Recorded Confirmed Pantoprazole Sodium [Protonix] 40 mg PO DAILY 09/13/21 09/13/21 predniSONE See Taper PO DAILY 09/13/21 09/13/21 Allergies Allergy/AdvReac Type Severity Reaction Status Date / Time No Known Allergies Allergy Verified 09/13/21 09:00 Review of Systems ROS Statement: Those systems with pertinent positive or pertinent negative responses have been documented in the HPI. ROS Other: All systems not noted in ROS Statement are negative. Past Medical History Past Medical History: GERD/Reflux Additional Past Medical History / Comment(s): Pt recently admitted to [facility] on 07/26/20 with acute ulcerative colitis exacerbation, acute blood loss anemia 2ndary to lower GI bleed/transfusion, hyperkalemia. Other hx: chronic low back pain. History of Any Multi-Drug Resistant Organisms: None Reported Past Surgical History: Orthopedic Surgery Additional Past Surgical History / Comment(s): left hand industrial accident/finger amputations, EGD, colonoscopy. Past Anesthesia/Blood Transfusion Reactions: No Reported Reaction Additional Past Anesthesia/Blood Transfusion Reaction / Comment(s): Pt recently received blood without reaction. Past Psychological History: Anxiety Smoking Status: Current every day smoker Past Alcohol Use History: None Reported Past Drug Use History: Marijuana - Past Family History Father History Unknown: Yes Mother Family Medical History: No Reported History Additional Family Medical History / Comment(s): Healthy. General Exam Limitations: no limitations General appearance: alert, in no apparent distress Head exam: Present: atraumatic, normocephalic, normal inspection Eye exam: Present: normal appearance, PERRL, EOMI. Absent: scleral icterus, conjunctival injection, periorbital swelling ENT exam: Present: normal exam, normal oropharynx, mucous membranes moist Neck exam: Present: normal inspection, full ROM. Absent: tenderness, meningismus, lymphadenopathy Respiratory exam: Present: normal lung sounds bilaterally. Absent: respiratory distress, wheezes, rales, rhonchi, stridor Cardiovascular Exam: Present: normal rhythm, tachycardia, normal heart sounds. Absent: systolic murmur, diastolic murmur, rubs, gallop, clicks GI/Abdominal exam: Present: soft, tenderness, normal bowel sounds. Absent: distended, guarding, rebound, rigid Course Vital Signs 09/13/21 09/13/21 09/13/21 08:13 09:02 09:50 Temperature 98.1 F Pulse Rate 115 H 88 89 Respiratory 18 16 Rate Blood Pressure 111/50 110/59 O2 Sat by Pulse 90 L 98 97 Oximetry EKG Findings - EKG Comments: EKG Findings:: EKG a: 26 sinus rhythm with a rate of 95 NV 129 source any 90 QT status QTC 346/398 Medical Decision Making - Medical Decision Making 35-year-old male presented from for shortness of breath, chest discomfort. Patient's EKG did not reveal any acute changes. Patient's been having chronic rectal bleeding and which has also colitis. Patient was recently admitted and outside facility for similar complaints. Patient's hemoglobin is 2.1. 2 units of blood were immediately ordered. We currently do not have GI services a did talk to current hospitalists recommend patient to be transferred to facility with GI. I did discuss the case with Janey Singh accepts transfer - Lab Data Result diagrams: 09/13/21 09:48 09/13/21 08:57 Lab Results 09/13/21 09/13/21 09/13/21 Range/Units 08:57 08:57 08:57 WBC 8.1 (3.8-10.6) k/uL RBC 1.63 L (4.30-5.90) m/uL Hgb 2.4 L* D (13.0-17.5) gm/dL Hct 10.2 L* (39.0-53.0) % MCV 62.4 L D (80.0-100.0) fL MCH 14.5 L (25.0-35.0) pg MCHC 23.2 L (31.0-37.0) g/dL RDW 22.3 H (11.5-15.5) % Plt Count 775 H (150-450) k/uL MPV 7.7 Neutrophils % (Manual) 71 % Band Neuts % (Manual) 2 % Lymphocytes % (Manual) 18 % Monocytes % (Manual) 9 % Neutrophils # (Manual) 5.90 (1.3-7.7) k/uL Lymphocytes # (Manual) 1.46 (1.0-4.8) k/uL Monocytes # (Manual) 0.73 (0-1.0) k/uL Nucleated RBCs 0 (0-0) /100 WBC Manual Slide Review Performed Hypochromasia Marked Hypochromasia (manual) Present Poikilocytosis Marked Poikilocytosis (manual Present Anisocytosis Moderate Microcytosis Marked Rouleaux Present APTT 18.2 L (22.0-30.0) sec Sodium 132 L (137-145) mmol/L Potassium 4.4 (3.5-5.1) mmol/L Chloride 101 (98-107) mmol/L Carbon Dioxide 23 (22-30) mmol/L Anion Gap 8 mmol/L BUN 10 (9-20) mg/dL Creatinine 0.96 (0.66-1.25) mg/dL Est GFR (CKD-EPI)AfAm >90 (>60 ml/min/1.73 sqM) Est GFR (CKD-EPI)NonAf >90 (>60 ml/min/1.73 sqM) Glucose 102 H (74-99) mg/dL Calcium 7.7 L (8.4-10.2) mg/dL Magnesium 1.9 (1.6-2.3) mg/dL Total Bilirubin 0.3 (0.2-1.3) mg/dL AST 42 (17-59) U/L ALT 9 (4-49) U/L Alkaline Phosphatase 51 (38-126) U/L Troponin I (0.000-0.034) ng/mL Total Protein 5.7 L (6.3-8.2) g/dL Albumin 2.5 L (3.5-5.0) g/dL Lipase 102 (23-300) U/L Blood Type Blood Type Recheck Bld Type Recheck Status Antibody Screen Crossmatch Spec Expiration Date 09/13/21 09/13/21 09/13/21 Range/Units 08:57 08:58 09:48 WBC 8.1 (3.8-10.6) k/uL RBC 1.50 L (4.30-5.90) m/uL Hgb 2.1 L* (13.0-17.5) gm/dL Hct 9.2 L* (39.0-53.0) % MCV 61.8 L (80.0-100.0) fL MCH 14.1 L (25.0-35.0) pg MCHC 22.9 L (31.0-37.0) g/dL RDW 22.0 H (11.5-15.5) % Plt Count 631 H (150-450) k/uL MPV 6.3 Neutrophils % (Manual) % Band Neuts % (Manual) % Lymphocytes % (Manual) % Monocytes % (Manual) % Neutrophils # (Manual) (1.3-7.7) k/uL Lymphocytes # (Manual) (1.0-4.8) k/uL Monocytes # (Manual) (0-1.0) k/uL Nucleated RBCs (0-0) /100 WBC Manual Slide Review Hypochromasia Marked Hypochromasia (manual) Poikilocytosis Moderate Poikilocytosis (manual Anisocytosis Moderate Microcytosis Marked Rouleaux APTT (22.0-30.0) sec Sodium (137-145) mmol/L Potassium (3.5-5.1) mmol/L Chloride (98-107) mmol/L Carbon Dioxide (22-30) mmol/L Anion Gap mmol/L BUN (9-20) mg/dL Creatinine (0.66-1.25) mg/dL Est GFR (CKD-EPI)AfAm (>60 ml/min/1.73 sqM) Est GFR (CKD-EPI)NonAf (>60 ml/min/1.73 sqM) Glucose (74-99) mg/dL Calcium (8.4-10.2) mg/dL Magnesium (1.6-2.3) mg/dL Total Bilirubin (0.2-1.3) mg/dL AST (17-59) U/L ALT (4-49) U/L Alkaline Phosphatase (38-126) U/L Troponin I <0.012 (0.000-0.034) ng/mL Total Protein (6.3-8.2) g/dL Albumin (3.5-5.0) g/dL Lipase (23-300) U/L Blood Type B Positive Blood Type Recheck B Pos Bld Type Recheck Status No Antibody Screen NEGATIVE Crossmatch See Detail Spec Expiration Date 09/16/20212357 Critical Care Time Critical Care Time: Yes Total Critical Care Time: 35 Disposition Clinical Impression: Anemia, GI bleed, Ulcerative colitis Disposition: OTHER INSTITUTION NOT DEFINED Condition: Serious Referrals: None,Stated [Primary Care Provider] - 1-2 days Time of Disposition: 10:44 - Out of Hospital Transfer - Req. Specs Out of Hospital Transfer - Requested Specifics: Other Emergency Center ([facility])
[2021-09-13] MEDS ORDERED: MORPHINE SULFATE 4 MG/ML SYRINGE IVP STA (09:26)
[2021-09-13 09:28] LABS: Anisocytosis Moderate; Hypochromasia Marked; MCH 14.5 pg (25.0-35.0); MCHC 23.2 g/dL (31.0-37.0); MCV 62.4 fL (80.0-100.0); Mean Platelet Volume 7.7; Microcytosis Marked; Platelet Count 775 k/uL (150-450); Poikilocytosis Marked; RBC 1.63 m/uL (4.30-5.90); RDW 22.3 % (11.5-15.5); WBC 8.1 k/uL (3.8-10.6)
[2021-09-13 09:33] LABS: HCT 10.2 % (39.0-53.0); HGB 2.4 gm/dL (13.0-17.5)
--- NOTE | 2021-09-13 09:34 | XR ---
EXAMINATION TYPE: XR chest 2V DATE OF EXAM: 09/13/2021 COMPARISON: 11/22/2020 HISTORY: 35 year-old male shortness of breath, history of ulcerative colitis with low hemoglobin toda y. Shortness of breath, feeling weak. TECHNIQUE: AP and lateral views FINDINGS: Heart limits of normal in size, likely magnification from AP technique. Aorta and pulmonary vasculatu re within normal limits. No consolidation or pleural effusion. IMPRESSION: No acute cardiopulmonary process.
[2021-09-13 09:38] LABS: ALT 9 U/L (4-49); AST 42 U/L (17-59); African American GFR (CKD) >90 (>60 ml/min/1.73 sqM); Albumin 2.5 g/dL (3.5-5.0); Alkaline Phosphatase 51 U/L (38-126); Anion Gap 8 mmol/L; Blood Urea Nitrogen 10 mg/dL (9-20); Calcium 7.7 mg/dL (8.4-10.2); Carbon Dioxide 23 mmol/L (22-30); Chloride 101 mmol/L (98-107); Glucose 102 mg/dL (74-99); Lipase 102 U/L (23-300); Magnesium 1.9 mg/dL (1.6-2.3); Non-African American GFR(CKD) >90 (>60 ml/min/1.73 sqM); Potassium 4.4 mmol/L (3.5-5.1); Sodium 132 mmol/L (137-145); Total Bilirubin 0.3 mg/dL (0.2-1.3); Total Protein 5.7 g/dL (6.3-8.2)
[2021-09-13 10:11] LABS: Anisocytosis Moderate; Hypochromasia Marked; MCH 14.1 pg (25.0-35.0); MCHC 22.9 g/dL (31.0-37.0); MCV 61.8 fL (80.0-100.0); Mean Platelet Volume 6.3; Microcytosis Marked; Platelet Count 631 k/uL (150-450); Poikilocytosis Moderate; WBC 8.1 k/uL (3.8-10.6)
[2021-09-13 10:12] LABS: Band Neutrophils % 2 %; Hypochromasia (M) Present; Lymphocytes # (M) 1.46 k/uL (1.0-4.8); Monocytes # (M) 0.73 k/uL (0-1.0); Neutrophils % (M) 71 %; Nucleated Red Blood Cells 0 /100 WBC (0-0); Rouleaux Present; Total Cells Counted 100
[2021-09-13 10:13] LABS: HCT 9.2 % (39.0-53.0)
[2021-09-13 10:13] LABS: Poikilocytosis (M) Present
[2021-09-13 10:14] LABS: HGB 2.1 gm/dL (13.0-17.5)
[2021-09-13] MEDS ORDERED: PANTOPRAZOLE 40 MG/10 ML VIAL IVP STA (10:43)
[2021-09-13 11:44] VITALS: RESP 18; TEMP 98
[2021-09-13 11:57] VITALS: BP 109/69; PULSE 89
== END 2021-09-13 11:57 | disposition other institution (70) ==
LOC: EC 08:06
DX: K92.2 Gastrointestinal hemorrhage, unspecified (principal); K51.90 Ulcerative colitis, unspecified, without complications; D64.9 Anemia, unspecified; K21.9 Gastro-esophageal reflux disease without esophagitis; F17.200 Nicotine dependence, unspecified, uncomplicated; F12.90 Cannabis use, unspecified, uncomplicated
CPT/HCPCS: 36415; 93005; 86900; 86901; 80053; 83690; 83735; 84484; 85025; 85027; 85730; 86850; 86920; 71046; 99291; 96374; 96375; P9016; J2270; C9113

== ENCOUNTER 2021-09-27 02:10 | Emergency (ER) | payer OTHER ==
[2021-09-27 02:36] VITALS: TEMP 98.6
[2021-09-27] MEDS ORDERED: SODIUM CHLORIDE 0.9% 1,000 ML IV STA (04:24)
[2021-09-27] MEDS ORDERED: MORPHINE SULFATE 4 MG/ML SYRINGE IV STA (04:24)
--- NOTE | 2021-09-27 04:27 | ED ---
Abdominal Pain HPI - General Chief Complaint: Abdominal Pain Stated Complaint: Abd Pain Source: patient, EMS Mode of arrival: EMS Limitations: no limitations - History of Present Illness Initial Comments: Festus is a 36-year-old male with a history of ulcerative colitis who presents to the ER today for evaluation of left-sided abdominal pain. Patient reports that he was recently admitted to [facility], he states that during that admission he had a colonoscopy, they increased his dose of steroids and started him on Remicade, he had 2 infusions while hospitalized. Patient reports she was discharged on the afternoon of the but since his pain is progressively worsened, tonight it is unbearable. Patient reports he has persistent diarrhea and no vomiting. No fevers or chills. - Related Data Home Medications Medication Instructions Recorded Confirmed Pantoprazole Sodium [Protonix] 40 mg PO DAILY 09/13/21 09/13/21 predniSONE See Taper PO DAILY 09/13/21 09/13/21 Allergies Allergy/AdvReac Type Severity Reaction Status Date / Time No Known Allergies Allergy Verified 09/13/21 09:00 Review of Systems ROS Statement: Those systems with pertinent positive or pertinent negative responses have been documented in the HPI. ROS Other: All systems not noted in ROS Statement are negative. Past Medical History Past Medical History: GERD/Reflux Additional Past Medical History / Comment(s): Pt admitted 07/26/20 with acute US exacerbation, acute blood loss anemia lower GI bleed, recieved transfusion History of Any Multi-Drug Resistant Organisms: None Reported Past Surgical History: Orthopedic Surgery Additional Past Surgical History / Comment(s): left hand industrial accident/finger amputations, EGD, colonoscopy. Past Anesthesia/Blood Transfusion Reactions: No Reported Reaction Additional Past Anesthesia/Blood Transfusion Reaction / Comment(s): Pt received blood 07/2020 without reaction. Past Psychological History: Anxiety Smoking Status: Current every day smoker Past Alcohol Use History: None Reported Past Drug Use History: Marijuana - Past Family History Father History Unknown: Yes Mother Family Medical History: No Reported History Additional Family Medical History / Comment(s): Healthy. General Exam - General Exam Comments Initial Comments: Physical Exam GENERAL: Chronically ill appearing, thin HENT: Normocephalic, Atraumatic. EYES: PERRL, EOMI PULMONARY: Unlabored respirations. No audible rales rhonchi or wheezing was noted. CARDIOVASCULAR: Tachycardic, regular ABDOMEN: Soft Tenderness LEFT > RIGHT SKIN: Skin is clear with no lesions or rashes and otherwise unremarkable. : Deferred NEUROLOGIC: Patient is alert and oriented x3. Moving all extremities spontaneously MUSCULOSKELETAL: LEFT finger amputations PSYCHIATRIC: Normal psychiatric evaluation. Limitations: no limitations Course Vital Signs 09/27/21 09/27/21 09/27/21 02:30 02:35 03:35 Temperature 98.6 F Pulse Rate 118 H 120 H Respiratory 20 28 H Rate Blood Pressure 117/79 133/99 121/90 O2 Sat by Pulse 98 95 Oximetry 09/27/21 09/27/21 05:00 06:35 Temperature Pulse Rate 107 H 100 Respiratory 24 20 Rate Blood Pressure 107/61 103/70 O2 Sat by Pulse 98 98 Oximetry Medical Decision Making - Medical Decision Making The patient was seen and evaluated, history is obtained from the patient Patient did have a large volume bright red bowel movement upon arrival in the emergency department He remains hemodynamically stable Hemoglobin today is 10.3 uncertain what his hemoglobin was at discharge from [facility] however he does report that he was no longer experiencing bright r ed blood per rectum Patient received morphine for pain management, patient care was discussed with Dr. Delgado at [facility] who accepts the ER to ER transfer - Lab Data Result diagrams: 09/27/21 04:52 09/27/21 04:52 Lab Results 09/27/21 09/27/21 Range/Units 04:52 04:52 WBC 16.1 H (3.8-10.6) k/uL RBC 4.23 L (4.30-5.90) m/uL Hgb 10.3 L D (13.0-17.5) gm/dL Hct 34.1 L (39.0-53.0) % MCV 80.6 D (80.0-100.0) fL MCH 24.4 L (25.0-35.0) pg MCHC 30.2 L (31.0-37.0) g/dL RDW 23.6 H (11.5-15.5) % Plt Count 901 H (150-450) k/uL MPV 6.9 Neutrophils % 79 % Lymphocytes % 15 % Monocytes % 4 % Eosinophils % 1 % Basophils % 0 % Neutrophils # 12.7 H (1.3-7.7) k/uL Lymphocytes # 2.4 (1.0-4.8) k/uL Monocytes # 0.7 (0-1.0) k/uL Eosinophils # 0.1 (0-0.7) k/uL Basophils # 0.0 (0-0.2) k/uL Hypochromasia Marked Poikilocytosis Moderate Anisocytosis Moderate Microcytosis Moderate Sodium 127 L (137-145) mmol/L Potassium 4.3 (3.5-5.1) mmol/L Chloride 94 L (98-107) mmol/L Carbon Dioxide 27 (22-30) mmol/L Anion Gap 6 mmol/L BUN 21 H (9-20) mg/dL Creatinine 0.75 (0.66-1.25) mg/dL Est GFR (CKD-EPI)AfAm >90 (>60 ml/min/1.73 sqM) Est GFR (CKD-EPI)NonAf >90 (>60 ml/min/1.73 sqM) Glucose 74 (74-99) mg/dL Calcium 8.5 (8.4-10.2) mg/dL Total Bilirubin 0.8 (0.2-1.3) mg/dL AST 35 (17-59) U/L ALT 12 (4-49) U/L Alkaline Phosphatase 54 (38-126) U/L Total Protein 5.7 L (6.3-8.2) g/dL Albumin 2.7 L (3.5-5.0) g/dL Lipase 44 (23-300) U/L Disposition Clinical Impression: BRBPR (bright red blood per rectum), Ulcerative colitis, Anemia, GI bleed Disposition: OTHER INSTITUTION NOT DEFINED Condition: Serious Referrals: None,Stated [Primary Care Provider] - 1-2 days - Out of Hospital Transfer - Req. Specs Out of Hospital Transfer - Requested Specifics: Other Emergency Center ([facility]ney
[2021-09-27 05:12] LABS: Anisocytosis Moderate; Basophils % (A) 0 %; Eosinophils # (A) 0.1 k/uL (0-0.7); Eosinophils % (A) 1 %; HCT 34.1 % (39.0-53.0); Hypochromasia Marked; Lymphocytes # (A) 2.4 k/uL (1.0-4.8); Lymphocytes % (A) 15 %; MCH 24.4 pg (25.0-35.0); MCHC 30.2 g/dL (31.0-37.0); Mean Platelet Volume 6.9; Microcytosis Moderate; Monocytes # (A) 0.7 k/uL (0-1.0); Monocytes % (A) 4 %; Neutrophils # (A) 12.7 k/uL (1.3-7.7); Neutrophils % (A) 79 %; Platelet Count 901 k/uL (150-450); Poikilocytosis Moderate; RBC 4.23 m/uL (4.30-5.90); RDW 23.6 % (11.5-15.5); WBC 16.1 k/uL (3.8-10.6)
[2021-09-27 05:14] LABS: HGB 10.3 gm/dL (13.0-17.5); MCV 80.6 fL (80.0-100.0)
[2021-09-27 05:49] LABS: ALT 12 U/L (4-49); AST 35 U/L (17-59); African American GFR (CKD) >90 (>60 ml/min/1.73 sqM); Albumin 2.7 g/dL (3.5-5.0); Alkaline Phosphatase 54 U/L (38-126); Anion Gap 6 mmol/L; Blood Urea Nitrogen 21 mg/dL (9-20); Calcium 8.5 mg/dL (8.4-10.2); Carbon Dioxide 27 mmol/L (22-30); Chloride 94 mmol/L (98-107); Glucose 74 mg/dL (74-99); Lipase 44 U/L (23-300); Non-African American GFR(CKD) >90 (>60 ml/min/1.73 sqM); Potassium 4.3 mmol/L (3.5-5.1); Sodium 127 mmol/L (137-145); Total Bilirubin 0.8 mg/dL (0.2-1.3); Total Protein 5.7 g/dL (6.3-8.2)
[2021-09-27 06:37] VITALS: RESP 20
[2021-09-27] MEDS ORDERED: MORPHINE SULFATE 4 MG/ML SYRINGE IVP STA (06:50)
[2021-09-27 07:03] VITALS: BP 112/73; PULSE 93
== END 2021-09-27 07:40 | disposition other institution (70) ==
LOC: EC 02:10
DX: K51.911 Ulcerative colitis, unspecified with rectal bleeding (principal); D64.9 Anemia, unspecified; K92.2 Gastrointestinal hemorrhage, unspecified; K21.9 Gastro-esophageal reflux disease without esophagitis; F17.200 Nicotine dependence, unspecified, uncomplicated; F12.90 Cannabis use, unspecified, uncomplicated; Z79.899 Other long term (current) drug therapy
CPT/HCPCS: 36415; 80053; 83690; 85025; 99285; 96374; 96376; 96361; J2270

== ENCOUNTER 2021-10-05 14:05 | Emergency (ER) | payer OTHER ==
[2021-10-05 14:19] VITALS: TEMP 98.8
[2021-10-05] MEDS ORDERED: HYDROmorphone 0.5 MG/0.5 ML SYRINGE IVP STA ×2 (16:23→18:11)
[2021-10-05] MEDS ORDERED: diphenhydrAMINE 50 MG/ML 1 ML VIAL IVP STA (16:24)
[2021-10-05] MEDS ORDERED: SODIUM CHLORIDE 0.9% 1,000 ML IV STA (16:32)
[2021-10-05] MEDS ORDERED: ONDANSETRON 4 MG/2 ML VIAL IVP STA (16:32)
[2021-10-05 17:19] LABS: ALT 14 U/L (4-49); AST 31 U/L (17-59); African American GFR (CKD) >90 (>60 ml/min/1.73 sqM); Albumin 2.8 g/dL (3.5-5.0); Alkaline Phosphatase 48 U/L (38-126); Amylase 37 U/L (30-110); Anion Gap 1 mmol/L; Blood Urea Nitrogen 8 mg/dL (9-20); Calcium 8.4 mg/dL (8.4-10.2); Carbon Dioxide 33 mmol/L (22-30); Chloride 97 mmol/L (98-107); Glucose 72 mg/dL (74-99); Lipase 42 U/L (23-300); Non-African American GFR(CKD) >90 (>60 ml/min/1.73 sqM); Potassium 4.2 mmol/L (3.5-5.1); Sodium 131 mmol/L (137-145); Total Bilirubin 0.6 mg/dL (0.2-1.3); Total Protein 5.8 g/dL (6.3-8.2)
[2021-10-05 17:33] LABS: Anisocytosis Moderate; Basophils % (A) 0 %; Eosinophils # (A) 0.3 k/uL (0-0.7); Eosinophils % (A) 3 %; HCT 30.5 % (39.0-53.0); HGB 9.2 gm/dL (13.0-17.5); Hypochromasia Marked; Lymphocytes # (A) 1.6 k/uL (1.0-4.8); Lymphocytes % (A) 14 %; MCV 83.2 fL (80.0-100.0); Mean Platelet Volume 7.6; Microcytosis Slight; Monocytes # (A) 0.4 k/uL (0-1.0); Monocytes % (A) 4 %; Neutrophils # (A) 8.6 k/uL (1.3-7.7); Neutrophils % (A) 78 %; Platelet Count 460 k/uL (150-450); Poikilocytosis Slight; RBC 3.67 m/uL (4.30-5.90)
--- NOTE | 2021-10-05 17:58 | ED ---
Abdominal Pain HPI - General Chief Complaint: Abdominal Pain Stated Complaint: Abd Pain,Post surgical Time Seen by Provider: 10/05/21 16:19 Source: patient, RN notes reviewed Mode of arrival: ambulatory Limitations: no limitations - History of Present Illness Initial Comments: This is a 36 year old male with a past medical history of ulcerative colitis who presents to the emergency department for abdominal pain that he believes is secondary to a postop infection. On 09/28 he had a total colectomy with colostomy placement at [facility] with Dr. Bob Levy. States that yesterday, he began to experience lower abdominal pain that has continued to p rogress. Denies any fevers. Patient is in significant distress during evaluation and has difficulty answering questions and providing adequate history. MD Complaint: abdominal pain Onset/Timin -: days(s) - Related Data Home Medications Medication Instructions Recorded Confirmed Acetaminophen Tab [Tylenol] 650 mg PO Q4H PRN 10/05/21 10/05/21 Enoxaparin [Lovenox] 40 mg SQ HS 10/05/21 10/05/21 Mesalamine [Canasa] 1,000 mg RECTAL BID 10/05/21 10/05/21 Naloxone HCl 4 mg NS ONCE PRN 10/05/21 10/05/21 Oxycodone Myristate [Xtampza ER] See Taper PO DIRECTED 10/05/21 10/05/21 methocarbamoL [Robaxin] 750 mg PO QID PRN 10/05/21 10/05/21 oxyCODONE HCL [oxyCODONE HCL (IR)] 10 mg PO Q4H PRN 10/05/21 10/05/21 Allergies Allergy/AdvReac Type Severity Reaction Status Date / Time No Known Allergies Allergy Verified 10/05/21 16:47 Review of Systems ROS Statement: Those systems with pertinent positive or pertinent negative responses have been documented in the HPI. ROS Other: All systems not noted in ROS Statement are negative. Constitutional: Denies: fever, chills ENT: Denies: ear pain, throat pain Respiratory: Denies: cough, dyspnea Cardiovascular: Denies: chest pain, palpitations Endocrine: Reports: fatigue Gastrointestinal: Reports: abdominal pain Musculoskeletal: Denies: back pain Skin: Denies: rash Neurological: Denies: headache Past Medical History Past Medical History: GERD/Reflux Additional Past Medical History / Comment(s): Pt admitted 07/26/20 with acute US exacerbation, acute blood loss anemia lower GI bleed, recieved transfusion History of Any Multi-Drug Resistant Organisms: None Reported Past Surgical History: Orthopedic Surgery Additional Past Surgical History / Comment(s): left hand industrial accident/finger amputations, EGD, colonoscopy. Past Anesthesia/Blood Transfusion Reactions: No Reported Reaction Additional Past Anesthesia/Blood Transfusion Reaction / Comment(s): Pt received blood 07/2020 without reaction. Past Psychological History: Anxiety Smoking Status: Current every day smoker Past Alcohol Use History: None Reported Past Drug Use History: Marijuana - Past Family History Father History Unknown: Yes Mother Family Medical History: No Reported History Additional Family Medical History / Comment(s): Healthy. General Exam Limitations: no limitations General appearance: alert, in distress Head exam: Present: atraumatic, normocephalic, normal inspection Respiratory exam: Present: normal lung sounds bilaterally. Absent: respiratory distress, wheezes, rales, rhonchi, stridor Cardiovascular Exam: Present: regular rate, normal rhythm, normal heart sounds. Absent: systolic murmur, diastolic murmur, rubs, gallop, clicks GI/Abdominal exam: Present: other (Right colostomy bag in place. Lower abdominal erythema, increased heat, and induration, inferior to the colostomy pouch.) Neurological exam: Present: alert, oriented X3, CN II-XII intact Psychiatric exam: Present: normal affect, normal mood Skin exam: Present: warm, dry Course Vital Signs 10/05/21 14:17 Temperature 98.8 F Pulse Rate 105 H Respiratory 22 Rate Blood Pressure 124/64 O2 Sat by Pulse 99 Oximetry Medical Decision Making - Medical Decision Making This is a 36 year old male who presents to the emergency department for abdominal pain. Lab work revealed a mildly elevated WBC of 11.0. CT of the abd/pelvis revealed a left abdominal wall myofascial plane fluid collection suggestive of a hematoma or seroma. There is an anterior subcutaneous fluid collection likely representing hematoma/seroma with focus of gas. Abscess not entirely excluded. Intra-abdominal hemoperitoneum is present, however at this may be seen up to 14 days after recent surgery. Patient will be transferred to [facility] for further evaluation by colon-rectal surgery for continuity of care, as that is where is surgery took place on 09/28. Dr. Jaswant Holliday is the accepting physician. Patient given one dose of Zosyn in the emergency department along with Dilauded, Benadryl, and Zofran. This case was discussed in detail with the attending ED physician. Presentation, findings, and treatment plan discussed in detail as well. - Lab Data Result diagrams: 10/05/21 16:51 10/05/21 16:51 Lab Results 10/05/21 10/05/21 10/05/21 Range/Units 16:51 16:51 16:51 WBC 11.0 H (3.8-10.6) k/uL RBC 3.67 L (4.30-5.90) m/uL Hgb 9.2 L (13.0-17.5) gm/dL Hct 30.5 L (39.0-53.0) % MCV 83.2 (80.0-100.0) fL MCH 25.0 (25.0-35.0) pg MCHC 30.0 L (31.0-37.0) g/dL RDW 22.0 H (11.5-15.5) % Plt Count 460 H (150-450) k/uL MPV 7.6 Neutrophils % 78 % Lymphocytes % 14 % Monocytes % 4 % Eosinophils % 3 % Basophils % 0 % Neutrophils # 8.6 H (1.3-7.7) k/uL Lymphocytes # 1.6 (1.0-4.8) k/uL Monocytes # 0.4 (0-1.0) k/uL Eosinophils # 0.3 (0-0.7) k/uL Basophils # 0.0 (0-0.2) k/uL Hypochromasia Marked Poikilocytosis Slight Anisocytosis Moderate Microcytosis Slight Sodium 131 L (137-145) mmol/L Potassium 4.2 (3.5-5.1) mmol/L Chloride 97 L (98-107) mmol/L Carbon Dioxide 33 H (22-30) mmol/L Anion Gap 1 mmol/L BUN 8 L (9-20) mg/dL Creatinine 0.73 (0.66-1.25) mg/dL Est GFR (CKD-EPI)AfAm >90 (>60 ml/min/1.73 sqM) Est GFR (CKD-EPI)NonAf >90 (>60 ml/min/1.73 sqM) Glucose 72 L (74-99) mg/dL Plasma Lactic Acid Jeancarlos 1.0 (0.7-2.0) mmol/L Calcium 8.4 (8.4-10.2) mg/dL Total Bilirubin 0.6 (0.2-1.3) mg/dL AST 31 (17-59) U/L ALT 14 (4-49) U/L Alkaline Phosphatase 48 (38-126) U/L Total Protein 5.8 L (6.3-8.2) g/dL Albumin 2.8 L (3.5-5.0) g/dL Amylase 37 (30-110) U/L Lipase 42 (23-300) U/L - Radiology Data Radiology results: report reviewed, image reviewed Disposition Clinical Impression: Ulcerative colitis, Seroma, postoperative Disposition: OTHER INSTITUTION NOT DEFINED Referrals: Nonstaff,Physician [Primary Care Provider] - 1-2 days - Out of Hospital Transfer - Req. Specs Out of Hospital Transfer - Requested Specifics: Other Emergency Center ([facility])
--- NOTE | 2021-10-05 18:12 | CT ---
EXAMINATION TYPE: CT abdomen pelvis w con CT DLP: 670.3 mGycm, Automated exposure control for dose reduction was used. DATE OF EXAM: 10/05/2021 5:42 PM COMPARISON: CT abdomen pelvis most recent from 07/16/2021. . CLINICAL INDICATION:Male, 36 years old with history of postop abdominal pain; abdominal pain. recent colostomy sx TECHNIQUE: Standard CT of the abdomen and pelvis following the administration of 100 cc of Isovue 3 00 IV contrast material. Coronal and sagittal reformats were performed. FINDINGS: LOWER CHEST: Unremarkable ABDOMEN LIVER: Unremarkable GALLBLADDER AND BILE DUCTS: Unremarkable. PANCREAS: Unremarkable. SPLEEN: Unremarkable. ADRENAL GLANDS: Unremarkable. KIDNEYS AND URETERS: No evidence of hydronephrosis or renal calculus. The ureters are unremarkable. PELVIS BLADDER: Unremarkable REPRODUCTIVE: Unremarkable. ABDOMEN & PELVIS STOMACH AND BOWEL: There is a right colostomy present. There is no evidence of bowel obstruction. Lar ge amount stool within the rectum. Bowel enhancement appears uniform throughout the abdomen. PERITONEUM: Free air within the abdomen around the liver and around the right kidney consistent with provided history of recent surgery. VASCULATURE: No evidence of aortic aneurysm. MUSCULOSKELETAL: No acute osseous abnormalities. LYMPH NODES: No gross evidence for lymphadenopathy. SOFT TISSUE/ABDOMINAL WALL: Fluid within the left abdominal wall myofascial planes. Additional anteri or abdominal wall subcutaneous fluid collection measuring 4.5 x 1.5 x 2.1 cm there is a focus of gas within this collection. IMPRESSION: 1. Left abdominal wall myofascial plane fluid collection which may represent hematoma and/or seroma. 2. Anterior subcutaneous fluid collection likely representing hematoma/seroma with focus of gas. Absc ess not entirely excluded correlate with date of surgical intervention. 3. Postsurgical colostomy with intra-abdominal pneumoperitoneum which can be seen up to 14 days after recent surgery.
[2021-10-05] MEDS ORDERED: PIPERACILLIN-TAZOBACTAM 3.375 GM in SODIUM CHLORIDE 0.9% 100 ML IVPB STA (18:30)
[2021-10-05 21:40] VITALS: BP 101/64; PULSE 82; RESP 16
== END 2021-10-05 22:33 | disposition other institution (70) ==
LOC: EC 14:05
DX: K51.90 Ulcerative colitis, unspecified, without complications (principal); K91.873 Postprocedural seroma of a digestive system organ or structure following other procedure; K21.9 Gastro-esophageal reflux disease without esophagitis; F17.200 Nicotine dependence, unspecified, uncomplicated; F12.90 Cannabis use, unspecified, uncomplicated; F41.9 Anxiety disorder, unspecified; Z79.899 Other long term (current) drug therapy; Z93.3 Colostomy status
CPT/HCPCS: 36415; 80053; 82150; 83605; 83690; 85025; 87635; 74177; 99285; 96365; 96375 ×3; 96376; 96361 ×2; J2543; J1200; J2405; J1170; Q9967